=== PATIENT | female | born 1965 | race Caucasian/White ===

== ENCOUNTER → 2016-11-03 | Outpatient (CLI) | payer BC ==
[2016-11-03 13:53] LABS: Basophils % (A) 0 %; CH 30.9; CHCM 32.1; Eosinophils # (A) 0.1 k/uL (0-0.7); Eosinophils % (A) 1 %; HCT 42.5 % (34.0-46.0); HDW 2.31; HGB 13.5 gm/dL (11.4-16.0); Luc % (Auto) 2; Lymphocytes % (A) 30 %; MCH 30.6 pg (25.0-35.0); MCHC 31.7 g/dL (31.0-37.0); MCV 96.7 fL (80.0-100.0); Mean Platelet Volume 7.3; Monocytes # (A) 0.4 k/uL (0-1.0); Monocytes % (A) 4 %; Neutrophils # (A) 6.4 k/uL (1.3-7.7); Neutrophils % (A) 63 %; RDW 13.3 % (11.5-15.5); WBC 10.2 k/uL (3.8-10.6); WBC (Perox) 10.16
[2016-11-03 14:02] LABS: ALT 30 U/L (9-52); AST 28 U/L (14-36); Alkaline Phosphatase 129 U/L (38-126); Anion Gap 13 mmol/L; Blood Urea Nitrogen 20 mg/dL (7-17); Calcium 9.4 mg/dL (8.4-10.2); Carbon Dioxide 25 mmol/L (22-30); Chloride 103 mmol/L (98-107); Glucose 109 mg/dL (74-99); Non-African American GFR(MDRD) >60 (>60 ml/min/1.73 sqM); Sodium 141 mmol/L (137-145); Total Bilirubin 0.6 mg/dL (0.2-1.3); Total Protein 7.5 g/dL (6.3-8.2)
[2016-11-03 14:04] LABS: Potassium 4.2 mmol/L (3.5-5.1); Rheumatoid Factor, Qnt <9 IU/mL (<12)
[2016-11-03 15:03] LABS: Erythrocyte Sedimentation Rate 20 mm/hr (0-20)
== END ==
LOC: LABWHC1 13:01
PROVIDERS: ATTEND Psychiatry & Neurology Neurology
DX: Z51.81 Encounter for therapeutic drug level monitoring (principal); Z79.899 Other long term (current) drug therapy
CPT/HCPCS: 36415; 80053; 85025; 85652; 86038; 86431

== ENCOUNTER → 2017-04-28 | Outpatient (CLI) | payer BC ==
--- NOTE | 2017-04-28 09:00 | CT ---
EXAMINATION TYPE: CT chest wo/w con DATE OF EXAM: 04/28/2017 COMPARISON: 04/16/2012 HISTORY: Pulmonary fibrosis, cough, SOB CT DLP: 341.9 mGycm Automated exposure control for dose reduction was used. CONTRAST: CT scan of the chest is performed without and with IV Contrast, patient injected with 100 mL of Omnip aque 300. FINDINGS: LUNGS: Subsegmental changes are seen involving the lungs. There are multiple punctate 1 to 2 mm pulmo nary nodules noted bilaterally. Subsegmental areas of consolidation are suggestive of scar or atelect asis. Interlobular septal thickening noted compatible with mild chronic interstitial lung disease. No consolidative pneumonia, pleural effusion or pneumothorax. Pleural-based calcifications also noted. MEDIASTINUM: There are no greater than 1 cm hilar or mediastinal lymph nodes. No pericardial effusi on is seen. OTHER: Nonobstructing left renal calculi noted. Surgical clips in the epigastric region. Mediport ca theter noted. 1.1 cm splenic artery aneurysm incidentally noted. Hiatal hernia. IMPRESSION: 1. Interlobular septal thickening predominantly involving the lung bases compatible with interstitial lung disease stable from the appearance of the previous CT the abdomen dated 02/19/2014 2. There are multiple tiny less than 3 mm pulmonary nodules which are too small to characterize. Some of which may been present on the previous exam of 2011. Recommend follow-up exam in 6 months to conf irm stability. 3. Pleural-based calcification correlate for asbestosis related disease.
== END ==
LOC: RADCTMAIN 08:20
PROVIDERS: ATTEND Internal Medicine Geriatric Medicine
DX: J84.9 Interstitial pulmonary disease, unspecified (principal); R91.8 Other nonspecific abnormal finding of lung field; J98.4 Other disorders of lung
CPT/HCPCS: 71270; Q9967

== ENCOUNTER 2017-12-01 10:37 | Day surgery (SDC) | payer BC ==
[2017-11-30 13:44] VITALS: BMI 22.1
[~2017-12-01 10:37] MED LIST: ALBUTEROL NEB (CONC) 2.5 MG/0.5 ML INHALATION ONE; ATROPINE SULFATE 0.4 MG/ML 1 ML VIAL IM ONE; LACTATED RINGERS 1,000 ML IV ONE; LACTATED RINGERS 1,000 ML IV SCH; LIDOCAINE 2% (PF) 20 MG/ML 2 ML AMP INHALATION ONE
[2017-12-01 11:30] VITALS: TEMP 98.2
[2017-12-01] MEDS ORDERED: LIDOCAINE 1% 20 ML VIAL (10MG/ML) FOR IV START INTRADERMA ONE (11:30)
[2017-12-01] MEDS ORDERED: MIDAZOLAM 2 MG/2 ML VIAL ONE (12:08)
[2017-12-01] MEDS ORDERED: PROPOFOL 10 MG/ML 20 ML VIAL IV ONE (12:08)
[2017-12-01] MEDS ORDERED: LIDOCAINE 1% INJ 10MG/ML (20 ML MDV) ONE (12:08)
[2017-12-01] MEDS ORDERED: LIDOCAINE 2% INJ 20 MG/ML INTRATRACH ONE (12:23)
[2017-12-01 12:47] VITALS: RESP 18
[2017-12-01 13:02] VITALS: BP 122/65; PULSE 93
--- NOTE | 2017-12-01 13:49 | PCN ---
PROCEDURE NOTE PROCEDURE: Bronchoscopy airway examination, therapeutic lavage, BAL. PREOPERATIVE DIAGNOSIS: Retained secretions. POSTOPERATIVE DIAGNOSIS: Retained secretions. RESEARCH HYDRAULIC ENGINEER provided general anesthesia and unconscious sedation. The patient's procedure was done in room #2. There was informed consent and universal timeout. After the patient was adequately sedated and being fully monitored, the bronchoscope was inserted through the left nostril. It passed through the left nasopharynx into the oropharynx. The hypopharynx was identified. There were thick secretions noted in the hypopharynx. The hypopharyngeal structures otherwise appeared normal including anterior commissure, true cords, false cords, arytenoids, piriform sinuses, right and left vallecula and epiglottis. After topicalization, bronchoscope was placed through the glottic opening into the trachea. Trachea appeared normal. Trachea daljit was sharp. There were thick secretions noted throughout the trachea. The right and left mainstem were topicalized. The right upper lobe and its 3 segments, the right middle lobe in its 2 segments, the right lower lobe and its 5 segments, left upper lobe proper and its 2 segments, the lingula and its 2 segments and the left lower lobe and its 4 segments all have similar findings of diffuse bronchitis. The mucosa was erythematous and hyperemic. It bled easily. There is vascular engorgement. There is no dominant mass or tumor. There were thick yellow secretions noted throughout. The patient tolerated the procedure well. The BAL was done. The secretions were suctioned with saline. There was some minimal bleeding from the nose. That stopped on its own. There was no immediate complication. The patient will be recovered. The fluid will be sent to the laboratory for analysis. MMODL / IJN: [id number] /
[2017-12-01 15:14] LABS: Appearance,BF Cloudy; Color,BF Red; Nucleated Cells, Body Fluid 6000 /uL
[2017-12-01 15:15] LABS: RBC, Body Fluid 23500 /uL
[2017-12-01 15:17] LABS: Mononuclear WBC,Body Fluid 6 %; Polynuclear WBC,Body Fluid 94 %; Total Cells Counted,Body Fluid 100
== END 2017-12-01 13:27 | disposition home or self-care (01) ==
LOC: ORWHC2ENDO 10:37
PROVIDERS: ATTEND Internal Medicine Critical Care Medicine
DX: J98.8 Other specified respiratory disorders (principal); J40 Bronchitis, not specified as acute or chronic; J47.9 Bronchiectasis, uncomplicated; J98.09 Other diseases of bronchus, not elsewhere classified; J84.10 Pulmonary fibrosis, unspecified; G47.00 Insomnia, unspecified; E03.9 Hypothyroidism, unspecified; K21.9 Gastro-esophageal reflux disease without esophagitis; E78.5 Hyperlipidemia, unspecified; M79.7 Fibromyalgia; F39 Unspecified mood [affective] disorder; Z86.711 Personal history of pulmonary embolism; Z87.442 Personal history of urinary calculi; Z88.1 Allergy status to other antibiotic agents; Z88.8 Allergy status to other drugs, medicaments and biological substances; Z79.890 Hormone replacement therapy; Z79.1 Long term (current) use of non-steroidal anti-inflammatories (NSAID); Z79.51 Long term (current) use of inhaled steroids; Z79.899 Other long term (current) drug therapy; Z79.2 Long term (current) use of antibiotics; Z79.01 Long term (current) use of anticoagulants
CPT/HCPCS: 94640; 87798 ×3; 87496; 87498; 87529; 88108; 88305; 89050; 87252; 87502; 87634; 87070; 87205; 87116; 87102; 87206; 31624; J2001 ×3; J2250; J0461; J2704

== ENCOUNTER → 2018-03-01 | Outpatient (CLI) | payer BC ==
--- NOTE | 2018-03-07 10:13 | MM ---
Reason for exam: screening (asymptomatic). Last mammogram was performed 1 year and 7 months ago. History: Patient is postmenopausal. Taking estrogen for 5 years. Physical Findings: A clinical breast exam by your physician is recommended on an annual basis and results should be correlated with mammographic findings. MG 3D Screening Mammo W/Cad Bilateral CC and MLO view(s) were taken. Prior study comparison: August 04, 2016, bilateral MG screening mammo w CAD. May 15, 2015, bilateral MG screening mammo w CAD. The breast tissue is heterogeneously dense. This may lower the sensitivity of mammography. Finding: There is a high spiculated architectural distortion located 1 cm from the nipple in the subareolar position of the left breast. New finding since August 04, 2016 and May 15, 2015. ASSESSMENT: Incomplete: need additional imaging evaluation, BI-RAD 0 RECOMMENDATION: Special view mammogram of the left breast. If lesion persists on supplemental views, image directed ultrasound is recommended. [facility] will attempt to contact patient to return for supplemental views and ultrasound if indicated.
== END | disposition home or self-care (01) ==
LOC: RADMAMWWP 16:58
PROVIDERS: ATTEND Obstetrics & Gynecology
DX: Z12.31 Encounter for screening mammogram for malignant neoplasm of breast (principal)
CPT/HCPCS: 77063; 77067

== ENCOUNTER → 2018-03-21 | Outpatient (CLI) | payer BC ==
--- NOTE | 2018-03-22 09:22 | MM ---
Reason for exam: additional evaluation requested from abnormal screening. Last mammogram was performed 1 month ago. History: Patient is postmenopausal. Taking estrogen for 5 years. Physical Findings: Nurse did not find any significant physical abnormalities on exam. MG 3D Work Up W/Cad LT Spot compression CC and LM view(s) were taken of the left breast. Prior study comparison: March 01, 2018, bilateral MG 3d screening mammo w/cad. August 04, 2016, bilateral MG screening mammo w CAD. The breast tissue is heterogeneously dense. This may lower the sensitivity of mammography. No distinct lesion persists on additional views. These results were verbally communicated with the patient and result sheet given to the patient on 03/21/18. ASSESSMENT: Negative, BI-RAD 1 RECOMMENDATION: Return to routine screening mammogram schedule for both breasts.
== END | disposition home or self-care (01) ==
LOC: RADMAMWWP 08:47
PROVIDERS: ATTEND Obstetrics & Gynecology
DX: R92.8 Other abnormal and inconclusive findings on diagnostic imaging of breast (principal)
CPT/HCPCS: 77061; 77065

== ENCOUNTER 2018-03-30 09:54 | Inpatient (IN) | payer BC ==
[2018-03-30] MEDS ORDERED: HYDROcodone/APAP 5-325MG 1 EACH TAB PO PRN (12:42)
--- NOTE | 2018-03-30 12:42 | P.HPIM ---
History of Present Illness H&P Date: 03/30/18 Chief Complaint: COPD exacerbation This is a 52-year-old female one of Dr. Guadalupe with a previous medical history significant for 3 few bronchial malacia, pulmonary fibrosis, interstitial lung disease, severe COPD with asthma, hyperlipidemia, GERD, osteopenia, patient also had recurrent pneumonia in the past with bronchiectasis as well she was seen in the office of Dr. Mckay is today with significant shortness of breath her oxygen saturation were dropping to 82%, so she was sent directly to the hospital for direct admission and to go for bronchoscopy tomorrow morning with Dr. Hughes S patient does appear to have a significant respiratory distress with significant rhonchi an audible expiratory wheezes, she will be started on IV antibiotic as well as IV Solu-Medrol and she would be scheduled for bronchoscopy and BAL tomorrow morning. Review of Systems Constitutional: Reports fatigue, Reports weakness Ears: deny: decreased hearing Ears, nose, mouth and throat: Denies dysphagia, Denies neck lump, Denies sore throat, Denies vertigo Cardiovascular: Reports decreased exercise tolerance, Reports dyspnea on exertion, Reports shortness of breath, Denies chest pain, Denies rapid heart beat, Denies syncope Respiratory: Reports congestion, Reports cough, Reports cough with sputum, Reports home oxygen, Reports wheezing, Denies sleep apnea, Denies snoring Gastrointestinal: Denies BRBPR, Denies heartburn, Denies melena, Denies nausea, Denies vomiting Genitourinary: Denies dysuria Musculoskeletal: Denies myalgias Musculoskeletal: absent: ankle pain, ankle stiffness, ankle swelling, elbow pain , elbow stiffness, elbow swelling, foot pain, foot stiffness, foot swelling, hand pain, hand stiffness, hand swelling, hip pain, hip stiffness, hip swelling , knee pain, knee stiffness, knee swelling, shoulder pain, shoulder stiffness, shoulder swelling, wrist pain, wrist stiffness, wrist swelling Integumentary: Denies pruritus, Denies rash Neurological: Denies numbness, Denies weakness Psychiatric: Denies anxiety, Denies depression Endocrine: Denies fatigue, Denies weight change Past Medical History Past Medical History: Asthma, COPD, Fibromyalgia, GERD/Reflux, Hyperlipidemia, Mitral Valve Prolapse (MVP), Osteoarthritis (OA), Pneumonia, Pulmonary Embolus ( PE), Respiratory Disorder, Thyroid Disorder Additional Past Medical History / Comment(s): Interstitial lung disease, tracheobronchomalacia, pulmonary fibrosis, bronchiectasis, severe COPD, mitral valve prolapse, muscle pain/arthritis bilateral hips and neck, nephrolithiasis with surgery, insomnia, hypothyroid, sinus allergies. History of Any Multi-Drug Resistant Organisms: MRSA Date of last positivie culture/infection: 05/31/17 MDRO Source:: bronch washing Past Surgical History: Appendectomy, Heart Catheterization, Orthopedic Surgery Additional Past Surgical History / Comment(s): Bronchoscopies/BALs, R lung bx, R chest port, 1993 cardiac cath-normal, R knee arthroscopy, kidney stone removal , D&C. Past Anesthesia/Blood Transfusion Reactions: No Reported Reaction, Motion Sickness Additional Past Anesthesia/Blood Transfusion Reaction / Comment(s): Pt has received blood in past without reaction. Smoking Status: Never smoker - Past Family History Father Family Medical History: CVA/TIA Additional Family Medical History / Comment(s): Father 09/2017 from a massive CVA. He was 85-year-old. Mother Family Medical History: AFIB (mother is alive she is 84-year-old history of hypertension and A. fib.) Additional Family Medical History / Comment(s): Mother has a pacemaker. Brother(s) Family Medical History: No Reported History (patient has one brother who is overweight and cardio megaly.) Sister(s) Family Medical History: Neurologic Disorder (patient has 2 sisters one of them with MS.) Daughter(s) Family Medical History: No Reported History (patient has 2 daughters no major medical problems.) Medications and Allergies Home Medications Medication Instructions Recorded Confirmed Type Atorvastatin [Lipitor] 10 mg PO DAILY 04/16/14 03/30/18 History Cyclobenzaprine [Flexeril] 10 mg PO HS 04/16/14 03/30/18 History DULoxetine HCL [Duloxetine HCl] 60 mg PO DAILY 04/16/14 03/30/18 History Denosumab [Prolia] 60 mg SQ Q180D 04/16/14 03/30/18 History Estrogen,Con/M-Progest Acet 1 cap PO DAILY 04/16/14 03/30/18 History [Prempro 0.45-1.5 mg Tablet] Gabapentin 600 mg PO HS 04/16/14 03/30/18 History Levothyroxine Sodium [Synthroid] 50 mcg PO DAILY 04/16/14 03/30/18 History Meloxicam 7.5 mg PO BID 04/16/14 03/30/18 History Montelukast [Singulair] 10 mg PO DAILY 04/16/14 03/30/18 History Fluticasone/Vilanterol [Breo 1 puff INHALATION RT-DAILY 03/08/17 03/30/18 History Ellipta 200-25 Mcg INH] Warfarin Sodium 1.25 mg PO HS 05/31/17 03/30/18 History Gabapentin [Neurontin] 300 mg PO QAM 06/08/17 03/30/18 History RABEprazole SODIUM [Aciphex] 20 mg PO HS 11/30/17 03/30/18 History Zolpidem [Ambien] 5 mg PO HS PRN 11/30/17 03/30/18 History Diazepam [Valium] 5 mg PO HS 03/30/18 03/30/18 History HYDROcodone/APAP 5-325MG [[place] 1 tab PO DAILY PRN 03/30/18 03/30/18 History 5-325] Allergies Allergy/AdvReac Type Severity Reaction Status Date / Time erythromycin base Allergy Intermediate Rash/Hives Verified 03/30/18 11:36 metoclopramide HCl Allergy MUSCLE Verified 03/30/18 11:36 [From Reglan] SPASMS prochlorperazine edisylate Allergy MUSCLE Verified 03/30/18 11:36 [From Compazine] SPASMS prochlorperazine maleate Allergy MUSCLE Verified 03/30/18 11:36 [From Compazine] SPASMS Physical Exam Vitals: Vital Signs Temp Pulse Resp BP Pulse Ox 03/30/18 10:15 98.8 F 92 18 125/82 93 L Intake and Output 03/29/18 03/30/18 03/30/18 22:59 06:59 14:59 Other: Weight 56.245 kg - Constitutional General appearance: mild distress, thin - EENT Eyes: anicteric sclerae, EOMI, PERRLA, no ptosis, no scleral icterus, normal appearance ENT: hearing grossly normal, NA/AT, normal oropharynx, no thrush Ears: bilateral: normal - Neck Neck: no lymphadenopathy, normal ROM, no rigidity, no stridor, no thyromegaly Carotids: bilateral: upstroke normal Thyroid: bilateral: normal size - Respiratory Respiratory: bilateral: rales, rhonchi, wheezing, prolonged expiration, negative : diminished, dullness - Cardiovascular Rhythm: regular Heart sounds: normal: S1, S2 Abnormal Heart Sounds: systolic murmur, click - Gastrointestinal General gastrointestinal: normal bowel sounds, soft, no splenomegaly, no tenderness, no umbilical hernia, no ventral hernia - Integumentary Integumentary: normal, normal turgor - Neurologic Neurologic: CNII-XII intact - Musculoskeletal Musculoskeletal: strength equal bilaterally - Psychiatric Psychiatric: A&O x's 3, appropriate affect, intact judgment & insight Thrombosis Risk Factor Assmnt - DVT/VTE Prophylaxis DVT/VTE Prophylaxis: Pharmacologic Prophylaxis ordered, Mechanical Prophylaxis ordered - Choose All That Apply Any of the Below Risk Factors Present?: Yes Each Factor Represents 1 point: Abnormal pulmonary function (COPD), Age 41-60 years, Serious lung disease incl. pneumonia (< 1month) Other Risk Factors: Yes Each Risk Factor Represents 3 Points: History of DVT/PE Other congenital or acquired thrombophilia - If yes, enter type in comment: No Thrombosis Risk Factor Assessment Total Risk Factor Score: 6 Thrombosis Risk Factor Assessment Level: High Risk Assessment and Plan Assessment: Assessment and plan: 1. Acute respiratory failure secondary to trach tube bronchomalacia with Mari lung disease and pulmonary fibrosis and possible recurrent bronchitis. Patient would be started on IV antibiotic since the patient had a prior history of pseudomonas as well as MRSA she will be started on vancomycin as well as the less indicated otherwise bipolar medicine, we will start the patient centimeters 60 mg IV push every 6 hours, nebulized treatment around-the- clock, continue with oxygen support 24 hours, bronchoscopy to be scheduled per pulmonary medicine. 2. History of pulmonary embolism. We'll check the patient's INR hold Coumadin if she is scheduled for bronchoscopy tomorrow morning. 3. Hyperlipidemia. Continue patient on Lipitor 10 mg orally once every day. 4. Osteopenia. Patient is currently on probably a twice a year. Along with calcium and vitamin D. 5. Hypothyroidism. Continue patient on Synthroid 50 g orally once every day. 6. Mitral valve prolapse with regurgitation. Stable at this point. 7. Osteoarthritis. Currently on meloxicam. 8. Fibromyalgia. Continue patient on gabapentin 600 mg bedtime along with Flexeril 10 mg orally once a bedtime use [place] as needed for pain control. 9. GERD. Continue AcipHex 20 mg orally once every day. 10. DVT prophylaxis. Coumadin and check PT and INR, she may need to go on Lovenox based on her INR. 11. GI prophylaxis. Continue PPI. 12. Admit to inpatient. Estimate length of stay 2 midnights. 13. Full code.
--- NOTE | 2018-03-30 13:21 | P.CNPUL ---
History of Present Illness Consult date: 03/30/18 Reason for consult: dyspnea History of present illness: This is a 52-year-old female patient, a lifetime nonsmoker with known history of tracheobronchomalacia in addition to recurrent pneumonias and respiratory tract infections who was seen today in the office because of increased cough chest tightness wheezing shortness of breath mucous plugging. She had a temperature with a fever of 100.5 and her pulse ox was around 86%. The patient was using her nebulizer medication quite extensively without much help. For that reason she was noted to hospital to be started on IV antibiotics. She is not having any chest pain. No pleurisy. No hemoptysis. Blood work in the chest x-ray has not been done yet. I reviewed her records from the office. I also reviewed the bronchoscopies that the patient has had and previous cultures of indicated growth with MRSA and Haemophilus influenza. I do not see any growth with pseudomonas. The patient had a CAT scan of the chest on 2017 that showed some interstitial changes probably postinflammatory related to recurrent infections. No evidence of any pulmonary fibrosis. No evidence of any significant bronchiectasis. She is not known to have any form of immunosuppression. No history of connective tissue disease. Lifetime nonsmoker. No history of childhood asthma. Review of Systems Constitutional: Reports fatigue, Reports weakness Ears: deny: decreased hearing Ears, nose, mouth and throat: Denies dysphagia, Denies neck lump, Denies sore throat, Denies vertigo Cardiovascular: Reports decreased exercise tolerance, Reports dyspnea on exertion, Reports shortness of breath, Denies chest pain, Denies rapid heart beat, Denies syncope Respiratory: Reports congestion, Reports cough, Reports cough with sputum, Reports home oxygen, Reports wheezing, Denies sleep apnea, Denies snoring Gastrointestinal: Denies BRBPR, Denies heartburn, Denies melena, Denies nausea, Denies vomiting Genitourinary: Denies dysuria Musculoskeletal: Denies myalgias Musculoskeletal: absent: ankle pain, ankle stiffness, ankle swelling, elbow pain , elbow stiffness, elbow swelling, foot pain, foot stiffness, foot swelling, hand pain, hand stiffness, hand swelling, hip pain, hip stiffness, hip swelling , knee pain, knee stiffness, knee swelling, shoulder pain, shoulder stiffness, shoulder swelling, wrist pain, wrist stiffness, wrist swelling Integumentary: Denies pruritus, Denies rash Neurological: Denies numbness, Denies weakness Psychiatric: Denies anxiety, Denies depression Endocrine: Denies fatigue, Denies weight change Past Medical History Past Medical History: Asthma, COPD, Fibromyalgia, GERD/Reflux, Hyperlipidemia, Mitral Valve Prolapse (MVP), Osteoarthritis (OA), Pneumonia, Pulmonary Embolus ( PE), Respiratory Disorder, Thyroid Disorder Additional Past Medical History / Comment(s): tracheobronchomalacia, chronic interstitial changes and no evidence of any significant pulmonary fibrosis based on previous CAT scan of the chest, mitral valve prolapse, muscle pain/ arthritis bilateral hips and neck, nephrolithiasis with surgery, insomnia, hypothyroid, sinus allergies. History of Any Multi-Drug Resistant Organisms: MRSA Date of last positivie culture/infection: 05/31/17 MDRO Source:: bronch washing Past Surgical History: Appendectomy, Heart Catheterization, Orthopedic Surgery Additional Past Surgical History / Comment(s): Bronchoscopies/BALs, R lung bx, R chest port, 1993 cardiac cath-normal, R knee arthroscopy, kidney stone removal , D&C. Past Anesthesia/Blood Transfusion Reactions: No Reported Reaction, Motion Sickness Additional Past Anesthesia/Blood Transfusion Reaction / Comment(s): Pt has received blood in past without reaction. Smoking Status: Never smoker - Past Family History Father Family Medical History: CVA/TIA Additional Family Medical History / Comment(s): Father 09/2017 from a massive CVA. He was 85-year-old. Brother(s) Family Medical History: No Reported History (patient has one brother who is overweight and cardio megaly.) Sister(s) Family Medical History: Neurologic Disorder (patient has 2 sisters one of them with MS.) Daughter(s) Family Medical History: No Reported History (patient has 2 daughters no major medical problems.) Mother Family Medical History: AFIB (mother is alive she is 84-year-old history of hypertension and A. fib.) Additional Family Medical History / Comment(s): Mother has a pacemaker. Medications and Allergies Home Medications Medication Instructions Recorded Confirmed Type Atorvastatin [Lipitor] 10 mg PO DAILY 04/16/14 03/30/18 History Cyclobenzaprine [Flexeril] 10 mg PO HS 04/16/14 03/30/18 History DULoxetine HCL [Duloxetine HCl] 60 mg PO DAILY 04/16/14 03/30/18 History Denosumab [Prolia] 60 mg SQ Q180D 04/16/14 03/30/18 History Estrogen,Con/M-Progest Acet 1 cap PO DAILY 04/16/14 03/30/18 History [Prempro 0.45-1.5 mg Tablet] Gabapentin 600 mg PO HS 04/16/14 03/30/18 History Levothyroxine Sodium [Synthroid] 50 mcg PO DAILY 04/16/14 03/30/18 History Meloxicam 7.5 mg PO BID 04/16/14 03/30/18 History Montelukast [Singulair] 10 mg PO DAILY 04/16/14 03/30/18 History Fluticasone/Vilanterol [Breo 1 puff INHALATION RT-DAILY 03/08/17 03/30/18 History Ellipta 200-25 Mcg INH] Warfarin Sodium 1.25 mg PO HS 05/31/17 03/30/18 History Gabapentin [Neurontin] 300 mg PO QAM 06/08/17 03/30/18 History RABEprazole SODIUM [Aciphex] 20 mg PO HS 11/30/17 03/30/18 History Zolpidem [Ambien] 5 mg PO HS PRN 11/30/17 03/30/18 History Diazepam [Valium] 5 mg PO HS 03/30/18 03/30/18 History HYDROcodone/APAP 5-325MG [[place] 1 tab PO DAILY PRN 03/30/18 03/30/18 History 5-325] Allergies Allergy/AdvReac Type Severity Reaction Status Date / Time erythromycin base Allergy Intermediate Rash/Hives Verified 03/30/18 11:36 metoclopramide HCl Allergy MUSCLE Verified 03/30/18 11:36 [From Reglan] SPASMS prochlorperazine edisylate Allergy MUSCLE Verified 03/30/18 11:36 [From Compazine] SPASMS prochlorperazine maleate Allergy MUSCLE Verified 03/30/18 11:36 [From Compazine] SPASMS Physical Exam Vitals: Vital Signs Temp Pulse Resp BP Pulse Ox 03/30/18 10:15 98.8 F 92 18 125/82 93 L Intake and Output 03/29/18 03/30/18 03/30/18 22:59 06:59 14:59 Other: Weight 56.245 kg - Constitutional General appearance: mild distress, thin - EENT Eyes: anicteric sclerae, EOMI, PERRLA, no ptosis, no scleral icterus, normal appearance ENT: hearing grossly normal, NA/AT, normal oropharynx, no thrush Ears: bilateral: normal - Neck Neck: no lymphadenopathy, normal ROM, no rigidity, no stridor, no thyromegaly Carotids: bilateral: upstroke normal Thyroid: bilateral: normal size - Respiratory Respiratory: bilateral: rales, rhonchi, wheezing, prolonged expiration, negative : diminished, dullness - Cardiovascular Rhythm: regular Heart sounds: normal: S1, S2 Abnormal Heart Sounds: systolic murmur, click - Gastrointestinal General gastrointestinal: normal bowel sounds, soft, no splenomegaly, no tenderness, no umbilical hernia, no ventral hernia - Integumentary Integumentary: normal, normal turgor - Neurologic Neurologic: CNII-XII intact - Musculoskeletal Musculoskeletal: strength equal bilaterally - Psychiatric Psychiatric: A&O x's 3, appropriate affect, intact judgment & insight Assessment and Plan Plan: Assessment 1 severe tracheal bronchomalacia 2 recurrent pneumonias with infections consistent with Haemophilus influenza and MRSA. Last bronchoscopy was done in November 2017 and the patient had Haemophilus influenza and her last MRSA infection was back in May 2017 3 acute shortness of breath probably related to an acute tracheal bronchitis/ pneumonia on top of severe tracheal bronchomalacia 4 chronic interstitial changes in lung bases probably due to previous recurrent pneumonias. No evidence of any chronic ILD 5 acute hypoxic respiratory failure 6 hypothyroidism 7 acid reflux 8 previous history of a palmar embolism and the patient is on long-term and to coagulation with warfarin. PT/INR still pending for now. Plan Check serum immunoglobulin levels to rule out acquired hypogammaglobulinemia. Previous connective tissue disease markers have been negative. Proceed with bronchoscopy in a.m. for therapeutic airway suctioning, pulmonary toileting and the same time collect appropriate samples for further antibiotic treatment. Put the patient on DuoNeb neb estimate [id number]. IV Solu Medrol. Empiric antibiotic coverage with IV Zosyn. Check PT/INR. Keep nothing by mouth after midnight for bronchoscopy. All of the patient medications will be resumed. Obtain a baseline chest x-ray. We'll continue to follow.
[2018-03-30 13:41] VITALS: BMI 21.9
--- NOTE | 2018-03-30 13:54 | XR ---
EXAMINATION TYPE: XR chest 2V DATE OF EXAM: 03/30/2018 COMPARISON: 06/01/2012 HISTORY: Shortness of breath TECHNIQUE: Frontal and lateral views of the chest are obtained. FINDINGS: Scattered senescent parenchymal changes noted. Hyperinflation compatible with COPD. Right middle lobe infiltrate noted. Correlate for underlying pneumonia or chronic pneumonia. Follow-u p until resolution advised. Consider CT if resolution is not seen. Heart size is stable. Mediastinal structures are stable and grossly unremarkable. No evidence for hilar prominence. Degenerative changes dorsal spine. MediPort catheter is in place. IMPRESSION: 1. Right middle lobe infiltrate noted. Correlate for underlying pneumonia or chronic pneumonia. Follo w-up until resolution advised.
[2018-03-30 14:07] LABS: INR 2.3 (<1.2); Prothrombin Time 20.5 sec (9.0-12.0)
[2018-03-30 14:09] LABS: Basophils % (A) 0 %; Eosinophils # (A) 0.2 k/uL (0-0.7); Eosinophils % (A) 1 %; HGB 12.9 gm/dL (11.4-16.0); Hypochromasia Slight; Lymphocytes # (A) 2.2 k/uL (1.0-4.8); Lymphocytes % (A) 16 %; MCH 29.4 pg (25.0-35.0); MCHC 31.5 g/dL (31.0-37.0); MCV 93.2 fL (80.0-100.0); Monocytes # (A) 0.7 k/uL (0-1.0); Monocytes % (A) 6 %; Neutrophils % (A) 76 %; Platelet Count 305 k/uL (150-450); RDW 14.9 % (11.5-15.5); WBC 13.2 k/uL (3.8-10.6)
[2018-03-30 14:25] LABS: ALT 33 U/L (9-52); AST 26 U/L (14-36); Alkaline Phosphatase 149 U/L (38-126); Anion Gap 10 mmol/L; Blood Urea Nitrogen 17 mg/dL (7-17); Calcium 9.2 mg/dL (8.4-10.2); Carbon Dioxide 20 mmol/L (22-30); Chloride 108 mmol/L (98-107); Glucose 126 mg/dL (74-99); Potassium 4.2 mmol/L (3.5-5.1); Sodium 138 mmol/L (137-145); Total Bilirubin 0.9 mg/dL (0.2-1.3); Total Protein 7.2 g/dL (6.3-8.2)
[2018-03-30] MEDS: methylPREDNISolone SOD SUCCI 125 MG/2 ML VIAL IV SCH ×2 (14:47→17:41)
[2018-03-30] MEDS: PIPERACILLIN-TAZOBACTAM 3.375 GM in DEXTROSE/WATER 1 50ML.BAG IVPB SCH (14:47)
[2018-03-30] MEDS: IPRATROPIUM-ALBUTEROL 3 ML NEB INHALATION SCH ×2 (15:29→19:40)
[2018-03-30] MEDS: FORMOTEROL FUMARATE 20 MCG/2 ML NEBU INHALATION SCH (19:40)
[2018-03-30] MEDS: DIAZEPAM 5 MG TAB PO SCH (20:48)
[2018-03-30] MEDS: GABAPENTIN 300 MG CAP PO SCH (20:48)
[2018-03-30] MEDS: MELOXICAM 7.5 MG TAB PO SCH (20:48)
[2018-03-30] MEDS: CYCLOBENZAPRINE 10 MG TAB PO SCH (20:48)
[2018-03-30] MEDS: PANTOPRAZOLE 40 MG TABLET PO SCH (20:49)
[2018-03-31] MEDS: ZOLPIDEM 10 MG TAB PO PRN ×2 (00:11→21:56)
[2018-03-31] MEDS: methylPREDNISolone SOD SUCCI 125 MG/2 ML VIAL IV SCH ×5 (00:12→23:45)
[2018-03-31] MEDS: PIPERACILLIN-TAZOBACTAM 3.375 GM in DEXTROSE/WATER 1 50ML.BAG IVPB SCH ×3 (00:21→15:44)
[2018-03-31] MEDS: GABAPENTIN 300 MG CAP PO SCH ×2 (07:24→21:42)
[2018-03-31] MEDS: MELOXICAM 7.5 MG TAB PO SCH ×2 (07:25→21:43)
[2018-03-31] MEDS: DULoxetine HCL 60 MG CAPSULE.DR PO SCH (07:25)
[2018-03-31] MEDS: LEVOTHYROXINE 50 MCG TAB PO SCH (07:29)
[2018-03-31] MEDS: MONTELUKAST 10 MG TAB PO SCH (07:30)
[2018-03-31] MEDS: ATORVASTATIN 10 MG TAB PO SCH (07:30)
[2018-03-31 07:31] LABS: HCT 37.6 % (34.0-46.0); Hypochromasia Slight; MCHC 31.9 g/dL (31.0-37.0); MCV 94.2 fL (80.0-100.0); Platelet Count 280 k/uL (150-450); RBC 3.99 m/uL (3.80-5.40); RDW 14.9 % (11.5-15.5); WBC 11.8 k/uL (3.8-10.6)
[2018-03-31 07:43] LABS: ALT 25 U/L (9-52); AST 21 U/L (14-36); Albumin 3.5 g/dL (3.5-5.0); Alkaline Phosphatase 123 U/L (38-126); Anion Gap 11 mmol/L; Blood Urea Nitrogen 16 mg/dL (7-17); Calcium 8.5 mg/dL (8.4-10.2); Carbon Dioxide 19 mmol/L (22-30); Chloride 110 mmol/L (98-107); Glucose 144 mg/dL (74-99); INR 2.3 (<1.2); Potassium 4.3 mmol/L (3.5-5.1); Prothrombin Time 20.6 sec (9.0-12.0); Sodium 140 mmol/L (137-145); Total Bilirubin 0.5 mg/dL (0.2-1.3); Total Protein 6.5 g/dL (6.3-8.2)
[2018-03-31] MEDS: IPRATROPIUM-ALBUTEROL 3 ML NEB INHALATION SCH ×4 (08:16→20:24)
[2018-03-31] MEDS: FORMOTEROL FUMARATE 20 MCG/2 ML NEBU INHALATION SCH ×2 (08:16→20:24)
[2018-03-31] MEDS ORDERED: LIDOCAINE 1% INJ 10MG/ML (20 ML MDV) ONE (12:33)
[2018-03-31] MEDS ORDERED: PROPOFOL 10 MG/ML 20 ML VIAL IV ONE (12:33)
[2018-03-31] MEDS ORDERED: MIDAZOLAM 2 MG/2 ML VIAL ONE (12:33)
[2018-03-31] MEDS ORDERED: IV FLUID CONTINUATION 200 ML IV ONE (12:33)
[2018-03-31] MEDS ORDERED: LIDOCAINE 2% INJ 20 MG/ML INTRATRACH ONE (12:42)
[2018-03-31] MEDS ORDERED: IV FLUID CONTINUATION 1,000 ML IV ONE (12:50)
[2018-03-31] MEDS ORDERED: VANCOMYCIN IV PER PHARMACY 1 EACH MISC MISCELLANE PRN (12:54)
--- NOTE | 2018-03-31 12:54 | P.PCN ---
Date of Procedure: 03/31/18 Preoperative Diagnosis: Bilateral pneumonia Postoperative Diagnosis: Bilateral pneumonia Procedure(s) Performed: Flexible bronchoscopy, bronchial secretions collected and therapeutic airway suctioning was done Anesthesia: MAC Surgeon: Dominga Hughes Estimated Blood Loss (ml): 0 Pathology: other Condition: stable Disposition: floor Indications for Procedure: Bilateral pneumonia Operative Findings: This is a procedure was done under conscious sedation. The patient presented yesterday with bilateral pneumonia and copious amount of rest or secretions or mucous plugging. She was unable to bring up and cough out or secretions. Based on that, we decided to proceed with the flexible bronchoscope today This procedure was done in the bronchoscopy suite. Anesthetics was given by [employer] and the patient was given a combination of Versed and propofol. After achieving adequate sedation, the bronchoscope was inserted through the right nostril was advanced into the upper airway. Examination of the posterior oropharynx, larynx, epiglottis, arytenoids, and the vocal cords was done and all of the upper airway structures were within normal limits. A total of 2 mL of 1% lidocaine was applied to the vocal cords and following that the bronchoscope was advanced into the upper trachea. Once the bronchoscope was advanced into the trachea, copious amount of purulent respiratory material was identified occupying the entire tracheobronchial tree and was mainly accumulating in the distal trachea and the bilateral mainstem bronchi. At this point, therapeutic airway suctioning was done. The secretions were irrigated with saline and/or suctioned out. Approximately 25-30 mL of purulent brownish material was aspirated from the lung. Therapeutic airway suctioning was done. Following that an airway inspection was done. The airways were visualized included the main trachea, bilateral mainstem bronchi, right upper lobe bronchus , bronchus intermedius, right middle lobe bronchus, right lower lobe bronchus, left upper lobe bronchus, left lower lobe bronchus along with various segments and subsegments. There was extensive mucosal inflammatory changes throughout the lower lobes bilaterally and also in the right middle lobe and the left upper lobe. The bronchial mucosa was very much inflamed, irritated and erythematous. Areas of superficial hemorrhage he was also seen from the extensive inflammation. After completing the therapeutic airway suctioning, the airways were cleared of any residual purulent material and the bronchoscope was removed and the patient was transferred to recovery in stable condition. The diagnosis remains bilateral pneumonia. Continue Zosyn. Add vancomycin. The patient will have a follow-up chest x-ray in the morning. The bronchial aspirates will be sent for microbial analysis.
--- NOTE | 2018-03-31 12:58 | P.PN ---
Subjective Progress Note Date: 03/31/18 This is a 52-year-old female patient, a lifetime nonsmoker with known history of tracheobronchomalacia in addition to recurrent pneumonias and respiratory tract infections who was seen today in the office because of increased cough chest tightness wheezing shortness of breath mucous plugging. She had a temperature with a fever of 100.5 and her pulse ox was around 86%. The patient was using her nebulizer medication quite extensively without much help. For that reason she was noted to hospital to be started on IV antibiotics. She is not having any chest pain. No pleurisy. No hemoptysis. Blood work in the chest x-ray has not been done yet. I reviewed her records from the office. I also reviewed the bronchoscopies that the patient has had and previous cultures of indicated growth with MRSA and Haemophilus influenza. I do not see any growth with pseudomonas. The patient had a CAT scan of the chest on 2017 that showed some interstitial changes probably postinflammatory related to recurrent infections. No evidence of any pulmonary fibrosis. No evidence of any significant bronchiectasis. She is not known to have any form of immunosuppression. No history of connective tissue disease. Lifetime nonsmoker. No history of childhood asthma. On 03/31/2018, the patient is still the same. Still symptomatic short of breath congested and quite uncomfortable. The patient was brought into the bronchoscopy suite and a bronchoscopy was done. The bronchial port was given separately. In summary, the patient was found to have copious amount of purulent respiratory secretions throughout the airways and therapeutic airway suctioning was done and more than 30 mL of purulent material was aspirated without any major difficulties. The bronchial mucosa was very much inflamed erythematous throughout mainly in the lower lobes and to some extent in the right middle lobe and the left upper lobe. The patient had a chest x-ray that showed right middle lobe/lower lobe pneumonia in addition to a left lower lobe infiltration. She is on Zosyn. She is on bronchodilators. She is on IV Solu- Medrol. Vancomycin will be added. The bronchial aspirates will be sent for cultures and analysis. Objective - Vital Signs Vital signs: Vital Signs Temp 98.0 F 03/31/18 05:00 Pulse 82 03/31/18 08:41 Resp 16 03/31/18 05:00 BP 108/63 03/31/18 05:00 Pulse Ox 91 L 03/31/18 05:00 Intake & Output 03/30/18 03/31/18 03/31/18 18:59 06:59 18:59 Intake Total 1120 250 Balance 1120 250 Weight 56.245 kg 56.245 kg Intake: IV 200 Intake, IV Titration 50 50 Amount Piperacillin-Tazobactam 3 50 50 .375 gm In Dextrose/Water 1 50ml.bag @ 12.5 mls/hr IVPB Q8HR [facility] Rx#: [id number] Oral 1070 0 Other: Voiding Method Toilet Toilet # Voids 1 1 2 - Exam - Constitutional General appearance: mild distress, thin - EENT Eyes: anicteric sclerae, EOMI, PERRLA, no ptosis, no scleral icterus, normal appearance ENT: hearing grossly normal, NA/AT, normal oropharynx, no thrush Ears: bilateral: normal - Neck Neck: no lymphadenopathy, normal ROM, no rigidity, no stridor, no thyromegaly Carotids: bilateral: upstroke normal Thyroid: bilateral: normal size - Respiratory Respiratory: bilateral: rales, rhonchi, wheezing, prolonged expiration, negative : diminished, dullness - Cardiovascular Rhythm: regular Heart sounds: normal: S1, S2 Abnormal Heart Sounds: systolic murmur, click - Gastrointestinal General gastrointestinal: normal bowel sounds, soft, no splenomegaly, no tenderness, no umbilical hernia, no ventral hernia - Integumentary Integumentary: normal, normal turgor - Neurologic Neurologic: CNII-XII intact - Musculoskeletal Musculoskeletal: strength equal bilaterally - Psychiatric Psychiatric: A&O x's 3, appropriate affect, intact judgment & insight - Labs CBC & Chem 7: 03/31/18 07:15 03/31/18 07:15 Labs: Abnormal Lab Results - Last 24 Hours (Table) 03/30/18 03/30/18 03/30/18 Range/Units 13:50 13:50 13:50 WBC 13.2 H (3.8-10.6) k/uL Neutrophils # 10.0 H (1.3-7.7) k/uL PT 20.5 H (9.0-12.0) sec INR 2.3 H (<1.2) Chloride 108 H (98-107) mmol/L Carbon Dioxide 20 L (22-30) mmol/L Glucose 126 H (74-99) mg/dL Alkaline Phosphatase 149 H (38-126) U/L 03/31/18 03/31/18 03/31/18 Range/Units 07:15 07:15 07:15 WBC 11.8 H (3.8-10.6) k/uL Neutrophils # (1.3-7.7) k/uL PT 20.6 H (9.0-12.0) sec INR 2.3 H (<1.2) Chloride 110 H (98-107) mmol/L Carbon Dioxide 19 L (22-30) mmol/L Glucose 144 H (74-99) mg/dL Alkaline Phosphatase (38-126) U/L Assessment and Plan Plan: Assessment 1 severe tracheal bronchomalacia, in addition to bilateral lower lobe pneumonia and right middle lobe pneumonia. Bronchoscopy was done and copious amount of purulent respiratory secretions were aspirated consistent with underlying diagnosis of pneumonia. Currently on Zosyn. Vancomycin will be added. 2 recurrent pneumonias with infections consistent with Haemophilus influenza and MRSA. Last bronchoscopy was done in November 2017 and the patient had Haemophilus influenza and her last MRSA infection was back in May 2017 3 acute shortness of breath probably related to an acute tracheal bronchitis/ pneumonia on top of severe tracheal bronchomalacia 4 chronic interstitial changes in lung bases probably due to previous recurrent pneumonias. No evidence of any chronic ILD 5 acute hypoxic respiratory failure 6 hypothyroidism 7 acid reflux 8 previous history of a palmar embolism and the patient is on long-term and to coagulation with warfarin. PT/INR still pending for now. Plan Bronchoscopy was completed. The patient had therapeutic airway suctioning. Purulent material was aspirated from the patient's lung. Cultures will be sent and the patient will be started on a combination of Zosyn and vancomycin. Continue DuoNeb neb treatments around the clock. Continue IV cerebral Medrol. Offer the patient a flutter valve. We'll continue to follow.
[2018-03-31] MEDS: VANCOMYCIN 1,000 MG in SODIUM CHLORIDE 0.9% 250 ML IVPB SCH ×2 (13:32→21:52)
--- NOTE | 2018-03-31 18:22 | P.PN ---
Subjective Progress Note Date: 03/31/18 Chief Complaint: COPD exacerbation This is a 52-year-old female one of Dr. Guadalupe with a previous medical history significant for 3 few bronchial malacia, pulmonary fibrosis, interstitial lung disease, severe COPD with asthma, hyperlipidemia, GERD, osteopenia, patient also had recurrent pneumonia in the past with bronchiectasis as well she was seen in the office of Dr. Mckay is today with significant shortness of breath her oxygen saturation were dropping to 82%, so she was sent directly to the hospital for direct admission and to go for bronchoscopy tomorrow morning with Dr. Hughes S patient does appear to have a significant respiratory distress with significant rhonchi an audible expiratory wheezes, she will be started on IV antibiotic as well as IV Solu-Medrol and she would be scheduled for bronchoscopy and BAL tomorrow morning. 8 25: Patient underwent bronchoscopy today by Dr. Hughes, copious amount of purulent material obtained, sent for cultures, patient noted to have improvement of shortness of breath no pleurisy this time, currently on steroids solid Medrol 60 mg every 6 hours, Objective - Vital Signs Vital signs: Vital Signs Temp 98.0 F 03/31/18 05:00 Pulse 89 03/31/18 13:00 Resp 18 03/31/18 13:00 BP 106/51 03/31/18 13:00 Pulse Ox 91 L 03/31/18 13:00 Intake & Output 03/30/18 03/31/18 03/31/18 18:59 06:59 18:59 Intake Total 1120 250 Balance 1120 250 Weight 56.245 kg 56.245 kg Intake: IV 200 Intake, IV Titration 50 50 Amount Piperacillin-Tazobactam 3 50 50 .375 gm In Dextrose/Water 1 50ml.bag @ 12.5 mls/hr IVPB Q8HR [facility] Rx#: [id number] Oral 1070 0 Other: Voiding Method Toilet Toilet # Voids 1 1 2 - Constitutional General appearance: Present: average body habitus, cooperative, no acute distress - EENT Eyes: Present: EOMI, PERRLA, normal appearance ENT: Present: NA/AT, normal oropharynx - Neck Neck: Present: normal ROM Carotids: bilateral: bruit absent Thyroid: bilateral: normal size - Respiratory Respiratory: bilateral: diminished, rhonchi, wheezing, negative: prolonged expiration, prolonged inspiration - Cardiovascular Rhythm: regular Heart sounds: normal: S1, S2 Abnormal Heart Sounds: Absent: systolic murmur, diastolic murmur, rub, S3 Gallop , S4 Gallop, click, other - Gastrointestinal General gastrointestinal: Present: soft - Integumentary Integumentary: Present: decreased turgor, normal - Musculoskeletal Musculoskeletal: Present: gait normal, strength equal bilaterally - Psychiatric Psychiatric: Present: A&O x's 3, appropriate affect, intact judgment & insight - Labs CBC & Chem 7: 03/31/18 07:15 03/31/18 07:15 Labs: Abnormal Lab Results - Last 24 Hours (Table) 03/30/18 03/30/18 03/30/18 Range/Units 13:50 13:50 13:50 WBC 13.2 H (3.8-10.6) k/uL Neutrophils # 10.0 H (1.3-7.7) k/uL PT 20.5 H (9.0-12.0) sec INR 2.3 H (<1.2) Chloride 108 H (98-107) mmol/L Carbon Dioxide 20 L (22-30) mmol/L Glucose 126 H (74-99) mg/dL Alkaline Phosphatase 149 H (38-126) U/L 03/31/18 03/31/18 03/31/18 Range/Units 07:15 07:15 07:15 WBC 11.8 H (3.8-10.6) k/uL Neutrophils # (1.3-7.7) k/uL PT 20.6 H (9.0-12.0) sec INR 2.3 H (<1.2) Chloride 110 H (98-107) mmol/L Carbon Dioxide 19 L (22-30) mmol/L Glucose 144 H (74-99) mg/dL Alkaline Phosphatase (38-126) U/L Laboratory Results WBC 11.8 k/uL (3.8-10.6) H 03/31/18 07:15 RBC 3.99 m/uL (3.80-5.40) 03/31/18 07:15 Hgb 12.0 gm/dL (11.4-16.0) 03/31/18 07:15 Hct 37.6 % (34.0-46.0) 03/31/18 07:15 MCV 94.2 fL (80.0-100.0) 03/31/18 07:15 MCH 30.0 pg (25.0-35.0) 03/31/18 07:15 MCHC 31.9 g/dL (31.0-37.0) 03/31/18 07:15 RDW 14.9 % (11.5-15.5) 03/31/18 07:15 Plt Count 280 k/uL (150-450) 03/31/18 07:15 Neutrophils % 76 % 03/30/18 13:50 Lymphocytes % 16 % 03/30/18 13:50 Monocytes % 6 % 03/30/18 13:50 Eosinophils % 1 % 03/30/18 13:50 Basophils % 0 % 03/30/18 13:50 Neutrophils # 10.0 k/uL (1.3-7.7) H 03/30/18 13:50 Lymphocytes # 2.2 k/uL (1.0-4.8) 03/30/18 13:50 Monocytes # 0.7 k/uL (0-1.0) 03/30/18 13:50 Eosinophils # 0.2 k/uL (0-0.7) 03/30/18 13:50 Basophils # 0.0 k/uL (0-0.2) 03/30/18 13:50 Hypochromasia Slight 03/31/18 07:15 PT 20.6 sec (9.0-12.0) H 03/31/18 07:15 INR 2.3 (<1.2) H 03/31/18 07:15 Sodium 140 mmol/L (137-145) 03/31/18 07:15 Potassium 4.3 mmol/L (3.5-5.1) 03/31/18 07:15 Chloride 110 mmol/L (98-107) H 03/31/18 07:15 Carbon Dioxide 19 mmol/L (22-30) L 03/31/18 07:15 Anion Gap 11 mmol/L 03/31/18 07:15 BUN 16 mg/dL (7-17) 03/31/18 07:15 Creatinine 0.57 mg/dL (0.52-1.04) 03/31/18 07:15 Est GFR (CKD-EPI)AfAm >90 (>60 ml/min/1.73 sqM) 03/31/18 07:15 Est GFR (CKD-EPI)NonAf >90 (>60 ml/min/1.73 sqM) 03/31/18 07:15 Glucose 144 mg/dL (74-99) H 03/31/18 07:15 Calcium 8.5 mg/dL (8.4-10.2) 03/31/18 07:15 Total Bilirubin 0.5 mg/dL (0.2-1.3) 03/31/18 07:15 AST 21 U/L (14-36) 03/31/18 07:15 ALT 25 U/L (9-52) 03/31/18 07:15 Alkaline Phosphatase 123 U/L (38-126) 03/31/18 07:15 Total Protein 6.5 g/dL (6.3-8.2) 03/31/18 07:15 Albumin 3.5 g/dL (3.5-5.0) 03/31/18 07:15 Assessment and Plan Plan: Assessment and plan: 1. Acute respiratory failure secondary to trach tube bronchomalacia with Mari lung disease and pulmonary fibrosis and possible recurrent bronchitis. Patient would be started on IV antibiotic since the patient had a prior history of pseudomonas as well as MRSA she will be started on vancomycin as well as the less indicated otherwise bipolar medicine, we will start the patient centimeters 60 mg IV push every 6 hours, nebulized treatment around-the- clock, continue with oxygen support 24 hours, bronchoscopy to be scheduled per pulmonary medicine. 2. History of pulmonary embolism. Long-term anticoagulation We'll check the patient's INR hold Coumadin if she is scheduled for bronchoscopy tomorrow morning. Did reassure him Coumadin today at home dose 3. Hyperlipidemia. Continue patient on Lipitor 10 mg orally once every day. 4. Osteopenia. Patient is currently on probably a twice a year. Along with calcium and vitamin D. 5. Hypothyroidism. Continue patient on Synthroid 50 g orally once every day. 6. Mitral valve prolapse with regurgitation. Stable at this point. 7. Osteoarthritis. Currently on meloxicam. 8. Fibromyalgia. Continue patient on gabapentin 600 mg bedtime along with Flexeril 10 mg orally once a bedtime use Freedom as needed for pain control. 9. GERD. Continue AcipHex 20 mg orally once every day. 10. DVT prophylaxis. Coumadin and check PT and INR, she may need to go on Lovenox based on her INR. 11. GI prophylaxis. Continue PPI. 12. Admit to inpatient. Estimate length of stay 2 midnights. 13. Vitamin D deficiency start on 2000 units of vitamin D3 daily 14. Leukocytosis most likely secondary to multifocal bilateral pneumonia 15. Respiratory acidosis, continue to monitor electrolytes,
[2018-03-31] MEDS: WARFARIN 2.5 MG TAB PO SCH (20:33)
[2018-03-31] MEDS: CYCLOBENZAPRINE 10 MG TAB PO SCH (21:42)
[2018-03-31] MEDS: PANTOPRAZOLE 40 MG TABLET PO SCH (21:43)
[2018-03-31] MEDS: DIAZEPAM 5 MG TAB PO SCH (21:50)
[2018-04-01] MEDS: PIPERACILLIN-TAZOBACTAM 3.375 GM in DEXTROSE/WATER 1 50ML.BAG IVPB SCH ×4 (00:11→23:49)
[2018-04-01] MEDS: methylPREDNISolone SOD SUCCI 125 MG/2 ML VIAL IV SCH ×4 (05:48→23:49)
[2018-04-01] MEDS: VANCOMYCIN 1,000 MG in SODIUM CHLORIDE 0.9% 250 ML IVPB SCH ×3 (05:48→21:32)
[2018-04-01] MEDS: IPRATROPIUM-ALBUTEROL 3 ML NEB INHALATION SCH ×4 (07:27→20:07)
[2018-04-01] MEDS: FORMOTEROL FUMARATE 20 MCG/2 ML NEBU INHALATION SCH ×2 (07:27→20:11)
[2018-04-01] MEDS: MELOXICAM 7.5 MG TAB PO SCH ×2 (07:29→20:47)
[2018-04-01] MEDS: DULoxetine HCL 60 MG CAPSULE.DR PO SCH (07:30)
[2018-04-01] MEDS: GABAPENTIN 300 MG CAP PO SCH ×2 (07:30→20:46)
[2018-04-01] MEDS: MONTELUKAST 10 MG TAB PO SCH (07:30)
[2018-04-01] MEDS: ATORVASTATIN 10 MG TAB PO SCH (07:31)
[2018-04-01] MEDS: LEVOTHYROXINE 50 MCG TAB PO SCH (07:31)
[2018-04-01 08:41] LABS: Basophils % (A) 0 %; Eosinophils % (A) 0 %; HCT 36.2 % (34.0-46.0); HGB 11.6 gm/dL (11.4-16.0); Hypochromasia Slight; Lymphocytes # (A) 1.3 k/uL (1.0-4.8); Lymphocytes % (A) 6 %; MCH 30.1 pg (25.0-35.0); MCHC 32.1 g/dL (31.0-37.0); MCV 93.7 fL (80.0-100.0); Mean Platelet Volume 7.3; Monocytes # (A) 0.5 k/uL (0-1.0); Monocytes % (A) 2 %; Neutrophils # (A) 19.9 k/uL (1.3-7.7); Neutrophils % (A) 92 %; Platelet Count 277 k/uL (150-450); RBC 3.86 m/uL (3.80-5.40); RDW 15.1 % (11.5-15.5); WBC 21.8 k/uL (3.8-10.6)
[2018-04-01 08:50] LABS: INR 2.9 (<1.2); Prothrombin Time 26.4 sec (9.0-12.0)
[2018-04-01 08:51] LABS: Anion Gap 9 mmol/L; Blood Urea Nitrogen 14 mg/dL (7-17); Calcium 8.2 mg/dL (8.4-10.2); Carbon Dioxide 20 mmol/L (22-30); Chloride 113 mmol/L (98-107); Glucose 132 mg/dL (74-99); Potassium 3.8 mmol/L (3.5-5.1); Sodium 142 mmol/L (137-145)
[2018-04-01] MEDS: CHOLECALCIFEROL 1,000 UNIT TAB PO SCH (11:58)
--- NOTE | 2018-04-01 12:00 | P.PN ---
Subjective Progress Note Date: 04/01/18 This is a 52-year-old female patient, a lifetime nonsmoker with known history of tracheobronchomalacia in addition to recurrent pneumonias and respiratory tract infections who was seen today in the office because of increased cough chest tightness wheezing shortness of breath mucous plugging. She had a temperature with a fever of 100.5 and her pulse ox was around 86%. The patient was using her nebulizer medication quite extensively without much help. For that reason she was noted to hospital to be started on IV antibiotics. She is not having any chest pain. No pleurisy. No hemoptysis. Blood work in the chest x-ray has not been done yet. I reviewed her records from the office. I also reviewed the bronchoscopies that the patient has had and previous cultures of indicated growth with MRSA and Haemophilus influenza. I do not see any growth with pseudomonas. The patient had a CAT scan of the chest on 2017 that showed some interstitial changes probably postinflammatory related to recurrent infections. No evidence of any pulmonary fibrosis. No evidence of any significant bronchiectasis. She is not known to have any form of immunosuppression. No history of connective tissue disease. Lifetime nonsmoker. No history of childhood asthma. On 03/31/2018, the patient is still the same. Still symptomatic short of breath congested and quite uncomfortable. The patient was brought into the bronchoscopy suite and a bronchoscopy was done. The bronchial port was given separately. In summary, the patient was found to have copious amount of purulent respiratory secretions throughout the airways and therapeutic airway suctioning was done and more than 30 mL of purulent material was aspirated without any major difficulties. The bronchial mucosa was very much inflamed erythematous throughout mainly in the lower lobes and to some extent in the right middle lobe and the left upper lobe. The patient had a chest x-ray that showed right middle lobe/lower lobe pneumonia in addition to a left lower lobe infiltration. She is on Zosyn. She is on bronchodilators. She is on IV Solu- Medrol. Vancomycin will be added. The bronchial aspirates will be sent for cultures and analysis. On 04/01/2018, the patient is feeling better. She is less congested. She is being she for bilateral pneumonia. Bronchoscopy was done and It was suctioning was done along with a BAL. Copious amount of purulent respiratory 16 were suctioned out the were still awaiting out for the final cultures. Meanwhile, the patient is on accommodation of Zosyn and vancomycin. The patient is on Solu -Medrol and bronchodilators. She is afebrile. She is less short of breath compared to yesterday. He is currently on 4 L of oxygen with a pulse ox of 95% . Hemodynamically stable. Appetite is poor. Objective - Vital Signs Vital signs: Vital Signs Temp 98.1 F 04/01/18 05:00 Pulse 82 04/01/18 07:50 Resp 16 04/01/18 05:00 BP 99/58 04/01/18 05:00 Pulse Ox 95 04/01/18 07:28 Intake & Output 03/31/18 04/01/18 04/01/18 18:59 06:59 18:59 Intake Total 250 1030 Balance 250 1030 Weight 56.245 kg Intake: IV 200 Intake, IV Titration 50 550 Amount Piperacillin-Tazobactam 3 50 50 .375 gm In Dextrose/Water 1 50ml.bag @ 12.5 mls/hr IVPB Q8HR [facility] Rx#: [id number] Vancomycin 1,000 mg In 500 Sodium Chloride 0.9% 250 ml @ 125 mls/hr IVPB Q8H [facility] Rx#:[id number] Oral 0 480 Other: Voiding Method Toilet Bedside Commode # Voids 2 1 - Exam - Constitutional General appearance: mild distress, thin - EENT Eyes: anicteric sclerae, EOMI, PERRLA, no ptosis, no scleral icterus, normal appearance ENT: hearing grossly normal, NA/AT, normal oropharynx, no thrush Ears: bilateral: normal - Neck Neck: no lymphadenopathy, normal ROM, no rigidity, no stridor, no thyromegaly Carotids: bilateral: upstroke normal Thyroid: bilateral: normal size - Respiratory Respiratory: bilateral: rales, rhonchi, wheezing, prolonged expiration, negative : diminished, dullness - Cardiovascular Rhythm: regular Heart sounds: normal: S1, S2 Abnormal Heart Sounds: systolic murmur, click - Gastrointestinal General gastrointestinal: normal bowel sounds, soft, no splenomegaly, no tenderness, no umbilical hernia, no ventral hernia - Integumentary Integumentary: normal, normal turgor - Neurologic Neurologic: CNII-XII intact - Musculoskeletal Musculoskeletal: strength equal bilaterally - Psychiatric Psychiatric: A&O x's 3, appropriate affect, intact judgment & insight - Labs CBC & Chem 7: 04/01/18 08:05 04/01/18 08:05 Labs: Abnormal Lab Results - Last 24 Hours (Table) 04/01/18 04/01/18 04/01/18 Range/Units 08:05 08:05 08:05 WBC 21.8 H (3.8-10.6) k/uL Neutrophils # 19.9 H (1.3-7.7) k/uL PT 26.4 H (9.0-12.0) sec INR 2.9 H (<1.2) Chloride 113 H (98-107) mmol/L Carbon Dioxide 20 L (22-30) mmol/L Glucose 132 H (74-99) mg/dL Calcium 8.2 L (8.4-10.2) mg/dL Microbiology - Last 24 Hours (Table) 03/31/18 12:45 Gram Stain - Preliminary Lung Aspirate - Left Bronchial Washings Culture - Preliminary 03/31/18 12:45 Fungal Culture - Preliminary Lung Aspirate - Left 03/31/18 12:45 Acid Fast Bacilli Culture - Preliminary Lung Aspirate - Left Assessment and Plan Plan: Assessment 1 severe tracheal bronchomalacia, in addition to bilateral lower lobe pneumonia and right middle lobe pneumonia. Bronchoscopy was done and copious amount of purulent respiratory secretions were aspirated consistent with underlying diagnosis of pneumonia. Currently on Zosyn and vancomycin. We are awaiting the results of the BAL. Suspect a bacterial infection probably staphylococcal. 2 recurrent pneumonias with infections consistent with Haemophilus influenza and MRSA. Last bronchoscopy was done in November 2017 and the patient had Haemophilus influenza and her last MRSA infection was back in May 2017 3 acute shortness of breath probably related to an acute tracheal bronchitis/ pneumonia on top of severe tracheal bronchomalacia 4 chronic interstitial changes in lung bases probably due to previous recurrent pneumonias. No evidence of any chronic ILD 5 acute hypoxic respiratory failure 6 hypothyroidism 7 acid reflux 8 previous history of a pulmonary embolism and the patient is on long-term and to coagulation with warfarin. PT/INR is therapeutic Plan Continue same treatment. A flutter valve was given. Awaiting serum immunoglobulin levels. We'll continue monitoring her progress.
--- NOTE | 2018-04-01 15:20 | P.PN ---
Subjective Progress Note Date: 04/01/18 Chief Complaint: COPD exacerbation This is a 52-year-old female one of Dr. Guadalupe with a previous medical history significant for 3 few bronchial malacia, pulmonary fibrosis, interstitial lung disease, severe COPD with asthma, hyperlipidemia, GERD, osteopenia, patient also had recurrent pneumonia in the past with bronchiectasis as well she was seen in the office of Dr. Mckay is today with significant shortness of breath her oxygen saturation were dropping to 82%, so she was sent directly to the hospital for direct admission and to go for bronchoscopy tomorrow morning with Dr. Hughes S patient does appear to have a significant respiratory distress with significant rhonchi an audible expiratory wheezes, she will be started on IV antibiotic as well as IV Solu-Medrol and she would be scheduled for bronchoscopy and BAL tomorrow morning. 03 31: Patient underwent bronchoscopy today by Dr. Hughes, copious amount of purulent material obtained, sent for cultures, patient noted to have improvement of shortness of breath no pleurisy this time, currently on steroids solid Medrol 60 mg every 6 hours, 04/01: Patient has some desaturations last night, O2 increased at 4 L, she denies any chest pain, patient notes improvement of breathing, no fever no chills, bronchial washing cultures are currently pending, IV steroids and still maintain as well as nebulized treatments, no diarrhea no hemoptysis today Objective - Vital Signs Vital signs: Vital Signs Temp 98.1 F 04/01/18 05:00 Pulse 82 04/01/18 07:50 Resp 16 04/01/18 05:00 BP 99/58 04/01/18 05:00 Pulse Ox 95 04/01/18 07:28 Intake & Output 03/31/18 04/01/18 04/01/18 18:59 06:59 18:59 Intake Total 250 1030 Balance 250 1030 Weight 56.245 kg Intake: IV 200 Intake, IV Titration 50 550 Amount Piperacillin-Tazobactam 3 50 50 .375 gm In Dextrose/Water 1 50ml.bag @ 12.5 mls/hr IVPB Q8HR [facility] Rx#: [id number] Vancomycin 1,000 mg In 500 Sodium Chloride 0.9% 250 ml @ 125 mls/hr IVPB Q8H [facility] Rx#:[id number] Oral 0 480 Other: Voiding Method Toilet Bedside Commode # Voids 2 1 - Constitutional General appearance: Present: cooperative, no acute distress - EENT Eyes: Present: anicteric sclerae, EOMI, dentition normal ENT: Present: hearing grossly normal, NA/AT, normal oropharynx - Neck Neck: Present: normal ROM - Respiratory Respiratory: bilateral: rhonchi, negative: CTA, dullness, wheezing, prolonged expiration, prolonged inspiration - Cardiovascular Rhythm: regular Heart sounds: normal: S1, S2 Abnormal Heart Sounds: Absent: systolic murmur, diastolic murmur, rub, S3 Gallop , S4 Gallop, click, other - Gastrointestinal General gastrointestinal: Present: normal bowel sounds, soft - Integumentary Integumentary: Present: normal, normal turgor - Neurologic Neurologic: Present: CNII-XII intact - Musculoskeletal Musculoskeletal: Present: gait normal - Psychiatric Psychiatric: Present: A&O x's 3, intact judgment & insight - Labs CBC & Chem 7: 04/01/18 08:05 04/01/18 08:05 Labs: Abnormal Lab Results - Last 24 Hours (Table) 04/01/18 04/01/18 04/01/18 Range/Units 08:05 08:05 08:05 WBC 21.8 H (3.8-10.6) k/uL Neutrophils # 19.9 H (1.3-7.7) k/uL PT 26.4 H (9.0-12.0) sec INR 2.9 H (<1.2) Chloride 113 H (98-107) mmol/L Carbon Dioxide 20 L (22-30) mmol/L Glucose 132 H (74-99) mg/dL Calcium 8.2 L (8.4-10.2) mg/dL Microbiology - Last 24 Hours (Table) 03/31/18 12:45 Gram Stain - Preliminary Lung Aspirate - Left Bronchial Washings Culture - Preliminary 03/31/18 12:45 Fungal Culture - Preliminary Lung Aspirate - Left 03/31/18 12:45 Acid Fast Bacilli Culture - Preliminary Lung Aspirate - Left Assessment and Plan Plan: Assessment and plan: 1. Acute respiratory failure secondary to trachebronchomalacia and pulmonary fibrosis and possible recurrent bronchitis. Patient would be started on IV antibiotic Zosyn and vancomycin since the patient had a prior history of pseudomonas as well as MRSA on vancomycin we will start the patient Solu- Medrol 60 mg IV push every 6 hours, nebulized treatment [id number], continue with oxygen support 24 hours, bronchoscopy performed 03/31/2018, 2. History of pulmonary embolism. Long-term anticoagulation We'll check the patient's INR hold Coumadin if she is scheduled for bronchoscopy tomorrow morning. Did reassure him Coumadin today at home dose 3. Hyperlipidemia. Continue patient on Lipitor 10 mg orally once every day. 4. Osteopenia. Patient is currently on probably a twice a year. Along with calcium and vitamin D. 5. Hypothyroidism. Continue patient on Synthroid 50 g orally once every day. 6. Mitral valve prolapse with regurgitation. Stable at this point. 7. Osteoarthritis. Currently on meloxicam. 8. Fibromyalgia. Continue patient on gabapentin 600 mg bedtime along with Flexeril 10 mg orally once a bedtime use [place] as needed for pain control. 9. GERD. Continue AcipHex 20 mg orally once every day. 10. DVT prophylaxis. Coumadin and check PT and INR, she may need to go on Lovenox based on her INR. 11. GI prophylaxis. Continue PPI. 12. Admit to inpatient. Estimate length of stay 2 midnights. 13. Vitamin D deficiency start on 2000 units of vitamin D3 daily 14. Leukocytosis most likely secondary to multifocal bilateral pneumonia 15. Respiratory acidosis, continue to monitor electrolytes, 16. Acute hypoxemic respiratory failure secondary to #1 and O2 supplementation 17. Leukocytosis, possibly related to multifocal pneumonia against steroid response continue IV antibiotics monitor leukocytosis
[2018-04-01] MEDS: WARFARIN 2.5 MG TAB PO SCH (18:00)
[2018-04-01] MEDS: DIAZEPAM 5 MG TAB PO SCH (20:46)
[2018-04-01] MEDS: CYCLOBENZAPRINE 10 MG TAB PO SCH (20:46)
[2018-04-01] MEDS: PANTOPRAZOLE 40 MG TABLET PO SCH (20:47)
[2018-04-01] MEDS ORDERED: VANCOMYCIN TROUGH DUE 1 EACH MISC MISCELLANE ONE (21:00)
[2018-04-01] MEDS: ZOLPIDEM 10 MG TAB PO PRN (23:52)
[2018-04-02] MEDS: VANCOMYCIN 1,000 MG in SODIUM CHLORIDE 0.9% 250 ML IVPB SCH ×3 (05:46→21:16)
[2018-04-02] MEDS: methylPREDNISolone SOD SUCCI 125 MG/2 ML VIAL IV SCH ×4 (05:47→23:44)
[2018-04-02] MEDS: IPRATROPIUM-ALBUTEROL 3 ML NEB INHALATION SCH ×4 (06:50→19:21)
[2018-04-02] MEDS: FORMOTEROL FUMARATE 20 MCG/2 ML NEBU INHALATION SCH ×2 (06:50→19:21)
[2018-04-02 07:35] LABS: Basophils % (A) 0 %; Eosinophils % (A) 0 %; HCT 37.2 % (34.0-46.0); HGB 11.3 gm/dL (11.4-16.0); Hypochromasia Slight; Lymphocytes # (A) 1.3 k/uL (1.0-4.8); Lymphocytes % (A) 7 %; MCH 28.8 pg (25.0-35.0); MCHC 30.5 g/dL (31.0-37.0); MCV 94.2 fL (80.0-100.0); Mean Platelet Volume 7.1; Monocytes # (A) 0.5 k/uL (0-1.0); Monocytes % (A) 2 %; Neutrophils % (A) 90 %; Platelet Count 260 k/uL (150-450); RBC 3.94 m/uL (3.80-5.40); RDW 15.2 % (11.5-15.5); WBC 19.9 k/uL (3.8-10.6)
[2018-04-02 07:43] LABS: INR 4.3 (<1.2); Prothrombin Time 38.5 sec (9.0-12.0)
[2018-04-02] MEDS: PIPERACILLIN-TAZOBACTAM 3.375 GM in DEXTROSE/WATER 1 50ML.BAG IVPB SCH ×3 (08:16→23:44)
[2018-04-02] MEDS: MELOXICAM 7.5 MG TAB PO SCH ×2 (08:16→21:11)
[2018-04-02] MEDS: GABAPENTIN 300 MG CAP PO SCH ×2 (08:16→21:11)
[2018-04-02] MEDS: DULoxetine HCL 60 MG CAPSULE.DR PO SCH (08:17)
[2018-04-02] MEDS: ATORVASTATIN 10 MG TAB PO SCH (08:17)
[2018-04-02] MEDS: LEVOTHYROXINE 50 MCG TAB PO SCH (08:17)
[2018-04-02] MEDS: MONTELUKAST 10 MG TAB PO SCH (08:17)
--- NOTE | 2018-04-02 11:29 | P.PN ---
Subjective Progress Note Date: 04/02/18 This is a 52-year-old female one of Dr. Guadalupe with a previous medical history significant for 3 few bronchial malacia, pulmonary fibrosis, interstitial lung disease, severe COPD with asthma, hyperlipidemia, GERD, osteopenia, patient also had recurrent pneumonia in the past with bronchiectasis as well she was seen in the office of Dr. Mckay is today with significant shortness of breath her oxygen saturation were dropping to 82%, so she was sent directly to the hospital for direct admission and to go for bronchoscopy tomorrow morning with Dr. Hughes S patient does appear to have a significant respiratory distress with significant rhonchi an audible expiratory wheezes, she will be started on IV antibiotic as well as IV Solu-Medrol and she would be scheduled for bronchoscopy and BAL tomorrow morning. 8 25: Patient underwent bronchoscopy today by Dr. Hughes, copious amount of purulent material obtained, sent for cultures, patient noted to have improvement of shortness of breath no pleurisy this time, currently on steroids solid Medrol 60 mg every 6 hours, 04/01: Patient has some desaturations last night, O2 increased at 4 L, she denies any chest pain, patient notes improvement of breathing, no fever no chills, bronchial washing cultures are currently pending, IV steroids and still maintain as well as nebulized treatments, no diarrhea no hemoptysis today 04/02: INR today is 4.3 and Coumadin will be placed on hold. Pulse ox 94% on 4 L. White count is down to 19.9 she has been afebrile. She is continuing on vancomycin, Zosyn and fluconazole has been started today for thrush. Objective - Vital Signs Vital signs: Vital Signs Temp 98.3 F 04/02/18 06:10 Pulse 105 H 04/02/18 11:16 Resp 16 04/02/18 08:00 BP 120/72 04/02/18 06:10 Pulse Ox 94 L 04/02/18 06:50 Intake & Output 04/01/18 04/02/18 04/02/18 18:59 06:59 18:59 Intake Total 1230 1795 Balance 1230 1795 Weight 56.245 kg 56.245 kg Intake: Intake, IV Titration 750 725 Amount IV Fluid Continuation 1, 450 425 000 ml @ 0 mls/hr IV .[facility]K [facility] Rx#:[id number] Piperacillin-Tazobactam 3 50 50 .375 gm In Dextrose/Water 1 50ml.bag @ 12.5 mls/hr IVPB Q8HR [facility] Rx#: [id number] Vancomycin 1,000 mg In 250 250 Sodium Chloride 0.9% 250 ml @ 125 mls/hr IVPB Q8H [facility] Rx#:[id number] Oral 480 1070 Other: Voiding Method Bedside Commode Bedside Commode Bedside Commode # Voids 3 1 - Exam General appearance: Present: cooperative, no acute distress - EENT Eyes: Present: anicteric sclerae, EOMI, dentition normal ENT: Present: hearing grossly normal, NA/AT, normal oropharynx - Neck Neck: Present: normal ROM - Respiratory Respiratory: bilateral: rhonchi, negative: CTA, dullness, wheezing, prolonged expiration, prolonged inspiration - Cardiovascular Rhythm: regular Heart sounds: normal: S1, S2 Abnormal Heart Sounds: Absent: systolic murmur, diastolic murmur, rub, S3 Gallop , S4 Gallop, click, other - Gastrointestinal General gastrointestinal: Present: normal bowel sounds, soft - Integumentary Integumentary: Present: normal, normal turgor - Neurologic Neurologic: Present: CNII-XII intact - Musculoskeletal Musculoskeletal: Present: gait normal - Psychiatric Psychiatric: Present: A&O x's 3, intact judgment & insight - Labs CBC & Chem 7: 04/02/18 07:12 04/01/18 08:05 Labs: Abnormal Lab Results - Last 24 Hours (Table) 04/02/18 04/02/18 Range/Units 07:12 07:12 WBC 19.9 H (3.8-10.6) k/uL Hgb 11.3 L (11.4-16.0) gm/dL MCHC 30.5 L (31.0-37.0) g/dL Neutrophils # 18.0 H (1.3-7.7) k/uL PT 38.5 H (9.0-12.0) sec INR 4.3 H (<1.2) Microbiology - Last 24 Hours (Table) 03/31/18 12:45 Acid Fast Bacilli Smear - Final Lung Aspirate - Left Acid Fast Bacilli Culture - Preliminary 03/31/18 12:45 Gram Stain - Preliminary Lung Aspirate - Left Bronchial Washings Culture - Preliminary Assessment and Plan Plan: 1. Acute hypoxic respiratory failure secondary to trachebronchomalacia and pulmonary fibrosis, bilateral lower lobe pneumonia and right middle lobe pneumonia, probable gram-negative pneumonia. Continue Zosyn and vancomycin, Solu-Medrol 60 mg IV push every 6 hours, nebulized treatment [id number], continue with oxygen support 24 hours, bronchoscopy performed 03/31/2018, pathology and cultures in progress. 2. History of pulmonary embolism. Long-term anticoagulation. Hold Coumadin. 3. Hyperlipidemia. Continue Lipitor 10 mg orally once every day. 4. Osteopenia. Patient is currently on probably a twice a year. Along with calcium and vitamin D. 5. Hypothyroidism. Continue patient on Synthroid 50 g orally once every day. 6. Mitral valve prolapse with regurgitation. Stable at this point. 7. Osteoarthritis. Currently on meloxicam. 8. Fibromyalgia. Continue patient on gabapentin 600 mg bedtime along with Flexeril 10 mg orally once a bedtime use [place] as needed for pain control. 9. GERD. Continue AcipHex 20 mg orally once every day. 10. DVT prophylaxis. Coumadin and check PT and INR, she may need to go on Lovenox based on her INR. 11. GI prophylaxis. Continue PPI. 12. Admit to inpatient. Estimate length of stay 2 midnights. 13. Vitamin D deficiency start on 2000 units of vitamin D3 daily 14. Leukocytosis most likely secondary to multifocal bilateral pneumonia 15. Respiratory acidosis, continue to monitor electrolytes, 16. Chronic hypoxic respiratory failure on home O2 at 2-3 L nasal cannula 17. Leukocytosis, possibly related to multifocal pneumonia against steroid response continue IV antibiotics monitor leukocytosis 18. Coagulopathy secondary to Coumadin use with antibiotics. Coumadin placed on hold. 19. Oral thrush. Diflucan started. Discharge plan: Return home Impression and plan of care have been directed as dictated by the signing physician. Robyn Dorantes nurse practitioner acting as scribe for signing physician.
[2018-04-02 11:46] LABS: Immunoglobulin M 61.1 mg/dL (40.0-280.0)
[2018-04-02 12:05] LABS: Immunoglobulin E 7.81 IU/mL (0.00-114.00)
[2018-04-02] MEDS: CHOLECALCIFEROL 1,000 UNIT TAB PO SCH (12:43)
[2018-04-02] MEDS: FLUCONAZOLE IN NACL,ISO-OSM 200 MG in SALINE 1 100ML.BAG IV SCH (14:09)
--- NOTE | 2018-04-02 14:44 | P.PN ---
Subjective Progress Note Date: 04/02/18 Principal diagnosis: This is a 52-year-old female patient, a lifetime nonsmoker with known history of tracheobronchomalacia in addition to recurrent pneumonias and respiratory tract infections who was seen today in the office because of increased cough chest tightness wheezing shortness of breath mucous plugging. She had a temperature with a fever of 100.5 and her pulse ox was around 86%. The patient was using her nebulizer medication quite extensively without much help. For that reason she was noted to hospital to be started on IV antibiotics. She is not having any chest pain. No pleurisy. No hemoptysis. Blood work in the chest x-ray has not been done yet. I reviewed her records from the office. I also reviewed the bronchoscopies that the patient has had and previous cultures of indicated growth with MRSA and Haemophilus influenza. I do not see any growth with pseudomonas. The patient had a CAT scan of the chest on 2017 that showed some interstitial changes probably postinflammatory related to recurrent infections. No evidence of any pulmonary fibrosis. No evidence of any significant bronchiectasis. She is not known to have any form of immunosuppression. No history of connective tissue disease. Lifetime nonsmoker. No history of childhood asthma. On 03/31/2018, the patient is still the same. Still symptomatic short of breath congested and quite uncomfortable. The patient was brought into the bronchoscopy suite and a bronchoscopy was done. The bronchial port was given separately. In summary, the patient was found to have copious amount of purulent respiratory secretions throughout the airways and therapeutic airway suctioning was done and more than 30 mL of purulent material was aspirated without any major difficulties. The bronchial mucosa was very much inflamed erythematous throughout mainly in the lower lobes and to some extent in the right middle lobe and the left upper lobe. The patient had a chest x-ray that showed right middle lobe/lower lobe pneumonia in addition to a left lower lobe infiltration. She is on Zosyn. She is on bronchodilators. She is on IV Solu- Medrol. Vancomycin will be added. The bronchial aspirates will be sent for cultures and analysis. On 04/01/2018, the patient is feeling better. She is less congested. She is being she for bilateral pneumonia. Bronchoscopy was done and It was suctioning was done along with a BAL. Copious amount of purulent respiratory 16 were suctioned out the were still awaiting out for the final cultures. Meanwhile, the patient is on accommodation of Zosyn and vancomycin. The patient is on Solu -Medrol and bronchodilators. She is afebrile. She is less short of breath compared to yesterday. He is currently on 4 L of oxygen with a pulse ox of 95% . Hemodynamically stable. Appetite is poor. The patient is seen again today 04/02/2018 in follow-up on the regular medical floor. She is currently sitting up in bed. She is awake and alert in no acute distress. She continues to improve daily. She is maintaining good O2 saturations in the 90s on 4 L/m per nasal cannula. She's been afebrile. Hemodynamically stable. Bronchial wash cultures are still pending. White count 19.9. Hemoglobin 11.3. INR 4.3. She remains on vancomycin, Zosyn, fluconazole Objective - Vital Signs Vital signs: Vital Signs Temp 98.3 F 04/02/18 06:10 Pulse 92 04/02/18 11:25 Resp 16 04/02/18 08:00 BP 120/72 04/02/18 06:10 Pulse Ox 94 L 04/02/18 06:50 Intake & Output 04/01/18 04/02/18 04/02/18 18:59 06:59 18:59 Intake Total 1230 1795 Balance 1230 1795 Weight 56.245 kg 56.245 kg Intake: Intake, IV Titration 750 725 Amount IV Fluid Continuation 1, 450 425 000 ml @ 0 mls/hr IV .STK [facility] Rx#:[id number] Piperacillin-Tazobactam 3 50 50 .375 gm In Dextrose/Water 1 50ml.bag @ 12.5 mls/hr IVPB Q8HR [facility] Rx#: [id number] Vancomycin 1,000 mg In 250 250 Sodium Chloride 0.9% 250 ml @ 125 mls/hr IVPB Q8H [facility] Rx#:[id number] Oral 480 1070 Other: Voiding Method Bedside Commode Bedside Commode Bedside Commode # Voids 3 1 - Exam GENERAL EXAM: Alert, active, comfortable in no apparent distress. HEAD: Normocephalic. EYES: Normal reaction of pupils, equal size. NOSE: Clear with pink turbinates. THROAT: No erythema or exudates. NECK: No masses, no JVD. CHEST: No chest wall deformity. LUNGS: Equal air entry with few scattered rhonchi bilaterally. CVS: S1 and S2 normal with no audible murmur, regular rhythm. ABDOMEN: No hepatosplenomegaly, normal bowel sounds, no guarding or rigidity. SPINE: No scoliosis or deformity SKIN: No rashes CENTRAL NERVOUS SYSTEM: No focal deficits, tone is normal in all 4 extremities. EXTREMITIES: There is no peripheral edema. No clubbing, no cyanosis. Peripheral pulses are intact. - Labs CBC & Chem 7: 04/02/18 07:12 04/01/18 08:05 Labs: Abnormal Lab Results - Last 24 Hours (Table) 04/02/18 04/02/18 Range/Units 07:12 07:12 WBC 19.9 H (3.8-10.6) k/uL Hgb 11.3 L (11.4-16.0) gm/dL MCHC 30.5 L (31.0-37.0) g/dL Neutrophils # 18.0 H (1.3-7.7) k/uL PT 38.5 H (9.0-12.0) sec INR 4.3 H (<1.2) Microbiology - Last 24 Hours (Table) 03/31/18 12:45 Gram Stain - Preliminary Lung Aspirate - Left Bronchial Washings Culture - Preliminary [place] albicans 03/31/18 12:45 Acid Fast Bacilli Smear - Final Lung Aspirate - Left Acid Fast Bacilli Culture - Preliminary Assessment and Plan Assessment: Assessment 1 severe tracheal bronchomalacia, in addition to bilateral lower lobe pneumonia and right middle lobe pneumonia. Bronchoscopy was done and copious amount of purulent respiratory secretions were aspirated consistent with underlying diagnosis of pneumonia. Currently on Zosyn and vancomycin. We are awaiting the results of the BAL. Suspect a bacterial infection probably staphylococcal. 2 recurrent pneumonias with infections consistent with Haemophilus influenza and MRSA. Last bronchoscopy was done in November 2017 and the patient had Haemophilus influenza and her last MRSA infection was back in May 2017 3 acute shortness of breath probably related to an acute tracheal bronchitis/ pneumonia on top of severe tracheal bronchomalacia 4 chronic interstitial changes in lung bases probably due to previous recurrent pneumonias. No evidence of any chronic ILD 5 acute hypoxic respiratory failure 6 hypothyroidism 7 acid reflux 8 previous history of a pulmonary embolism and the patient is on long-term and to coagulation with warfarin. PT/INR is therapeutic Plan The patient was seen and evaluated by Dr. Kaminski. She is improving daily. She remains on vancomycin and Zosyn. Bronchial wash findings are still pending. We will continue her current treatment plan. We'll increase her activity as tolerated. We'll continue to follow. I, the cosigning physician, performed a history & physical examination of the patient. Lungs sounds with few scattered rhonchi. Maintaining good O2 saturations in the 90s on 4 L/m per nasal cannula. I discussed the assessment and plan of care with my nurse practitioner, Vita Mercado. I attest to the above note as dictated by her.
[2018-04-02] MEDS: CYCLOBENZAPRINE 10 MG TAB PO SCH (21:11)
[2018-04-02] MEDS: DIAZEPAM 5 MG TAB PO SCH (21:11)
[2018-04-02] MEDS: PANTOPRAZOLE 40 MG TABLET PO SCH (21:11)
[2018-04-02] MEDS: ZOLPIDEM 10 MG TAB PO PRN (21:16)
[2018-04-03 04:59] LABS: Basophils % (A) 0 %; Eosinophils % (A) 0 %; HCT 34.8 % (34.0-46.0); HGB 11.1 gm/dL (11.4-16.0); Hypochromasia Slight; Lymphocytes # (A) 1.5 k/uL (1.0-4.8); Lymphocytes % (A) 9 %; MCH 29.8 pg (25.0-35.0); MCHC 31.8 g/dL (31.0-37.0); MCV 93.7 fL (80.0-100.0); Mean Platelet Volume 7.1; Monocytes # (A) 1.1 k/uL (0-1.0); Monocytes % (A) 6 %; Neutrophils # (A) 14.6 k/uL (1.3-7.7); Neutrophils % (A) 85 %; Platelet Count 234 k/uL (150-450); RBC 3.71 m/uL (3.80-5.40); RDW 15.2 % (11.5-15.5); WBC 17.3 k/uL (3.8-10.6)
[2018-04-03] MEDS ORDERED: VANCOMYCIN TROUGH DUE 1 EACH MISC MISCELLANE ONE (05:00)
[2018-04-03 05:12] LABS: Anion Gap 7 mmol/L; Blood Urea Nitrogen 9 mg/dL (7-17); Carbon Dioxide 23 mmol/L (22-30); Chloride 108 mmol/L (98-107); Glucose 120 mg/dL (74-99); Potassium 3.4 mmol/L (3.5-5.1); Sodium 138 mmol/L (137-145)
[2018-04-03 05:19] LABS: INR 4.8 (<1.2); Prothrombin Time 43.2 sec (9.0-12.0)
[2018-04-03] MEDS: VANCOMYCIN 1,000 MG in SODIUM CHLORIDE 0.9% 250 ML IVPB SCH ×3 (06:04→21:13)
[2018-04-03] MEDS: methylPREDNISolone SOD SUCCI 125 MG/2 ML VIAL IV SCH ×4 (06:04→23:52)
[2018-04-03] MEDS: FORMOTEROL FUMARATE 20 MCG/2 ML NEBU INHALATION SCH ×2 (08:13→20:37)
[2018-04-03] MEDS: IPRATROPIUM-ALBUTEROL 3 ML NEB INHALATION SCH ×4 (08:13→20:37)
[2018-04-03] MEDS: GABAPENTIN 300 MG CAP PO SCH ×2 (08:51→21:14)
[2018-04-03] MEDS: MONTELUKAST 10 MG TAB PO SCH (08:52)
[2018-04-03] MEDS: DULoxetine HCL 60 MG CAPSULE.DR PO SCH (08:52)
[2018-04-03] MEDS: MELOXICAM 7.5 MG TAB PO SCH ×2 (08:52→21:15)
[2018-04-03] MEDS: PIPERACILLIN-TAZOBACTAM 3.375 GM in DEXTROSE/WATER 1 50ML.BAG IVPB SCH ×3 (08:52→23:52)
[2018-04-03] MEDS: ATORVASTATIN 10 MG TAB PO SCH (08:52)
[2018-04-03] MEDS: LEVOTHYROXINE 50 MCG TAB PO SCH (08:52)
[2018-04-03] MEDS: FLUCONAZOLE IN NACL,ISO-OSM 200 MG in SALINE 1 100ML.BAG IV SCH (09:00)
[2018-04-03] MEDS: CHOLECALCIFEROL 1,000 UNIT TAB PO SCH (12:21)
--- NOTE | 2018-04-03 14:00 | P.PN ---
Subjective Progress Note Date: 04/03/18 Principal diagnosis: Gram-negative Pneumonia and severe tracheobronchomalacia. This is a 52-year-old female patient, a lifetime nonsmoker with known history of tracheobronchomalacia in addition to recurrent pneumonias and respiratory tract infections who was seen today in the office because of increased cough chest tightness wheezing shortness of breath mucous plugging. She had a temperature with a fever of 100.5 and her pulse ox was around 86%. The patient was using her nebulizer medication quite extensively without much help. For that reason she was noted to hospital to be started on IV antibiotics. She is not having any chest pain. No pleurisy. No hemoptysis. Blood work in the chest x-ray has not been done yet. I reviewed her records from the office. I also reviewed the bronchoscopies that the patient has had and previous cultures of indicated growth with MRSA and Haemophilus influenza. I do not see any growth with pseudomonas. The patient had a CAT scan of the chest on 2017 that showed some interstitial changes probably postinflammatory related to recurrent infections. No evidence of any pulmonary fibrosis. No evidence of any significant bronchiectasis. She is not known to have any form of immunosuppression. No history of connective tissue disease. Lifetime nonsmoker. No history of childhood asthma. On 03/31/2018, the patient is still the same. Still symptomatic short of breath congested and quite uncomfortable. The patient was brought into the bronchoscopy suite and a bronchoscopy was done. The bronchial port was given separately. In summary, the patient was found to have copious amount of purulent respiratory secretions throughout the airways and therapeutic airway suctioning was done and more than 30 mL of purulent material was aspirated without any major difficulties. The bronchial mucosa was very much inflamed erythematous throughout mainly in the lower lobes and to some extent in the right middle lobe and the left upper lobe. The patient had a chest x-ray that showed right middle lobe/lower lobe pneumonia in addition to a left lower lobe infiltration. She is on Zosyn. She is on bronchodilators. She is on IV Solu- Medrol. Vancomycin will be added. The bronchial aspirates will be sent for cultures and analysis. On 04/01/2018, the patient is feeling better. She is less congested. She is being she for bilateral pneumonia. Bronchoscopy was done and It was suctioning was done along with a BAL. Copious amount of purulent respiratory 16 were suctioned out the were still awaiting out for the final cultures. Meanwhile, the patient is on accommodation of Zosyn and vancomycin. The patient is on Solu -Medrol and bronchodilators. She is afebrile. She is less short of breath compared to yesterday. He is currently on 4 L of oxygen with a pulse ox of 95% . Hemodynamically stable. Appetite is poor. The patient is seen again today 04/02/2018 in follow-up on the regular medical floor. She is currently sitting up in bed. She is awake and alert in no acute distress. She continues to improve daily. She is maintaining good O2 saturations in the 90s on 4 L/m per nasal cannula. She's been afebrile. Hemodynamically stable. Bronchial wash cultures are still pending. White count 19.9. Hemoglobin 11.3. INR 4.3. She remains on vancomycin, Zosyn, fluconazole Reevaluated again on 04/03/2018, patient is feeling better, but she continues to have some cough. Easier to clear her secretions, felt better since her last bronchoscopy. Cultures from the bronchoscopy remained nondiagnostic, patient remains on Zosyn and vancomycin empirically since she had previous cultures positive for Haemophilus influenza and for MRSA. WBC count seems to be better today down to 17,000. No documented fever or chills. Objective - Vital Signs Vital signs: Vital Signs Temp 98.5 F 04/03/18 08:11 Pulse 96 04/03/18 13:45 Resp 14 04/03/18 08:11 BP 108/63 04/03/18 08:11 Pulse Ox 93 L 04/03/18 08:11 Intake & Output 04/02/18 04/03/18 04/03/18 18:59 06:59 18:59 Intake Total 2330 Balance 2330 Weight 56.245 kg Intake: Intake, IV Titration 550 Amount Piperacillin-Tazobactam 3 50 .375 gm In Dextrose/Water 1 50ml.bag @ 12.5 mls/hr IVPB Q8HR [facility] Rx#: [id number] Vancomycin 1,000 mg In 500 Sodium Chloride 0.9% 250 ml @ 125 mls/hr IVPB Q8H HE[facility] Rx#:[id number] Oral 1780 Other: Voiding Method Bedside Commode Toilet # Voids 2 1 - Exam GENERAL EXAM: Alert, active, comfortable in no apparent distress. HEAD: Normocephalic. EYES: Normal reaction of pupils, equal size. NOSE: Clear with pink turbinates. THROAT: No erythema or exudates. NECK: No masses, no JVD. CHEST: No chest wall deformity. LUNGS: Equal air entry with few scattered rhonchi bilaterally. CVS: S1 and S2 normal with no audible murmur, regular rhythm. ABDOMEN: No hepatosplenomegaly, normal bowel sounds, no guarding or rigidity. SPINE: No scoliosis or deformity SKIN: No rashes CENTRAL NERVOUS SYSTEM: No focal deficits, tone is normal in all 4 extremities. EXTREMITIES: There is no peripheral edema. No clubbing, no cyanosis. Peripheral pulses are intact. - Labs CBC & Chem 7: 04/03/18 04:40 04/03/18 04:40 Labs: Abnormal Lab Results - Last 24 Hours (Table) 04/03/18 04/03/18 04/03/18 Range/Units 04:40 04:40 04:40 WBC 17.3 H (3.8-10.6) k/uL RBC 3.71 L (3.80-5.40) m/uL Hgb 11.1 L (11.4-16.0) gm/dL Neutrophils # 14.6 H (1.3-7.7) k/uL Monocytes # 1.1 H (0-1.0) k/uL PT 43.2 H (9.0-12.0) sec INR 4.8 H (<1.2) Potassium 3.4 L (3.5-5.1) mmol/L Chloride 108 H (98-107) mmol/L Glucose 120 H (74-99) mg/dL Calcium 8.0 L (8.4-10.2) mg/dL Microbiology - Last 24 Hours (Table) 03/31/18 12:45 Gram Stain - Preliminary Lung Aspirate - Left Bronchial Washings Culture - Preliminary Kerry albicans Assessment and Plan Assessment: 1 severe tracheal bronchomalacia, in addition to bilateral lower lobe pneumonia and right middle lobe pneumonia. Possibly gram-negative in nature. Bronchoscopy was done and copious amount of purulent respiratory secretions were aspirated consistent with underlying diagnosis of pneumonia. Currently on Zosyn and vancomycin. We are awaiting the results of the BAL. 2 recurrent pneumonias with infections consistent with Haemophilus influenza and MRSA. Last bronchoscopy was done in November 2017 and the patient had Haemophilus influenza and her last MRSA infection was back in May 2017 3 acute shortness of breath probably related to an acute tracheal bronchitis/ pneumonia on top of severe tracheal bronchomalacia 4 chronic interstitial changes in lung bases probably due to previous recurrent pneumonias. No evidence of any chronic ILD 5 acute hypoxic respiratory failure 6 hypothyroidism 7 acid reflux 8 previous history of a pulmonary embolism and the patient is on long-term and to coagulation with warfarin. PT/INR is therapeutic Recommendation: Continue present treatment plan including bronchodilators, antibiotics, steroids, consider discharge planning in the next 24-48 hours. Await for final report on the bronchoscopy cultures. Time with Patient: Less than 30
[2018-04-03] MEDS ORDERED: POTASSIUM CHLORIDE ER 20 MEQ TAB.ER PO STA (14:51)
--- NOTE | 2018-04-03 14:52 | P.PN ---
Subjective Progress Note Date: 04/03/18 This is a 52-year-old female one of Dr. Guadalupe with a previous medical history significant for 3 few bronchial malacia, pulmonary fibrosis, interstitial lung disease, severe COPD with asthma, hyperlipidemia, GERD, osteopenia, patient also had recurrent pneumonia in the past with bronchiectasis as well she was seen in the office of Dr. Mckay is today with significant shortness of breath her oxygen saturation were dropping to 82%, so she was sent directly to the hospital for direct admission and to go for bronchoscopy tomorrow morning with Dr. Hughes S patient does appear to have a significant respiratory distress with significant rhonchi an audible expiratory wheezes, she will be started on IV antibiotic as well as IV Solu-Medrol and she would be scheduled for bronchoscopy and BAL tomorrow morning. 03 31: Patient underwent bronchoscopy today by Dr. Hughes, copious amount of purulent material obtained, sent for cultures, patient noted to have improvement of shortness of breath no pleurisy this time, currently on steroids solid Medrol 60 mg every 6 hours, 04/01: Patient has some desaturations last night, O2 increased at 4 L, she denies any chest pain, patient notes improvement of breathing, no fever no chills, bronchial washing cultures are currently pending, IV steroids and still maintain as well as nebulized treatments, no diarrhea no hemoptysis today 04/02: INR today is 4.3 and Coumadin will be placed on hold. Pulse ox 94% on 4 L. White count is down to 19.9 she has been afebrile. She is continuing on vancomycin, Zosyn and fluconazole has been started today for thrush. 04/03: Patient has increased dyspnea with ambulation and taking a shower. She continues to have a cough with sputum production. White count is down to 17.3, potassium will be replaced at 3.4. INR is 4.8 and she remains off Coumadin. Immunology studies were within normal limits. Viral testing was negative. No change in Solu-Medrol at 60 mg every 6 hours. Patient is continued on IV fluconazole, Zosyn and vancomycin. Objective - Vital Signs Vital signs: Vital Signs Temp 98.5 F 04/03/18 08:11 Pulse 92 04/03/18 08:30 Resp 14 04/03/18 08:11 BP 108/63 04/03/18 08:11 Pulse Ox 93 L 04/03/18 08:11 Intake & Output 04/02/18 04/03/18 04/03/18 18:59 06:59 18:59 Intake Total 2330 Balance 2330 Weight 56.245 kg Intake: Intake, IV Titration 550 Amount Piperacillin-Tazobactam 3 50 .375 gm In Dextrose/Water 1 50ml.bag @ 12.5 mls/hr IVPB Q8HR [facility] Rx#: [id number] Vancomycin 1,000 mg In 500 Sodium Chloride 0.9% 250 ml @ 125 mls/hr IVPB Q8H [facility] Rx#:[id number] Oral 1780 Other: Voiding Method Bedside Commode Toilet # Voids 2 1 - Exam General appearance: Present: cooperative, no acute distress - EENT Eyes: Present: anicteric sclerae, EOMI, dentition normal ENT: Present: hearing grossly normal, NA/AT, normal oropharynx - Neck Neck: Present: normal ROM - Respiratory Respiratory: bilateral: rhonchi, negative: CTA, dullness, wheezing, prolonged expiration, prolonged inspiration - Cardiovascular Rhythm: regular Heart sounds: normal: S1, S2 Abnormal Heart Sounds: Absent: systolic murmur, diastolic murmur, rub, S3 Gallop , S4 Gallop, click, other - Gastrointestinal General gastrointestinal: Present: normal bowel sounds, soft - Integumentary Integumentary: Present: normal, normal turgor - Neurologic Neurologic: Present: CNII-XII intact - Musculoskeletal Musculoskeletal: Present: gait normal - Psychiatric Psychiatric: Present: A&O x's 3, intact judgment & insight - Labs CBC & Chem 7: 04/03/18 04:40 04/03/18 04:40 Labs: Abnormal Lab Results - Last 24 Hours (Table) 04/03/18 04/03/18 04/03/18 Range/Units 04:40 04:40 04:40 WBC 17.3 H (3.8-10.6) k/uL RBC 3.71 L (3.80-5.40) m/uL Hgb 11.1 L (11.4-16.0) gm/dL Neutrophils # 14.6 H (1.3-7.7) k/uL Monocytes # 1.1 H (0-1.0) k/uL PT 43.2 H (9.0-12.0) sec INR 4.8 H (<1.2) Potassium 3.4 L (3.5-5.1) mmol/L Chloride 108 H (98-107) mmol/L Glucose 120 H (74-99) mg/dL Calcium 8.0 L (8.4-10.2) mg/dL Microbiology - Last 24 Hours (Table) 03/31/18 12:45 Gram Stain - Preliminary Lung Aspirate - Left Bronchial Washings Culture - Preliminary Kerry albicans Assessment and Plan Plan: 1. Acute hypoxic respiratory failure secondary to trachebronchomalacia and pulmonary fibrosis, bilateral lower lobe pneumonia and right middle lobe pneumonia, probable gram-negative pneumonia. Continue Zosyn and vancomycin, Solu-Medrol 60 mg IV push every 6 hours, nebulized treatment [id number], continue with oxygen support 24 hours, bronchoscopy performed 03/31/2018, pathology and cultures in progress. 2. History of pulmonary embolism. Long-term anticoagulation. Hold Coumadin. 3. Hyperlipidemia. Continue Lipitor 10 mg orally once every day. 4. Osteopenia. Patient is currently on probably a twice a year. Along with calcium and vitamin D. 5. Hypothyroidism. Continue patient on Synthroid 50 g orally once every day. 6. Mitral valve prolapse with regurgitation. Stable at this point. 7. Osteoarthritis. Currently on meloxicam. 8. Fibromyalgia. Continue patient on gabapentin 600 mg bedtime along with Flexeril 10 mg orally once a bedtime use [place] as needed for pain control. 9. GERD. Continue AcipHex 20 mg orally once every day. 10. DVT prophylaxis. Coumadin and check PT and INR, she may need to go on Lovenox based on her INR. 11. GI prophylaxis. Continue PPI. 12. Admit to inpatient. Estimate length of stay 2 midnights. 13. Vitamin D deficiency start on 2000 units of vitamin D3 daily 14. Leukocytosis most likely secondary to multifocal bilateral pneumonia 15. Respiratory acidosis, continue to monitor electrolytes, 16. Chronic hypoxic respiratory failure on home O2 at 2-3 L nasal cannula 17. Leukocytosis, possibly related to multifocal pneumonia against steroid response continue IV antibiotics monitor leukocytosis 18. Coagulopathy secondary to Coumadin use with antibiotics. Coumadin placed on hold. 19. Oral thrush. Diflucan started. Discharge plan: Return home Impression and plan of care have been directed as dictated by the signing physician. Robyn Dorantes nurse practitioner acting as scribe for signing physician.
[2018-04-03] MEDS: ZOLPIDEM 10 MG TAB PO PRN (21:14)
[2018-04-03] MEDS: DIAZEPAM 5 MG TAB PO SCH (21:14)
[2018-04-03] MEDS: PANTOPRAZOLE 40 MG TABLET PO SCH (21:15)
[2018-04-03] MEDS: CYCLOBENZAPRINE 10 MG TAB PO SCH (21:15)
[2018-04-03 22:06] VITALS: RESP 16
[2018-04-04] MEDS: methylPREDNISolone SOD SUCCI 125 MG/2 ML VIAL IV SCH ×2 (05:39→11:42)
[2018-04-04] MEDS: VANCOMYCIN 1,000 MG in SODIUM CHLORIDE 0.9% 250 ML IVPB SCH (05:39)
[2018-04-04 05:51] VITALS: BP 136/74; TEMP 98.2
[2018-04-04] MEDS: PIPERACILLIN-TAZOBACTAM 3.375 GM in DEXTROSE/WATER 1 50ML.BAG IVPB SCH (07:24)
[2018-04-04] MEDS: MELOXICAM 7.5 MG TAB PO SCH (07:25)
[2018-04-04] MEDS: ATORVASTATIN 10 MG TAB PO SCH (07:25)
[2018-04-04] MEDS: DULoxetine HCL 60 MG CAPSULE.DR PO SCH (07:25)
[2018-04-04] MEDS: MONTELUKAST 10 MG TAB PO SCH (07:25)
[2018-04-04] MEDS: LEVOTHYROXINE 50 MCG TAB PO SCH (07:27)
[2018-04-04] MEDS: GABAPENTIN 300 MG CAP PO SCH (07:27)
[2018-04-04] MEDS: IPRATROPIUM-ALBUTEROL 3 ML NEB INHALATION SCH ×2 (07:37→11:45)
[2018-04-04] MEDS: FORMOTEROL FUMARATE 20 MCG/2 ML NEBU INHALATION SCH (07:37)
[2018-04-04 08:12] LABS: INR 3.2 (<1.2)
[2018-04-04] MEDS: FLUCONAZOLE IN NACL,ISO-OSM 200 MG in SALINE 1 100ML.BAG IV SCH (09:01)
--- NOTE | 2018-04-04 10:27 | XR ---
EXAMINATION TYPE: XR chest 1V portable DATE OF EXAM: 04/04/2018 COMPARISON: 03/30/2018 INDICATION: Pneumonia, COPD, cough TECHNIQUE: Single frontal view of the chest is obtained. FINDINGS: The heart size is normal. The pulmonary vasculature is normal. Right middle lobe infiltrate is present. This is improving. Left basilar infiltrate has improved. Port is present on the right. IMPRESSION: 1. Improving right middle lobe infiltrate. 2. Improving left basilar infiltrate
[2018-04-04] MEDS: CHOLECALCIFEROL 1,000 UNIT TAB PO SCH (11:41)
--- NOTE | 2018-04-04 11:43 | P.PN ---
Subjective Progress Note Date: 04/04/18 Principal diagnosis: Acute community-acquired pneumonia, tracheal bronchomalacia This is a 52-year-old female patient, a lifetime nonsmoker with known history of tracheobronchomalacia in addition to recurrent pneumonias and respiratory tract infections who was seen today in the office because of increased cough chest tightness wheezing shortness of breath mucous plugging. She had a temperature with a fever of 100.5 and her pulse ox was around 86%. The patient was using her nebulizer medication quite extensively without much help. For that reason she was noted to hospital to be started on IV antibiotics. She is not having any chest pain. No pleurisy. No hemoptysis. Blood work in the chest x-ray has not been done yet. I reviewed her records from the office. I also reviewed the bronchoscopies that the patient has had and previous cultures of indicated growth with MRSA and Haemophilus influenza. I do not see any growth with pseudomonas. The patient had a CAT scan of the chest on 2017 that showed some interstitial changes probably postinflammatory related to recurrent infections. No evidence of any pulmonary fibrosis. No evidence of any significant bronchiectasis. She is not known to have any form of immunosuppression. No history of connective tissue disease. Lifetime nonsmoker. No history of childhood asthma. On 03/31/2018, the patient is still the same. Still symptomatic short of breath congested and quite uncomfortable. The patient was brought into the bronchoscopy suite and a bronchoscopy was done. The bronchial port was given separately. In summary, the patient was found to have copious amount of purulent respiratory secretions throughout the airways and therapeutic airway suctioning was done and more than 30 mL of purulent material was aspirated without any major difficulties. The bronchial mucosa was very much inflamed erythematous throughout mainly in the lower lobes and to some extent in the right middle lobe and the left upper lobe. The patient had a chest x-ray that showed right middle lobe/lower lobe pneumonia in addition to a left lower lobe infiltration. She is on Zosyn. She is on bronchodilators. She is on IV Solu- Medrol. Vancomycin will be added. The bronchial aspirates will be sent for cultures and analysis. On 04/01/2018, the patient is feeling better. She is less congested. She is being she for bilateral pneumonia. Bronchoscopy was done and It was suctioning was done along with a BAL. Copious amount of purulent respiratory 16 were suctioned out the were still awaiting out for the final cultures. Meanwhile, the patient is on accommodation of Zosyn and vancomycin. The patient is on Solu -Medrol and bronchodilators. She is afebrile. She is less short of breath compared to yesterday. He is currently on 4 L of oxygen with a pulse ox of 95% . Hemodynamically stable. Appetite is poor. The patient is seen again today 04/02/2018 in follow-up on the regular medical floor. She is currently sitting up in bed. She is awake and alert in no acute distress. She continues to improve daily. She is maintaining good O2 saturations in the 90s on 4 L/m per nasal cannula. She's been afebrile. Hemodynamically stable. Bronchial wash cultures are still pending. White count 19.9. Hemoglobin 11.3. INR 4.3. She remains on vancomycin, Zosyn, fluconazole area Reevaluated again on 04/03/2018, patient is feeling better, but she continues to have some cough. Easier to clear her secretions, felt better since her last bronchoscopy. Cultures from the bronchoscopy remained nondiagnostic, patient remains on Zosyn and vancomycin empirically since she had previous cultures positive for Haemophilus influenza and for MRSA. WBC count seems to be better today down to 17,000. No documented fever or chills. The patient is seen again today 04/04/2018 in follow-up on the regular medical floor. She is awake and alert in no acute distress. She is nearly back to her baseline as far as her breathing is concerned. Today's chest x-ray reveals improvement in both the right middle lobe infiltrate and left basilar infiltrate. Bronchial wash findings reveal rare Kerry and rare Haemophilus influenza. She is maintaining good O2 saturations in the upper 90s on room air. She's been afebrile. Hemodynamically stable. INR to 3.2. She is continued on vancomycin and Zosyn. Objective - Vital Signs Vital signs: Vital Signs Temp 98.2 F 04/04/18 05:15 Pulse 79 04/04/18 07:55 Resp 16 04/04/18 07:16 BP 136/74 04/04/18 05:15 Pulse Ox 97 04/04/18 05:15 Intake & Output 04/03/18 04/04/1818 18:59 06:59 18:59 Intake Total 400 1070 Balance 400 1070 Weight 56.245 kg Intake: Intake, IV Titration 400 Amount Fluconazole in NaCl,Iso- 100 Osm 200 mg In Saline 1 100ml.bag @ 100 mls/hr IV DAILY [facility] Rx#:[id number] Piperacillin-Tazobactam 3 50 .375 gm In Dextrose/Water 1 50ml.bag @ 12.5 mls/hr IVPB Q8HR [facility] Rx#: [id number] Vancomycin 1,000 mg In 250 Sodium Chloride 0.9% 250 ml @ 125 mls/hr IVPB Q8H [facility] Rx#:[id number] Oral 1070 Other: Voiding Method Toilet Toilet # Voids 3 6 6 - Exam GENERAL EXAM: Alert, active, comfortable in no apparent distress. HEAD: Normocephalic. EYES: Normal reaction of pupils, equal size. NOSE: Clear with pink turbinates. THROAT: No erythema or exudates. NECK: No masses, no JVD. CHEST: No chest wall deformity. LUNGS: Equal air entry with few scattered rhonchi bilaterally. CVS: S1 and S2 normal with no audible murmur, regular rhythm. ABDOMEN: No hepatosplenomegaly, normal bowel sounds, no guarding or rigidity. SPINE: No scoliosis or deformity SKIN: No rashes CENTRAL NERVOUS SYSTEM: No focal deficits, tone is normal in all 4 extremities. EXTREMITIES: There is no peripheral edema. No clubbing, no cyanosis. Peripheral pulses are intact. - Labs CBC & Chem 7: 04/03/18 04:40 04/03/18 04:40 Labs: Abnormal Lab Results - Last 24 Hours (Table) 04/04/18 Range/Units 07:35 PT 29.0 H (9.0-12.0) sec INR 3.2 H (<1.2) Microbiology - Last 24 Hours (Table) 03/31/18 12:45 Gram Stain - Final Lung Aspirate - Left Bronchial Washings Culture - Final Kerry albicans Haemophilus influenzae Assessment and Plan Assessment: Assessment 1 severe tracheal bronchomalacia, in addition to bilateral lower lobe pneumonia and right middle lobe pneumonia. Bronchoscopy was done and copious amount of purulent respiratory secretions were aspirated consistent with underlying diagnosis of pneumonia. Currently on Zosyn and vancomycin. We are awaiting the results of the BAL. Suspect a bacterial infection probably staphylococcal. 2 recurrent pneumonias with infections consistent with Haemophilus influenza and MRSA. Last bronchoscopy was done in November 2017 and the patient had Haemophilus influenza and her last MRSA infection was back in May 2017 3 acute shortness of breath probably related to an acute tracheal bronchitis/ pneumonia on top of severe tracheal bronchomalacia 4 chronic interstitial changes in lung bases probably due to previous recurrent pneumonias. No evidence of any chronic ILD 5 acute hypoxic respiratory failure 6 hypothyroidism 7 acid reflux 8 previous history of a pulmonary embolism and the patient is on long-term and to coagulation with warfarin. PT/INR is therapeutic Plan The patient was seen and evaluated by Dr. Kaminski. She is improved both clinically and radiographically. Bronchial wash findings reveal rare Haemophilus influenza rare Kerry. She could be discharged home. She states the best antibiotic for her in the outpatient setting orally is doxycycline. She will follow up with Dr. Hughes in our office in 1 week. We can repeat the chest x-ray then. She is encouraged to call sooner with any recurrence of symptoms or other questions or concerns. I, the cosigning physician, performed a history & physical examination of the patient. Lungs sounds with few scattered rhonchi. Maintaining good O2 saturations in the 90s on room air. I discussed the assessment and plan of care with my nurse practitioner, Vita Mercado. I attest to the above note as dictated by her.
[2018-04-04 12:00] VITALS: PULSE 76
--- NOTE | 2018-04-04 13:25 | P.DS ---
Providers Date of admission: 03/30/18 10:13 Expected date of discharge: 04/04/18 Attending physician: Bry Guadalupe Primary care physician: [facility] Course: This is a 52-year-old female one of Dr. Guadalupe with a previous medical history significant for 3 few bronchial malacia, pulmonary fibrosis, interstitial lung disease, severe COPD with asthma, hyperlipidemia, GERD, osteopenia, patient also had recurrent pneumonia in the past with bronchiectasis as well she was seen in the office of Dr. Mckay is today with significant shortness of breath her oxygen saturation were dropping to 82%, so she was sent directly to the hospital for direct admission and to go for bronchoscopy tomorrow morning with Dr. Hughes S patient does appear to have a significant respiratory distress with significant rhonchi an audible expiratory wheezes, she will be started on IV antibiotic as well as IV Solu-Medrol and she would be scheduled for bronchoscopy and BAL tomorrow morning. 03 31: Patient underwent bronchoscopy today by Dr. Hughes, copious amount of purulent material obtained, sent for cultures, patient noted to have improvement of shortness of breath no pleurisy this time, currently on steroids solid Medrol 60 mg every 6 hours, 04/01: Patient has some desaturations last night, O2 increased at 4 L, she denies any chest pain, patient notes improvement of breathing, no fever no chills, bronchial washing cultures are currently pending, IV steroids and still maintain as well as nebulized treatments, no diarrhea no hemoptysis today 04/02: INR today is 4.3 and Coumadin will be placed on hold. Pulse ox 94% on 4 L. White count is down to 19.9 she has been afebrile. She is continuing on vancomycin, Zosyn and fluconazole has been started today for thrush. 04/03: Patient has increased dyspnea with ambulation and taking a shower. She continues to have a cough with sputum production. White count is down to 17.3, potassium will be replaced at 3.4. INR is 4.8 and she remains off Coumadin. Immunology studies were within normal limits. Viral testing was negative. No change in Solu-Medrol at 60 mg every 6 hours. Patient is continued on IV fluconazole, Zosyn and vancomycin. 04/04: INR today at 3.2. Coumadin will be held 1 more day. She remains on Solu- Medrol 60 mg IV every 6 hours. Patient remains afebrile. Bronchial washings are felt Kerry albicans and Haemophilus influenza. Consult with Dr. Mayfield added. Patient's breathing is stable. She does have some chest pain related to coughing. Repeat chest x-ray shows right middle lobe infiltrate, improving left basilar infiltrate. Pulmonary medicine has cleared the patient for discharge home with doxycycline. We will assess patient in follow-up with Dr. Mayfield as an outpatient. Patient will be discharged home today in stable condition. Discharge diagnoses: 1. Acute hypoxic respiratory failure secondary to trachebronchomalacia and pulmonary fibrosis, bilateral lower lobe pneumonia and right middle lobe pneumonia, probable Haemophilus influenza pneumonia. 2. History of pulmonary embolism. 3. Hyperlipidemia. 4. Osteopenia. 5. Hypothyroidism. 6. Mitral valve prolapse with regurgitation. Stable at this point. 7. Osteoarthritis and generalized. 8. Fibromyalgia. 9. GERD. 10. Vitamin D deficiency 14. Leukocytosis most likely secondary to multifocal bilateral pneumonia 15. Respiratory acidosis 16. Chronic hypoxic respiratory failure on home O2 at 2-3 L nasal cannula 17. Coagulopathy secondary to Coumadin use with antibiotics. 19. Oral thrush. Discharge plan: Return home Impression and plan of care have been directed as dictated by the signing physician. Robyn Dorantes nurse practitioner acting as scribe for signing physician. Patient Condition at Discharge: Good Plan - Discharge Summary Discharge Rx Participant: No New Discharge Prescriptions: New Cholecalciferol [Vitamin D3] 2,000 unit PO DAILY@1200 tab Doxycycline Hyclate 100 mg PO BID #14 tab Fluconazole [Diflucan] 200 mg PO DAILY #26 tab Ipratropium-Albuterol Nebulize [Duoneb 0.5 mg-3 mg/3 ml Soln] 3 ml INHALATION RT-QID #120 ampul.neb predniSONE 0 mg PO DIRECTED #42 tab Continue Cyclobenzaprine [Flexeril] 10 mg PO HS Atorvastatin [Lipitor] 10 mg PO DAILY Meloxicam 7.5 mg PO BID Montelukast [Singulair] 10 mg PO DAILY Levothyroxine Sodium [Synthroid] 50 mcg PO DAILY DULoxetine HCL [Duloxetine HCl] 60 mg PO DAILY Estrogen,Con/M-Progest Acet [Prempro 0.45-1.5 mg Tablet] 1 cap PO DAILY Gabapentin 600 mg PO HS Denosumab [Prolia] 60 mg SQ Q180D Fluticasone/Vilanterol [Breo Ellipta 200-25 Mcg INH] 1 puff INHALATION RT- DAILY Warfarin Sodium 1.25 mg PO HS Gabapentin [Neurontin] 300 mg PO QAM Zolpidem [Ambien] 5 mg PO HS PRN PRN Reason: Insomnia RABEprazole SODIUM [Aciphex] 20 mg PO HS HYDROcodone/APAP 5-325MG [[place] 5-325] 1 tab PO DAILY PRN PRN Reason: Pain Diazepam [Valium] 5 mg PO HS Discharge Medication List Atorvastatin [Lipitor] 10 mg PO DAILY 04/16/14 [History] Cyclobenzaprine [Flexeril] 10 mg PO HS 04/16/14 [History] DULoxetine HCL [Duloxetine HCl] 60 mg PO DAILY 04/16/14 [History] Denosumab [Prolia] 60 mg SQ Q180D 04/16/14 [History] Estrogen,Con/M-Progest Acet [Prempro 0.45-1.5 mg Tablet] 1 cap PO DAILY [History] Gabapentin 600 mg PO HS 04/16/14 [History] Levothyroxine Sodium [Synthroid] 50 mcg PO DAILY 04/16/14 [History] Meloxicam 7.5 mg PO BID 04/16/14 [History] Montelukast [Singulair] 10 mg PO DAILY 04/16/14 [History] Fluticasone/Vilanterol [Breo Ellipta 200-25 Mcg INH] 1 puff INHALATION RT-DAILY 03/08/17 [History] Warfarin Sodium 1.25 mg PO HS 05/31/17 [History] Gabapentin [Neurontin] 300 mg PO QAM 06/08/17 [History] RABEprazole SODIUM [Aciphex] 20 mg PO HS 11/30/17 [History] Zolpidem [Ambien] 5 mg PO HS PRN 11/30/17 [History] Diazepam [Valium] 5 mg PO HS 03/30/18 [History] HYDROcodone/APAP 5-325MG [[place] 5-325] 1 tab PO DAILY PRN 03/30/18 [History] Cholecalciferol [Vitamin D3] 2,000 unit PO DAILY@1200 tab 04/04/18 [Rx] Doxycycline Hyclate 100 mg PO BID #14 tab 04/04/18 [Rx] Fluconazole [Diflucan] 200 mg PO DAILY #26 tab 04/04/18 [Rx] Ipratropium-Albuterol Nebulize [Duoneb 0.5 mg-3 mg/3 ml Soln] 3 ml INHALATION RT -QID #120 ampul.neb 04/04/18 [Rx] predniSONE 0 mg PO DIRECTED #42 tab 04/04/18 [Rx] Follow up Appointment(s)/Referral(s): Bry Mayfield MD [STAFF PHYSICIAN] - 1 Week Bry Guadalupe MD [Primary Care Provider] - 1 Week Earnest Mckay DO [Doctor of Osteopathic Medicine] - 1 Week Ambulatory/Diagnostic Orders: Prothrombin Time INR [LAB.AMB] Location: None Selected Activity/Diet/Wound Care/Special Instructions: Resume Coumadin tomorrow Discharge Disposition: HOME SELF-CARE
[2018-04-05] MEDS ORDERED: FLUCONAZOLE 100 MG TAB PO SCH (09:00)
== END 2018-04-04 14:45 | disposition home or self-care (01) | DRG 193 ==
LOC: 5MS5E 10:13
PROVIDERS: ADMIT Internal Medicine Geriatric Medicine; ATTEND Internal Medicine Geriatric Medicine
PROC: 0B938ZZ Drainage of Right Main Bronchus, Via Natural or Artificial Opening Endoscopic (ICD-10-PCS; 2018-03-31)
PROC: 0B978ZZ Drainage of Left Main Bronchus, Via Natural or Artificial Opening Endoscopic (ICD-10-PCS; 2018-03-31)
PROC: 0B968ZZ Drainage of Right Lower Lobe Bronchus, Via Natural or Artificial Opening Endoscopic (ICD-10-PCS; 2018-03-31)
PROC: 0B9B8ZZ Drainage of Left Lower Lobe Bronchus, Via Natural or Artificial Opening Endoscopic (ICD-10-PCS; principal; 2018-03-31 12:00)
DX: J14 Pneumonia due to Hemophilus influenzae (principal); J96.21 Acute and chronic respiratory failure with hypoxia; B37.0 Candidal stomatitis; E87.2 Acidosis; J44.0 Chronic obstructive pulmonary disease with (acute) lower respiratory infection; J44.1 Chronic obstructive pulmonary disease with (acute) exacerbation; J84.9 Interstitial pulmonary disease, unspecified; E03.9 Hypothyroidism, unspecified; E55.9 Vitamin D deficiency, unspecified; M16.0 Bilateral primary osteoarthritis of hip; M47.9 Spondylosis, unspecified; E78.5 Hyperlipidemia, unspecified; I34.1 Nonrheumatic mitral (valve) prolapse; J84.10 Pulmonary fibrosis, unspecified; K21.9 Gastro-esophageal reflux disease without esophagitis; M79.7 Fibromyalgia; M85.80 Other specified disorders of bone density and structure, unspecified site; R79.1 Abnormal coagulation profile; T17.990A Other foreign object in respiratory tract, part unspecified in causing asphyxiation, initial encounter; G47.00 Insomnia, unspecified; J98.09 Other diseases of bronchus, not elsewhere classified; Z87.01 Personal history of pneumonia (recurrent); Z86.711 Personal history of pulmonary embolism; Z87.442 Personal history of urinary calculi; Z86.14 Personal history of Methicillin resistant Staphylococcus aureus infection; Z99.81 Dependence on supplemental oxygen; Z79.01 Long term (current) use of anticoagulants; Z79.899 Other long term (current) drug therapy; Z90.49 Acquired absence of other specified parts of digestive tract; Z79.890 Hormone replacement therapy; Z88.1 Allergy status to other antibiotic agents; Z88.8 Allergy status to other drugs, medicaments and biological substances; Z82.3 Family history of stroke; Z82.49 Family history of ischemic heart disease and other diseases of the circulatory system
CPT/HCPCS: 31624; 71045; 71046; 80048; 80053; 80202; 82784; 82785; 85025; 85027; 85610; 87070; 87102; 87116; 87205; 87206; 87252; 87496; 87498; 87502; 87529; 87634; 87798; 94640; 94667; 94760

== ENCOUNTER 2018-09-03 10:50 | Day surgery (SDC) | payer BC ==
[2018-08-30 10:47] VITALS: BMI 21.6
[~2018-09-03 10:50] MED LIST changes: -ATROPINE SULFATE 0.4 MG/ML 1 ML VIAL IM ONE; -LACTATED RINGERS 1,000 ML IV ONE; +LIDOCAINE 1% 20 ML VIAL (10MG/ML) FOR IV START INTRADERMA PRN; +LIDOCAINE 2% (PF) 20 MG/ML 10 ML AMP INHALATION ONE; -LIDOCAINE 2% (PF) 20 MG/ML 2 ML AMP INHALATION ONE; +LIDOCAINE VISCOUS 2% 15 ML CUP MUCOUS MEM ONE; +MIDAZOLAM 2 MG/2 ML VIAL IV PRN; +SODIUM CHLORIDE 0.9% 1,000 ML IV SCH
[2018-09-03 11:21] VITALS: TEMP 98.5
[2018-09-03] MEDS ORDERED: KETAMINE 10 MG/ML 20 ML VIAL ONE (12:02)
[2018-09-03] MEDS ORDERED: LIDOCAINE 1% INJ 10MG/ML (20 ML MDV) ONE (12:02)
[2018-09-03] MEDS ORDERED: PROPOFOL 10 MG/ML 20 ML VIAL IV ONE (12:02)
[2018-09-03] MEDS ORDERED: MIDAZOLAM 2 MG/2 ML VIAL ONE (12:02)
[2018-09-03] MEDS ORDERED: GLYCOPYRROLATE 0.2 MG/ML 2 ML VIAL ONE (12:02)
[2018-09-03] MEDS ORDERED: LIDOCAINE 2% INJ 20 MG/ML INTRATRACH ONE (12:14)
--- NOTE | 2018-09-03 12:26 | P.PCN ---
Date of Procedure: 09/03/18 Preoperative Diagnosis: Acute exacerbation of bronchiectasis Postoperative Diagnosis: Acute exacerbation of bronchiectasis Procedure(s) Performed: Flexible bronchoscopy and bronchioloalveolar lavage Anesthesia: MAC Surgeon: Dominga Hughes Estimated Blood Loss (ml): 0 Pathology: none sent Condition: stable Disposition: same day Indications for Procedure: Shortness of breath or inability to produce sputum, along with symptoms of congested cough and wheezing. Operative Findings: 52-year-old female patient with known history of bronchiectasis and bronchomalacia, coming in for a bronchoscopy for therapeutic airway suctioning as the patient was having symptoms of acute exacerbation of her chronic bronchiectasis. She has had previous infections with MRSA, Haemophilus influenza and Pseudomonas. This procedure was done under conscious sedation with anesthetic agents being administered by anesthesia the bedside. After achieving adequate sedation, the flexible bronchoscope was inserted through the left nostril was advanced upper airway. Examination of the posterior oropharynx larynx a noticeable cords was done and all of this upper airway structures were within normal limits. A total of 2 mL of 1% lidocaine was applied to the vocal cords and following that the bronchoscope was advanced into the upper trachea and examination of the tracheal bronchial tree was done. There was copious amount of looseness for secretions scattered throughout the airways in the mid and lower trachea in addition to secretions in the various segments of the lower lobes bilaterally. Contrary to my expectation, the secretions fitter and turner to be very liquidy and loose and nonpurulent. Therapeutic airway suctioning was done. The underlying bronchial mucosa was somewhat inflamed and erythematous. The visualized airways into the trachea back and mainstem bronchi, right upper lobe and minimal right lower lobe and left upper and left lower lobe lungs there is segments and subsegments. All of these instructions were within normal limits. At that point, the bronchoscope was wedged in the right middle lobe and the bronchioloalveolar lavage was done but total of 40 cc of fluid was infused around 20 to suction back. Therapeutic airway suctioning was done. No on the bronchial tumors lesions or abnormalities noted. Bronchoscope was removed and the procedure was terminated and the patient was transferred recovery in stable condition. The samples will be sent for microbial analysis and the patient will contact me back in the office in a week or so to discuss the results.
[2018-09-03 12:36] VITALS: RESP 18
[2018-09-03 13:04] VITALS: BP 114/70; PULSE 98
[2018-09-03 16:27] LABS: Appearance,BF Blood Tinged; Color,BF Red; Nucleated Cells, Body Fluid 8250 /uL; RBC, Body Fluid 2550 /uL
[2018-09-03 16:39] LABS: Mononuclear WBC,Body Fluid 88 %; Polynuclear WBC,Body Fluid 12 %; Total Cells Counted,Body Fluid 100
== END 2018-09-03 13:26 | disposition home or self-care (01) ==
LOC: ORWHC2ENDO 10:50
PROVIDERS: ATTEND Internal Medicine Critical Care Medicine
DX: J47.9 Bronchiectasis, uncomplicated (principal); Q32.2 Congenital bronchomalacia; J84.10 Pulmonary fibrosis, unspecified; E03.9 Hypothyroidism, unspecified; G47.00 Insomnia, unspecified; K22.70 Barrett's esophagus without dysplasia; K21.9 Gastro-esophageal reflux disease without esophagitis; E78.2 Mixed hyperlipidemia; I34.1 Nonrheumatic mitral (valve) prolapse; Z86.14 Personal history of Methicillin resistant Staphylococcus aureus infection; Z86.711 Personal history of pulmonary embolism; Z99.81 Dependence on supplemental oxygen; Z79.01 Long term (current) use of anticoagulants; Z79.899 Other long term (current) drug therapy; Z79.890 Hormone replacement therapy; Z88.1 Allergy status to other antibiotic agents; Z88.8 Allergy status to other drugs, medicaments and biological substances
CPT/HCPCS: 94640; 89050; 87252; 87070; 87205; 87075; 87116; 87102; 87206; 31624; J2001 ×3; J2250; J2704; 87496; 87498; 87502; 87529; 87634; 87798; 88108; 88305; 88312

== ENCOUNTER 2018-10-01 08:15 | Inpatient (IN) | payer BC ==
[2018-10-01] MEDS ORDERED: IPRATROPIUM-ALBUTEROL 3 ML NEB INHALATION STA (08:41)
[2018-10-01] MEDS ORDERED: methylPREDNISolone SOD SUCCI 125 MG/2 ML VIAL IV STA (08:41)
--- NOTE | 2018-10-01 08:48 | ED ---
General Adult HPI - General Chief complaint: Shortness of Breath Stated complaint: Trouble breath Time Seen by Provider: 10/01/18 08:29 Source: patient, RN notes reviewed Mode of arrival: wheelchair Limitations: no limitations - History of Present Illness Initial comments: Patient is a pleasant 52-year-old female presenting to the emergency Department with complaints of difficulty in breathing. Symptoms been present for a couple of weeks. Patient does have complaints of chest congestion however is unable to cough it up. Patient did have bronchoscopy done x-ray 4 weeks ago and was treated with Cipro without improvement. Patient does see Dr. Hughes or her chronic bronchiectasis. Patient states she may been having some low-grade fevers at home. No leg pain or leg swelling. - Related Data Home Medications Medication Instructions Recorded Confirmed Atorvastatin [Lipitor] 10 mg PO HS 04/16/14 10/01/18 Cyclobenzaprine [Flexeril] 10 mg PO HS 04/16/14 10/01/18 DULoxetine HCL [Duloxetine HCl] 60 mg PO DAILY 04/16/14 10/01/18 Denosumab [Prolia] 60 mg SQ Q180D 04/16/14 10/01/18 Estrogen,Con/M-Progest Acet 1 cap PO Q48H 04/16/14 10/01/18 [Prempro 0.45-1.5 mg Tablet] Gabapentin 600 mg PO HS 04/16/14 10/01/18 Levothyroxine Sodium [Synthroid] 50 mcg PO DAILY 04/16/14 10/01/18 Meloxicam 7.5 mg PO BID 04/16/14 10/01/18 Montelukast [Singulair] 10 mg PO DAILY 04/16/14 10/01/18 Fluticasone/Vilanterol [Breo 1 puff INHALATION RT-DAILY 03/08/17 10/01/18 Ellipta 200-25 Mcg INH] Warfarin Sodium 2.5 mg PO HS 05/31/17 10/01/18 Gabapentin [Neurontin] 300 mg PO QAM 06/08/17 10/01/18 RABEprazole SODIUM [Aciphex] 20 mg PO HS 11/30/17 10/01/18 Zolpidem [Ambien] 5 mg PO HS 11/30/17 10/01/18 Diazepam [Valium] 5 mg PO HS 03/30/18 10/01/18 HYDROcodone/APAP 5-325MG [[place] 1 tab PO DAILY PRN 03/30/18 10/01/18 5-325] Fluconazole [Diflucan] 200 mg PO DAILY PRN 08/30/18 10/01/18 L.acidoph,Paracasei, B.lactis 1 cap PO DAILY 10/01/18 10/01/18 [Probiotic] Tobramycin Inh 300mg/5ml 300 mg INHALATION RT-Q12H 10/01/18 10/01/18 predniSONE See Taper PO DAILY 10/01/18 10/01/18 Previous Rx's Medication Instructions Recorded Ipratropium-Albuterol Nebulize 3 ml INHALATION RT-QID #120 04/04/18 [Duoneb 0.5 mg-3 mg/3 ml Soln] ampul.neb Allergies Allergy/AdvReac Type Severity Reaction Status Date / Time erythromycin base Allergy Intermediate Rash/Hives Verified 10/01/18 09:10 metoclopramide HCl Allergy MUSCLE Verified 10/01/18 09:10 [From Reglan] SPASMS prochlorperazine edisylate Allergy MUSCLE Verified 10/01/18 09:10 [From Compazine] SPASMS prochlorperazine maleate Allergy MUSCLE Verified 10/01/18 09:10 [From Compazine] SPASMS Review of Systems ROS Statement: Those systems with pertinent positive or pertinent negative responses have been documented in the HPI. ROS Other: All systems not noted in ROS Statement are negative. Constitutional: Reports: as per HPI Eyes: Denies: eye pain ENT: Denies: ear pain Respiratory: Reports: as per HPI, dyspnea Cardiovascular: Denies: chest pain Endocrine: Reports: fatigue Gastrointestinal: Denies: abdominal pain Genitourinary: Denies: dysuria Skin: Denies: rash Neurological: Denies: headache Past Medical History Past Medical History: Asthma, COPD, Fibromyalgia, GERD/Reflux, Hyperlipidemia, Mitral Valve Prolapse (MVP), Osteoarthritis (OA), Pneumonia, Pulmonary Embolus ( PE), Respiratory Disorder, Thyroid Disorder Additional Past Medical History / Comment(s): tracheobronchomalacia, chronic interstitial changes and no evidence of any significant pulmonary fibrosis based on previous CAT scan of the chest, mitral valve prolapse, muscle pain/ arthritis bilateral hips and neck, nephrolithiasis with surgery,O2- USES 4.5 LITERS AT NIGHT ,2.5 LITERS PRN History of Any Multi-Drug Resistant Organisms: MRSA Date of last positivie culture/infection: 03/07/18 MDRO Source:: LUNG Past Surgical History: Appendectomy, Heart Catheterization, Orthopedic Surgery Additional Past Surgical History / Comment(s): Bronchoscopies/BALs, R lung bx, R chest port, 1993 cardiac cath-normal, R knee arthroscopy, kidney stone removal , D&C. Past Anesthesia/Blood Transfusion Reactions: No Reported Reaction Additional Past Anesthesia/Blood Transfusion Reaction / Comment(s): Pt has received blood in past without reaction. Past Psychological History: Panic Disorder Smoking Status: Never smoker Past Alcohol Use History: None Reported Past Drug Use History: None Reported - Past Family History Father Family Medical History: CVA/TIA Additional Family Medical History / Comment(s): Father 09/2017 from a massive CVA. He was 85-year-old. Brother(s) Family Medical History: No Reported History Sister(s) Family Medical History: Neurologic Disorder Daughter(s) Family Medical History: No Reported History Mother Family Medical History: AFIB Additional Family Medical History / Comment(s): Mother has a pacemaker. General Exam Limitations: no limitations General appearance: alert Head exam: Present: atraumatic Eye exam: Present: normal appearance, PERRL ENT exam: Present: normal oropharynx Neck exam: Present: normal inspection Respiratory exam: Present: respiratory distress (Mild), wheezes, rhonchi Cardiovascular Exam: Present: tachycardia GI/Abdominal exam: Present: soft. Absent: tenderness Extremities exam: Present: normal inspection. Absent: pedal edema, calf tenderness Neurological exam: Present: alert Psychiatric exam: Present: normal affect, normal mood Skin exam: Present: normal color Course Vital Signs 10/01/18 10/01/18 10/01/18 08:18 08:56 09:00 Temperature 98.0 F Pulse Rate 115 H 120 H Respiratory 24 22 20 Rate Blood Pressure 134/88 123/57 O2 Sat by Pulse 92 L 94 L Oximetry 10/01/18 10/01/18 10/01/18 09:11 09:18 10:23 Temperature Pulse Rate 117 H 114 H 109 H Respiratory 20 Rate Blood Pressure 125/79 O2 Sat by Pulse 93 L Oximetry - Reevaluation(s) Reevaluation #1: 10/01/18 10:32 Patient reevaluated and slightly improved. Case discussed with practitioner ce covering with Dr. Hughes, who will consult. EKG Findings - EKG Comments: EKG Findings:: Sinus tachycardia 116. MN 100. QRS 68. QT 286. QTc 397. Normal axis. No QRS. No acute ST change. Right atrial enlargement. Medical Decision Making - Medical Decision Making Case was also discussed with Dr. Guadalupe, who will admit his patient. - Lab Data Result diagrams: 10/01/18 08:48 10/01/18 08:48 Lab Results 10/01/18 10/01/18 10/01/18 Range/Units 08:48 08:48 08:48 WBC 23.8 H (3.8-10.6) k/uL RBC 4.54 (3.80-5.40) m/uL Hgb 13.9 (11.4-16.0) gm/dL Hct 42.0 (34.0-46.0) % MCV 92.4 (80.0-100.0) fL MCH 30.6 (25.0-35.0) pg MCHC 33.1 (31.0-37.0) g/dL RDW 14.7 (11.5-15.5) % Plt Count 274 (150-450) k/uL Neutrophils % 73 % Lymphocytes % 18 % Monocytes % 7 % Eosinophils % 0 % Basophils % 1 % Neutrophils # 17.4 H (1.3-7.7) k/uL Lymphocytes # 4.3 (1.0-4.8) k/uL Monocytes # 1.6 H (0-1.0) k/uL Eosinophils # 0.1 (0-0.7) k/uL Basophils # 0.2 (0-0.2) k/uL PT (9.0-12.0) sec INR (<1.2) APTT (22.0-30.0) sec Sodium 140 (137-145) mmol/L Potassium 4.4 (3.5-5.1) mmol/L Chloride 107 (98-107) mmol/L Carbon Dioxide 23 (22-30) mmol/L Anion Gap 10 mmol/L BUN 26 H (7-17) mg/dL Creatinine 0.71 (0.52-1.04) mg/dL Est GFR (CKD-EPI)AfAm >90 (>60 ml/min/1.73 sqM) Est GFR (CKD-EPI)NonAf >90 (>60 ml/min/1.73 sqM) Glucose 131 H (74-99) mg/dL Plasma Lactic Acid Saran (0.7-2.0) mmol/L Calcium 9.5 (8.4-10.2) mg/dL Magnesium 2.1 (1.6-2.3) mg/dL Total Bilirubin 0.5 (0.2-1.3) mg/dL AST 26 (14-36) U/L ALT 27 (9-52) U/L Alkaline Phosphatase 109 (38-126) U/L Creatine Kinase 34 (30-135) U/L CK-MB (CK-2) 0.3 (0.0-2.4) ng/mL Troponin I <0.012 (0.000-0.034) ng/mL Total Protein 6.8 (6.3-8.2) g/dL Albumin 3.9 (3.5-5.0) g/dL Influenza Type A RNA (Not Detectd) Influenza Type B (PCR) (Not Detectd) 10/01/18 10/01/18 10/01/18 Range/Units 08:48 08:48 08:48 WBC (3.8-10.6) k/uL RBC (3.80-5.40) m/uL Hgb (11.4-16.0) gm/dL Hct (34.0-46.0) % MCV (80.0-100.0) fL MCH (25.0-35.0) pg MCHC (31.0-37.0) g/dL RDW (11.5-15.5) % Plt Count (150-450) k/uL Neutrophils % % Lymphocytes % % Monocytes % % Eosinophils % % Basophils % % Neutrophils # (1.3-7.7) k/uL Lymphocytes # (1.0-4.8) k/uL Monocytes # (0-1.0) k/uL Eosinophils # (0-0.7) k/uL Basophils # (0-0.2) k/uL PT 82.3 H (9.0-12.0) sec INR 8.4 H* (<1.2) APTT 46.9 H (22.0-30.0) sec Sodium (137-145) mmol/L Potassium (3.5-5.1) mmol/L Chloride (98-107) mmol/L Carbon Dioxide (22-30) mmol/L Anion Gap mmol/L BUN (7-17) mg/dL Creatinine (0.52-1.04) mg/dL Est GFR (CKD-EPI)AfAm (>60 ml/min/1.73 sqM) Est GFR (CKD-EPI)NonAf (>60 ml/min/1.73 sqM) Glucose (74-99) mg/dL Plasma Lactic Acid Saran 2.2 H* (0.7-2.0) mmol/L Calcium (8.4-10.2) mg/dL Magnesium (1.6-2.3) mg/dL Total Bilirubin (0.2-1.3) mg/dL AST (14-36) U/L ALT (9-52) U/L Alkaline Phosphatase (38-126) U/L Creatine Kinase (30-135) U/L CK-MB (CK-2) (0.0-2.4) ng/mL Troponin I (0.000-0.034) ng/mL Total Protein (6.3-8.2) g/dL Albumin (3.5-5.0) g/dL Influenza Type A RNA Not Detected (Not Detectd) Influenza Type B (PCR) Not Detected (Not Detectd) - Radiology Data Radiology results: image reviewed (Chest x-ray shows no acute process) Disposition Clinical Impression: Bronchiectasis, Dyspnea Disposition: ADMITTED IP TO THIS HOSP Is patient prescribed a controlled substance at d/c from ED?: No Referrals: Dominga Hughes MD [STAFF PHYSICIAN] - 1-2 days Decision Time: 10:45
[2018-10-01 09:11] LABS: Basophils # (A) 0.2 k/uL (0-0.2); Basophils % (A) 1 %; Eosinophils # (A) 0.1 k/uL (0-0.7); Eosinophils % (A) 0 %; HGB 13.9 gm/dL (11.4-16.0); Lymphocytes # (A) 4.3 k/uL (1.0-4.8); Lymphocytes % (A) 18 %; MCH 30.6 pg (25.0-35.0); MCHC 33.1 g/dL (31.0-37.0); MCV 92.4 fL (80.0-100.0); Mean Platelet Volume 7.2; Monocytes # (A) 1.6 k/uL (0-1.0); Monocytes % (A) 7 %; Neutrophils # (A) 17.4 k/uL (1.3-7.7); Neutrophils % (A) 73 %; Platelet Count 274 k/uL (150-450); RBC 4.54 m/uL (3.80-5.40); RDW 14.7 % (11.5-15.5); WBC 23.8 k/uL (3.8-10.6)
--- NOTE | 2018-10-01 09:25 | XR ---
EXAMINATION TYPE: XR chest 2V DATE OF EXAM: 10/01/2018 COMPARISON: Chest x-ray April 04, 2018 HISTORY: Difficulty in breathing. TECHNIQUE: Frontal and lateral views of the chest are obtained. FINDINGS: There is stable right internal jugular Mediport catheter. There is chronic parenchymal house ge without suspicious focal air space opacity, pleural effusion, or pneumothorax seen. The cardiac s ilhouette size is within normal limits. Surgical clips gastroesophageal region are redemonstrated. T he osseous structures are intact. IMPRESSION: Chronic parenchymal change without acute pulmonary process.
[2018-10-01 09:30] LABS: Partial Thromboplastin Time 46.9 sec (22.0-30.0)
[2018-10-01 09:35] LABS: ALT 27 U/L (9-52); AST 26 U/L (14-36); Albumin 3.9 g/dL (3.5-5.0); Alkaline Phosphatase 109 U/L (38-126); Anion Gap 10 mmol/L; Blood Urea Nitrogen 26 mg/dL (7-17); Calcium 9.5 mg/dL (8.4-10.2); Carbon Dioxide 23 mmol/L (22-30); Chloride 107 mmol/L (98-107); Creatine Kinase 34 U/L (30-135); Glucose 131 mg/dL (74-99); Magnesium 2.1 mg/dL (1.6-2.3); Potassium 4.4 mmol/L (3.5-5.1); Prothrombin Time 82.3 sec (9.0-12.0); Sodium 140 mmol/L (137-145); Total Bilirubin 0.5 mg/dL (0.2-1.3); Total Protein 6.8 g/dL (6.3-8.2)
[2018-10-01 09:46] LABS: Creatine Kinase MB 0.3 ng/mL (0.0-2.4); Troponin I <0.012 ng/mL (0.000-0.034)
[2018-10-01 09:59] LABS: INR 8.4 (<1.2)
[2018-10-01] MEDS ORDERED: IPRATROPIUM-ALBUTEROL 3 ML NEB INHALATION PRN (10:50)
[2018-10-01] MEDS ORDERED: PIPERACILLIN-TAZOBACTAM 3.375 GM in SODIUM CHLORIDE 0.9% 100 ML IVPB STA (10:51)
[2018-10-01] MEDS ORDERED: SODIUM CHLORIDE 0.9% 1,000 ML IV STA (11:16)
[2018-10-01] MEDS: SODIUM CHLORIDE 0.9% 1,000 ML IV SCH ×2 (11:29→21:11)
[2018-10-01] MEDS ORDERED: HYDROcodone/APAP 5-325MG 1 EACH TAB PO PRN (13:10)
--- NOTE | 2018-10-01 13:10 | P.HPIM ---
History of Present Illness H&P Date: 10/01/18 Chief Complaint: Acute respiratory failure, COPD exacerbation, Pseudomonas pneumonitis and c 52-year-old female one of my office patient of known for long time with history of chronic asthma/COPD with history of advanced pulmonary fibrosis who had seen Dr. Oscar diaz in and Dr. Alvarez on regular basis for recurrent shortness of breath bronchitis and Pseudomonas pneumonitis with multiple bronchoscopy and treatment for Pseudomonas. Patient also was seen in [facility] for possible lung transplant in the past. She is known to have history of recurrent pulmonary embolism has been on anticoagulation for long time has been on warfarin with INR has been therapeutic for many years. Patient had bronchoscopy with Dr. Hughes over 2 weeks ago was diagnosed with Pseudomonas as well started on Cipro and felt slightly bit better initially but become much worse and lasts 5 days started having low-grade temperature initially and her fever become much higher having more tachypnea hypoxia tachycardia and more symptomatic patient despite having to go on 5 L of O2 continue to be hypoxic today ended up coming to the emergency department at [facility] where was seen and evaluated chest x-ray failed to show any sign of consolidation specially with her scar tissue. Patient clinically had pneumonia in the right side with severe leukocytosis and elevated lactic acid and coagulopathy patient will be hospitalized with switch her oral Cipro to Zosyn will consult pulmonary and infectious disease continue to treat patient aggressively. Patient also might require bronchoscopy because of the severity of the congestion and hypoxia. Review of Systems CONSTITUTIONAL: Well-developed mild respiratory distress.. EYES: No icterus sclerae, no conjunctivitis. EARS, NOSE, MOUTH, THROAT, and FACE: No sore throat, lymphadenopathy, carotid bruits or deformity. RESPIRATORY: Positive shortness of breath cough wheezes with pulmonary fibrosis. CARDIOVASCULAR: No CP, Palpitation, PND, Orthopnea, or angina. GASTROINTESTINAL: No Abd pain, Nausea or vomiting, no Diarrhea or constipation, No GI Bleed, no distention or masses. GENITOURINARY: Negative for Hematuria or UTI, no kidney stones. INTEGUMENT/BREAST: Negative for any muscular injury with mild osteoarthritis.. HEMATOLOGIC/LYMPHATIC: Negative for bleed or purpura. MUSCULOSKELTAL: Negative for Myalgia or arthralgia. NEURLOGICAL: No LOC, Sz or syncope, blurred vision dizziness or abnormality.. BEHAVIORAL/PSYCH: Negative. ENDOCRINE: Negative. Past Medical History Past Medical History: Asthma, COPD, Fibromyalgia, GERD/Reflux, Hyperlipidemia, Mitral Valve Prolapse (MVP), Osteoarthritis (OA), Pneumonia, Pulmonary Embolus ( PE), Respiratory Disorder, Thyroid Disorder Additional Past Medical History / Comment(s): tracheobronchomalacia, chronic interstitial changes and no evidence of any significant pulmonary fibrosis based on previous CAT scan of the chest, mitral valve prolapse, muscle pain/ arthritis bilateral hips and neck, nephrolithiasis with surgery,O2- USES 4.5 LITERS AT NIGHT ,2.5 LITERS PRN History of Any Multi-Drug Resistant Organisms: MRSA Date of last positivie culture/infection: 03/07/18 MDRO Source:: LUNG Past Surgical History: Appendectomy, Heart Catheterization, Orthopedic Surgery Additional Past Surgical History / Comment(s): Bronchoscopies/BALs, R lung bx, R chest port, 1993 cardiac cath-normal, R knee arthroscopy, kidney stone removal , D&C. Past Anesthesia/Blood Transfusion Reactions: No Reported Reaction Additional Past Anesthesia/Blood Transfusion Reaction / Comment(s): Pt has received blood in past without reaction. Past Psychological History: Panic Disorder Smoking Status: Never smoker Past Alcohol Use History: None Reported Past Drug Use History: None Reported - Past Family History Father Family Medical History: CVA/TIA Additional Family Medical History / Comment(s): Father 09/2017 from a massive CVA. He was 85-year-old. Brother(s) Family Medical History: No Reported History Sister(s) Family Medical History: Neurologic Disorder Daughter(s) Family Medical History: No Reported History Mother Family Medical History: AFIB Additional Family Medical History / Comment(s): Mother has a pacemaker. Medications and Allergies Home Medications Medication Instructions Recorded Confirmed Type Atorvastatin [Lipitor] 10 mg PO HS 04/16/14 10/01/18 History Cyclobenzaprine [Flexeril] 10 mg PO HS 04/16/14 10/01/18 History DULoxetine HCL [Duloxetine HCl] 60 mg PO DAILY 04/16/14 10/01/18 History Denosumab [Prolia] 60 mg SQ Q180D 04/16/14 10/01/18 History Estrogen,Con/M-Progest Acet 1 cap PO Q48H 04/16/14 10/01/18 History [Prempro 0.45-1.5 mg Tablet] Gabapentin 600 mg PO HS 04/16/14 10/01/18 History Levothyroxine Sodium [Synthroid] 50 mcg PO DAILY 04/16/14 10/01/18 History Meloxicam 7.5 mg PO BID 04/16/14 10/01/18 History Montelukast [Singulair] 10 mg PO DAILY 04/16/14 10/01/18 History Fluticasone/Vilanterol [Breo 1 puff INHALATION RT-DAILY 03/08/17 10/01/18 History Ellipta 200-25 Mcg INH] Warfarin Sodium 2.5 mg PO HS 05/31/17 10/01/18 History Gabapentin [Neurontin] 300 mg PO QAM 06/08/17 10/01/18 History RABEprazole SODIUM [Aciphex] 20 mg PO HS 11/30/17 10/01/18 History Zolpidem [Ambien] 5 mg PO HS 11/30/17 10/01/18 History Diazepam [Valium] 5 mg PO HS 03/30/18 10/01/18 History HYDROcodone/APAP 5-325MG [[place] 1 tab PO DAILY PRN 03/30/18 10/01/18 History 5-325] Ipratropium-Albuterol Nebulize 3 ml INHALATION RT-QID #120 04/04/18 10/01/18 Rx [Duoneb 0.5 mg-3 mg/3 ml Soln] ampul.neb Fluconazole [Diflucan] 200 mg PO DAILY PRN 08/30/18 10/01/18 History L.acidoph,Paracasei, B.lactis 1 cap PO DAILY 10/01/18 10/01/18 History [Probiotic] Tobramycin Inh 300mg/5ml 300 mg INHALATION RT-Q12H 10/01/18 10/01/18 History predniSONE See Taper PO DAILY 10/01/18 10/01/18 History Allergies Allergy/AdvReac Type Severity Reaction Status Date / Time erythromycin base Allergy Intermediate Rash/Hives Verified 10/01/18 09:10 metoclopramide HCl Allergy MUSCLE Verified 10/01/18 09:10 [From Reglan] SPASMS prochlorperazine edisylate Allergy MUSCLE Verified 10/01/18 09:10 [From Compazine] SPASMS prochlorperazine maleate Allergy MUSCLE Verified 10/01/18 09:10 [From Compazine] SPASMS Physical Exam Vitals: Vital Signs Temp Pulse Resp BP Pulse Ox 10/01/18 11:31 106 H 18 116/88 93 L 10/01/18 10:23 109 H 20 125/79 93 L 10/01/18 09:18 114 H 10/01/18 09:11 117 H 10/01/18 09:00 120 H 20 123/57 94 L 10/01/18 08:56 22 10/01/18 08:18 98.0 F 115 H 24 134/88 92 L Intake and Output 09/30/18 10/01/18 10/01/18 22:59 06:59 14:59 Other: Weight 54.431 kg General Appearance: Alert, cooperative, no distress, appears stated age. Neck HEENT: Supple, no lymphadenopathy, no thyroid enlargement, no carotid bruits. Lungs: Decreased breath sound bilaterally worsening in the right than the left side with positive rhonchi and fine crackles in the right side. Chest Wall: Chest wall normal expansion with deep inspiration no tenderness and no deformity was found on exam, no costochondral pain or discomfort. Heart: Regular rate and rhythm, S1, S2 normal, no murmur, rub or gallop. Back: Symmetric, no curvature, ROM normal, no CVA tenderness. Abdomen: Soft, non-tender, bowel sounds active all four quadrants, no masses, no organomegaly. Extremities: Extremities normal, atraumatic, no cyanosis or edema. Pulses: 2+ and symmetric. Skin: Skin color, texture, tugor normal, no rashes or lesions. Neurologic: Alert oriented x3 cranial nerves II through XII intact, no motor deficit, no abnormal balance or gait. Results CBC & Chem 7: 10/01/18 08:48 10/01/18 08:48 Labs: Abnormal Lab Results - Last 24 Hours (Table) 10/01/18 10/01/18 10/01/18 Range/Units 08:48 08:48 08:48 WBC 23.8 H (3.8-10.6) k/uL Neutrophils # 17.4 H (1.3-7.7) k/uL Monocytes # 1.6 H (0-1.0) k/uL PT 82.3 H (9.0-12.0) sec INR 8.4 H* (<1.2) APTT 46.9 H (22.0-30.0) sec BUN 26 H (7-17) mg/dL Glucose 131 H (74-99) mg/dL Plasma Lactic Acid Saran (0.7-2.0) mmol/L 10/01/18 Range/Units 08:48 WBC (3.8-10.6) k/uL Neutrophils # (1.3-7.7) k/uL Monocytes # (0-1.0) k/uL PT (9.0-12.0) sec INR (<1.2) APTT (22.0-30.0) sec BUN (7-17) mg/dL Glucose (74-99) mg/dL Plasma Lactic Acid Saran 2.2 H* (0.7-2.0) mmol/L Thrombosis Risk Factor Assmnt - DVT/VTE Prophylaxis DVT/VTE Prophylaxis: Mechanical Prophylaxis ordered Assessment and Plan Plan: 1 acute respiratory failure: Combination of COPD, Pseudomonas pneumonitis and more sputum plug with her current symptoms especially the pulmonary fibrosis, continue O2 continue steroid and aggressive antibiotic, consult pulmonary. 2 COPD excessive patient: With her current symptoms patient will be started on Solu-Medrol along with Pulmicort and DuoNeb. 3 Pseudomonas pneumonitis with infiltrate in the right side patient will be started on Zosyn stop Cipro for now and consult pulmonary and infectious disease. Culture will be done pending results for now. 4 coagulopathy: Patient has been on warfarin with INR is over therapeutic at 8.4 Will hold warfarin for now continue medical management no need for vitamin K if patient is not bleeding at this point. 5 history of pulmonary embolism: Patient is on anticoagulation. 6 pulmonary fibrosis: Patient seen pulmonary. 7 hyperlipidemia: Continue atorvastatin 10 mg daily. 8 osteoporosis: Patient is on probably a injection every 6 months. 9 chronic neuropathy: Continue gabapentin. 10 hypothyroidism: Continue patient on Synthroid 50 g daily. 11 severe GERD/GI prophylaxis: Patient has been on AcipHex will replace it with aunt omeprazole. 12 DVT prophylaxis: Remain on anticoagulation. It status: Full code. Admit patient to inpatient status for more than 2 nights.
[2018-10-01] MEDS ORDERED: PANTOPRAZOLE 40 MG/10 ML VIAL IVP SCH (13:15)
[2018-10-01] MEDS: methylPREDNISolone SOD SUCCI 125 MG/2 ML VIAL IV SCH ×2 (13:19→18:00)
[2018-10-01] MEDS: IPRATROPIUM-ALBUTEROL 3 ML NEB INHALATION SCH ×3 (13:19→19:07)
--- NOTE | 2018-10-01 14:43 | P.CONS ---
History of Present Illness - Reason for Consult Consult date: 10/01/18 Bronchiectasis - History of Present Illness This is a 52-year-old female one of Dr. Guadalupe with a previous medical history significant for bronchial malacia, pulmonary fibrosis, interstitial lung disease, pulmonary embolism on chronic Coumadin, hyperlipidemia, GERD, osteopenia. Patient was recently brought in on September 03 under the care of Dr. Hughes underwent a bronchoscopy and BAL. Culture positive for Pseudomonas and patient has been treated with Cipro. Pathology report revealed acute inflammatory cells, mucus and foaming debris. Stain negative for pneumocystic carinii organisms. Patient also gives history of being on tobramycin nebulizer treatments. She states she is having increasing shortness of breath that progressively worsened and her oxygen saturations have been dropping. She has been using more oxygen up to 4 L at home. She states she can 't even it herself dressed in the morning. She also complains of low-grade fever. She came into [facility] emergency center for evaluation. Chest x-ray shows chronic prevention will change without acute pulmonary process. White count was 23.8, INR 8.4 patient is on chronic Coumadin therapy for PE. Creatinine 0.71. Initial lactic acid 2.2 and repeat 2.9. Influenza testing was negative. Troponin negative. Patient was started on IV Solu-Medrol, Pulmicort and DuoNeb treatments, Zosyn and admitted to [facility] floor and consult with Dr. Hughes included. Review of Systems All systems: negative Constitutional: Reports fatigue, Reports lethargy, Reports poor appetite, Reports weakness, Denies chills, Denies fever Eyes: denies blurred vision, denies pain Ears, nose, mouth and throat: Denies dysphagia, Denies epistaxis, Denies headache, Denies nasal congestion, Denies nasal discharge, Denies sore throat, Denies vertigo Cardiovascular: Reports decreased exercise tolerance, Reports dyspnea on exertion, Denies chest pain, Denies edema, Denies leg edema, Denies orthopnea, Denies shortness of breath, Denies syncope Respiratory: Reports cough, Reports dyspnea, Reports home oxygen, Reports respiratory infections, Reports wheezing, Denies cough with sputum, Denies excessive sputum, Denies hemoptysis Gastrointestinal: Denies abdominal pain, Denies diarrhea, Denies melena, Denies nausea, Denies vomiting Genitourinary: Denies dysuria, Denies hematuria, Denies urgency, Denies urinary frequency Musculoskeletal: Denies frequent falls, Denies muscle weakness, Denies myalgias Integumentary: Denies pruritus, Denies rash, Denies wounds Neurological: Denies aphasia, Denies change in mentation, Denies confusion, Denies gait dysfunction, Denies headaches, Denies numbness, Denies seizures, Denies weakness Psychiatric: Denies anxiety, Denies depression Endocrine: Denies fatigue, Denies weight change Past Medical History Past Medical History: Asthma, COPD, Fibromyalgia, GERD/Reflux, Hyperlipidemia, Mitral Valve Prolapse (MVP), Osteoarthritis (OA), Pneumonia, Pulmonary Embolus ( PE), Respiratory Disorder, Thyroid Disorder Additional Past Medical History / Comment(s): tracheobronchomalacia, chronic interstitial changes and no evidence of any significant pulmonary fibrosis based on previous CAT scan of the chest, mitral valve prolapse, muscle pain/ arthritis bilateral hips and neck, nephrolithiasis with surgery,O2- USES 4.5 LITERS AT NIGHT ,2.5 LITERS PRN History of Any Multi-Drug Resistant Organisms: MRSA Year Discovered:: 03/07/18 MDRO Source:: LUNG Past Surgical History: Appendectomy, Heart Catheterization, Orthopedic Surgery Additional Past Surgical History / Comment(s): Bronchoscopies/BALs, R lung bx, R chest port, 1994 cardiac cath-normal, R knee arthroscopy, kidney stone removal , D&C. Past Anesthesia/Blood Transfusion Reactions: No Reported Reaction Additional Past Anesthesia/Blood Transfusion Reaction / Comm: Pt has received blood in past without reaction. Past Psychological History: Panic Disorder Smoking Status: Never smoker Past Alcohol Use History: None Reported Additional Past Alcohol Use History / Comment(s): Patient has been a lifelong nonsmoker, no illicit drug use, no alcohol use. She currently works at [employer] office. Past Drug Use History: None Reported - Past Family History Father Family Medical History: CVA/TIA Additional Family Medical History / Comment(s): Father 09/2017 from a massive CVA. He was 85-year-old. Brother(s) Family Medical History: No Reported History Sister(s) Family Medical History: Neurologic Disorder Daughter(s) Family Medical History: No Reported History Mother Family Medical History: AFIB Additional Family Medical History / Comment(s): Mother has a pacemaker. Medications and Allergies Home Medications Medication Instructions Recorded Confirmed Type Atorvastatin [Lipitor] 10 mg PO HS 04/16/14 10/01/18 History Cyclobenzaprine [Flexeril] 10 mg PO HS 04/16/14 10/01/18 History DULoxetine HCL [Duloxetine HCl] 60 mg PO DAILY 04/16/14 10/01/18 History Denosumab [Prolia] 60 mg SQ Q180D 04/16/14 10/01/18 History Estrogen,Con/M-Progest Acet 1 cap PO Q48H 04/16/14 10/01/18 History [Prempro 0.45-1.5 mg Tablet] Gabapentin 600 mg PO HS 04/16/14 10/01/18 History Levothyroxine Sodium [Synthroid] 50 mcg PO DAILY 04/16/14 10/01/18 History Meloxicam 7.5 mg PO BID 04/16/14 10/01/18 History Montelukast [Singulair] 10 mg PO DAILY 04/16/14 10/01/18 History Fluticasone/Vilanterol [Breo 1 puff INHALATION RT-DAILY 03/08/17 10/01/18 History Ellipta 200-25 Mcg INH] Warfarin Sodium 2.5 mg PO HS 05/31/17 10/01/18 History Gabapentin [Neurontin] 300 mg PO QAM 06/08/17 10/01/18 History RABEprazole SODIUM [Aciphex] 20 mg PO HS 11/30/17 10/01/18 History Zolpidem [Ambien] 5 mg PO HS 11/30/17 10/01/18 History Diazepam [Valium] 5 mg PO HS 03/30/18 10/01/18 History HYDROcodone/APAP 5-325MG [[place] 1 tab PO DAILY PRN 03/30/18 10/01/18 History 5-325] Ipratropium-Albuterol Nebulize 3 ml INHALATION RT-QID #120 04/04/18 10/01/18 Rx [Duoneb 0.5 mg-3 mg/3 ml Soln] ampul.neb Fluconazole [Diflucan] 200 mg PO DAILY PRN 08/30/18 10/01/18 History L.acidoph,Paracasei, B.lactis 1 cap PO DAILY 10/01/18 10/01/18 History [Probiotic] Tobramycin Inh 300mg/5ml 300 mg INHALATION RT-Q12H 10/01/18 10/01/18 History predniSONE See Taper PO DAILY 10/01/18 10/01/18 History Allergies Allergy/AdvReac Type Severity Reaction Status Date / Time erythromycin base Allergy Intermediate Rash/Hives Verified 10/01/18 09:10 metoclopramide HCl Allergy MUSCLE Verified 10/01/18 09:10 [From Reglan] SPASMS prochlorperazine edisylate Allergy MUSCLE Verified 10/01/18 09:10 [From Compazine] SPASMS prochlorperazine maleate Allergy MUSCLE Verified 10/01/18 09:10 [From Compazine] SPASMS Physical Exam Vitals: Vital Signs Temp Pulse Pulse Resp BP BP Pulse Ox 10/01/18 14:18 99.2 F 95 107/67 92 L 10/01/18 13:22 108 H 10/01/18 11:31 106 H 18 116/88 93 L 10/01/18 10:23 109 H 20 125/79 93 L 10/01/18 09:18 114 H 10/01/18 09:11 117 H 10/01/18 09:00 120 H 20 123/57 94 L 10/01/18 08:56 22 10/01/18 08:18 98.0 F 115 H 24 134/88 92 L Intake and Output 09/30/18 10/01/18 10/01/18 22:59 06:59 14:59 Other: Weight 54.431 kg Gen: This is a thin 52-year-old female. She is resting on the ER stretcher and appears to be dyspneic at rest. Unable to speak in full sentences. HEENT: Head is atraumatic, normocephalic. Pupils equal, round. Sclerae is anicteric. NECK: Supple. No JVD. No lymphadenopathy. No thyromegaly. LUNGS: Bilateral rales, wheezing rhonchi, prolonged expiration. Mild intercostal retractions and accessory muscle usage. HEART: Regular rate and rhythm. Systolic murmur. ABDOMEN: Soft. Bowel sounds are present. No masses. No tenderness. EXTREMITIES: No pedal edema. No calf tenderness. Clubbing noted. NEUROLOGICAL: Patient is awake, alert and oriented x3. Cranial nerves 2 through 12 are grossly intact. Results Results: Laboratory Results WBC 23.8 k/uL (3.8-10.6) H 10/01/18 08:48 RBC 4.54 m/uL (3.80-5.40) 10/01/18 08:48 Hgb 13.9 gm/dL (11.4-16.0) 10/01/18 08:48 Hct 42.0 % (34.0-46.0) 10/01/18 08:48 MCV 92.4 fL (80.0-100.0) 10/01/18 08:48 MCH 30.6 pg (25.0-35.0) 10/01/18 08:48 MCHC 33.1 g/dL (31.0-37.0) 10/01/18 08:48 RDW 14.7 % (11.5-15.5) 10/01/18 08:48 Plt Count 274 k/uL (150-450) 10/01/18 08:48 Neutrophils % 73 % 10/01/18 08:48 Lymphocytes % 18 % 10/01/18 08:48 Monocytes % 7 % 10/01/18 08:48 Eosinophils % 0 % 10/01/18 08:48 Basophils % 1 % 10/01/18 08:48 Neutrophils # 17.4 k/uL (1.3-7.7) H 10/01/18 08:48 Lymphocytes # 4.3 k/uL (1.0-4.8) 10/01/18 08:48 Monocytes # 1.6 k/uL (0-1.0) H 10/01/18 08:48 Eosinophils # 0.1 k/uL (0-0.7) 10/01/18 08:48 Basophils # 0.2 k/uL (0-0.2) 10/01/18 08:48 PT 82.3 sec (9.0-12.0) H 10/01/18 08:48 INR 8.4 (<1.2) H* 10/01/18 08:48 APTT 46.9 sec (22.0-30.0) H 10/01/18 08:48 Sodium 140 mmol/L (137-145) 10/01/18 08:48 Potassium 4.4 mmol/L (3.5-5.1) 10/01/18 08:48 Chloride 107 mmol/L (98-107) 10/01/18 08:48 Carbon Dioxide 23 mmol/L (22-30) 10/01/18 08:48 Anion Gap 10 mmol/L 10/01/18 08:48 BUN 26 mg/dL (7-17) H 10/01/18 08:48 Creatinine 0.71 mg/dL (0.52-1.04) 10/01/18 08:48 Est GFR (CKD-EPI)AfAm >90 (>60 ml/min/1.73 sqM) 10/01/18 08:48 Est GFR (CKD-EPI)NonAf >90 (>60 ml/min/1.73 sqM) 10/01/18 08:48 Glucose 131 mg/dL (74-99) H 10/01/18 08:48 Lactic Ac Sepsis Rflx Y 10/01/18 09:49 Plasma Lactic Acid Saran 2.2 mmol/L (0.7-2.0) H* 10/01/18 08:48 Calcium 9.5 mg/dL (8.4-10.2) 10/01/18 08:48 Magnesium 2.1 mg/dL (1.6-2.3) 10/01/18 08:48 Total Bilirubin 0.5 mg/dL (0.2-1.3) 10/01/18 08:48 AST 26 U/L (14-36) 10/01/18 08:48 ALT 27 U/L (9-52) 10/01/18 08:48 Alkaline Phosphatase 109 U/L (38-126) 10/01/18 08:48 Creatine Kinase 34 U/L (30-135) 10/01/18 08:48 CK-MB (CK-2) 0.3 ng/mL (0.0-2.4) 10/01/18 08:48 Troponin I <0.012 ng/mL (0.000-0.034) 10/01/18 08:48 Total Protein 6.8 g/dL (6.3-8.2) 10/01/18 08:48 Albumin 3.9 g/dL (3.5-5.0) 10/01/18 08:48 Influenza Type A RNA Not Detected (Not Detectd) 10/01/18 08:48 Influenza Type B (PCR) Not Detected (Not Detectd) 10/01/18 08:48 CBC & Chem 7: 10/02/18 09:17 10/02/18 09:17 Labs: Abnormal Lab Results - Last 24 Hours (Table) 10/01/18 10/01/18 10/01/18 Range/Units 08:48 08:48 08:48 WBC 23.8 H (3.8-10.6) k/uL Neutrophils # 17.4 H (1.3-7.7) k/uL Monocytes # 1.6 H (0-1.0) k/uL PT 82.3 H (9.0-12.0) sec INR 8.4 H* (<1.2) APTT 46.9 H (22.0-30.0) sec BUN 26 H (7-17) mg/dL Glucose 131 H (74-99) mg/dL Plasma Lactic Acid Saran (0.7-2.0) mmol/L 10/01/18 Range/Units 08:48 WBC (3.8-10.6) k/uL Neutrophils # (1.3-7.7) k/uL Monocytes # (0-1.0) k/uL PT (9.0-12.0) sec INR (<1.2) APTT (22.0-30.0) sec BUN (7-17) mg/dL Glucose (74-99) mg/dL Plasma Lactic Acid Saran 2.2 H* (0.7-2.0) mmol/L Assessment and Plan Plan: This is a 52-year-old female with significant history of bronchial malacia, pulmonary fibrosis, interstitial lung disease presents with acute on chronic hypoxic respiratory failure requiring increased oxygen needs. Patient has recently been treated for Pseudomonas pneumonia found on bronchoscopy and treated with Cipro. Antibiotics changed to Fortaz. Patient is also on Diflucan and Solu-Medrol. Continue supportive care. Further recommendations as patient progresses. The above dictated assessment and findings were discussed with Dr. Mayfield. The impression and plan of care have been directed as dictated. Robyn Dorantes nurse practitioner acting as scribe for Dr. Mayfield..
[2018-10-01] MEDS ORDERED: IPRATROPIUM-ALBUTEROL 3 ML NEB INHALATION SCH (16:00)
[2018-10-01 16:50] LABS: Glucose,Whole Blood 146 mg/dL (75-99)
--- NOTE | 2018-10-01 17:19 | P.CNPUL ---
History of Present Illness Consult date: 10/01/18 Reason for consult: dyspnea History of present illness: Is a 52-year-old. Patient was presenting to the [facility] department because of worsening shortness of breath, generalized weakness, cough, chest congestion, excessive mucus production, and she feels that she is drowning in her own secretions. The patient is known to me. The patient has history of bronchiectasis that has been managed through our office initially through Dr. Mckay and at a later stage I was also involved in her care. Chest exit was done on admission showed chronic parenchymal changes without any acute cardiopulmonary process. The cardiac silhouette was within normal limits. Hanna elevated white cell count of 23.8. The patient's INR was at 8.4 and supratherapeutic. Lactic acid level was at 2.9. Rest of the electrolytes and renal function was within normal limits. Her was a screen is negative at this point in time. She was started on broad-spectrum antibiotics. She was placed on IV cefepime. She was also placed on IV Solu Medrol. Pulmonary consultation was requested This woman is a a lifetime nonsmoker with a very interesting presentation of recurrent bronchitis/pneumonias, it tracheobronchomalacia as visualized on previous endoscopies, and limited bronchiectasis as confirmed by a recent CAT scan of the chest that was done at [facility]. The patient was under the care of Dr. Mckay for many years. She was infected with various microorganisms including MRSA and Haemophilus. More recently her pathology is also included stenotrophomonas. The patient was seen at [facility]. She was given zithromax as an antibiotic prophylaxis. The patient is currently doing Breo 1 relation day along with DuoNeb nebulized treatments as needed and she has a vest at home. Her serum immunoglobulin levels have been within normal limits. Hematologic profile is also within normal limits. 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 The patient's serum immunoglobulin levels have been within normal, previous bronchoscopies yielded MRSA, Haemophilus influenza, and Pseudomonas him a in the last infection with Pseudomonas was back in April 2018. The scope did not have any infection with atypical mycobacterium. The patient had a negative JOSS. The patient had a negative rheumatoid factor. Her serum IgE level is low. She has history of chronic reflux and possible silent aspiration for many years for which she has undergone fundoplication. At this possible that this was the culprit for his bronchiectasis. No history of cystic fibrosis. No history of immotile cilia syndrome. Her last CAT scan of the chest was done at [facility] and showed extensive bronchiectasis cylindrical. Repeat bronchoscopy was done in 2019 and showed pseudomonas aeruginosa that was sensitive to quinolones. Based on that, I give the patient a course of ciprofloxacin for a total of 3 weeks. She came to see her back in our office in mid September. She was still bronchospastic and wheezy. Her chest was still aching all the time. She was not getting any improvement. She was using Brio one inhalation a day and albuterol about treatments 4 times a day. Her FEV1 was down to 26% of predicted and this in agreement with her symptomatic worsening. Review of Systems Constitutional Constitutional: no excess weight gain, no excess weight loss, no loss of appetite, no fever, no fatigue, diminished activity, fatigue Eyes Eyes: no eye pain, no blurry vision, no eye redness, no eye itchiness, no eye swelling, no eye discharge ENMT ENMT: no ear pain, no ear discharge, no hearing loss, no sinus pressure, no swelling, no congestion, no sore throat, no hoarseness, no mouth lesions, no nasal discharge Cardiovascular Cardiovascular: no chest pain, no rapid heart rate, no cyanosis, no pallor Respiratory Respiratory: There is increased wheezing, chest tightness, pain with respiration, managed breathing sounds, cough, mucoid sputum Gastrointestinal GI: no difficulty swallowing, no abdominal pain, no nausea, no vomiting, no diarrhea, no constipation, no blood in stools Genitourinary General: no blood in urine, no pain during urination, no increased frequency of urination, no voiding urgency Musculoskeletal Musculoskeletal: no soft tissue swelling, no joint swelling, no limited motion, no myalgia Skin Skin: no pain, no itchiness, no skin redness, no rash, no hives, no skin lesions , no swelling, no bruising Neurological symptoms Neuro: no numbness, no weakness, no tingling, no burning, no shooting pain, no headache, no diziness, no loss of consciousness Endocrine Endocrine: no increased thirst, no temperature intolerance Psychiatric Psych: no depression, no sleep disturbances, feeling safe in relationship, no alcohol abuse Hematologic/Lymphatic Hematologic/Lymphatic no swollen glands Allergic/Immunologic Allergy/Immunologic: no sinus pressure, no itching Past Medical History Past Medical History: Asthma, Fibromyalgia, GERD/Reflux, Hyperlipidemia, Mitral Valve Prolapse (MVP), Osteoarthritis (OA), Pneumonia, Pulmonary Embolus (PE), Respiratory Disorder, Thyroid Disorder Additional Past Medical History / Comment(s): tracheobronchomalacia, bronchiectasis, recurrent pulmonary infections including pseudomonal infection, as his reflux, hypothyroidism, mitral valve prolapse, muscle pain/arthritis bilateral hips and neck, nephrolithiasis, chronic hypoxic respiratory failure , history of pulmonary embolism, hypothyroidism History of Any Multi-Drug Resistant Organisms: MRSA Date of last positivie culture/infection: 03/07/18 MDRO Source:: LUNG Past Surgical History: Appendectomy, Heart Catheterization, Orthopedic Surgery Additional Past Surgical History / Comment(s): Bronchoscopies/BALs, R lung bx, R chest port, 1993 cardiac cath-normal, R knee arthroscopy, kidney stone removal , D&C. Past Anesthesia/Blood Transfusion Reactions: No Reported Reaction Additional Past Anesthesia/Blood Transfusion Reaction / Comment(s): Pt has received blood in past without reaction. Past Psychological History: Panic Disorder Smoking Status: Never smoker Past Alcohol Use History: None Reported Additional Past Alcohol Use History / Comment(s): Patient has been a lifelong nonsmoker, no illicit drug use, no alcohol use. She currently works at [employer] office. Past Drug Use History: None Reported - Past Family History Father Family Medical History: CVA/TIA Additional Family Medical History / Comment(s): Father 09/2017 from a massive CVA. He was 85-year-old. Brother(s) Family Medical History: No Reported History Sister(s) Family Medical History: Neurologic Disorder Daughter(s) Family Medical History: No Reported History Mother Family Medical History: AFIB Additional Family Medical History / Comment(s): Mother has a pacemaker. Medications and Allergies Home Medications Medication Instructions Recorded Confirmed Type Atorvastatin [Lipitor] 10 mg PO HS 04/16/14 10/01/18 History Cyclobenzaprine [Flexeril] 10 mg PO HS 04/16/14 10/01/18 History DULoxetine HCL [Duloxetine HCl] 60 mg PO DAILY 04/16/14 10/01/18 History Denosumab [Prolia] 60 mg SQ Q180D 04/16/14 10/01/18 History Estrogen,Con/M-Progest Acet 1 cap PO Q48H 04/16/14 10/01/18 History [Prempro 0.45-1.5 mg Tablet] Gabapentin 600 mg PO HS 04/16/14 10/01/18 History Levothyroxine Sodium [Synthroid] 50 mcg PO DAILY 04/16/14 10/01/18 History Meloxicam 7.5 mg PO BID 04/16/14 10/01/18 History Montelukast [Singulair] 10 mg PO DAILY 04/16/14 10/01/18 History Fluticasone/Vilanterol [Breo 1 puff INHALATION RT-DAILY 03/08/17 10/01/18 History Ellipta 200-25 Mcg INH] Warfarin Sodium 2.5 mg PO HS 05/31/17 10/01/18 History Gabapentin [Neurontin] 300 mg PO QAM 06/08/17 10/01/18 History RABEprazole SODIUM [Aciphex] 20 mg PO HS 11/30/17 10/01/18 History Zolpidem [Ambien] 5 mg PO HS 11/30/17 10/01/18 History Diazepam [Valium] 5 mg PO HS 03/30/18 10/01/18 History HYDROcodone/APAP 5-325MG [Croswell 1 tab PO DAILY PRN 03/30/18 10/01/18 History 5-325] Ipratropium-Albuterol Nebulize 3 ml INHALATION RT-QID #120 04/04/18 10/01/18 Rx [Duoneb 0.5 mg-3 mg/3 ml Soln] ampul.neb Fluconazole [Diflucan] 200 mg PO DAILY PRN 08/30/18 10/01/18 History L.acidoph,Paracasei, B.lactis 1 cap PO DAILY 10/01/18 10/01/18 History [Probiotic] Tobramycin Inh 300mg/5ml 300 mg INHALATION RT-Q12H 10/01/18 10/01/18 History predniSONE See Taper PO DAILY 10/01/18 10/01/18 History Allergies Allergy/AdvReac Type Severity Reaction Status Date / Time erythromycin base Allergy Intermediate Rash/Hives Verified 10/01/18 09:10 metoclopramide HCl Allergy MUSCLE Verified 10/01/18 09:10 [From Reglan] SPASMS prochlorperazine edisylate Allergy MUSCLE Verified 10/01/18 09:10 [From Compazine] SPASMS prochlorperazine maleate Allergy MUSCLE Verified 10/01/18 09:10 [From Compazine] SPASMS Physical Exam Vitals: Vital Signs Temp Pulse Pulse Resp BP BP Pulse Ox 10/01/18 15:35 103 H 18 10/01/18 15:23 104 H 16 96 10/01/18 14:18 99.2 F 95 107/67 92 L 10/01/18 13:22 108 H 10/01/18 11:31 106 H 18 116/88 93 L 10/01/18 10:23 109 H 20 125/79 93 L 10/01/18 09:18 114 H 10/01/18 09:11 117 H 10/01/18 09:00 120 H 20 123/57 94 L 10/01/18 08:56 22 10/01/18 08:18 98.0 F 115 H 24 134/88 92 L Intake and Output 10/01/18 10/01/18 10/01/18 06:59 14:59 22:59 Intake Total 250 Balance 250 Intake: Intake, IV Titration 250 Amount Sodium Chloride 0.9% 1, 250 000 ml @ 125 mls/hr IV . Q8H STA Rx#:[id number] Other: Weight 54.431 kg Constitutional General Appearance: Not well nourished or developed, appears stated age Level of Distress: chronically ill [facility] Nasal Mucosa: normal, no discharge, pink and moist Septum: not markedly deformed Turbinates: normal turbinate Lips, Teeth, and Gums: normal lips, normal dentition, normal gums Oral Mucosa: no ulcer, no mass, no pallor, moist, no cyanosis, no inflammation, no swelling, no rash, no leukoplakia Tongue: no erythema, no lesions, no enlargement, no swelling, no deviation Posterior pharynx: no enlargement, no erythema, no exudate, no white patches, no ulcers, no mass Neck Neck: supple, trachea midline, no masses, Full ROM Thyroid: no enlargement, non-tender, no nodules Jugular Veins: normal jugular venous pressure Lungs Respiratory effort: dyspneic Inspection: normal chest wall expansion, normal curve, no deformity, no tenderness, no swelling Auscultation: Increased wheezing /rhonchi,bilaterally,midlung [place]ak Cardiovascular Precordial Exam: non displaced focal PMI, no heaves, no precordial thrills Heart Rate And Rhythm: normal heart rate and rhythm Heart Sounds: normal s1, no physiologically split S2, no pericardial friction rub, no gallop, no click Systolic Murmur: no systolic murmurs Observation/Palpation of peripheral vascular system: no cyanosis, no edema, normal dorsalis pedis, normal posterior tibialis Abdomen Inspection and Palpation: soft, non-distended, no tenderness, no masses Liver: non-tender, no hepatomegaly Spleen: non-tender, no splenomegaly Bowel Sounds: normal, no abdominal bruits Lymphatic: no cervical LAD, no supraclavicular LAD Musculoskeletal: Motor Strength and Tone: normal motor strength, normal bulk, normal tone Gait and Station: normal gait Joints, Bones, and Muscles: normal movement of all extremities, no bony abnormalities, no contractures, no malalignment, no tenderness Extremities Inspection/Palpation of digits and nails: no clubbing, no cyanosis, no petechiae , no infection, no nodular lesions, no ischemia, no edema Skin Inspection and palpation: no rash, no lesions, no jaundice, normal turgor Neurologic Mental Status/Orientation: oriented to person, oriented to place, oriented to problem/situation, oriented to time Mood/Affect: normal mood, normal affect Results - Laboratory Findings CBC and BMP: 10/01/18 08:48 10/01/18 08:48 PT/INR, D-dimer PT 82.3 sec (9.0-12.0) H 10/01/18 08:48 INR 8.4 (<1.2) H* 10/01/18 08:48 Abnormal lab findings: Abnormal Labs 10/01/18 10/01/18 10/01/18 08:48 08:48 08:48 WBC 23.8 H Neutrophils # 17.4 H Monocytes # 1.6 H PT 82.3 H INR 8.4 H* APTT 46.9 H BUN 26 H Glucose 131 H POC Glucose (mg/dL) Plasma Lactic Acid Saran 10/01/18 10/01/18 10/01/18 08:48 13:15 16:39 WBC Neutrophils # Monocytes # PT INR APTT BUN Glucose POC Glucose (mg/dL) 146 H Plasma Lactic Acid Saran 2.2 H* 2.9 H* - Diagnostic Findings Chest x-ray: image reviewed Assessment and Plan Plan: Assessment 1 acute exacerbation of chronic bronchiectasis. The patient is quite short of breath. The patient has had multiple exacerbations the past.. Exacerbations of been related to pseudomonas aeruginosa although other microorganisms are also affected the patient. The exact cause for underlying bronchiectasis is not known. The workup is negative thus far. During her last evaluation, the patient was started on inhaled HOLLY. The patient was found to have an FEV1 which was down to 26% of predicted. She is coming in for worsening shortness of breath which is quite bronchospastic and wheezy and she has extensive amount of rest or secretions and mucous plugging. 2 previous bacterial infection with Pseudomonas 3 tracheobronchomalacia as evident on previous bronchoscopies 4 previous history of pulmonary embolism and the patient's PT/INR supratherapeutic 5 hypothyroidism 6 chronic insomnia 7 acid reflux - 8 leukocytosis 9 malnourishment with a current BMI 21.9 10 chronic hypoxic history failure secondary to above PLAN Patient unfortunately is having recurrent exacerbation with progressive loss in lung function. Very much likely that her pseudomonas is a current and the possibility of superinfection were no other microorganisms cannot be completely ruled out. The patient will need another bronchoscopy for therapeutic it was suctioning and removal of mucous plugs. We'll continue the compression on bronchodilators and systemic steroids. Continued IV Fortaz for now. When asked the patient to get her vest therapy from home and this should be continued here in the hospital. Keep her nothing by mouth after midnight and the patient will undergo bronchoscopy tomorrow for therapeutic it was suctioning and removal of mucous plugs. Long-term prognosis poor. May need to be considered for lung transplantation especially with her ongoing problems and progressive worsening of lung capacity.
[2018-10-01] MEDS: FLUCONAZOLE 100 MG TAB PO SCH (18:01)
[2018-10-01] MEDS: M PROGEST ACET PO SCH (18:42)
[2018-10-01] MEDS: ESTROGEN CON PO SCH (18:42)
[2018-10-01 19:31] LABS: Glucose,Whole Blood 149 mg/dL (75-99)
[2018-10-01] MEDS ORDERED: PIPERACILLIN-TAZOBACTAM 3.375 GM in SODIUM CHLORIDE 0.9% 100 ML IVPB SCH (20:00)
[2018-10-01] MEDS: CYCLOBENZAPRINE 10 MG TAB PO SCH (21:08)
[2018-10-01] MEDS: ZOLPIDEM 5 MG TAB PO SCH (21:08)
[2018-10-01] MEDS: ATORVASTATIN 10 MG TAB PO SCH (21:08)
[2018-10-01] MEDS: GABAPENTIN 300 MG CAP PO SCH (21:09)
[2018-10-01] MEDS: DIAZEPAM 5 MG TAB PO SCH (21:10)
[2018-10-01] MEDS: PANTOPRAZOLE 40 MG TABLET PO SCH (21:10)
--- NOTE | 2018-10-01 21:24 | P.CON ---
Consult Note - . Consult date: 10/01/18 Assessment/Plan:: This is a 52-year-old female one of Dr. Guadalupe with a previous medical history significant for bronchial malacia, pulmonary fibrosis, interstitial lung disease, pulmonary embolism on chronic Coumadin, hyperlipidemia, GERD, osteopenia. Patient was recently brought in on September 03 under the care of Dr. Hughes underwent a bronchoscopy and BAL. Culture positive for Pseudomonas and patient has been treated with Cipro. Pathology report revealed acute inflammatory cells, mucus and foaming debris. Stain negative for pneumocystic carinii organisms. Patient also gives history of being on tobramycin nebulizer treatments. She states she is having increasing shortness of breath that progressively worsened and her oxygen saturations have been dropping. She has been using more oxygen up to 4 L at home. She states she can 't even it herself dressed in the morning. She also complains of low-grade fever. She came into [facility] emergency center for evaluation. Chest x-ray shows chronic prevention will change without acute pulmonary process. White count was 23.8, INR 8.4 patient is on chronic Coumadin therapy for PE. Creatinine 0.71. Initial lactic acid 2.2 and repeat 2.9. Influenza testing was negative. Troponin negative. Patient was started on IV Solu-Medrol, Pulmicort and DuoNeb treatments, Zosyn [facility] and consult with Dr. Hughes included. Please to the consult note is dictated by nurse practitioner Mrs. Robyn Dorantes. This pleasant 52-year-old woman has a known history of bronchomalacia with pulmonary fibrosis and interstitial lung disease. Relates over the past several weeks has been having increasing decline of her status. A month ago bronchoscopy was performed with copious secretions and evidence of pseudomonas aeruginosa. Treated with a course of ciprofloxacin but is now having worsening of her status and constantly has been admitted again. Receiving respiratory treatments, steroids and plans for repeat bronchoscopy. She relates that while she was at [facility] recently Stenotrophomonas maltophilia was isolated. Given the patient's failure ciprofloxacin prior colonization alter antimicrobial therapy to cefotaxime for now until we have further data. Bronchoscopy will help further direct if alternative treatments including more active again Stenotrophomonas maltophilia and MRSA are required. Continuing with supportive care utilize her percussion vest. We'll follow with post- bronchoscopy cultures and potentially arrange for outpatient intravenous antibiotic therapy. I agree with evaluation, assessment and plan is to see by nurse practitioner Mrs. Robyn Dorantes.
[2018-10-02] MEDS: methylPREDNISolone SOD SUCCI 125 MG/2 ML VIAL IV SCH ×5 (00:18→23:44)
[2018-10-02] MEDS: LEVOTHYROXINE 50 MCG TAB PO SCH (01:08)
[2018-10-02 07:17] LABS: Glucose,Whole Blood 122 mg/dL (75-99)
[2018-10-02] MEDS: SYMBICORT 160-4.5 MCG INHALER INHALATION SCH ×2 (07:26→19:52)
[2018-10-02] MEDS: IPRATROPIUM-ALBUTEROL 3 ML NEB INHALATION SCH ×4 (07:26→19:52)
[2018-10-02] MEDS: SODIUM CHLORIDE 0.9% 1,000 ML IV SCH (08:15)
[2018-10-02 09:37] LABS: Basophils % (A) 0 %; Eosinophils # (A) 0.1 k/uL (0-0.7); Eosinophils % (A) 0 %; HCT 39.1 % (34.0-46.0); HGB 12.3 gm/dL (11.4-16.0); Lymphocytes # (A) 1.5 k/uL (1.0-4.8); Lymphocytes % (A) 6 %; MCH 29.5 pg (25.0-35.0); MCHC 31.5 g/dL (31.0-37.0); MCV 93.7 fL (80.0-100.0); Mean Platelet Volume 6.8; Monocytes # (A) 0.5 k/uL (0-1.0); Monocytes % (A) 2 %; Neutrophils # (A) 24.1 k/uL (1.3-7.7); Neutrophils % (A) 92 %; Platelet Count 249 k/uL (150-450); RBC 4.17 m/uL (3.80-5.40); RDW 14.7 % (11.5-15.5); WBC 26.2 k/uL (3.8-10.6)
[2018-10-02 10:01] LABS: Anion Gap 6 mmol/L; Blood Urea Nitrogen 24 mg/dL (7-17); Calcium 8.1 mg/dL (8.4-10.2); Carbon Dioxide 23 mmol/L (22-30); Chloride 111 mmol/L (98-107); Glucose 121 mg/dL (74-99); Potassium 4.1 mmol/L (3.5-5.1); Sodium 140 mmol/L (137-145)
[2018-10-02] MEDS ORDERED: PHYTONADIONE ORAL 5 MG/5 ML ORAL.SYRG PO STA (10:19)
[2018-10-02 10:22] LABS: Prothrombin Time 75.8 sec (9.0-12.0)
[2018-10-02 10:25] LABS: INR 7.8 (<1.2)
[2018-10-02] MEDS: LACTOBACILLUS ACIDOPH & BULGAR 1 EACH PACKET PO SCH (11:18)
[2018-10-02] MEDS: DULoxetine HCL 60 MG CAPSULE.DR PO SCH (11:19)
[2018-10-02] MEDS: FLUCONAZOLE 100 MG TAB PO SCH (11:19)
[2018-10-02] MEDS: GABAPENTIN 300 MG CAP PO SCH ×2 (11:19→20:59)
[2018-10-02] MEDS: MONTELUKAST 10 MG TAB PO SCH (11:19)
--- NOTE | 2018-10-02 11:30 | P.PN ---
Subjective Progress Note Date: 10/02/18 Principal diagnosis: Acute exacerbation of chronic bronchiectasis, previous bacterial infection with Pseudomonas Is a 52-year-old. Patient was presenting to the [facility] department because of worsening shortness of breath, generalized weakness, cough, chest congestion, excessive mucus production, and she feels that she is drowning in her own secretions. The patient is known to me. The patient has history of bronchiectasis that has been managed through our office initially through Dr. Mckay and at a later stage I was also involved in her care. Chest exit was done on admission showed chronic parenchymal changes without any acute cardiopulmonary process. The cardiac silhouette was within normal limits. Hanna elevated white cell count of 23.8. The patient's INR was at 8.4 and supratherapeutic. Lactic acid level was at 2.9. Rest of the electrolytes and renal function was within normal limits. Her was a screen is negative at this point in time. She was started on broad-spectrum antibiotics. She was placed on IV cefepime. She was also placed on IV Solu Medrol. Pulmonary consultation was requested This woman is a a lifetime nonsmoker with a very interesting presentation of recurrent bronchitis/pneumonias, it tracheobronchomalacia as visualized on previous endoscopies, and limited bronchiectasis as confirmed by a recent CAT scan of the chest that was done at [facility]. The patient was under the care of Dr. Mckay for many years. She was infected with various microorganisms including MRSA and Haemophilus. More recently her pathology is also included stenotrophomonas. The patient was seen at [facility]. She was given zithromax as an antibiotic prophylaxis. The patient is currently doing Breo 1 relation day along with DuoNeb nebulized treatments as needed and she has a vest at home. Her serum immunoglobulin levels have been within normal limits. Hematologic profile is also within normal limits. 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 The patient's serum immunoglobulin levels have been within normal, previous bronchoscopies yielded MRSA, Haemophilus influenza, and Pseudomonas him a in the last infection with Pseudomonas was back in April 2018. The scope did not have any infection with atypical mycobacterium. The patient had a negative JOSS. The patient had a negative rheumatoid factor. Her serum IgE level is low. She has history of chronic reflux and possible silent aspiration for many years for which she has undergone fundoplication. At this possible that this was the culprit for his bronchiectasis. No history of cystic fibrosis. No history of immotile cilia syndrome. Her last CAT scan of the chest was done at [facility] and showed extensive bronchiectasis cylindrical. Repeat bronchoscopy was done in 2019 and showed pseudomonas aeruginosa that was sensitive to quinolones. Based on that, I give the patient a course of ciprofloxacin for a total of 3 weeks. She came to see her back in our office in mid September. She was still bronchospastic and wheezy. Her chest was still aching all the time. She was not getting any improvement. She was using Brio one inhalation a day and albuterol about treatments 4 times a day. Her FEV1 was down to 26% of predicted and this in agreement with her symptomatic worsening. On 10/02/2018 patient seen in follow-up on medical surgical floor. Resting in bed, still quite bronchospastic and congested, not able to bring up much sputum. Yesterday patient's INR was 8.4, and today's INR is 7.8, patient's bronchoscopy had to be canceled, we'll see the patient, the patient a dose of vitamin K, and rescheduled for tomorrow if the INR is within acceptable range. Today's cell count was 26.2, no fever, no chills, patient remains on 2 L per nasal cannula, vital signs are stable, no been able to produce a sputum for culture, blood culture showed no growth, ID service has been consulted, and a reticulocyte coverage is in the form of Fortaz, and Zosyn has been discontinued. Objective - Vital Signs Vital signs: Vital Signs Temp 99.0 F 10/02/18 07:59 Pulse 100 10/02/18 11:09 Resp 18 10/02/18 07:59 BP 128/69 10/02/18 07:59 Pulse Ox 92 L 10/02/18 00:08 Intake & Output 10/01/18 10/02/18 10/02/18 18:59 06:59 18:59 Intake Total 250 300 Balance 250 300 Weight 54.431 kg Intake: Intake, IV Titration 250 300 Amount Sodium Chloride 0.9% 1, 200 000 ml @ 100 mls/hr IV . Q10H HEATHER Rx#:[id number] Sodium Chloride 0.9% 1, 250 000 ml @ 125 mls/hr IV . Q8H STA Rx#:[id number] cefTAZidime 2 gm In 100 Sodium Chloride 0.9% 100 ml @ 100 mls/hr IVPB Q8HR HEATHER Rx#:[id number] Other: # Voids 2 - Exam GENERAL EXAM: Alert, pleasant, 52-year-old white female comfortable in no apparent distress. HEAD: Normocephalic/atraumatic. EYES: Normal reaction of pupils, equal size. Conjunctiva pink, sclera white. NOSE: Clear with pink turbinates. THROAT: No erythema or exudates. NECK: No masses, no JVD, no thyroid enlargement, no adenopathy. CHEST: No chest wall deformity. Symmetrical expansion. LUNGS: Equal air entry with diffuse wheezes, and rhonchi CVS: Regular rate and rhythm, normal S1 and S2, no gallops, no murmurs, no rubs ABDOMEN: Soft, nontender. No hepatosplenomegaly, normal bowel sounds, no guarding or rigidity. EXTREMITIES: No clubbing, no edema, no cyanosis, 2+ pulses and upper and lower extremities. MUSCULOSKELETAL: Muscle strength and tone normal. SPINE: No scoliosis or deformity SKIN: No rashes CENTRAL NERVOUS SYSTEM: Alert and oriented -3. No focal deficits, tone is normal in all 4 extremities. PSYCHIATRIC: Alert and oriented -3. Appropriate affect. Intact judgment and insight. - Labs CBC & Chem 7: 10/02/18 09:17 10/02/18 09:17 Labs: Abnormal Lab Results - Last 24 Hours (Table) 10/01/18 10/01/18 10/01/18 Range/Units 13:15 16:39 19:20 WBC (3.8-10.6) k/uL Neutrophils # (1.3-7.7) k/uL PT (9.0-12.0) sec INR (<1.2) Chloride (98-107) mmol/L BUN (7-17) mg/dL Glucose (74-99) mg/dL POC Glucose (mg/dL) 146 H 149 H (75-99) mg/dL Plasma Lactic Acid Saran 2.9 H* (0.7-2.0) mmol/L Calcium (8.4-10.2) mg/dL 10/02/18 10/02/18 10/02/18 Range/Units 07:05 09:17 09:17 WBC 26.2 H (3.8-10.6) k/uL Neutrophils # 24.1 H (1.3-7.7) k/uL PT 75.8 H (9.0-12.0) sec INR 7.8 H* (<1.2) Chloride (98-107) mmol/L BUN (7-17) mg/dL Glucose (74-99) mg/dL POC Glucose (mg/dL) 122 H (75-99) mg/dL Plasma Lactic Acid Saran (0.7-2.0) mmol/L Calcium (8.4-10.2) mg/dL 10/02/18 Range/Units 09:17 WBC (3.8-10.6) k/uL Neutrophils # (1.3-7.7) k/uL PT (9.0-12.0) sec INR (<1.2) Chloride 111 H (98-107) mmol/L BUN 24 H (7-17) mg/dL Glucose 121 H (74-99) mg/dL POC Glucose (mg/dL) (75-99) mg/dL Plasma Lactic Acid Saran (0.7-2.0) mmol/L Calcium 8.1 L (8.4-10.2) mg/dL Microbiology - Last 24 Hours (Table) 10/01/18 08:48 Blood Culture - Preliminary Blood No Growth after 24 hours Assessment and Plan Plan: Assessment: 1 acute exacerbation of chronic bronchiectasis. The patient is quite short of breath. The patient has had multiple exacerbations the past.. Exacerbations of been related to pseudomonas aeruginosa although other microorganisms are also affected the patient. The exact cause for underlying bronchiectasis is not known. The workup is negative thus far. During her last evaluation, the patient was started on inhaled HOLLY. The patient was found to have an FEV1 which was down to 26% of predicted. She is coming in for worsening shortness of breath which is quite bronchospastic and wheezy and she has extensive amount of rest or secretions and mucous plugging. 2 previous bacterial infection with Pseudomonas 3 tracheobronchomalacia as evident on previous bronchoscopies 4 previous history of pulmonary embolism and the patient's PT/INR supratherapeutic at 8.4, down to 7.8 today. 5 hypothyroidism 6 chronic insomnia 7 acid reflux - 8 leukocytosis 9 malnourishment with a current BMI 21.9 10 chronic hypoxic history failure secondary to above Plan: Continue with current antibiotic coverage, ID service is on the case, and managing the antibiotics, bronchoscopy has been canceled for today in view of elevated INR, patient will be given a dose of vitamin 10 mg. We'll feed the patient, we'll reschedule the patient for tomorrow. Continue with current medical treatment, IV steroids, nebulized bronchodilators. I performed a history & physical examination of the patient and discussed their management with my nurse practitioner, Bianka Saucedo. I reviewed the nurse practitioner's note and agree with the documented findings and plan of care. Lung sounds are positive for diffuse wheezes throughout the lung nowak. The findings and the impression was discussed with the patient. I attest to the documentation by the nurse practitioner. Time with Patient: Less than 30
[2018-10-02 13:00] VITALS: BMI 21.9
--- NOTE | 2018-10-02 16:36 | P.PN ---
Subjective Progress Note Date: 10/02/18 52-year-old female one of my office patient of known for long time with history of chronic asthma/COPD with history of advanced pulmonary fibrosis who had seen Dr. Oscar diaz in and Dr. Alvarez on regular basis for recurrent shortness of breath bronchitis and Pseudomonas pneumonitis with multiple bronchoscopy and treatment for Pseudomonas. Patient also was seen in [facility] for possible lung transplant in the past. She is known to have history of recurrent pulmonary embolism has been on anticoagulation for long time has been on warfarin with INR has been therapeutic for many years. Patient had bronchoscopy with Dr. Hughes over 2 weeks ago was diagnosed with Pseudomonas as well started on Cipro and felt slightly bit better initially but become much worse and lasts 5 days started having low-grade temperature initially and her fever become much higher having more tachypnea hypoxia tachycardia and more symptomatic patient despite having to go on 5 L of O2 continue to be hypoxic today ended up coming to the emergency department at [facility] where was seen and evaluated chest x-ray failed to show any sign of consolidation specially with her scar tissue. Patient clinically had pneumonia in the right side with severe leukocytosis and elevated lactic acid and coagulopathy patient will be hospitalized with switch her oral Cipro to Zosyn will consult pulmonary and infectious disease continue to treat patient aggressively. Patient also might require bronchoscopy because of the severity of the congestion and hypoxia. 10/02: Bronchoscopy was canceled today due to INR 7.8. Patient did receive oral vitamin K 1. She states she is feeling a little bit better from yesterday most likely because of the steroids. She is on Solu-Medrol 60 mg every 6 hours. Patient has been seen by Dr. Mayfield and antibiotics changed to Fortaz. She has been afebrile, heart rate running in the 90s, blood pressure 129/69, pulse ox 92% on 3 L. Review of Systems CONSTITUTIONAL: Well-developed mild respiratory distress. Denies fever denies chills. EYES: No icterus sclerae, no conjunctivitis. EARS, NOSE, MOUTH, THROAT, and FACE: No sore throat, lymphadenopathy, carotid bruits or deformity. RESPIRATORY: Positive shortness of breath cough wheezes with pulmonary fibrosis. CARDIOVASCULAR: No CP, Palpitation, PND, Orthopnea, or angina. GASTROINTESTINAL: No Abd pain, Nausea or vomiting, no Diarrhea or constipation, No GI Bleed, no distention or masses. GENITOURINARY: Negative for Hematuria or UTI, no kidney stones. INTEGUMENT/BREAST: Negative for any muscular injury with mild osteoarthritis. HEMATOLOGIC/LYMPHATIC: Negative for bleed or purpura. MUSCULOSKELTAL: Negative for Myalgia or arthralgia. NEURLOGICAL: No LOC, Sz or syncope, blurred vision dizziness or abnormality. BEHAVIORAL/PSYCH: Negative. ENDOCRINE: Negative. Objective - Vital Signs Vital signs: Vital Signs Temp 99.0 F 10/02/18 07:59 Pulse 100 10/02/18 11:09 Resp 18 10/02/18 07:59 BP 128/69 10/02/18 07:59 Pulse Ox 92 L 10/02/18 00:08 Intake & Output 10/01/18 10/02/18 10/02/18 18:59 06:59 18:59 Intake Total 250 300 Balance 250 300 Weight 54.431 kg 54.431 kg Intake: Intake, IV Titration 250 300 Amount Sodium Chloride 0.9% 1, 200 000 ml @ 100 mls/hr IV . Q10H HEATHER Rx#:[id number] Sodium Chloride 0.9% 1, 250 000 ml @ 125 mls/hr IV . Q8H STA Rx#:[id number] cefTAZidime 2 gm In 100 Sodium Chloride 0.9% 100 ml @ 100 mls/hr IVPB Q8HR HEATHER Rx#:[id number] Other: # Voids 2 - Exam General Appearance: Alert, cooperative, no distress, appears stated age. Dyspneic with talking. Neck HEENT: Supple, no lymphadenopathy, no thyroid enlargement, no carotid bruits. Lungs: Decreased breath sound bilaterally worsening in the right than the left side with positive rhonchi and fine crackles in the right side. Chest Wall: Chest wall normal expansion with deep inspiration no tenderness and no deformity was found on exam, no costochondral pain or discomfort. Heart: Regular rate and rhythm, S1, S2 normal, no murmur, rub or gallop. Back: Symmetric, no curvature, ROM normal, no CVA tenderness. Abdomen: Soft, non-tender, bowel sounds active all four quadrants, no masses, no organomegaly. Extremities: Extremities normal, atraumatic, no cyanosis or edema. Pulses: 2+ and symmetric. Skin: Skin color, texture, tugor normal, no rashes or lesions. Neurologic: Alert oriented x3 cranial nerves II through XII intact, no motor deficit, no abnormal balance or gait. - Labs CBC & Chem 7: 10/02/18 09:17 10/02/18 09:17 Labs: Abnormal Lab Results - Last 24 Hours (Table) 10/01/18 10/01/18 10/01/18 Range/Units 13:15 16:39 19:20 WBC (3.8-10.6) k/uL Neutrophils # (1.3-7.7) k/uL PT (9.0-12.0) sec INR (<1.2) Chloride (98-107) mmol/L BUN (7-17) mg/dL Glucose (74-99) mg/dL POC Glucose (mg/dL) 146 H 149 H (75-99) mg/dL Plasma Lactic Acid Saran 2.9 H* (0.7-2.0) mmol/L Calcium (8.4-10.2) mg/dL 10/02/18 10/02/18 10/02/18 Range/Units 07:05 09:17 09:17 WBC 26.2 H (3.8-10.6) k/uL Neutrophils # 24.1 H (1.3-7.7) k/uL PT 75.8 H (9.0-12.0) sec INR 7.8 H* (<1.2) Chloride (98-107) mmol/L BUN (7-17) mg/dL Glucose (74-99) mg/dL POC Glucose (mg/dL) 122 H (75-99) mg/dL Plasma Lactic Acid Saran (0.7-2.0) mmol/L Calcium (8.4-10.2) mg/dL 10/02/18 Range/Units 09:17 WBC (3.8-10.6) k/uL Neutrophils # (1.3-7.7) k/uL PT (9.0-12.0) sec INR (<1.2) Chloride 111 H (98-107) mmol/L BUN 24 H (7-17) mg/dL Glucose 121 H (74-99) mg/dL POC Glucose (mg/dL) (75-99) mg/dL Plasma Lactic Acid Saran (0.7-2.0) mmol/L Calcium 8.1 L (8.4-10.2) mg/dL Microbiology - Last 24 Hours (Table) 10/01/18 08:48 Blood Culture - Preliminary Blood No Growth after 24 hours Assessment and Plan Plan: 1 acute hypoxic respiratory failure secondary to acute exacerbation of chronic bronchiectasis, bronchial malacia, Pseudomonas pneumonitis. Patient has been seen by Dr. Mayfield with recommendations for Fortaz which is been started. Dr. Hughes is following and plan is for bronchoscopy possibly by tomorrow if INR is improved. 2 COPD exacerbation: With her current symptoms patient will be started on Solu- Medrol along with Pulmicort and DuoNeb. 3 Pseudomonas pneumonitis with infiltrate in the right side. Continue Fortaz. consult pulmonary and infectious disease. Culture will be done pending results for now. 4 coagulopathy secondary to Coumadin use and ciprofloxacin. Patient is status post 1 dose of vitamin K. 5 history of pulmonary embolism: Patient is on anticoagulation. 6 pulmonary fibrosis: Patient seen pulmonary. 7 hyperlipidemia: Continue atorvastatin 10 mg daily. 8 osteoporosis: Patient is on probably a injection every 6 months. 9 chronic neuropathy: Continue gabapentin. 10 hypothyroidism: Continue patient on Synthroid 50 g daily. 11 severe GERD/GI prophylaxis: Patient has been on AcipHex will replace it with aunt omeprazole. 12 DVT prophylaxis: Remain on anticoagulation. Code status: Full code. Discharge plan: Home most likely Impression and plan of care have been directed as dictated by the signing physician. Robyn Dorantes nurse practitioner acting as scribe for signing physician.
[2018-10-02 20:22] LABS: Glucose,Whole Blood 164 mg/dL (75-99)
--- NOTE | 2018-10-02 20:29 | P.PN ---
Subjective Progress Note Date: 10/02/18 This is a 52-year-old female one of Dr. Guadalupe with a previous medical history significant for bronchial malacia, pulmonary fibrosis, interstitial lung disease, pulmonary embolism on chronic Coumadin, hyperlipidemia, GERD, osteopenia. Patient was recently brought in on September 03 under the care of Dr. Hughes underwent a bronchoscopy and BAL. Culture positive for Pseudomonas and patient has been treated with Cipro. Pathology report revealed acute inflammatory cells, mucus and foaming debris. Stain negative for pneumocystic carinii organisms. Patient also gives history of being on tobramycin nebulizer treatments. She states she is having increasing shortness of breath that progressively worsened and her oxygen saturations have been dropping. She has been using more oxygen up to 4 L at home. She states she can 't even it herself dressed in the morning. She also complains of low-grade fever. She came into [facility] emergency center for evaluation. Chest x-ray shows chronic prevention will change without acute pulmonary process. White count was 23.8, INR 8.4 patient is on chronic Coumadin therapy for PE. Creatinine 0.71. Initial lactic acid 2.2 and repeat 2.9. Influenza testing was negative. Troponin negative. Patient was started on IV Solu-Medrol, Pulmicort and DuoNeb treatments, Zosyn and [facility] and consult with Dr. Hughes included. 10/02/2018 patient was to have bronchoscopy today. However her INR remains to elevated for the procedure today. Received more vitamin K and hopefully ready for the procedure tomorrow. Fortunately with the current high dose of Solu- Medrol she is feeling somewhat better. Is also receiving antibiotic therapy. Screening from [facility] did reveal evidence of the Stenotrophomonas maltophilia and staph aureus, did not specify MRSA. Objective - Vital Signs Vital signs: Vital Signs Temp 99.1 F 10/02/18 15:00 Pulse 96 10/02/18 20:10 Resp 16 10/02/18 15:00 BP 114/76 10/02/18 15:00 Pulse Ox 98 10/02/18 15:00 Intake & Output 10/02/18 10/02/18 10/03/18 06:59 18:59 06:59 Intake Total 300 Balance 300 Weight 54.431 kg Intake: Intake, IV Titration 300 Amount Sodium Chloride 0.9% 1, 200 000 ml @ 100 mls/hr IV . Q10H HEATHER Rx#:[id number] cefTAZidime 2 gm In 100 Sodium Chloride 0.9% 100 ml @ 100 mls/hr IVPB Q8HR HEATHER Rx#:[id number] Other: # Voids 2 2 - Exam Gen: This is a thin 52-year-old female. She is resting on the ER stretcher and appears to be dyspneic at rest. Unable to speak in full sentences. HEENT: Head is atraumatic, normocephalic. Pupils equal, round. Sclerae is anicteric. NECK: Supple. No JVD. No lymphadenopathy. No thyromegaly. LUNGS: Bilateral rales, wheezing rhonchi, prolonged expiration. Mild intercostal retractions and accessory muscle usage. Evidence of air trapping continues HEART: Regular rate and rhythm. Systolic murmur. ABDOMEN: Soft. Bowel sounds are present. No masses. No tenderness. EXTREMITIES: No pedal edema. No calf tenderness. Clubbing noted. NEUROLOGICAL: Patient is awake, alert and oriented x3 - Labs CBC & Chem 7: 10/02/18 09:17 10/02/18 09:17 Labs: Abnormal Lab Results - Last 24 Hours (Table) 10/02/18 10/02/18 10/02/18 Range/Units 07:05 09:17 09:17 WBC 26.2 H (3.8-10.6) k/uL Neutrophils # 24.1 H (1.3-7.7) k/uL PT 75.8 H (9.0-12.0) sec INR 7.8 H* (<1.2) Chloride (98-107) mmol/L BUN (7-17) mg/dL Glucose (74-99) mg/dL POC Glucose (mg/dL) 122 H (75-99) mg/dL Calcium (8.4-10.2) mg/dL 10/02/18 10/02/18 Range/Units 09:17 20:20 WBC (3.8-10.6) k/uL Neutrophils # (1.3-7.7) k/uL PT (9.0-12.0) sec INR (<1.2) Chloride 111 H (98-107) mmol/L BUN 24 H (7-17) mg/dL Glucose 121 H (74-99) mg/dL POC Glucose (mg/dL) 164 H (75-99) mg/dL Calcium 8.1 L (8.4-10.2) mg/dL Microbiology - Last 24 Hours (Table) 10/01/18 08:48 Blood Culture - Preliminary Blood No Growth after 24 hours Laboratory Results WBC 26.2 k/uL (3.8-10.6) H 10/02/18 09:17 RBC 4.17 m/uL (3.80-5.40) 10/02/18 09:17 Hgb 12.3 gm/dL (11.4-16.0) 10/02/18 09:17 Hct 39.1 % (34.0-46.0) 10/02/18 09:17 MCV 93.7 fL (80.0-100.0) 10/02/18 09:17 MCH 29.5 pg (25.0-35.0) 10/02/18 09:17 MCHC 31.5 g/dL (31.0-37.0) 10/02/18 09:17 RDW 14.7 % (11.5-15.5) 10/02/18 09:17 Plt Count 249 k/uL (150-450) 10/02/18 09:17 Neutrophils % 92 % 10/02/18 09:17 Lymphocytes % 6 % 10/02/18 09:17 Monocytes % 2 % 10/02/18 09:17 Eosinophils % 0 % 10/02/18 09:17 Basophils % 0 % 10/02/18 09:17 Neutrophils # 24.1 k/uL (1.3-7.7) H 10/02/18 09:17 Lymphocytes # 1.5 k/uL (1.0-4.8) 10/02/18 09:17 Monocytes # 0.5 k/uL (0-1.0) 10/02/18 09:17 Eosinophils # 0.1 k/uL (0-0.7) 10/02/18 09:17 Basophils # 0.0 k/uL (0-0.2) 10/02/18 09:17 PT 75.8 sec (9.0-12.0) H 10/02/18 09:17 INR 7.8 (<1.2) H* 10/02/18 09:17 APTT 46.9 sec (22.0-30.0) H 10/01/18 08:48 Sodium 140 mmol/L (137-145) 10/02/18 09:17 Potassium 4.1 mmol/L (3.5-5.1) 10/02/18 09:17 Chloride 111 mmol/L (98-107) H 10/02/18 09:17 Carbon Dioxide 23 mmol/L (22-30) 10/02/18 09:17 Anion Gap 6 mmol/L 10/02/18 09:17 BUN 24 mg/dL (7-17) H 10/02/18 09:17 Creatinine 0.57 mg/dL (0.52-1.04) 10/02/18 09:17 Est GFR (CKD-EPI)AfAm >90 (>60 ml/min/1.73 sqM) 10/02/18 09:17 Est GFR (CKD-EPI)NonAf >90 (>60 ml/min/1.73 sqM) 10/02/18 09:17 Glucose 121 mg/dL (74-99) H 10/02/18 09:17 POC Glucose (mg/dL) 164 mg/dL (75-99) H 10/02/18 20:20 POC Glu Picture Enlarger ID Loyda Fofana 10/02/18 20:20 Lactic Ac Sepsis Rflx Y 10/01/18 09:49 Plasma Lactic Acid Saran 2.9 mmol/L (0.7-2.0) H* 10/01/18 13:15 Calcium 8.1 mg/dL (8.4-10.2) L 10/02/18 09:17 Magnesium 2.1 mg/dL (1.6-2.3) 10/01/18 08:48 Total Bilirubin 0.5 mg/dL (0.2-1.3) 10/01/18 08:48 AST 26 U/L (14-36) 10/01/18 08:48 ALT 27 U/L (9-52) 10/01/18 08:48 Alkaline Phosphatase 109 U/L (38-126) 10/01/18 08:48 Creatine Kinase 34 U/L (30-135) 10/01/18 08:48 CK-MB (CK-2) 0.3 ng/mL (0.0-2.4) 10/01/18 08:48 Troponin I <0.012 ng/mL (0.000-0.034) 10/01/18 08:48 Total Protein 6.8 g/dL (6.3-8.2) 10/01/18 08:48 Albumin 3.9 g/dL (3.5-5.0) 10/01/18 08:48 Influenza Type A RNA Not Detected (Not Detectd) 10/01/18 08:48 Influenza Type B (PCR) Not Detected (Not Detectd) 10/01/18 08:48 Microbiology 10/01/18 08:48 Blood Blood Culture - Preliminary No Growth after 24 hours Assessment and Plan (1) Pneumonia Narrative/Plan: This pleasant 52-year-old woman has a known history of bronchomalacia with pulmonary fibrosis and interstitial lung disease. Relates over the past several weeks has been having increasing decline of her status. A month ago bronchoscopy was performed with copious secretions and evidence of pseudomonas aeruginosa. Treated with a course of ciprofloxacin but is now having worsening of her status and constantly has been admitted again. Receiving respiratory treatments, steroids and plans for repeat bronchoscopy. She relates that while she was at [facility] recently Stenotrophomonas maltophilia was isolated. Given the patient's failure ciprofloxacin prior colonization alter antimicrobial therapy to cefotaxime for now until we have further data. Bronchoscopy will help further direct if alternative treatments including more active again Stenotrophomonas maltophilia and MRSA are required. Continuing with supportive care utilize her percussion vest. We'll follow with post- bronchoscopy cultures and potentially arrange for outpatient intravenous antibiotic therapy. 10/02/2018 the patient could not have bronchoscopy today due to the elevated INR. Received more vitamin K hopefully procedure can proceed tomorrow. Continue current antibiotic therapy. Bronchoscopy will help determine her course of antibiotic therapy at discharge. Shortly feels slightly better today. Current Visit: No Status: Acute Code(s): J18.9 - PNEUMONIA, UNSPECIFIED ORGANISM SNOMED Code(s): 454201097 (2) Tracheomalacia Current Visit: Yes Status: Acute Code(s): J39.8 - OTHER SPECIFIED DISEASES OF UPPER RESPIRATORY TRACT SNOMED Code(s): 79626606
[2018-10-02] MEDS: PANTOPRAZOLE 40 MG TABLET PO SCH (20:58)
[2018-10-02] MEDS: DIAZEPAM 5 MG TAB PO SCH (20:59)
[2018-10-02] MEDS: ATORVASTATIN 10 MG TAB PO SCH (20:59)
[2018-10-02] MEDS: ZOLPIDEM 5 MG TAB PO SCH (20:59)
[2018-10-02] MEDS: CYCLOBENZAPRINE 10 MG TAB PO SCH (20:59)
[2018-10-03] MEDS: LEVOTHYROXINE 50 MCG TAB PO SCH (04:28)
[2018-10-03] MEDS: methylPREDNISolone SOD SUCCI 125 MG/2 ML VIAL IV SCH ×4 (05:53→23:53)
[2018-10-03 07:25] LABS: Glucose,Whole Blood 114 mg/dL (75-99)
[2018-10-03] MEDS: SYMBICORT 160-4.5 MCG INHALER INHALATION SCH ×2 (08:56→20:23)
[2018-10-03] MEDS: IPRATROPIUM-ALBUTEROL 3 ML NEB INHALATION SCH ×4 (08:56→20:23)
[2018-10-03 09:11] LABS: Basophils % (A) 0 %; Eosinophils # (A) 0.1 k/uL (0-0.7); Eosinophils % (A) 0 %; HCT 34.9 % (34.0-46.0); HGB 11.1 gm/dL (11.4-16.0); Lymphocytes # (A) 0.9 k/uL (1.0-4.8); Lymphocytes % (A) 3 %; MCH 29.7 pg (25.0-35.0); MCHC 31.7 g/dL (31.0-37.0); MCV 93.8 fL (80.0-100.0); Mean Platelet Volume 6.6; Monocytes # (A) 0.8 k/uL (0-1.0); Monocytes % (A) 3 %; Neutrophils # (A) 26.2 k/uL (1.3-7.7); Neutrophils % (A) 93 %; Platelet Count 226 k/uL (150-450); RBC 3.72 m/uL (3.80-5.40); RDW 14.9 % (11.5-15.5); WBC 28.2 k/uL (3.8-10.6)
[2018-10-03 09:32] LABS: Anion Gap 7 mmol/L; Blood Urea Nitrogen 22 mg/dL (7-17); Calcium 8.2 mg/dL (8.4-10.2); Carbon Dioxide 24 mmol/L (22-30); Chloride 110 mmol/L (98-107); Glucose 102 mg/dL (74-99); Potassium 3.9 mmol/L (3.5-5.1); Sodium 141 mmol/L (137-145)
[2018-10-03 09:38] LABS: INR 1.3 (<1.2); Prothrombin Time 13.1 sec (9.0-12.0)
[2018-10-03 12:00] LABS: Glucose,Whole Blood 135 mg/dL (75-99)
[2018-10-03] MEDS: DULoxetine HCL 60 MG CAPSULE.DR PO SCH (12:18)
[2018-10-03] MEDS: MONTELUKAST 10 MG TAB PO SCH (12:19)
[2018-10-03] MEDS: LACTOBACILLUS ACIDOPH & BULGAR 1 EACH PACKET PO SCH (12:19)
[2018-10-03] MEDS: FLUCONAZOLE 100 MG TAB PO SCH (12:19)
[2018-10-03] MEDS: GABAPENTIN 300 MG CAP PO SCH ×2 (12:19→22:17)
[2018-10-03] MEDS ORDERED: IV FLUID CONTINUATION 1,000 ML IV ONE (13:21)
[2018-10-03] MEDS ORDERED: LIDOCAINE 1% INJ 10MG/ML (20 ML MDV) ONE (13:27)
[2018-10-03] MEDS ORDERED: MIDAZOLAM 2 MG/2 ML VIAL ONE (13:27)
[2018-10-03] MEDS ORDERED: PROPOFOL 10 MG/ML 20 ML VIAL IV ONE (13:27)
[2018-10-03] MEDS ORDERED: LACTATED RINGERS 1,000 ML IV ONE (13:30)
[2018-10-03] MEDS ORDERED: LIDOCAINE 2% INJ 20 MG/ML INTRATRACH ONE (13:38)
--- NOTE | 2018-10-03 15:02 | P.PN ---
Subjective Progress Note Date: 10/03/18 52-year-old female one of my office patient of known for long time with history of chronic asthma/COPD with history of advanced pulmonary fibrosis who had seen Dr. Oscra diaz in and Dr. Alvarez on regular basis for recurrent shortness of breath bronchitis and Pseudomonas pneumonitis with multiple bronchoscopy and treatment for Pseudomonas. Patient also was seen in [facility] for possible lung transplant in the past. She is known to have history of recurrent pulmonary embolism has been on anticoagulation for long time has been on warfarin with INR has been therapeutic for many years. Patient had bronchoscopy with Dr. Hughes over 2 weeks ago was diagnosed with Pseudomonas as well started on Cipro and felt slightly bit better initially but become much worse and lasts 5 days started having low-grade temperature initially and her fever become much higher having more tachypnea hypoxia tachycardia and more symptomatic patient despite having to go on 5 L of O2 continue to be hypoxic today ended up coming to the emergency department at [facility] where was seen and evaluated chest x-ray failed to show any sign of consolidation specially with her scar tissue. Patient clinically had pneumonia in the right side with severe leukocytosis and elevated lactic acid and coagulopathy patient will be hospitalized with switch her oral Cipro to Zosyn will consult pulmonary and infectious disease continue to treat patient aggressively. Patient also might require bronchoscopy because of the severity of the congestion and hypoxia. 10/02: Bronchoscopy was canceled today due to INR 7.8. Patient did receive oral vitamin K 1. She states she is feeling a little bit better from yesterday most likely because of the steroids. She is on Solu-Medrol 60 mg every 6 hours. Patient has been seen by Dr. Mayfield and antibiotics changed to Fortaz. She has been afebrile, heart rate running in the 90s, blood pressure 129/69, pulse ox 92% on 3 L. 10/03: INR is down to 1.3 and patient is scheduled for bronchoscopy this afternoon with Dr. Hughes. She continues to feel a little bit better each day and breathing status is stable. She has been afebrile, pulse ox is 96% on 3 L, heart rate running in the 90s and low 100 100s. Blood pressure 124/72. White count is 28.2, hemoglobin 11.1, platelet count 226. CO2 24, creatinine 0.53. Blood sugars running between 102 and 135. Review of Systems CONSTITUTIONAL: Well-developed mild respiratory distress. Denies fever denies chills. EYES: No icterus sclerae, no conjunctivitis. EARS, NOSE, MOUTH, THROAT, and FACE: No sore throat, lymphadenopathy, carotid bruits or deformity. RESPIRATORY: Positive shortness of breath positive cough wheezes with pulmonary fibrosis. CARDIOVASCULAR: No CP, Palpitation, PND, Orthopnea, or angina. GASTROINTESTINAL: No Abd pain, Nausea or vomiting, no Diarrhea or constipation, No GI Bleed, no distention or masses. GENITOURINARY: Negative for Hematuria or UTI, no kidney stones. INTEGUMENT/BREAST: Negative for any muscular injury with mild osteoarthritis. HEMATOLOGIC/LYMPHATIC: Negative for bleed or purpura. MUSCULOSKELTAL: Negative for Myalgia or arthralgia. NEURLOGICAL: No LOC, Sz or syncope, blurred vision dizziness or abnormality. BEHAVIORAL/PSYCH: Negative. ENDOCRINE: Negative. Objective - Vital Signs Vital signs: Vital Signs Temp 99.3 F 10/03/18 08:44 Pulse 96 10/03/18 12:43 Resp 16 10/03/18 08:44 BP 124/72 10/03/18 08:44 Pulse Ox 96 10/03/18 08:44 Intake & Output 10/02/18 10/03/18 10/03/18 18:59 06:59 18:59 Intake Total 1400 Balance 1400 Weight 54.431 kg Intake: Intake, IV Titration 1100 Amount Sodium Chloride 0.9% 1, 1000 000 ml @ 100 mls/hr IV . Q10H HEATHER Rx#:[id number] cefTAZidime 2 gm In 100 Sodium Chloride 0.9% 100 ml @ 100 mls/hr IVPB Q8HR HEATHER Rx#:[id number] Oral 300 Other: # Voids 2 1 - Exam General Appearance: Alert, cooperative, no distress, appears stated age. No distress at rest. Neck HEENT: Supple, no lymphadenopathy, no thyroid enlargement, no carotid bruits. Lungs: Decreased breath sound bilaterally worsening in the right than the left side with positive rhonchi and fine crackles in the right side. Chest Wall: Chest wall normal expansion with deep inspiration no tenderness and no deformity was found on exam, no costochondral pain or discomfort. Heart: Regular rate and rhythm, S1, S2 normal, no murmur, rub or gallop. Back: Symmetric, no curvature, ROM normal, no CVA tenderness. Abdomen: Soft, non-tender, bowel sounds active all four quadrants, no masses, no organomegaly. Extremities: Extremities normal, atraumatic, no cyanosis or edema. Pulses: 2+ and symmetric. Skin: Skin color, texture, tugor normal, no rashes or lesions. Neurologic: Alert oriented x3 cranial nerves II through XII intact, no motor deficit, no abnormal balance or gait. - Labs CBC & Chem 7: 10/03/18 08:20 10/03/18 08:20 Labs: Abnormal Lab Results - Last 24 Hours (Table) 10/02/18 10/03/18 10/03/18 Range/Units 20:20 07:11 08:20 WBC 28.2 H (3.8-10.6) k/uL RBC 3.72 L (3.80-5.40) m/uL Hgb 11.1 L (11.4-16.0) gm/dL Neutrophils # 26.2 H (1.3-7.7) k/uL Lymphocytes # 0.9 L (1.0-4.8) k/uL PT (9.0-12.0) sec INR (<1.2) Chloride (98-107) mmol/L BUN (7-17) mg/dL Glucose (74-99) mg/dL POC Glucose (mg/dL) 164 H 114 H (75-99) mg/dL Calcium (8.4-10.2) mg/dL 10/03/18 10/03/18 10/03/18 Range/Units 08:20 08:20 11:46 WBC (3.8-10.6) k/uL RBC (3.80-5.40) m/uL Hgb (11.4-16.0) gm/dL Neutrophils # (1.3-7.7) k/uL Lymphocytes # (1.0-4.8) k/uL PT 13.1 H (9.0-12.0) sec INR 1.3 H (<1.2) Chloride 110 H (98-107) mmol/L BUN 22 H (7-17) mg/dL Glucose 102 H (74-99) mg/dL POC Glucose (mg/dL) 135 H (75-99) mg/dL Calcium 8.2 L (8.4-10.2) mg/dL Microbiology - Last 24 Hours (Table) 10/01/18 08:48 Blood Culture - Preliminary Blood No Growth after 48 hours Assessment and Plan Plan: 1 acute hypoxic respiratory failure secondary to acute exacerbation of chronic bronchiectasis, bronchial malacia, Pseudomonas pneumonitis. Patient has been seen by Dr. Mayfield with recommendations for Fortaz which is been started. Dr. Hughes is following. Bronchoscopy is scheduled for today. 2 COPD exacerbation: With her current symptoms patient will be started on Solu- Medrol along with Pulmicort and DuoNeb. 3 Pseudomonas pneumonitis with infiltrate in the right side. Continue Fortaz. consult pulmonary and infectious disease. Culture will be done pending results for now. 4 coagulopathy secondary to Coumadin use and ciprofloxacin. Patient is status post 1 dose of vitamin K. 5 history of pulmonary embolism: Patient is on anticoagulation. 6 pulmonary fibrosis: Patient seen pulmonary. 7 hyperlipidemia: Continue atorvastatin 10 mg daily. 8 osteoporosis: Patient is on probably a injection every 6 months. 9 chronic neuropathy: Continue gabapentin. 10 hypothyroidism: Continue patient on Synthroid 50 g daily. 11 severe GERD/GI prophylaxis: Patient has been on AcipHex will replace it with aunt omeprazole. 12 DVT prophylaxis: Remain on anticoagulation. Code status: Full code. Discharge plan: Home most likely Impression and plan of care have been directed as dictated by the signing physician. Robyn Dorantes nurse practitioner acting as scribe for signing physician.
--- NOTE | 2018-10-03 15:46 | P.PN ---
Subjective Progress Note Date: 10/03/18 Principal diagnosis: Acute exacerbation of chronic bronchiectasis, previous bacterial infection with Pseudomonas Is a 52-year-old. Patient was presenting to the [facility] department because of worsening shortness of breath, generalized weakness, cough, chest congestion, excessive mucus production, and she feels that she is drowning in her own secretions. The patient is known to me. The patient has history of bronchiectasis that has been managed through our office initially through Dr. Mckay and at a later stage I was also involved in her care. Chest exit was done on admission showed chronic parenchymal changes without any acute cardiopulmonary process. The cardiac silhouette was within normal limits. Hanna elevated white cell count of 23.8. The patient's INR was at 8.4 and supratherapeutic. Lactic acid level was at 2.9. Rest of the electrolytes and renal function was within normal limits. Her was a screen is negative at this point in time. She was started on broad-spectrum antibiotics. She was placed on IV cefepime. She was also placed on IV Solu Medrol. Pulmonary consultation was requested This woman is a a lifetime nonsmoker with a very interesting presentation of recurrent bronchitis/pneumonias, it tracheobronchomalacia as visualized on previous endoscopies, and limited bronchiectasis as confirmed by a recent CAT scan of the chest that was done at [facility]. The patient was under the care of Dr. Mckay for many years. She was infected with various microorganisms including MRSA and Haemophilus. More recently her pathology is also included stenotrophomonas. The patient was seen at [facility]. She was given zithromax as an antibiotic prophylaxis. The patient is currently doing Breo 1 relation day along with DuoNeb nebulized treatments as needed and she has a vest at home. Her serum immunoglobulin levels have been within normal limits. Hematologic profile is also within normal limits. 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 The patient's serum immunoglobulin levels have been within normal, previous bronchoscopies yielded MRSA, Haemophilus influenza, and Pseudomonas him a in the last infection with Pseudomonas was back in April 2018. The scope did not have any infection with atypical mycobacterium. The patient had a negative JOSS. The patient had a negative rheumatoid factor. Her serum IgE level is low. She has history of chronic reflux and possible silent aspiration for many years for which she has undergone fundoplication. At this possible that this was the culprit for his bronchiectasis. No history of cystic fibrosis. No history of immotile cilia syndrome. Her last CAT scan of the chest was done at [facility] and showed extensive bronchiectasis cylindrical. Repeat bronchoscopy was done in 2019 and showed pseudomonas aeruginosa that was sensitive to quinolones. Based on that, I give the patient a course of ciprofloxacin for a total of 3 weeks. She came to see her back in our office in mid September. She was still bronchospastic and wheezy. Her chest was still aching all the time. She was not getting any improvement. She was using Brio one inhalation a day and albuterol about treatments 4 times a day. Her FEV1 was down to 26% of predicted and this in agreement with her symptomatic worsening. On 10/02/2018 patient seen in follow-up on medical surgical floor. Resting in bed, still quite bronchospastic and congested, not able to bring up much sputum. Yesterday patient's INR was 8.4, and today's INR is 7.8, patient's bronchoscopy had to be canceled, we'll see the patient, the patient a dose of vitamin K, and rescheduled for tomorrow if the INR is within acceptable range. Today's cell count was 26.2, no fever, no chills, patient remains on 2 L per nasal cannula, vital signs are stable, no been able to produce a sputum for culture, blood culture showed no growth, ID service has been consulted, and a reticulocyte coverage is in the form of Fortaz, and Zosyn has been discontinued. On 10/03/2018 patient seen in follow-up on medical surgical floor. On today's exam patient is less wheezy and congested, although still sounds very wheezy, but overall improved. INR is down to 1.3, still not able to bring up any sputum , antibiotic coverage in the form of Fortaz. White blood cell count remains elevated at 28.2. Culture showed no growth, she is afebrile, received bronchoscopy with BAL today at 1:[address] Hughes. Objective - Vital Signs Vital signs: Vital Signs Temp 99.3 F 10/03/18 08:44 Pulse 96 10/03/18 12:43 Resp 16 10/03/18 08:44 BP 124/72 10/03/18 08:44 Pulse Ox 96 10/03/18 08:44 Intake & Output 10/02/18 10/03/18 10/03/18 18:59 06:59 18:59 Intake Total 1400 300 Balance 1400 300 Weight 54.431 kg Intake: IV 300 Intake, IV Titration 1100 Amount Sodium Chloride 0.9% 1, 1000 000 ml @ 100 mls/hr IV . Q10H HEATHER Rx#:[id number] cefTAZidime 2 gm In 100 Sodium Chloride 0.9% 100 ml @ 100 mls/hr IVPB Q8HR HEATHER Rx#:[id number] Oral 300 Other: # Voids 2 1 - Exam GENERAL EXAM: Alert, pleasant, 52-year-old white female comfortable in no apparent distress. HEAD: Normocephalic/atraumatic. EYES: Normal reaction of pupils, equal size. Conjunctiva pink, sclera white. NOSE: Clear with pink turbinates. THROAT: No erythema or exudates. NECK: No masses, no JVD, no thyroid enlargement, no adenopathy. CHEST: No chest wall deformity. Symmetrical expansion. LUNGS: Equal air entry with diffuse wheezes, and rhonchi CVS: Regular rate and rhythm, normal S1 and S2, no gallops, no murmurs, no rubs ABDOMEN: Soft, nontender. No hepatosplenomegaly, normal bowel sounds, no guarding or rigidity. EXTREMITIES: No clubbing, no edema, no cyanosis, 2+ pulses and upper and lower extremities. MUSCULOSKELETAL: Muscle strength and tone normal. SPINE: No scoliosis or deformity SKIN: No rashes CENTRAL NERVOUS SYSTEM: Alert and oriented -3. No focal deficits, tone is normal in all 4 extremities. PSYCHIATRIC: Alert and oriented -3. Appropriate affect. Intact judgment and insight. - Labs CBC & Chem 7: 10/03/18 08:20 10/03/18 08:20 Labs: Abnormal Lab Results - Last 24 Hours (Table) 10/02/18 10/03/18 10/03/18 Range/Units 20:20 07:11 08:20 WBC 28.2 H (3.8-10.6) k/uL RBC 3.72 L (3.80-5.40) m/uL Hgb 11.1 L (11.4-16.0) gm/dL Neutrophils # 26.2 H (1.3-7.7) k/uL Lymphocytes # 0.9 L (1.0-4.8) k/uL PT (9.0-12.0) sec INR (<1.2) Chloride (98-107) mmol/L BUN (7-17) mg/dL Glucose (74-99) mg/dL POC Glucose (mg/dL) 164 H 114 H (75-99) mg/dL Calcium (8.4-10.2) mg/dL 10/03/18 10/03/18 10/03/18 Range/Units 08:20 08:20 11:46 WBC (3.8-10.6) k/uL RBC (3.80-5.40) m/uL Hgb (11.4-16.0) gm/dL Neutrophils # (1.3-7.7) k/uL Lymphocytes # (1.0-4.8) k/uL PT 13.1 H (9.0-12.0) sec INR 1.3 H (<1.2) Chloride 110 H (98-107) mmol/L BUN 22 H (7-17) mg/dL Glucose 102 H (74-99) mg/dL POC Glucose (mg/dL) 135 H (75-99) mg/dL Calcium 8.2 L (8.4-10.2) mg/dL Microbiology - Last 24 Hours (Table) 10/01/18 08:48 Blood Culture - Preliminary Blood No Growth after 48 hours Assessment and Plan Plan: Assessment: 1 acute exacerbation of chronic bronchiectasis. The patient is quite short of breath. The patient has had multiple exacerbations the past.. Exacerbations of been related to pseudomonas aeruginosa although other microorganisms are also affected the patient. The exact cause for underlying bronchiectasis is not known. The workup is negative thus far. During her last evaluation, the patient was started on inhaled HOLLY. The patient was found to have an FEV1 which was down to 26% of predicted. She is coming in for worsening shortness of breath which is quite bronchospastic and wheezy and she has extensive amount of rest or secretions and mucous plugging. 2 previous bacterial infection with Pseudomonas 3 tracheobronchomalacia as evident on previous bronchoscopies 4 previous history of pulmonary embolism and the patient's PT/INR supratherapeutic at 8.4, down to 7.8 today. 5 hypothyroidism 6 chronic insomnia 7 acid reflux - 8 leukocytosis 9 malnourishment with a current BMI 21.9 10 chronic hypoxic history failure secondary to above Plan: Continue current antibiotic coverage, patient scheduled for a bronchoscopy with BAL today with Dr. Hughes. Still not able to clear any sputum, overall she sounds better on today's exam, although remains bronchus spastic and congested. Continue nebulized bronchodilators and Solu-Medrol. We'll continue to follow. I performed a history & physical examination of the patient and discussed their management with my nurse practitioner, Bianka Saucedo. I reviewed the nurse practitioner's note and agree with the documented findings and plan of care. Lung sounds are positive for diffuse wheezes throughout the lung nowak. The findings and the impression was discussed with the patient. I attest to the documentation by the nurse practitioner. Time with Patient: Less than 30
[2018-10-03] MEDS ORDERED: FLUCONAZOLE 100 MG TAB PO ONE (16:22)
[2018-10-03] MEDS ORDERED: DULoxetine HCL 60 MG CAPSULE.DR PO ONE (16:22)
[2018-10-03] MEDS ORDERED: GABAPENTIN 300 MG CAP PO STA (16:23)
[2018-10-03] MEDS ORDERED: MONTELUKAST 10 MG TAB PO STA (16:23)
[2018-10-03] MEDS: ESTROGEN CON PO SCH (17:26)
[2018-10-03] MEDS: M PROGEST ACET PO SCH (17:26)
[2018-10-03 19:47] LABS: Glucose,Whole Blood 179 mg/dL (75-99)
--- NOTE | 2018-10-03 20:00 | PCN ---
PROCEDURE NOTE PROCEDURE: Bronchoscopy. PREOPERATIVE DIAGNOSIS: Acute exacerbation of bronchiectasis. POSTOPERATIVE DIAGNOSIS: Acute exacerbation of bronchiectasis. This procedure was done in the bronchoscopy suite. Anesthetic was administered by MASTER CRAFTSMAN at bedside. After achieving adequate sedation, a flexible bronchoscope was inserted through the right nostril and was advanced into the upper airway. Examination of the posterior pharynx, larynx, epiglottis and vocal cords was done. All of these upper airway structures were within normal limits. Vocal cords were symmetrically in the midline. A total of 2 mL of 1% lidocaine was applied to the vocal cords. Following that, the patient was intubated using the flexible bronchoscope. Airway inspection was completed. There was a copious amount of loose respiratory secretions identified throughout the airway, especially in the distal trachea and bilateral mainstem bronchi and various segments of the lower lobes bilaterally. Therapeutic airway suctioning was done and the secretions were taken out without any major difficulties. Airway inspection was completed. The visualized airways included trachea, bilateral mainstem bronchi, right upper, right middle and right lower lobe, left upper and left lower lobe bronchi, lungs various segments and subsegments. All of these airways were patent and within normal limits. The bronchoscope was wedged in the right middle lobe and a bronchioalveolar lavage was done. A total of 60 mL of fluid was infused and 25 mL was suctioned back without any major difficulties. Following that, the rest of the respiratory secretions were suctioned out and the patient was transferred to Recovery in stable condition. No bedside complications or bleeding. The fluid will be sent for microbial analysis. Will follow. MMODL / IJN: [id number] /
--- NOTE | 2018-10-03 20:23 | P.PN ---
Subjective Progress Note Date: 10/03/18 This is a 52-year-old female one of Dr. Guadalupe with a previous medical history significant for bronchial malacia, pulmonary fibrosis, interstitial lung disease, pulmonary embolism on chronic Coumadin, hyperlipidemia, GERD, osteopenia. Patient was recently brought in on September 03 under the care of Dr. Hughes underwent a bronchoscopy and BAL. Culture positive for Pseudomonas and patient has been treated with Cipro. Pathology report revealed acute inflammatory cells, mucus and foaming debris. Stain negative for pneumocystic carinii organisms. Patient also gives history of being on tobramycin nebulizer treatments. She states she is having increasing shortness of breath that progressively worsened and her oxygen saturations have been dropping. She has been using more oxygen up to 4 L at home. She states she can 't even it herself dressed in the morning. She also complains of low-grade fever. She came into [facility] emergency center for evaluation. Chest x-ray shows chronic prevention will change without acute pulmonary process. White count was 23.8, INR 8.4 patient is on chronic Coumadin therapy for PE. Creatinine 0.71. Initial lactic acid 2.2 and repeat 2.9. Influenza testing was negative. Troponin negative. Patient was started on IV Solu-Medrol, Pulmicort and DuoNeb treatments, Zosyn [facility] and consult with Dr. Hughes included. 10/02/2018 patient was to have bronchoscopy today. However her INR remains to elevated for the procedure today. Received more vitamin K and hopefully ready for the procedure tomorrow. Fortunately with the current high dose of Solu- Medrol she is feeling somewhat better. Is also receiving antibiotic therapy. Screening from [facility] did reveal evidence of the Stenotrophomonas maltophilia and staph aureus, did not specify MRSA. October 03 2018 patient has had the bronchoscopy today, given the INR normalized. She is feeling a bit groggy after the procedure but continues to feel better since admission initiation of antibiotic therapy as well as steroid therapy. Objective - Vital Signs Vital signs: Vital Signs Temp 98.6 F 10/03/18 15:00 Pulse 92 10/03/18 16:36 Resp 16 10/03/18 17:34 BP 124/77 10/03/18 15:00 Pulse Ox 93 L 10/03/18 15:00 Intake & Output 10/03/18 10/03/18 10/04/18 06:59 18:59 06:59 Intake Total 1400 300 Balance 1400 300 Intake: IV 300 Intake, IV Titration 1100 Amount Sodium Chloride 0.9% 1, 1000 000 ml @ 100 mls/hr IV . Q10H [facility] Rx#:[id number] cefTAZidime 2 gm In 100 Sodium Chloride 0.9% 100 ml @ 100 mls/hr IVPB Q8HR [facility] Rx#:[id number] Oral 300 Other: # Voids 1 2 - Exam Gen: This is a thin 52-year-old female. She is resting on the ER stretcher and appears to be dyspneic at rest. Unable to speak in full sentences. HEENT: Head is atraumatic, normocephalic. Pupils equal, round. Sclerae is anicteric. NECK: Supple. No JVD. No lymphadenopathy. No thyromegaly. LUNGS: Bilateral rales, wheezing rhonchi, prolonged expiration. Mild intercostal retractions and accessory muscle usage. Evidence of air trapping continues HEART: Regular rate and rhythm. Systolic murmur. ABDOMEN: Soft. Bowel sounds are present. No masses. No tenderness. EXTREMITIES: No pedal edema. No calf tenderness. Clubbing noted. NEUROLOGICAL: Patient is awake, alert and oriented x3 - Labs CBC & Chem 7: 10/03/18 08:20 10/03/18 08:20 Labs: Abnormal Lab Results - Last 24 Hours (Table) 10/02/18 10/03/18 10/03/18 Range/Units 20:20 07:11 08:20 WBC 28.2 H (3.8-10.6) k/uL RBC 3.72 L (3.80-5.40) m/uL Hgb 11.1 L (11.4-16.0) gm/dL Neutrophils # 26.2 H (1.3-7.7) k/uL Lymphocytes # 0.9 L (1.0-4.8) k/uL PT (9.0-12.0) sec INR (<1.2) Chloride (98-107) mmol/L BUN (7-17) mg/dL Glucose (74-99) mg/dL POC Glucose (mg/dL) 164 H 114 H (75-99) mg/dL Calcium (8.4-10.2) mg/dL 10/03/18 10/03/18 10/03/18 Range/Units 08:20 08:20 11:46 WBC (3.8-10.6) k/uL RBC (3.80-5.40) m/uL Hgb (11.4-16.0) gm/dL Neutrophils # (1.3-7.7) k/uL Lymphocytes # (1.0-4.8) k/uL PT 13.1 H (9.0-12.0) sec INR 1.3 H (<1.2) Chloride 110 H (98-107) mmol/L BUN 22 H (7-17) mg/dL Glucose 102 H (74-99) mg/dL POC Glucose (mg/dL) 135 H (75-99) mg/dL Calcium 8.2 L (8.4-10.2) mg/dL 10/03/18 Range/Units 19:33 WBC (3.8-10.6) k/uL RBC (3.80-5.40) m/uL Hgb (11.4-16.0) gm/dL Neutrophils # (1.3-7.7) k/uL Lymphocytes # (1.0-4.8) k/uL PT (9.0-12.0) sec INR (<1.2) Chloride (98-107) mmol/L BUN (7-17) mg/dL Glucose (74-99) mg/dL POC Glucose (mg/dL) 179 H (75-99) mg/dL Calcium (8.4-10.2) mg/dL Microbiology - Last 24 Hours (Table) 10/01/18 08:48 Blood Culture - Preliminary Blood No Growth after 48 hours Laboratory Results WBC 28.2 k/uL (3.8-10.6) H 10/03/18 08:20 RBC 3.72 m/uL (3.80-5.40) L 10/03/18 08:20 Hgb 11.1 gm/dL (11.4-16.0) L 10/03/18 08:20 Hct 34.9 % (34.0-46.0) 10/03/18 08:20 MCV 93.8 fL (80.0-100.0) 10/03/18 08:20 MCH 29.7 pg (25.0-35.0) 10/03/18 08:20 MCHC 31.7 g/dL (31.0-37.0) 10/03/18 08:20 RDW 14.9 % (11.5-15.5) 10/03/18 08:20 Plt Count 226 k/uL (150-450) 10/03/18 08:20 Neutrophils % 93 % 10/03/18 08:20 Lymphocytes % 3 % 10/03/18 08:20 Monocytes % 3 % 10/03/18 08:20 Eosinophils % 0 % 10/03/18 08:20 Basophils % 0 % 10/03/18 08:20 Neutrophils # 26.2 k/uL (1.3-7.7) H 10/03/18 08:20 Lymphocytes # 0.9 k/uL (1.0-4.8) L 10/03/18 08:20 Monocytes # 0.8 k/uL (0-1.0) 10/03/18 08:20 Eosinophils # 0.1 k/uL (0-0.7) 10/03/18 08:20 Basophils # 0.0 k/uL (0-0.2) 10/03/18 08:20 PT 13.1 sec (9.0-12.0) H 10/03/18 08:20 INR 1.3 (<1.2) H 10/03/18 08:20 APTT 46.9 sec (22.0-30.0) H 10/01/18 08:48 Sodium 141 mmol/L (137-145) 10/03/18 08:20 Potassium 3.9 mmol/L (3.5-5.1) 10/03/18 08:20 Chloride 110 mmol/L (98-107) H 10/03/18 08:20 Carbon Dioxide 24 mmol/L (22-30) 10/03/18 08:20 Anion Gap 7 mmol/L 10/03/18 08:20 BUN 22 mg/dL (7-17) H 10/03/18 08:20 Creatinine 0.53 mg/dL (0.52-1.04) 10/03/18 08:20 Est GFR (CKD-EPI)AfAm >90 (>60 ml/min/1.73 sqM) 10/03/18 08:20 Est GFR (CKD-EPI)NonAf >90 (>60 ml/min/1.73 sqM) 10/03/18 08:20 Glucose 102 mg/dL (74-99) H 10/03/18 08:20 POC Glucose (mg/dL) 179 mg/dL (75-99) H 10/03/18 19:33 POC Glu [employer] Manager Corinne Lal 10/03/18 19:33 Lactic Ac Sepsis Rflx Y 10/01/18 09:49 Plasma Lactic Acid Saran 2.9 mmol/L (0.7-2.0) H* 10/01/18 13:15 Calcium 8.2 mg/dL (8.4-10.2) L 10/03/18 08:20 Magnesium 2.1 mg/dL (1.6-2.3) 10/01/18 08:48 Total Bilirubin 0.5 mg/dL (0.2-1.3) 10/01/18 08:48 AST 26 U/L (14-36) 10/01/18 08:48 ALT 27 U/L (9-52) 10/01/18 08:48 Alkaline Phosphatase 109 U/L (38-126) 10/01/18 08:48 Creatine Kinase 34 U/L (30-135) 10/01/18 08:48 CK-MB (CK-2) 0.3 ng/mL (0.0-2.4) 10/01/18 08:48 Troponin I <0.012 ng/mL (0.000-0.034) 10/01/18 08:48 Total Protein 6.8 g/dL (6.3-8.2) 10/01/18 08:48 Albumin 3.9 g/dL (3.5-5.0) 10/01/18 08:48 Influenza Type A RNA Not Detected (Not Detectd) 10/01/18 08:48 Influenza Type B (PCR) Not Detected (Not Detectd) 10/01/18 08:48 Microbiology 10/01/18 08:48 Blood Blood Culture - Preliminary No Growth after 48 hours Assessment and Plan (1) Pneumonia Narrative/Plan: This pleasant 52-year-old woman has a known history of bronchomalacia with pulmonary fibrosis and interstitial lung disease. Relates over the past several weeks has been having increasing decline of her status. A month ago bronchoscopy was performed with copious secretions and evidence of pseudomonas aeruginosa. Treated with a course of ciprofloxacin but is now having worsening of her status and constantly has been admitted again. Receiving respiratory treatments, steroids and plans for repeat bronchoscopy. She relates that while she was at [facility] recently Stenotrophomonas maltophilia was isolated. Given the patient's failure ciprofloxacin prior colonization alter antimicrobial therapy to cefotaxime for now until we have further data. Bronchoscopy will help further direct if alternative treatments including more active again Stenotrophomonas maltophilia and MRSA are required. Continuing with supportive care utilize her percussion vest. We'll follow with post- bronchoscopy cultures and potentially arrange for outpatient intravenous antibiotic therapy. 10/02/2018 the patient could not have bronchoscopy today due to the elevated INR. Received more vitamin K hopefully procedure can proceed tomorrow. Continue current antibiotic therapy. Bronchoscopy will help determine her course of antibiotic therapy at discharge. Shortly feels slightly better today. 10/03/2018 patient is status post bronchoscopy is feeling relatively well. The therapeutic nature of the bronchoscopy removing secretions is been helpful. The microbiological assessment remain in processes at this time. We'll continue antibiotic therapy. Likely will be discharged home on intravenous antibiotic therapy with cefepime which should be twice a day and more amenable to her if she will continue to be working in the next several weeks. Continue respiratory treatments. Steroid taper per pulmonary. Leukocytosis likely related to underlying pneumonia and the steroid therapy. Current Visit: No Status: Acute Code(s): J18.9 - PNEUMONIA, UNSPECIFIED ORGANISM SNOMED Code(s): 005811391 (2) Tracheomalacia Current Visit: Yes Status: Acute Code(s): J39.8 - OTHER SPECIFIED DISEASES OF UPPER RESPIRATORY TRACT SNOMED Code(s): 60335669
[2018-10-03] MEDS: DIAZEPAM 5 MG TAB PO SCH (22:17)
[2018-10-03] MEDS: PANTOPRAZOLE 40 MG TABLET PO SCH (22:17)
[2018-10-03] MEDS: ZOLPIDEM 5 MG TAB PO SCH (22:17)
[2018-10-03] MEDS: CYCLOBENZAPRINE 10 MG TAB PO SCH (22:17)
[2018-10-03] MEDS: ATORVASTATIN 10 MG TAB PO SCH (22:17)
[2018-10-04 07:28] LABS: Glucose,Whole Blood 116 mg/dL (75-99)
[2018-10-04] MEDS: methylPREDNISolone SOD SUCCI 125 MG/2 ML VIAL IV SCH ×2 (07:40→13:10)
[2018-10-04] MEDS: LEVOTHYROXINE 50 MCG TAB PO SCH (07:40)
[2018-10-04] MEDS: GABAPENTIN 300 MG CAP PO SCH ×2 (08:32→21:45)
[2018-10-04] MEDS: FLUCONAZOLE 100 MG TAB PO SCH (08:32)
[2018-10-04] MEDS: DULoxetine HCL 60 MG CAPSULE.DR PO SCH (08:32)
[2018-10-04] MEDS: MONTELUKAST 10 MG TAB PO SCH (08:32)
[2018-10-04] MEDS: IPRATROPIUM-ALBUTEROL 3 ML NEB INHALATION SCH ×4 (08:51→20:02)
[2018-10-04] MEDS: SYMBICORT 160-4.5 MCG INHALER INHALATION SCH ×2 (08:51→20:03)
[2018-10-04 10:09] LABS: INR 1.2 (<1.2); Prothrombin Time 12.3 sec (9.0-12.0)
[2018-10-04 11:47] LABS: Glucose,Whole Blood 144 mg/dL (75-99)
--- NOTE | 2018-10-04 14:01 | P.PN ---
Subjective Progress Note Date: 10/04/18 52-year-old female one of my office patient of known for long time with history of chronic asthma/COPD with history of advanced pulmonary fibrosis who had seen Dr. Oscar diaz in and Dr. Alvarez on regular basis for recurrent shortness of breath bronchitis and Pseudomonas pneumonitis with multiple bronchoscopy and treatment for Pseudomonas. Patient also was seen in [facility] for possible lung transplant in the past. She is known to have history of recurrent pulmonary embolism has been on anticoagulation for long time has been on warfarin with INR has been therapeutic for many years. Patient had bronchoscopy with Dr. Hughes over 2 weeks ago was diagnosed with Pseudomonas as well started on Cipro and felt slightly bit better initially but become much worse and lasts 5 days started having low-grade temperature initially and her fever become much higher having more tachypnea hypoxia tachycardia and more symptomatic patient despite having to go on 5 L of O2 continue to be hypoxic today ended up coming to the emergency department at [facility] where was seen and evaluated chest x-ray failed to show any sign of consolidation specially with her scar tissue. Patient clinically had pneumonia in the right side with severe leukocytosis and elevated lactic acid and coagulopathy patient will be hospitalized with switch her oral Cipro to Zosyn will consult pulmonary and infectious disease continue to treat patient aggressively. Patient also might require bronchoscopy because of the severity of the congestion and hypoxia. 10/02: Bronchoscopy was canceled today due to INR 7.8. Patient did receive oral vitamin K 1. She states she is feeling a little bit better from yesterday most likely because of the steroids. She is on Solu-Medrol 60 mg every 6 hours. Patient has been seen by Dr. Mayfield and antibiotics changed to Fortaz. She has been afebrile, heart rate running in the 90s, blood pressure 129/69, pulse ox 92% on 3 L. 10/03: INR is down to 1.3 and patient is scheduled for bronchoscopy this afternoon with Dr. Hughes. She continues to feel a little bit better each day and breathing status is stable. She has been afebrile, pulse ox is 96% on 3 L, heart rate running in the 90s and low 100 100s. Blood pressure 124/72. White count is 28.2, hemoglobin 11.1, platelet count 226. CO2 24, creatinine 0.53. Blood sugars running between 102 and 135. 2/28: Patient underwent bronchoscopy yesterday with Dr. Hughes and cytology and cultures were obtained. Patient has has had no postprocedure complications. She states she is breathing a little bit easier today. We'll plan to resume her back on Coumadin and start Lovenox for bridging. Solu- Medrol will be decreased to 40 mg every 8 hours. Anticipate possible discharge by tomorrow Review of Systems CONSTITUTIONAL: Well-developed. Denies fever denies chills. EYES: No icterus sclerae, no conjunctivitis. EARS, NOSE, MOUTH, THROAT, and FACE: No sore throat, lymphadenopathy, carotid bruits or deformity. RESPIRATORY: Positive shortness of breath positive cough wheezes with pulmonary fibrosis. CARDIOVASCULAR: No CP, Palpitation, PND, Orthopnea, or angina. GASTROINTESTINAL: No Abd pain, Nausea or vomiting, no Diarrhea or constipation, No GI Bleed, no distention or masses. GENITOURINARY: Negative for Hematuria or UTI, no kidney stones. INTEGUMENT/BREAST: Negative for any muscular injury with mild osteoarthritis. HEMATOLOGIC/LYMPHATIC: Negative for bleed or purpura. MUSCULOSKELTAL: Negative for Myalgia or arthralgia. NEURLOGICAL: No LOC, Sz or syncope, blurred vision dizziness or abnormality. BEHAVIORAL/PSYCH: Negative. ENDOCRINE: Negative. Objective - Vital Signs Vital signs: Vital Signs Temp 99.4 F 10/04/18 07:00 Pulse 88 10/04/18 12:27 Resp 16 10/04/18 07:00 BP 134/74 10/04/18 07:00 Pulse Ox 95 10/04/18 07:00 Intake & Output 10/03/18 10/04/18 10/04/18 18:59 06:59 18:59 Intake Total 300 1400 720 Balance 300 1400 720 Weight 54.431 kg Intake: IV 300 Intake, IV Titration 100 Amount cefTAZidime 2 gm In 100 Sodium Chloride 0.9% 100 ml @ 100 mls/hr IVPB Q8HR [facility] Rx#:[id number] Oral 1300 720 Other: # Voids 2 2 - Exam General Appearance: Alert, cooperative, no distress, appears stated age. No no respiratory distress. Neck HEENT: Supple, no lymphadenopathy, no thyroid enlargement, no carotid bruits. Lungs: Decreased breath sound bilaterally worsening in the right than the left side with positive rhonchi and fine crackles in the right side. Chest Wall: Chest wall normal expansion with deep inspiration no tenderness and no deformity was found on exam, no costochondral pain or discomfort. Heart: Regular rate and rhythm, S1, S2 normal, no murmur, rub or gallop. Back: Symmetric, no curvature, ROM normal, no CVA tenderness. Abdomen: Soft, non-tender, bowel sounds active all four quadrants, no masses, no organomegaly. Extremities: Extremities normal, atraumatic, no cyanosis or edema. Pulses: 2+ and symmetric. Skin: Skin color, texture, tugor normal, no rashes or lesions. Neurologic: Alert oriented x3 cranial nerves II through XII intact, no motor deficit, no abnormal balance or gait. - Labs CBC & Chem 7: 10/03/18 08:20 10/03/18 08:20 Labs: Abnormal Lab Results - Last 24 Hours (Table) 10/03/18 10/03/18 10/04/18 Range/Units 13:30 19:33 07:26 PT (9.0-12.0) sec INR (<1.2) POC Glucose (mg/dL) 179 H 116 H (75-99) mg/dL Viral Test See Below H 10/04/18 10/04/18 Range/Units 09:22 11:46 PT 12.3 H (9.0-12.0) sec INR 1.2 H (<1.2) POC Glucose (mg/dL) 144 H (75-99) mg/dL Viral Test Microbiology - Last 24 Hours (Table) 10/01/18 08:48 Blood Culture - Preliminary Blood No Growth after 72 hours 10/03/18 13:30 Gram Stain - Preliminary Bronchial Washings - Random Bronchial Washings Culture - Preliminary Assessment and Plan Plan: 1 acute hypoxic respiratory failure secondary to acute exacerbation of chronic bronchiectasis, bronchial malacia, Pseudomonas pneumonitis. Patient has been seen by Dr. Mayfield with recommendations for Fortaz which is been started. Dr. Hughes is following. Bronchoscopy completed. Cytology and cultures pending. 2 COPD exacerbation: Solu-Medrol decreased, continue with Pulmicort and DuoNeb. 3 Pseudomonas pneumonitis with infiltrate in the right side. Continue Fortaz. consult pulmonary and infectious disease. Culture will be done pending results for now. 4 coagulopathy secondary to Coumadin use and ciprofloxacin. Patient is status post 1 dose of vitamin K. 5 history of pulmonary embolism: Patient is on anticoagulation. 6 pulmonary fibrosis: Patient seen pulmonary. 7 hyperlipidemia: Continue atorvastatin 10 mg daily. 8 osteoporosis: Patient is on probably a injection every 6 months. 9 chronic neuropathy: Continue gabapentin. 10 hypothyroidism: Continue patient on Synthroid 50 g daily. 11 severe GERD/GI prophylaxis: Patient has been on AcipHex will replace it with aunt omeprazole. 12 DVT prophylaxis: Remain on anticoagulation. Code status: Full code. Discharge plan: Home Monday Impression and plan of care have been directed as dictated by the signing physician. Robyn Dorantes nurse practitioner acting as scribe for signing physician.
--- NOTE | 2018-10-04 15:42 | P.PN ---
Subjective Progress Note Date: 10/04/18 Principal diagnosis: Acute exacerbation of chronic bronchiectasis, previous bacterial infection with Pseudomonas Is a 52-year-old. Patient was presenting to the [facility] department because of worsening shortness of breath, generalized weakness, cough, chest congestion, excessive mucus production, and she feels that she is drowning in her own secretions. The patient is known to me. The patient has history of bronchiectasis that has been managed through our office initially through Dr. Mckay and at a later stage I was also involved in her care. Chest exit was done on admission showed chronic parenchymal changes without any acute cardiopulmonary process. The cardiac silhouette was within normal limits. Hanna elevated white cell count of 23.8. The patient's INR was at 8.4 and supratherapeutic. Lactic acid level was at 2.9. Rest of the electrolytes and renal function was within normal limits. Her was a screen is negative at this point in time. She was started on broad-spectrum antibiotics. She was placed on IV cefepime. She was also placed on IV Solu Medrol. Pulmonary consultation was requested This woman is a a lifetime nonsmoker with a very interesting presentation of recurrent bronchitis/pneumonias, it tracheobronchomalacia as visualized on previous endoscopies, and limited bronchiectasis as confirmed by a recent CAT scan of the chest that was done at [facility]. The patient was under the care of Dr. Mckay for many years. She was infected with various microorganisms including MRSA and Haemophilus. More recently her pathology is also included stenotrophomonas. The patient was seen at [facility]. She was given zithromax as an antibiotic prophylaxis. The patient is currently doing Breo 1 relation day along with DuoNeb nebulized treatments as needed and she has a vest at home. Her serum immunoglobulin levels have been within normal limits. Hematologic profile is also within normal limits. 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 The patient's serum immunoglobulin levels have been within normal, previous bronchoscopies yielded MRSA, Haemophilus influenza, and Pseudomonas him a in the last infection with Pseudomonas was back in April 2018. The scope did not have any infection with atypical mycobacterium. The patient had a negative JOSS. The patient had a negative rheumatoid factor. Her serum IgE level is low. She has history of chronic reflux and possible silent aspiration for many years for which she has undergone fundoplication. At this possible that this was the culprit for his bronchiectasis. No history of cystic fibrosis. No history of immotile cilia syndrome. Her last CAT scan of the chest was done at [facility] and showed extensive bronchiectasis cylindrical. Repeat bronchoscopy was done in 2019 and showed pseudomonas aeruginosa that was sensitive to quinolones. Based on that, I give the patient a course of ciprofloxacin for a total of 3 weeks. She came to see her back in our office in mid September. She was still bronchospastic and wheezy. Her chest was still aching all the time. She was not getting any improvement. She was using Brio one inhalation a day and albuterol about treatments 4 times a day. Her FEV1 was down to 26% of predicted and this in agreement with her symptomatic worsening. On 10/02/2018 patient seen in follow-up on medical surgical floor. Resting in bed, still quite bronchospastic and congested, not able to bring up much sputum. Yesterday patient's INR was 8.4, and today's INR is 7.8, patient's bronchoscopy had to be canceled, we'll see the patient, the patient a dose of vitamin K, and rescheduled for tomorrow if the INR is within acceptable range. Today's cell count was 26.2, no fever, no chills, patient remains on 2 L per nasal cannula, vital signs are stable, no been able to produce a sputum for culture, blood culture showed no growth, ID service has been consulted, and a reticulocyte coverage is in the form of Fortaz, and Zosyn has been discontinued. On 10/03/2018 patient seen in follow-up on medical surgical floor. On today's exam patient is less wheezy and congested, although still sounds very wheezy, but overall improved. INR is down to 1.3, still not able to bring up any sputum , antibiotic coverage in the form of Fortaz. White blood cell count remains elevated at 28.2. Culture showed no growth, she is afebrile, received bronchoscopy with BAL today at 1:[address] Hughes. On 09/26/2018 patient seen in follow-up on medical surgical floor. Resting comfortably in bed, distress, status post bronchoscopy with bronchoalveolar lavage, on today's exam patient is breathing easier, she is currently on 2 L per nasal cannula and her pulse was 93%, reveals scattered wheezes, but overall patient is improving. Blood and bronchial wash cultures are negative thus far, abstain showed budding yeast, and rare epithelial cells. Final culture is in progress. No new labs today, INR today is 1.2. Coumadin has been resumed, antibiotic coverage in the form of cefepime, IV Solu-Medrol and breathing treatments. Objective - Vital Signs Vital signs: Vital Signs Temp 98.5 F 10/04/18 14:29 Pulse 93 10/04/18 14:29 Resp 17 10/04/18 14:29 BP 124/69 10/04/18 14:29 Pulse Ox 93 L 10/04/18 14:29 Intake & Output 10/03/18 10/04/18 10/04/18 18:59 06:59 18:59 Intake Total 300 1400 1338 Balance 300 1400 1338 Weight 54.431 kg Intake: IV 300 Intake, IV Titration 100 500 Amount cefTAZidime 2 gm In 100 500 Sodium Chloride 0.9% 100 ml @ 100 mls/hr IVPB Q8HR [facility] Rx#:[id number] Oral 1300 838 Other: # Voids 2 2 2 - Exam GENERAL EXAM: Alert, pleasant, 52-year-old white female comfortable in no apparent distress. HEAD: Normocephalic/atraumatic. EYES: Normal reaction of pupils, equal size. Conjunctiva pink, sclera white. NOSE: Clear with pink turbinates. THROAT: No erythema or exudates. NECK: No masses, no JVD, no thyroid enlargement, no adenopathy. CHEST: No chest wall deformity. Symmetrical expansion. LUNGS: Equal air entry with scattered wheezes, and rhonchi CVS: Regular rate and rhythm, normal S1 and S2, no gallops, no murmurs, no rubs ABDOMEN: Soft, nontender. No hepatosplenomegaly, normal bowel sounds, no guarding or rigidity. EXTREMITIES: No clubbing, no edema, no cyanosis, 2+ pulses and upper and lower extremities. MUSCULOSKELETAL: Muscle strength and tone normal. SPINE: No scoliosis or deformity SKIN: No rashes CENTRAL NERVOUS SYSTEM: Alert and oriented -3. No focal deficits, tone is normal in all 4 extremities. PSYCHIATRIC: Alert and oriented -3. Appropriate affect. Intact judgment and insight. - Labs CBC & Chem 7: 10/03/18 08:20 10/03/18 08:20 Labs: Abnormal Lab Results - Last 24 Hours (Table) 10/03/18 10/03/18 10/04/18 Range/Units 13:30 19:33 07:26 PT (9.0-12.0) sec INR (<1.2) POC Glucose (mg/dL) 179 H 116 H (75-99) mg/dL Viral Test See Below H 10/04/18 10/04/18 Range/Units 09:22 11:46 PT 12.3 H (9.0-12.0) sec INR 1.2 H (<1.2) POC Glucose (mg/dL) 144 H (75-99) mg/dL Viral Test Microbiology - Last 24 Hours (Table) 10/01/18 08:48 Blood Culture - Preliminary Blood No Growth after 72 hours 10/03/18 13:30 Gram Stain - Preliminary Bronchial Washings - Random Bronchial Washings Culture - Preliminary Assessment and Plan Plan: Assessment: 1 acute exacerbation of chronic bronchiectasis. The patient is quite short of breath. The patient has had multiple exacerbations the past.. Exacerbations of been related to pseudomonas aeruginosa although other microorganisms are also affected the patient. The exact cause for underlying bronchiectasis is not known. The workup is negative thus far. During her last evaluation, the patient was started on inhaled HOLLY. The patient was found to have an FEV1 which was down to 26% of predicted. She is coming in for worsening shortness of breath which is quite bronchospastic and wheezy and she has extensive amount of rest or secretions and mucous plugging. 2 previous bacterial infection with Pseudomonas 3 tracheobronchomalacia as evident on previous bronchoscopies 4 previous history of pulmonary embolism and the patient's PT/INR supratherapeutic at 8.4, down to 7.8 today. 5 hypothyroidism 6 chronic insomnia 7 acid reflux - 8 leukocytosis 9 malnourishment with a current BMI 21.9 10 chronic hypoxic history failure secondary to above Plan: Continue current medical treatment, await final results of the bronchial washing cultures, continue with Diflucan, and cefepime. Clinically patient is improving, breathing easier, less congested and wheezy. I performed a history & physical examination of the patient and discussed their management with my nurse practitioner, Bianka Saucedo. I reviewed the nurse practitioner's note and agree with the documented findings and plan of care. Lung sounds are positive for diffuse wheezes throughout the lung nowak. The findings and the impression was discussed with the patient. I attest to the documentation by the nurse practitioner. Time with Patient: Less than 30
[2018-10-04] MEDS: ENOXAPARIN 60 MG/0.6 ML SYRINGE SQ SCH (17:59)
[2018-10-04] MEDS ORDERED: WARFARIN 2.5 MG TAB PO ONE (18:00)
[2018-10-04] MEDS: LACTOBACILLUS ACIDOPH & BULGAR 1 EACH PACKET PO SCH (18:29)
[2018-10-04 20:17] LABS: Glucose,Whole Blood 144 mg/dL (75-99)
[2018-10-04] MEDS: DIAZEPAM 5 MG TAB PO SCH (21:45)
[2018-10-04] MEDS: ATORVASTATIN 10 MG TAB PO SCH (21:45)
[2018-10-04] MEDS: CYCLOBENZAPRINE 10 MG TAB PO SCH (21:45)
[2018-10-04] MEDS: methylPREDNISolone SOD SUCCI 40 MG/ML 1 ML VIAL IV SCH (21:45)
[2018-10-04] MEDS: ZOLPIDEM 5 MG TAB PO SCH (21:46)
[2018-10-04] MEDS: PANTOPRAZOLE 40 MG TABLET PO SCH (21:46)
[2018-10-05] MEDS: methylPREDNISolone SOD SUCCI 40 MG/ML 1 ML VIAL IV SCH ×3 (05:40→20:47)
[2018-10-05] MEDS: LEVOTHYROXINE 50 MCG TAB PO SCH (05:40)
[2018-10-05 07:22] LABS: Glucose,Whole Blood 109 mg/dL (75-99)
[2018-10-05] MEDS: MONTELUKAST 10 MG TAB PO SCH (07:34)
[2018-10-05] MEDS: DULoxetine HCL 60 MG CAPSULE.DR PO SCH (07:34)
[2018-10-05] MEDS: GABAPENTIN 300 MG CAP PO SCH ×2 (07:35→20:47)
[2018-10-05] MEDS: FLUCONAZOLE 100 MG TAB PO SCH (07:35)
[2018-10-05] MEDS: ENOXAPARIN 60 MG/0.6 ML SYRINGE SQ SCH (08:01)
[2018-10-05] MEDS: IPRATROPIUM-ALBUTEROL 3 ML NEB INHALATION SCH ×4 (08:45→20:47)
[2018-10-05] MEDS: SYMBICORT 160-4.5 MCG INHALER INHALATION SCH ×2 (08:45→20:47)
[2018-10-05 09:14] LABS: INR 1.5 (<1.2)
[2018-10-05 11:10] LABS: Glucose,Whole Blood 121 mg/dL (75-99)
[2018-10-05] MEDS: LACTOBACILLUS ACIDOPH & BULGAR 1 EACH PACKET PO SCH (12:27)
[2018-10-05] MEDS: M PROGEST ACET PO SCH (13:07)
[2018-10-05] MEDS: ESTROGEN CON PO SCH (13:07)
--- NOTE | 2018-10-05 13:19 | P.PN ---
Subjective Progress Note Date: 10/05/18 Principal diagnosis: Acute exacerbation of chronic bronchiectasis, previous bacterial infection with Pseudomonas Is a 52-year-old. Patient was presenting to the [facility] department because of worsening shortness of breath, generalized weakness, cough, chest congestion, excessive mucus production, and she feels that she is drowning in her own secretions. The patient is known to me. The patient has history of bronchiectasis that has been managed through our office initially through Dr. Mckay and at a later stage I was also involved in her care. Chest exit was done on admission showed chronic parenchymal changes without any acute cardiopulmonary process. The cardiac silhouette was within normal limits. Hanna elevated white cell count of 23.8. The patient's INR was at 8.4 and supratherapeutic. Lactic acid level was at 2.9. Rest of the electrolytes and renal function was within normal limits. Her was a screen is negative at this point in time. She was started on broad-spectrum antibiotics. She was placed on IV cefepime. She was also placed on IV Solu Medrol. Pulmonary consultation was requested This woman is a a lifetime nonsmoker with a very interesting presentation of recurrent bronchitis/pneumonias, it tracheobronchomalacia as visualized on previous endoscopies, and limited bronchiectasis as confirmed by a recent CAT scan of the chest that was done at [facility]. The patient was under the care of Dr. Mckay for many years. She was infected with various microorganisms including MRSA and Haemophilus. More recently her pathology is also included stenotrophomonas. The patient was seen at [facility]. She was given zithromax as an antibiotic prophylaxis. The patient is currently doing Breo 1 relation day along with DuoNeb nebulized treatments as needed and she has a vest at home. Her serum immunoglobulin levels have been within normal limits. Hematologic profile is also within normal limits. 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 The patient's serum immunoglobulin levels have been within normal, previous bronchoscopies yielded MRSA, Haemophilus influenza, and Pseudomonas him a in the last infection with Pseudomonas was back in April 2018. The scope did not have any infection with atypical mycobacterium. The patient had a negative JOSS. The patient had a negative rheumatoid factor. Her serum IgE level is low. She has history of chronic reflux and possible silent aspiration for many years for which she has undergone fundoplication. At this possible that this was the culprit for his bronchiectasis. No history of cystic fibrosis. No history of immotile cilia syndrome. Her last CAT scan of the chest was done at [facility] and showed extensive bronchiectasis cylindrical. Repeat bronchoscopy was done in 2019 and showed pseudomonas aeruginosa that was sensitive to quinolones. Based on that, I give the patient a course of ciprofloxacin for a total of 3 weeks. She came to see her back in our office in mid September. She was still bronchospastic and wheezy. Her chest was still aching all the time. She was not getting any improvement. She was using Brio one inhalation a day and albuterol about treatments 4 times a day. Her FEV1 was down to 26% of predicted and this in agreement with her symptomatic worsening. On 10/02/2018 patient seen in follow-up on medical surgical floor. Resting in bed, still quite bronchospastic and congested, not able to bring up much sputum. Yesterday patient's INR was 8.4, and today's INR is 7.8, patient's bronchoscopy had to be canceled, we'll see the patient, the patient a dose of vitamin K, and rescheduled for tomorrow if the INR is within acceptable range. Today's cell count was 26.2, no fever, no chills, patient remains on 2 L per nasal cannula, vital signs are stable, no been able to produce a sputum for culture, blood culture showed no growth, ID service has been consulted, and a reticulocyte coverage is in the form of Fortaz, and Zosyn has been discontinued. On 10/03/2018 patient seen in follow-up on medical surgical floor. On today's exam patient is less wheezy and congested, although still sounds very wheezy, but overall improved. INR is down to 1.3, still not able to bring up any sputum , antibiotic coverage in the form of Fortaz. White blood cell count remains elevated at 28.2. Culture showed no growth, she is afebrile, received bronchoscopy with BAL today at 1:[address] Hughes. On 10/04/2018 patient seen in follow-up on medical surgical floor. Resting comfortably in bed, distress, status post bronchoscopy with bronchoalveolar lavage, on today's exam patient is breathing easier, she is currently on 2 L per nasal cannula and her pulse was 93%, reveals scattered wheezes, but overall patient is improving. Blood and bronchial wash cultures are negative thus far, abstain showed budding yeast, and rare epithelial cells. Final culture is in progress. No new labs today, INR today is 1.2. Coumadin has been resumed, antibiotic coverage in the form of cefepime, IV Solu-Medrol and breathing treatments. On 10/05/2018 patient seen in follow-up. Is awake and alert, in no acute distress, her breathing continues to improve, bronchial wash cultures are pending, since showed rare budding yeast, rare epithelial cells and many polymorphonuclear leukocytes. Culture is in progress, no fever or chills, vital signs are stable. Afebrile, pulse ox is 94% on 3-1/2 L of oxygen. INR today is 1.5, Coumadin has been resumed. Antiemetic coverage in the form of Fortaz. She has been up ambulating in the room, tolerating activity fairly well. Solu-Medrol and breathing treatments continued. Objective - Vital Signs Vital signs: Vital Signs Temp 98.1 F 10/05/18 07:00 Pulse 88 10/05/18 13:07 Resp 16 10/05/18 07:25 BP 125/71 10/05/18 07:00 Pulse Ox 94 L 10/05/18 07:00 Intake & Output 10/04/18 10/05/18 10/05/18 18:59 06:59 18:59 Intake Total 1574 400 600 Balance 1574 400 600 Weight 54.431 kg Intake: Intake, IV Titration 500 200 Amount cefTAZidime 2 gm In 500 200 Sodium Chloride 0.9% 100 ml @ 100 mls/hr IVPB Q8HR [facility] Rx#:[id number] Oral 1074 200 600 Other: Voiding Method Toilet Toilet # Voids 2 1 - Exam GENERAL EXAM: Alert, pleasant, 52-year-old white female comfortable in no apparent distress. HEAD: Normocephalic/atraumatic. EYES: Normal reaction of pupils, equal size. Conjunctiva pink, sclera white. NOSE: Clear with pink turbinates. THROAT: No erythema or exudates. NECK: No masses, no JVD, no thyroid enlargement, no adenopathy. CHEST: No chest wall deformity. Symmetrical expansion. LUNGS: Equal air entry with scattered wheezes, and rhonchi CVS: Regular rate and rhythm, normal S1 and S2, no gallops, no murmurs, no rubs ABDOMEN: Soft, nontender. No hepatosplenomegaly, normal bowel sounds, no guarding or rigidity. EXTREMITIES: No clubbing, no edema, no cyanosis, 2+ pulses and upper and lower extremities. MUSCULOSKELETAL: Muscle strength and tone normal. SPINE: No scoliosis or deformity SKIN: No rashes CENTRAL NERVOUS SYSTEM: Alert and oriented -3. No focal deficits, tone is normal in all 4 extremities. PSYCHIATRIC: Alert and oriented -3. Appropriate affect. Intact judgment and insight. - Labs CBC & Chem 7: 10/03/18 08:20 10/03/18 08:20 Labs: Abnormal Lab Results - Last 24 Hours (Table) 10/03/18 10/04/18 10/05/18 Range/Units 13:30 20:06 07:10 PT (9.0-12.0) sec INR (<1.2) POC Glucose (mg/dL) 144 H 109 H (75-99) mg/dL Viral Test See Below H 10/05/18 10/05/18 Range/Units 08:29 11:08 PT 15.0 H (9.0-12.0) sec INR 1.5 H (<1.2) POC Glucose (mg/dL) 121 H (75-99) mg/dL Viral Test Microbiology - Last 24 Hours (Table) 10/01/18 08:48 Blood Culture - Preliminary Blood No Growth after 96 hours 10/03/18 13:30 Gram Stain - Preliminary Bronchial Washings - Random Bronchial Washings Culture - Preliminary Assessment and Plan Plan: Assessment: 1 acute exacerbation of chronic bronchiectasis. The patient is quite short of breath. The patient has had multiple exacerbations the past.. Exacerbations of been related to pseudomonas aeruginosa although other microorganisms are also affected the patient. The exact cause for underlying bronchiectasis is not known. The workup is negative thus far. During her last evaluation, the patient was started on inhaled HOLLY. The patient was found to have an FEV1 which was down to 26% of predicted. She is coming in for worsening shortness of breath which is quite bronchospastic and wheezy and she has extensive amount of rest or secretions and mucous plugging. 2 previous bacterial infection with Pseudomonas 3 tracheobronchomalacia as evident on previous bronchoscopies 4 previous history of pulmonary embolism and the patient's PT/INR supratherapeutic at 8.4, down to 7.8 today. 5 hypothyroidism 6 chronic insomnia 7 acid reflux - 8 leukocytosis 9 malnourishment with a current BMI 21.9 10 chronic hypoxic history failure secondary to above Plan: Continue current antibiotic coverage," cultures are negative thus far, final cultures pending, clinically patient is improving, but not back to her baseline , still wheezy and short of breath, increase activity as tolerated, to current dose of IV Solu-Medrol and breathing treatments, patient will likely remain hospitalized through the weekend. I performed a history & physical examination of the patient and discussed their management with my nurse practitioner, Bianka Saucedo. I reviewed the nurse practitioner's note and agree with the documented findings and plan of care. Lung sounds are positive for diffuse wheezes throughout the lung nowak. The findings and the impression was discussed with the patient. I attest to the documentation by the nurse practitioner. Time with Patient: Less than 30
--- NOTE | 2018-10-05 14:39 | P.PN ---
Subjective Progress Note Date: 10/05/18 52-year-old female one of my office patient of known for long time with history of chronic asthma/COPD with history of advanced pulmonary fibrosis who had seen Dr. Oscar diaz in and Dr. Alvarez on regular basis for recurrent shortness of breath bronchitis and Pseudomonas pneumonitis with multiple bronchoscopy and treatment for Pseudomonas. Patient also was seen in [facility] for possible lung transplant in the past. She is known to have history of recurrent pulmonary embolism has been on anticoagulation for long time has been on warfarin with INR has been therapeutic for many years. Patient had bronchoscopy with Dr. Hughes over 2 weeks ago was diagnosed with Pseudomonas as well started on Cipro and felt slightly bit better initially but become much worse and lasts 5 days started having low-grade temperature initially and her fever become much higher having more tachypnea hypoxia tachycardia and more symptomatic patient despite having to go on 5 L of O2 continue to be hypoxic today ended up coming to the emergency department at [facility] where was seen and evaluated chest x-ray failed to show any sign of consolidation specially with her scar tissue. Patient clinically had pneumonia in the right side with severe leukocytosis and elevated lactic acid and coagulopathy patient will be hospitalized with switch her oral Cipro to Zosyn will consult pulmonary and infectious disease continue to treat patient aggressively. Patient also might require bronchoscopy because of the severity of the congestion and hypoxia. 10/02: Bronchoscopy was canceled today due to INR 7.8. Patient did receive oral vitamin K 1. She states she is feeling a little bit better from yesterday most likely because of the steroids. She is on Solu-Medrol 60 mg every 6 hours. Patient has been seen by Dr. Mayfield and antibiotics changed to Fortaz. She has been afebrile, heart rate running in the 90s, blood pressure 129/69, pulse ox 92% on 3 L. 10/03: INR is down to 1.3 and patient is scheduled for bronchoscopy this afternoon with Dr. Hughes. She continues to feel a little bit better each day and breathing status is stable. She has been afebrile, pulse ox is 96% on 3 L, heart rate running in the 90s and low 100 100s. Blood pressure 124/72. White count is 28.2, hemoglobin 11.1, platelet count 226. CO2 24, creatinine 0.53. Blood sugars running between 102 and 135. 2/28: Patient underwent bronchoscopy yesterday with Dr. Hughes and cytology and cultures were obtained. Patient has has had no postprocedure complications. She states she is breathing a little bit easier today. We'll plan to resume her back on Coumadin and start Lovenox for bridging. Solu- Medrol will be decreased to 40 mg every 8 hours. Anticipate possible discharge by tomorrow 10/05: Patient's respiratory status continues to improve slightly each day. She is continued on cefepime ordered by Dr. Mayfield with plan for outpatient IV antibiotics. Patient is on Lovenox bridging and INR today is at 1.5. She has been afebrile, pulse ox is 94% on 3 L nasal cannula, heart rate 80s, blood pressure 125/71. Dr. Hughes is planning for discharge on Monday. Plan to continue monitoring over the weekend. Review of Systems CONSTITUTIONAL: Well-developed. Denies fever denies chills. EYES: No icterus sclerae, no conjunctivitis. EARS, NOSE, MOUTH, THROAT, and FACE: No sore throat, lymphadenopathy, carotid bruits or deformity. RESPIRATORY: Positive shortness of breath positive cough wheezes with pulmonary fibrosis. Positive shortness of breath with activity. CARDIOVASCULAR: No CP, Palpitation, PND, Orthopnea, or angina. GASTROINTESTINAL: No Abd pain, Nausea or vomiting, no Diarrhea or constipation, No GI Bleed, no distention or masses. GENITOURINARY: Negative for Hematuria or UTI, no kidney stones. INTEGUMENT/BREAST: Negative for any muscular injury with mild osteoarthritis. HEMATOLOGIC/LYMPHATIC: Negative for bleed or purpura. MUSCULOSKELTAL: Negative for Myalgia or arthralgia. NEURLOGICAL: No LOC, Sz or syncope, blurred vision dizziness or abnormality. BEHAVIORAL/PSYCH: Negative. ENDOCRINE: Negative. Objective - Vital Signs Vital signs: Vital Signs Temp 98.1 F 10/05/18 07:00 Pulse 88 10/05/18 09:16 Resp 16 10/05/18 07:25 BP 125/71 10/05/18 07:00 Pulse Ox 94 L 10/05/18 07:00 Intake & Output 10/04/18 10/05/18 10/05/18 18:59 06:59 18:59 Intake Total 1574 400 600 Balance 1574 400 600 Weight 54.431 kg Intake: Intake, IV Titration 500 200 Amount cefTAZidime 2 gm In 500 200 Sodium Chloride 0.9% 100 ml @ 100 mls/hr IVPB Q8HR [facility] Rx#:[id number] Oral 1074 200 600 Other: Voiding Method Toilet Toilet # Voids 2 1 - Exam General Appearance: Alert, cooperative, no distress, appears stated age. No acute respiratory distress at rest. Neck HEENT: Supple, no lymphadenopathy, no thyroid enlargement, no carotid bruits. Lungs: Decreased breath sound bilaterally worsening in the right than the left side with positive rhonchi and fine crackles in the right side. Chest Wall: Chest wall normal expansion with deep inspiration no tenderness and no deformity was found on exam, no costochondral pain or discomfort. Heart: Regular rate and rhythm, S1, S2 normal, no murmur, rub or gallop. Back: Symmetric, no curvature, ROM normal, no CVA tenderness. Abdomen: Soft, non-tender, bowel sounds active all four quadrants, no masses, no organomegaly. Extremities: Extremities normal, atraumatic, no cyanosis or edema. Pulses: 2+ and symmetric. Skin: Skin color, texture, tugor normal, no rashes or lesions. Neurologic: Alert oriented x3 cranial nerves II through XII intact, no motor deficit, no abnormal balance or gait. - Labs CBC & Chem 7: 10/03/18 08:20 10/03/18 08:20 Labs: Abnormal Lab Results - Last 24 Hours (Table) 10/03/18 10/04/18 10/05/18 Range/Units 13:30 20:06 07:10 PT (9.0-12.0) sec INR (<1.2) POC Glucose (mg/dL) 144 H 109 H (75-99) mg/dL Viral Test See Below H 10/05/18 10/05/18 Range/Units 08:29 11:08 PT 15.0 H (9.0-12.0) sec INR 1.5 H (<1.2) POC Glucose (mg/dL) 121 H (75-99) mg/dL Viral Test Microbiology - Last 24 Hours (Table) 10/01/18 08:48 Blood Culture - Preliminary Blood No Growth after 96 hours 10/03/18 13:30 Gram Stain - Preliminary Bronchial Washings - Random Bronchial Washings Culture - Preliminary Assessment and Plan Plan: 1 acute hypoxic respiratory failure secondary to acute exacerbation of chronic bronchiectasis, bronchial malacia, Pseudomonas pneumonitis. Patient has been seen by Dr. Mayfield with recommendations for Fortaz which is been started. Dr. Hughes is following. Bronchoscopy completed. Cytology and cultures pending. 2 COPD exacerbation: Solu-Medrol decreased, continue with Pulmicort and DuoNeb. 3 Pseudomonas pneumonitis with infiltrate in the right side. Continue Fortaz. consult pulmonary and infectious disease. Culture will be done pending results for now. 4 coagulopathy secondary to Coumadin use and ciprofloxacin. Patient is status post 1 dose of vitamin K. 5 history of pulmonary embolism: Patient is on anticoagulation. Coumadin has been resumed at home dose and continue Lovenox for bridging. 6 pulmonary fibrosis: Patient seen pulmonary. 7 hyperlipidemia: Continue atorvastatin 10 mg daily. 8 osteoporosis: Patient is on probably a injection every 6 months. 9 chronic neuropathy: Continue gabapentin. 10 hypothyroidism: Continue patient on Synthroid 50 g daily. 11 severe GERD/GI prophylaxis: Patient has been on AcipHex will replace it with aunt omeprazole. 12 DVT prophylaxis: Remain on anticoagulation. Code status: Full code. Discharge plan: Home on Monday Impression and plan of care have been directed as dictated by the signing physician. Robyn Dorantes nurse practitioner acting as scribe for signing physician.
[2018-10-05 16:52] LABS: Glucose,Whole Blood 128 mg/dL (75-99)
[2018-10-05 20:34] LABS: Glucose,Whole Blood 135 mg/dL (75-99)
--- NOTE | 2018-10-05 20:40 | P.PN ---
Subjective Progress Note Date: 10/05/18 This is a 52-year-old female one of Dr. Guadalupe with a previous medical history significant for bronchial malacia, pulmonary fibrosis, interstitial lung disease, pulmonary embolism on chronic Coumadin, hyperlipidemia, GERD, osteopenia. Patient was recently brought in on September 03 under the care of Dr. Hughes underwent a bronchoscopy and BAL. Culture positive for Pseudomonas and patient has been treated with Cipro. Pathology report revealed acute inflammatory cells, mucus and foaming debris. Stain negative for pneumocystic carinii organisms. Patient also gives history of being on tobramycin nebulizer treatments. She states she is having increasing shortness of breath that progressively worsened and her oxygen saturations have been dropping. She has been using more oxygen up to 4 L at home. She states she can 't even it herself dressed in the morning. She also complains of low-grade fever. She came into [facility] emergency center for evaluation. Chest x-ray shows chronic prevention will change without acute pulmonary process. White count was 23.8, INR 8.4 patient is on chronic Coumadin therapy for PE. Creatinine 0.71. Initial lactic acid 2.2 and repeat 2.9. Influenza testing was negative. Troponin negative. Patient was started on IV Solu-Medrol, Pulmicort and DuoNeb treatments, Zosyn and [facility] and consult with Dr. Hughes included. 10/02/2018 patient was to have bronchoscopy today. However her INR remains to elevated for the procedure today. Received more vitamin K and hopefully ready for the procedure tomorrow. Fortunately with the current high dose of Solu- Medrol she is feeling somewhat better. Is also receiving antibiotic therapy. Screening from [facility] did reveal evidence of the Stenotrophomonas maltophilia and staph aureus, did not specify MRSA. October 03 2018 patient has had the bronchoscopy today, given the INR normalized. She is feeling a bit groggy after the procedure but continues to feel better since admission initiation of antibiotic therapy as well as steroid therapy. 10/05/2018 patient is definitely feeling better today. Still however has extensive wheezing and moist cough. She is not having significant fevers or chills. Requiring oxygen therapy, steroids, utilization of her vest and close follow-up with pulmonary critical care. Objective - Vital Signs Vital signs: Vital Signs Temp 98.5 F 10/05/18 20:00 Pulse 89 10/05/18 20:00 Resp 16 10/05/18 20:00 BP 137/74 10/05/18 20:00 Pulse Ox 97 10/05/18 20:00 Intake & Output 10/05/18 10/05/18 10/06/18 06:59 18:59 06:59 Intake Total 400 1240 Balance 400 1240 Intake: Intake, IV Titration 200 Amount cefTAZidime 2 gm In 200 Sodium Chloride 0.9% 100 ml @ 100 mls/hr IVPB Q8HR [facility] Rx#:[id number] Oral 200 1240 Other: Voiding Method Toilet Toilet # Voids 1 2 # Bowel Movements 0 - Exam Gen: This is a thin 52-year-old female. She is resting on the ER stretcher and appears to be dyspneic at rest. Unable to speak in full sentences. HEENT: Head is atraumatic, normocephalic. Pupils equal, round. Sclerae is anicteric. NECK: Supple. No JVD. No lymphadenopathy. No thyromegaly. LUNGS: Bilateral rales, wheezing rhonchi, prolonged expiration. Mild intercostal retractions and accessory muscle usage. Evidence of air trapping continues HEART: Regular rate and rhythm. Systolic murmur. ABDOMEN: Soft. Bowel sounds are present. No masses. No tenderness. EXTREMITIES: No pedal edema. No calf tenderness. Clubbing noted. NEUROLOGICAL: Patient is awake, alert and oriented x3 - Labs CBC & Chem 7: 10/03/18 08:20 10/03/18 08:20 Labs: Abnormal Lab Results - Last 24 Hours (Table) 10/05/18 10/05/18 10/05/18 Range/Units 07:10 08:29 11:08 PT 15.0 H (9.0-12.0) sec INR 1.5 H (<1.2) POC Glucose (mg/dL) 109 H 121 H (75-99) mg/dL 10/05/18 10/05/18 Range/Units 16:48 20:22 PT (9.0-12.0) sec INR (<1.2) POC Glucose (mg/dL) 128 H 135 H (75-99) mg/dL Microbiology - Last 24 Hours (Table) 10/03/18 13:30 Gram Stain - Preliminary Bronchial Washings - Random Bronchial Washings Culture - Preliminary Kerry albicans 10/01/18 08:48 Blood Culture - Preliminary Blood No Growth after 96 hours Laboratory Results WBC 28.2 k/uL (3.8-10.6) H 10/03/18 08:20 RBC 3.72 m/uL (3.80-5.40) L 10/03/18 08:20 Hgb 11.1 gm/dL (11.4-16.0) L 10/03/18 08:20 Hct 34.9 % (34.0-46.0) 10/03/18 08:20 MCV 93.8 fL (80.0-100.0) 10/03/18 08:20 MCH 29.7 pg (25.0-35.0) 10/03/18 08:20 MCHC 31.7 g/dL (31.0-37.0) 10/03/18 08:20 RDW 14.9 % (11.5-15.5) 10/03/18 08:20 Plt Count 226 k/uL (150-450) 10/03/18 08:20 Neutrophils % 93 % 10/03/18 08:20 Lymphocytes % 3 % 10/03/18 08:20 Monocytes % 3 % 10/03/18 08:20 Eosinophils % 0 % 10/03/18 08:20 Basophils % 0 % 10/03/18 08:20 Neutrophils # 26.2 k/uL (1.3-7.7) H 10/03/18 08:20 Lymphocytes # 0.9 k/uL (1.0-4.8) L 10/03/18 08:20 Monocytes # 0.8 k/uL (0-1.0) 10/03/18 08:20 Eosinophils # 0.1 k/uL (0-0.7) 10/03/18 08:20 Basophils # 0.0 k/uL (0-0.2) 10/03/18 08:20 PT 15.0 sec (9.0-12.0) H 10/05/18 08:29 INR 1.5 (<1.2) H 10/05/18 08:29 APTT 46.9 sec (22.0-30.0) H 10/01/18 08:48 Sodium 141 mmol/L (137-145) 10/03/18 08:20 Potassium 3.9 mmol/L (3.5-5.1) 10/03/18 08:20 Chloride 110 mmol/L (98-107) H 10/03/18 08:20 Carbon Dioxide 24 mmol/L (22-30) 10/03/18 08:20 Anion Gap 7 mmol/L 10/03/18 08:20 BUN 22 mg/dL (7-17) H 10/03/18 08:20 Creatinine 0.53 mg/dL (0.52-1.04) 10/03/18 08:20 Est GFR (CKD-EPI)AfAm >90 (>60 ml/min/1.73 sqM) 10/03/18 08:20 Est GFR (CKD-EPI)NonAf >90 (>60 ml/min/1.73 sqM) 10/03/18 08:20 Glucose 102 mg/dL (74-99) H 10/03/18 08:20 POC Glucose (mg/dL) 135 mg/dL (75-99) H 10/05/18 20:22 POC Glu Estimating Engineer ID Valeria Warner 10/05/18 20:22 Lactic Ac Sepsis Rflx Y 10/01/18 09:49 Plasma Lactic Acid Saran 2.9 mmol/L (0.7-2.0) H* 10/01/18 13:15 Calcium 8.2 mg/dL (8.4-10.2) L 10/03/18 08:20 Magnesium 2.1 mg/dL (1.6-2.3) 10/01/18 08:48 Total Bilirubin 0.5 mg/dL (0.2-1.3) 10/01/18 08:48 AST 26 U/L (14-36) 10/01/18 08:48 ALT 27 U/L (9-52) 10/01/18 08:48 Alkaline Phosphatase 109 U/L (38-126) 10/01/18 08:48 Creatine Kinase 34 U/L (30-135) 10/01/18 08:48 CK-MB (CK-2) 0.3 ng/mL (0.0-2.4) 10/01/18 08:48 Troponin I <0.012 ng/mL (0.000-0.034) 10/01/18 08:48 Total Protein 6.8 g/dL (6.3-8.2) 10/01/18 08:48 Albumin 3.9 g/dL (3.5-5.0) 10/01/18 08:48 Influenza Type A RNA Not Detected (Not Detectd) 10/01/18 08:48 Influenza Type B (PCR) Not Detected (Not Detectd) 10/01/18 08:48 Virus Source See Below 10/03/18 13:30 Viral Test See Below H 10/03/18 13:30 Virus Analysis Interp See Below 10/03/18 13:30 Microbiology 10/03/18 13:30 Bronchial Washings - Random Gram Stain - Preliminary 10/03/18 13:30 Bronchial Washings - Random Bronchial Washings Culture - Preliminary Kerry albicans 10/01/18 08:48 Blood Blood Culture - Preliminary No Growth after 96 hours Assessment and Plan (1) Pneumonia Narrative/Plan: This pleasant 52-year-old woman has a known history of bronchomalacia with pulmonary fibrosis and interstitial lung disease. Relates over the past several weeks has been having increasing decline of her status. A month ago bronchoscopy was performed with copious secretions and evidence of pseudomonas aeruginosa. Treated with a course of ciprofloxacin but is now having worsening of her status and constantly has been admitted again. Receiving respiratory treatments, steroids and plans for repeat bronchoscopy. She relates that while she was at [facility] recently Stenotrophomonas maltophilia was isolated. Given the patient's failure ciprofloxacin prior colonization alter antimicrobial therapy to cefotaxime for now until we have further data. Bronchoscopy will help further direct if alternative treatments including more active again Stenotrophomonas maltophilia and MRSA are required. Continuing with supportive care utilize her percussion vest. We'll follow with post- bronchoscopy cultures and potentially arrange for outpatient intravenous antibiotic therapy. 10/02/2018 the patient could not have bronchoscopy today due to the elevated INR. Received more vitamin K hopefully procedure can proceed tomorrow. Continue current antibiotic therapy. Bronchoscopy will help determine her course of antibiotic therapy at discharge. Shortly feels slightly better today. 10/03/2018 patient is status post bronchoscopy is feeling relatively well. The therapeutic nature of the bronchoscopy removing secretions is been helpful. The microbiological assessment remain in processes at this time. We'll continue antibiotic therapy. Likely will be discharged home on intravenous antibiotic therapy with cefepime which should be twice a day and more amenable to her if she will continue to be working in the next several weeks. Continue respiratory treatments. Steroid taper per pulmonary. Leukocytosis likely related to underlying pneumonia and the steroid therapy. 10/05/2018 patient has had some further improvement after her bronchoscopy. Cultures are in process, so far only HSV-1 is being isolated. Continue current antibiotic therapy does allow the marked improvement of her status. We'll add an oral Valtrex also given the relative immunocompromise and presence of the herpetic virus in the upper tract. Pulmonary critical care is following and are considering follow-up bronchoscopy for further pulmonary toileting. Outpatient intravenous antibiotic therapy arranged. Current Visit: No Status: Acute Code(s): J18.9 - PNEUMONIA, UNSPECIFIED ORGANISM SNOMED Code(s): 089342174 (2) Tracheomalacia Current Visit: Yes Status: Acute Code(s): J39.8 - OTHER SPECIFIED DISEASES OF UPPER RESPIRATORY TRACT SNOMED Code(s): 10300709
[2018-10-05] MEDS: PANTOPRAZOLE 40 MG TABLET PO SCH (20:47)
[2018-10-05] MEDS: CYCLOBENZAPRINE 10 MG TAB PO SCH (20:47)
[2018-10-05] MEDS: ZOLPIDEM 5 MG TAB PO SCH (20:47)
[2018-10-05] MEDS: ATORVASTATIN 10 MG TAB PO SCH (20:47)
[2018-10-05] MEDS: WARFARIN 2.5 MG TAB PO SCH (20:47)
[2018-10-05] MEDS: DIAZEPAM 5 MG TAB PO SCH (20:47)
[2018-10-06] MEDS: LEVOTHYROXINE 50 MCG TAB PO SCH (05:36)
[2018-10-06] MEDS: methylPREDNISolone SOD SUCCI 40 MG/ML 1 ML VIAL IV SCH ×3 (05:36→21:41)
[2018-10-06 07:13] LABS: INR 2.3 (<1.2); Prothrombin Time 22.1 sec (9.0-12.0)
[2018-10-06] MEDS: IPRATROPIUM-ALBUTEROL 3 ML NEB INHALATION SCH ×4 (07:57→20:19)
[2018-10-06] MEDS: SYMBICORT 160-4.5 MCG INHALER INHALATION SCH (07:57)
[2018-10-06] MEDS: DULoxetine HCL 60 MG CAPSULE.DR PO SCH (09:09)
[2018-10-06] MEDS: GABAPENTIN 300 MG CAP PO SCH ×2 (09:09→21:41)
[2018-10-06] MEDS: MONTELUKAST 10 MG TAB PO SCH (09:09)
[2018-10-06] MEDS: FLUCONAZOLE 100 MG TAB PO SCH (09:09)
--- NOTE | 2018-10-06 10:12 | P.PN ---
Subjective Progress Note Date: 10/06/18 52-year-old female one of my office patient of known for long time with history of chronic asthma/COPD with history of advanced pulmonary fibrosis who had seen Dr. Oscar diaz in and Dr. Alvarez on regular basis for recurrent shortness of breath bronchitis and Pseudomonas pneumonitis with multiple bronchoscopy and treatment for Pseudomonas. Patient also was seen in [facility] for possible lung transplant in the past. She is known to have history of recurrent pulmonary embolism has been on anticoagulation for long time has been on warfarin with INR has been therapeutic for many years. Patient had bronchoscopy with Dr. Hughes over 2 weeks ago was diagnosed with Pseudomonas as well started on Cipro and felt slightly bit better initially but become much worse and lasts 5 days started having low-grade temperature initially and her fever become much higher having more tachypnea hypoxia tachycardia and more symptomatic patient despite having to go on 5 L of O2 continue to be hypoxic today ended up coming to the emergency department at [facility] where was seen and evaluated chest x-ray failed to show any sign of consolidation specially with her scar tissue. Patient clinically had pneumonia in the right side with severe leukocytosis and elevated lactic acid and coagulopathy patient will be hospitalized with switch her oral Cipro to Zosyn will consult pulmonary and infectious disease continue to treat patient aggressively. Patient also might require bronchoscopy because of the severity of the congestion and hypoxia. 10/02: Bronchoscopy was canceled today due to INR 7.8. Patient did receive oral vitamin K 1. She states she is feeling a little bit better from yesterday most likely because of the steroids. She is on Solu-Medrol 60 mg every 6 hours. Patient has been seen by Dr. Mayfield and antibiotics changed to Fortaz. She has been afebrile, heart rate running in the 90s, blood pressure 129/69, pulse ox 92% on 3 L. 10/03: INR is down to 1.3 and patient is scheduled for bronchoscopy this afternoon with Dr. Hughes. She continues to feel a little bit better each day and breathing status is stable. She has been afebrile, pulse ox is 96% on 3 L, heart rate running in the 90s and low 100 100s. Blood pressure 124/72. White count is 28.2, hemoglobin 11.1, platelet count 226. CO2 24, creatinine 0.53. Blood sugars running between 102 and 135. 2/28: Patient underwent bronchoscopy yesterday with Dr. Hughes and cytology and cultures were obtained. Patient has has had no postprocedure complications. She states she is breathing a little bit easier today. We'll plan to resume her back on Coumadin and start Lovenox for bridging. Solu- Medrol will be decreased to 40 mg every 8 hours. Anticipate possible discharge by tomorrow 10/05: Patient's respiratory status continues to improve slightly each day. She is continued on cefepime ordered by Dr. Mayfield with plan for outpatient IV antibiotics. Patient is on Lovenox bridging and INR today is at 1.5. She has been afebrile, pulse ox is 94% on 3 L nasal cannula, heart rate 80s, blood pressure 125/71. Dr. Hughes is planning for discharge on Monday. Plan to continue monitoring over the weekend. 10/06:patient has been afebrile, blood pressure 128/66, pulse in the 70s to 90s, pulse ox is 93% on 3 L nasal cannula.INR today is 2.3. Lovenox will be discontinued.she is currently on Solu-Medrol 40 mg every 8 hours.bronchoscopy cytology showed acute inflammatory cells and reactive bronchial epithelial cells , macrophages, metaplastic squamous cells. Superficial squamous cells and back. Suggest oral contents are seen. No cytology claiming malignant cells identified. bronchoscopy washings are showing Kerry. 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 Mayfield.patient's breathing status continues to improve very slowly but she has continued wheezing and cough. She is using her vest from home. Her cough is minimal production. Patient states that Dr. Hughes is planning for possible bronchoscopy on Monday. Nurse to check with Dr. walsh and during rounds and if product is planned and Coumadin will need to be discontinued. Review of Systems CONSTITUTIONAL: Well-developed. Denies fever denies chills. EYES: No icterus sclerae, no conjunctivitis. EARS, NOSE, MOUTH, THROAT, and FACE: No sore throat, lymphadenopathy, carotid bruits or deformity. RESPIRATORY: Positive shortness of breath positive cough wheezes with pulmonary fibrosis. Positive shortness of breath with activity. CARDIOVASCULAR: No CP, Palpitation, PND, Orthopnea, or angina. GASTROINTESTINAL: No Abd pain, Nausea or vomiting, no Diarrhea or constipation, No GI Bleed, no distention or masses. GENITOURINARY: Negative for Hematuria or UTI, no kidney stones. INTEGUMENT/BREAST: Negative for any muscular injury with mild osteoarthritis. HEMATOLOGIC/LYMPHATIC: Negative for bleed or purpura. MUSCULOSKELTAL: Negative for Myalgia or arthralgia. NEURLOGICAL: No LOC, denies seizure or syncope, blurred vision dizziness or abnormality. BEHAVIORAL/PSYCH: Negative. ENDOCRINE: Negative. Objective - Vital Signs Vital signs: Vital Signs Temp 97.1 F L 10/06/18 03:01 Pulse 98 10/06/18 07:57 Resp 16 10/06/18 03:01 BP 128/66 10/06/18 03:01 Pulse Ox 93 L 10/06/18 03:01 Intake & Output 10/05/18 10/06/18 10/06/18 18:59 06:59 18:59 Intake Total 1240 600 Balance 1240 600 Intake: Intake, IV Titration 100 Amount cefTAZidime 2 gm In 100 Sodium Chloride 0.9% 100 ml @ 100 mls/hr IVPB Q8HR [facility] Rx#:[id number] Oral 1240 500 Other: Voiding Method Toilet # Voids 2 2 # Bowel Movements 0 - Exam General Appearance: Alert, cooperative, no distress, appears stated age. No acute respiratory distress at rest. Neck HEENT: Supple, no lymphadenopathy, no thyroid enlargement, no carotid bruits. Lungs: Bilateral rales, wheezing, rhonchi and prolonged expiration. Mild intercostal accessory muscle usage. Chest Wall: Chest wall normal expansion with deep inspiration no tenderness and no deformity was found on exam, no costochondral pain or discomfort. Heart: Regular rate and rhythm, S1, S2 normal, no murmur, rub or gallop. Back: Symmetric, no curvature, ROM normal, no CVA tenderness. Abdomen: Soft, non-tender, bowel sounds active all four quadrants, no masses, no organomegaly. Extremities: Extremities normal, atraumatic, no cyanosis or edema. Pulses: 2+ and symmetric. Skin: Skin color, texture, tugor normal, no rashes or lesions. Neurologic: Alert oriented x3 cranial nerves II through XII intact, no motor deficit, no abnormal balance or gait. - Labs CBC & Chem 7: 10/03/18 08:20 10/03/18 08:20 Labs: Abnormal Lab Results - Last 24 Hours (Table) 10/05/18 10/05/18 10/05/18 Range/Units 08:29 11:08 16:48 PT 15.0 H (9.0-12.0) sec INR 1.5 H (<1.2) POC Glucose (mg/dL) 121 H 128 H (75-99) mg/dL 10/05/18 10/06/18 Range/Units 20:22 06:35 PT 22.1 H (9.0-12.0) sec INR 2.3 H (<1.2) POC Glucose (mg/dL) 135 H (75-99) mg/dL Microbiology - Last 24 Hours (Table) 10/03/18 13:30 Gram Stain - Preliminary Bronchial Washings - Random Bronchial Washings Culture - Preliminary Kerry albicans 10/01/18 08:48 Blood Culture - Preliminary Blood No Growth after 96 hours Assessment and Plan Plan: 1 acute hypoxic respiratory failure secondary to acute exacerbation of chronic bronchiectasis, bronchial malacia, Pseudomonas pneumonitisand HSV-1isolated. Patient has been seen by Dr. Mayfield with recommendations for Fortaz which is been started. Dr. Hughes is following. Bronchoscopy completed. Valtrex started. Possible repeat Pramod on Monday. 2 COPD exacerbation: Solu-Medrol decreased, continue with Pulmicort and DuoNeb. 3 Pseudomonas pneumonitis with infiltrate in the right side. Continue Fortaz. consult pulmonary and infectious disease. Culture will be done pending results for now. 4 coagulopathy secondary to Coumadin use and ciprofloxacin. Patient is status post 1 dose of vitamin K. 5 history of pulmonary embolism: Patient is on anticoagulation. Coumadin may need to be held for repeat , Monday. 6 pulmonary fibrosis: Patient seen pulmonary. 7 hyperlipidemia: Continue atorvastatin 10 mg daily. 8 osteoporosis: Patient is on probably a injection every 6 months. 9 chronic neuropathy: Continue gabapentin. 10 hypothyroidism: Continue patient on Synthroid 50 g daily. 11 severe GERD/GI prophylaxis: Patient has been on AcipHex will replace it with aunt omeprazole. 12 DVT prophylaxis: Remain on anticoagulation. Code status: Full code. Discharge plan: Home on Mondaywith IV antibiotics with [facility] and the [facility] Impression and plan of care have been directed as dictated by the signing physician. Robyn Dorantes nurse practitioner acting as scribe for signing physician.
--- NOTE | 2018-10-06 13:01 | P.PN ---
Subjective Progress Note Date: 10/06/18 Principal diagnosis: Acute exacerbation of chronic bronchiectasis with previous pseudomonas infections. The patient is seen again today 10/06/2018 in follow-up on the regular medical floor. She is awake and alert in no acute distress. She states she is breathing easier today as compared to yesterday. Continues with a loose nonproductive cough. Maintaining O2 saturations in the upper 90s on 3 L/m per nasal cannula. She's been afebrile. Hemodynamically stable. Bronchial washings are revealing evidence of Kerry only thus far. She is on Diflucan. INR 2.3. She remains on DuoNeb inhalations, IV Solu-Medrol him a Symbicort, Singulair. Antibiotics in the form of ceftazidime. Objective - Vital Signs Vital signs: Vital Signs Temp 98.5 F 10/06/18 09:05 Pulse 106 H 10/06/18 12:17 Resp 16 10/06/18 03:01 BP 146/85 10/06/18 09:05 Pulse Ox 97 10/06/18 09:05 Intake & Output 10/05/18 10/06/18 10/06/18 18:59 06:59 18:59 Intake Total 1240 600 Balance 1240 600 Intake: Intake, IV Titration 100 Amount cefTAZidime 2 gm In 100 Sodium Chloride 0.9% 100 ml @ 100 mls/hr IVPB Q8HR [facility] Rx#:[id number] Oral 1240 500 Other: Voiding Method Toilet Toilet # Voids 2 2 # Bowel Movements 0 - Exam GENERAL EXAM: Alert, active, comfortable in no apparent distress. 3 L nasal cannula HEAD: Normocephalic. EYES: Normal reaction of pupils, equal size. NOSE: Clear with pink turbinates. THROAT: No erythema or exudates. NECK: No masses, no JVD. CHEST: No chest wall deformity. LUNGS: Equal air entry with scattered rhonchi, coarse crackles in the posterior bases. CVS: S1 and S2 normal with no audible murmur, regular rhythm. ABDOMEN: No hepatosplenomegaly, normal bowel sounds, no guarding or rigidity. SPINE: No scoliosis or deformity SKIN: No rashes CENTRAL NERVOUS SYSTEM: No focal deficits, tone is normal in all 4 extremities. EXTREMITIES: There is no peripheral edema. No clubbing, no cyanosis. Peripheral pulses are intact. - Labs CBC & Chem 7: 10/03/18 08:20 10/03/18 08:20 Labs: Abnormal Lab Results - Last 24 Hours (Table) 10/05/18 10/05/18 10/06/18 Range/Units 16:48 20:22 06:35 PT 22.1 H (9.0-12.0) sec INR 2.3 H (<1.2) POC Glucose (mg/dL) 128 H 135 H (75-99) mg/dL Microbiology - Last 24 Hours (Table) 10/01/18 08:48 Blood Culture - Preliminary Blood No Growth after 120 hours 10/03/18 13:30 Gram Stain - Final Bronchial Washings - Random Bronchial Washings Culture - Final Kerry albicans Assessment and Plan Assessment: Assessment: 1 acute exacerbation of chronic bronchiectasis. The patient is quite short of breath. The patient has had multiple exacerbations the past. Exacerbations of been related to pseudomonas aeruginosa although other microorganisms are also affected the patient. The exact cause for underlying bronchiectasis is not known. The workup is negative thus far. During her last evaluation, the patient was started on inhaled HOLLY. The patient was found to have an FEV1 which was down to 26% of predicted. She is coming in for worsening shortness of breath which is quite bronchospastic and wheezy and she has extensive amount of rest or secretions and mucous plugging. He did undergo bronchoscopy with BAL and 10/03/2018. Cultures are negative thus far. Kerry only. 2 previous bacterial infection with Pseudomonas 3 tracheobronchomalacia as evident on previous bronchoscopies 4 previous history of pulmonary embolism and the patient's PT/INR supratherapeutic at 8.4, improved current INR 2.3. 5 hypothyroidism 6 chronic insomnia 7 acid reflux - 8 leukocytosis 9 malnourishment with a current BMI 21.9 10 chronic hypoxic history failure secondary to above Plan: The patient was seen and evaluated by Dr. Hughes. She continues to improve daily. Cultures are revealing no growth thus far. She remains on ceftazidime. If she Continues to Progress Well Will Hold off on Any Repeat Bronchoscopy. We'll Continue with Her Current Medications. We Will Discontinue the Symbicort and Utilize Perforomist Only. She Is on Diflucan. We will continue to follow make further recommendations based on her clinical status. I, the cosigning physician, performed a history & physical examination of the patient. Lungs sounds with few scattered rhonchi. Maintaining good O2 saturations in the 90s on 3 L/m per nasal cannula. I discussed the assessment and plan of care with my nurse practitioner, Vita Mercado. I attest to the above note as dictated by her.
[2018-10-06] MEDS: LACTOBACILLUS ACIDOPH & BULGAR 1 EACH PACKET PO SCH (13:47)
[2018-10-06] MEDS: FORMOTEROL FUMARATE 20 MCG/2 ML NEBU INHALATION SCH (20:19)
[2018-10-06] MEDS: DIAZEPAM 5 MG TAB PO SCH (21:41)
[2018-10-06] MEDS: WARFARIN 2.5 MG TAB PO SCH (21:41)
[2018-10-06] MEDS: ATORVASTATIN 10 MG TAB PO SCH (21:42)
[2018-10-06] MEDS: CYCLOBENZAPRINE 10 MG TAB PO SCH (21:42)
[2018-10-06] MEDS: ZOLPIDEM 5 MG TAB PO SCH (21:42)
[2018-10-06] MEDS: PANTOPRAZOLE 40 MG TABLET PO SCH (21:42)
[2018-10-07] MEDS: methylPREDNISolone SOD SUCCI 40 MG/ML 1 ML VIAL IV SCH ×3 (06:05→21:21)
[2018-10-07] MEDS: LEVOTHYROXINE 50 MCG TAB PO SCH (06:05)
[2018-10-07 08:30] LABS: INR 3.4 (<1.2); Prothrombin Time 32.9 sec (9.0-12.0)
[2018-10-07] MEDS: FORMOTEROL FUMARATE 20 MCG/2 ML NEBU INHALATION SCH ×2 (08:44→20:45)
[2018-10-07] MEDS: IPRATROPIUM-ALBUTEROL 3 ML NEB INHALATION SCH ×4 (08:44→20:45)
[2018-10-07] MEDS: GABAPENTIN 300 MG CAP PO SCH ×2 (09:09→21:21)
[2018-10-07] MEDS: FLUCONAZOLE 100 MG TAB PO SCH (09:10)
[2018-10-07] MEDS: DULoxetine HCL 60 MG CAPSULE.DR PO SCH (09:10)
[2018-10-07] MEDS: MONTELUKAST 10 MG TAB PO SCH (09:10)
--- NOTE | 2018-10-07 11:36 | P.PN ---
Subjective Progress Note Date: 10/07/18 52-year-old female one of my office patient of known for long time with history of chronic asthma/COPD with history of advanced pulmonary fibrosis who had seen Dr. Oscar diaz in and Dr. Alvarez on regular basis for recurrent shortness of breath bronchitis and Pseudomonas pneumonitis with multiple bronchoscopy and treatment for Pseudomonas. Patient also was seen in [facility] for possible lung transplant in the past. She is known to have history of recurrent pulmonary embolism has been on anticoagulation for long time has been on warfarin with INR has been therapeutic for many years. Patient had bronchoscopy with Dr. Hughes over 2 weeks ago was diagnosed with Pseudomonas as well started on Cipro and felt slightly bit better initially but become much worse and lasts 5 days started having low-grade temperature initially and her fever become much higher having more tachypnea hypoxia tachycardia and more symptomatic patient despite having to go on 5 L of O2 continue to be hypoxic today ended up coming to the emergency department at [facility] where was seen and evaluated chest x-ray failed to show any sign of consolidation specially with her scar tissue. Patient clinically had pneumonia in the right side with severe leukocytosis and elevated lactic acid and coagulopathy patient will be hospitalized with switch her oral Cipro to Zosyn will consult pulmonary and infectious disease continue to treat patient aggressively. Patient also might require bronchoscopy because of the severity of the congestion and hypoxia. 10/02: Bronchoscopy was canceled today due to INR 7.8. Patient did receive oral vitamin K 1. She states she is feeling a little bit better from yesterday most likely because of the steroids. She is on Solu-Medrol 60 mg every 6 hours. Patient has been seen by Dr. Mayfield and antibiotics changed to Fortaz. She has been afebrile, heart rate running in the 90s, blood pressure 129/69, pulse ox 92% on 3 L. 10/03: INR is down to 1.3 and patient is scheduled for bronchoscopy this afternoon with Dr. Hughes. She continues to feel a little bit better each day and breathing status is stable. She has been afebrile, pulse ox is 96% on 3 L, heart rate running in the 90s and low 100 100s. Blood pressure 124/72. White count is 28.2, hemoglobin 11.1, platelet count 226. CO2 24, creatinine 0.53. Blood sugars running between 102 and 135. 2/28: Patient underwent bronchoscopy yesterday with Dr. Hughes and cytology and cultures were obtained. Patient has has had no postprocedure complications. She states she is breathing a little bit easier today. We'll plan to resume her back on Coumadin and start Lovenox for bridging. Solu- Medrol will be decreased to 40 mg every 8 hours. Anticipate possible discharge by tomorrow 10/05: Patient's respiratory status continues to improve slightly each day. She is continued on cefepime ordered by Dr. Mayfield with plan for outpatient IV antibiotics. Patient is on Lovenox bridging and INR today is at 1.5. She has been afebrile, pulse ox is 94% on 3 L nasal cannula, heart rate 80s, blood pressure 125/71. Dr. Hughes is planning for discharge on Monday. Plan to continue monitoring over the weekend. 10/06:patient has been afebrile, blood pressure 128/66, pulse in the 70s to 90s, pulse ox is 93% on 3 L nasal cannula.INR today is 2.3. Lovenox will be discontinued.she is currently on Solu-Medrol 40 mg every 8 hours.bronchoscopy cytology showed acute inflammatory cells and reactive bronchial epithelial cells , macrophages, metaplastic squamous cells. Superficial squamous cells and back. Suggest oral contents are seen. No cytology claiming malignant cells identified. bronchoscopy washings are showing Kerry. 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 Mayfield.patient's breathing status continues to improve very slowly but she has continued wheezing and cough. She is using her vest from home. Her cough is minimal production. Patient states that Dr. Hughes is planning for possible bronchoscopy on Monday. Nurse to check with Dr. walsh and during rounds and if product is planned and Coumadin will need to be discontinued. 10/07: Patient continues to have shortness of breath with cough and wheezing. She is having more fluid at this point in her lungs. She is using her flutter valve and the physiotherapy vest. Patient is to use her vest up to 4 times per day. She states she is using her flutter valve [address] Burden and is planning for possible bronchoscopy tomorrow. INR is 3.4 and Coumadin and placed on hold. She has been afebrile heart rate in the 80s, blood pressure 130/44 pulse ox 95% on 3 L. Review of Systems CONSTITUTIONAL: Well-developed. Denies fever denies chills. EYES: No icterus sclerae, no conjunctivitis. EARS, NOSE, MOUTH, THROAT, and FACE: No sore throat, lymphadenopathy, carotid bruits or deformity. RESPIRATORY: Positive shortness of breath positive cough positive wheezes with pulmonary fibrosis. Positive shortness of breath with activity. CARDIOVASCULAR: No CP, Palpitation, PND, Orthopnea, or angina. GASTROINTESTINAL: No Abd pain, Nausea or vomiting, no Diarrhea or constipation, No GI Bleed, no distention or masses. GENITOURINARY: Negative for Hematuria or UTI, no kidney stones. INTEGUMENT/BREAST: Negative for any muscular injury with mild osteoarthritis. HEMATOLOGIC/LYMPHATIC: Negative for bleed or purpura. MUSCULOSKELTAL: Negative for Myalgia or arthralgia. NEURLOGICAL: No LOC, denies seizure or syncope, blurred vision dizziness or abnormality. BEHAVIORAL/PSYCH: Negative. ENDOCRINE: Negative. Objective - Vital Signs Vital signs: Vital Signs Temp 98.3 F 10/07/18 07:00 Pulse 80 10/07/18 08:53 Resp 16 10/07/18 07:00 BP 138/74 10/07/18 07:00 Pulse Ox 95 10/07/18 07:00 Intake & Output 10/06/18 10/07/18 10/07/18 18:59 06:59 18:59 Intake Total 1720 Balance 1720 Intake: Intake, IV Titration 100 Amount cefTAZidime 2 gm In 100 Sodium Chloride 0.9% 100 ml @ 100 mls/hr IVPB Q8HR [facility] Rx#:[id number] Oral 1620 Other: Voiding Method Toilet Toilet # Voids 2 1 - Exam General Appearance: Alert, cooperative, no distress, appears stated age. Mild acute respiratory distress with minimum movement in bed Neck HEENT: Supple, no lymphadenopathy, no thyroid enlargement, no carotid bruits. Lungs: Bilateral rales, wheezing, rhonchi and prolonged expiration. Mild intercostal accessory muscle usage. Chest Wall: Chest wall normal expansion with deep inspiration no tenderness and no deformity was found on exam, no costochondral pain or discomfort. Heart: Regular rate and rhythm, S1, S2 normal, no murmur, rub or gallop. Back: Symmetric, no curvature, ROM normal, no CVA tenderness. Abdomen: Soft, non-tender, bowel sounds active all four quadrants, no masses, no organomegaly. Extremities: Extremities normal, atraumatic, no cyanosis or edema. Pulses: 2+ and symmetric. Skin: Skin color, texture, tugor normal, no rashes or lesions. Neurologic: Alert oriented x3 cranial nerves II through XII intact, no motor deficit, no abnormal balance or gait. - Labs CBC & Chem 7: 10/03/18 08:20 10/03/18 08:20 Labs: Abnormal Lab Results - Last 24 Hours (Table) 10/07/18 Range/Units 07:07 PT 32.9 H (9.0-12.0) sec INR 3.4 H (<1.2) Microbiology - Last 24 Hours (Table) 10/01/18 08:48 Blood Culture - Preliminary Blood No Growth after 120 hours 10/03/18 13:30 Gram Stain - Final Bronchial Washings - Random Bronchial Washings Culture - Final Kerry albicans Assessment and Plan Plan: 1 acute hypoxic respiratory failure secondary to acute exacerbation of chronic bronchiectasis, bronchial malacia, Pseudomonas pneumonitisand HSV-1isolated. Patient has been seen by Dr. Mayfield with recommendations for Fortaz which is been started. Dr. Hughes is following. Bronchoscopy completed. Valtrex started. Possible repeat bronchoscopy on Monday. Coumadin on hold 2 COPD exacerbation: Solu-Medrol decreased, continue with Pulmicort and DuoNeb. 3 Pseudomonas pneumonitis with infiltrate in the right side. Continue Fortaz. consult pulmonary and infectious disease. Culture will be done pending results for now. 4 coagulopathy secondary to Coumadin use and ciprofloxacin. Patient is status post 1 dose of vitamin K. 5 history of pulmonary embolism: Patient is on anticoagulation. Coumadin may need to be held for repeat bronchoscopy Monday. 6 pulmonary fibrosis: Patient seen pulmonary. 7 hyperlipidemia: Continue atorvastatin 10 mg daily. 8 osteoporosis: Patient is on probably a injection every 6 months. 9 chronic neuropathy: Continue gabapentin. 10 hypothyroidism: Continue patient on Synthroid 50 g daily. 11 severe GERD/GI prophylaxis: Patient has been on AcipHex will replace it with aunt omeprazole. 12 DVT prophylaxis: Remain on anticoagulation. Code status: Full code. Discharge plan: Home this week with IV antibiotics with [facility] and the [facility] Impression and plan of care have been directed as dictated by the signing physician. Robyn Dorantes nurse practitioner acting as scribe for signing physician.
[2018-10-07] MEDS: LACTOBACILLUS ACIDOPH & BULGAR 1 EACH PACKET PO SCH (12:47)
[2018-10-07] MEDS: ESTROGEN CON PO SCH (12:51)
[2018-10-07] MEDS: M PROGEST ACET PO SCH (12:51)
--- NOTE | 2018-10-07 15:15 | P.PN ---
Subjective Progress Note Date: 10/07/18 On today's evaluation of 10/07/2018 I'm seeing this patient for follow-up. Despite ongoing improvement, the patient continues to be bronchospastic and wheezy. Were doing aggressive pulmonary toileting. The patient is using vest therapy. She is using the flutter valve. She is using postural techniques to improve her respiratory secretions. No fever. No chills. No sweats. Her voice is still hoarse. The bronchioloalveolar lavage yielded no significant microbial growth and the patient had only yeast. She is on a combination of IV Fortaz and Diflucan. She remains on IV Solu-Medrol which is tapered down to 40 mg every 8 hours. She is on Singulair orally. Resume outpatient indication of been ordered resume. Objective - Vital Signs Vital signs: Vital Signs Temp 98.7 F 10/07/18 14:37 Pulse 99 10/07/18 14:37 Resp 20 10/07/18 14:37 BP 141/79 10/07/18 14:37 Pulse Ox 94 L 10/07/18 14:37 Intake & Output 10/06/18 10/07/18 10/07/18 18:59 06:59 18:59 Intake Total 1720 100 Balance 1720 100 Intake: Intake, IV Titration 100 100 Amount cefTAZidime 2 gm In 100 100 Sodium Chloride 0.9% 100 ml @ 100 mls/hr IVPB Q8HR [facility] Rx#:[id number] Oral 1620 Other: Voiding Method Toilet Toilet Toilet # Voids 2 1 2 - Exam GENERAL EXAM: Alert, active, comfortable in no apparent distress. 3 L nasal cannula HEAD: Normocephalic. EYES: Normal reaction of pupils, equal size. NOSE: Clear with pink turbinates. THROAT: No erythema or exudates. NECK: No masses, no JVD. CHEST: No chest wall deformity. LUNGS: Equal air entry with scattered rhonchi, coarse crackles in the posterior bases. CVS: S1 and S2 normal with no audible murmur, regular rhythm. ABDOMEN: No hepatosplenomegaly, normal bowel sounds, no guarding or rigidity. SPINE: No scoliosis or deformity SKIN: No rashes CENTRAL NERVOUS SYSTEM: No focal deficits, tone is normal in all 4 extremities. EXTREMITIES: There is no peripheral edema. No clubbing, no cyanosis. Peripheral pulses are intact. - Labs CBC & Chem 7: 10/03/18 08:20 10/03/18 08:20 Labs: Abnormal Lab Results - Last 24 Hours (Table) 10/07/18 Range/Units 07:07 PT 32.9 H (9.0-12.0) sec INR 3.4 H (<1.2) Microbiology - Last 24 Hours (Table) 10/01/18 08:48 Blood Culture - Final Blood No Growth after 144 hours 10/03/18 13:30 Gram Stain - Final Bronchial Washings - Random Bronchial Washings Culture - Final Kerry albicans Assessment and Plan Plan: Assessment 1 acute exacerbation of chronic bronchiectasis. The patient is quite short of breath. The patient has had multiple exacerbations the past.. Exacerbations of been related to pseudomonas aeruginosa although other microorganisms are also affected the patient. The exact cause for underlying bronchiectasis is not known. A repeat bronchoscopy was done during this current admission and the cultures had not yielded into positive growth. Nevertheless, the bronchoscopy was done after the patient was started on antibiotics and this could have affected the yield. 2 previous bacterial infection with Pseudomonas, 3 tracheobronchomalacia as evident on previous bronchoscopies 4 previous history of pulmonary embolism and the patient's PT/INR supratherapeutic 5 hypothyroidism 6 chronic insomnia 7 acid reflux - 8 leukocytosis 9 malnourishment with a current BMI 21.9 10 chronic hypoxic history failure secondary to above PLAN Continue same treatment. Still symptomatic from an acute exacerbation of bronchiectasis. Keep same antibiotic coverage. May consider another bronchoscopy by tomorrow if still having shortness of breath and started having significant chest congestion and mucus plugging. The patient meanwhile we'll continue with aggressive also treatment and flutter valve and Vest therapy. Hold Coumadin for now. Possible bronchoscopy in a.m.
[2018-10-07] MEDS ORDERED: WARFARIN 0.5 MG TAB PO ONE (18:00)
[2018-10-07] MEDS: PANTOPRAZOLE 40 MG TABLET PO SCH (21:21)
[2018-10-07] MEDS: ZOLPIDEM 5 MG TAB PO SCH (21:21)
[2018-10-07] MEDS: DIAZEPAM 5 MG TAB PO SCH (21:21)
[2018-10-07] MEDS: ATORVASTATIN 10 MG TAB PO SCH (21:21)
[2018-10-07] MEDS: CYCLOBENZAPRINE 10 MG TAB PO SCH (21:21)
[2018-10-08] MEDS: LEVOTHYROXINE 50 MCG TAB PO SCH ×2 (05:52→10:13)
[2018-10-08] MEDS: methylPREDNISolone SOD SUCCI 40 MG/ML 1 ML VIAL IV SCH ×2 (06:15→14:07)
[2018-10-08 07:36] VITALS: BP 141/78; RESP 17; TEMP 98.5
[2018-10-08] MEDS: IPRATROPIUM-ALBUTEROL 3 ML NEB INHALATION SCH ×2 (08:56→13:11)
[2018-10-08] MEDS: FORMOTEROL FUMARATE 20 MCG/2 ML NEBU INHALATION SCH (08:56)
[2018-10-08 09:26] LABS: INR 4.5 (<1.2); Prothrombin Time 43.5 sec (9.0-12.0)
[2018-10-08] MEDS: GABAPENTIN 300 MG CAP PO SCH (10:13)
[2018-10-08] MEDS: DULoxetine HCL 60 MG CAPSULE.DR PO SCH (10:13)
[2018-10-08] MEDS: MONTELUKAST 10 MG TAB PO SCH (10:13)
[2018-10-08] MEDS: FLUCONAZOLE 100 MG TAB PO SCH (10:13)
[2018-10-08] MEDS ORDERED: CEFEPIME 2 GM in SODIUM CHLORIDE 0.9% 100 ML IVPB SCH (11:00)
--- NOTE | 2018-10-08 11:01 | P.PN ---
Subjective Progress Note Date: 10/08/18 Principal diagnosis: Acute exacerbation of chronic bronchiectasis, previous bacterial infection with Pseudomonas Is a 52-year-old. Patient was presenting to the [facility] department because of worsening shortness of breath, generalized weakness, cough, chest congestion, excessive mucus production, and she feels that she is drowning in her own secretions. The patient is known to me. The patient has history of bronchiectasis that has been managed through our office initially through Dr. Mckay and at a later stage I was also involved in her care. Chest exit was done on admission showed chronic parenchymal changes without any acute cardiopulmonary process. The cardiac silhouette was within normal limits. Hanna elevated white cell count of 23.8. The patient's INR was at 8.4 and supratherapeutic. Lactic acid level was at 2.9. Rest of the electrolytes and renal function was within normal limits. Her was a screen is negative at this point in time. She was started on broad-spectrum antibiotics. She was placed on IV cefepime. She was also placed on IV Solu Medrol. Pulmonary consultation was requested This woman is a a lifetime nonsmoker with a very interesting presentation of recurrent bronchitis/pneumonias, it tracheobronchomalacia as visualized on previous endoscopies, and limited bronchiectasis as confirmed by a recent CAT scan of the chest that was done at [facility]. The patient was under the care of Dr. Mckay for many years. She was infected with various microorganisms including MRSA and Haemophilus. More recently her pathology is also included stenotrophomonas. The patient was seen at [facility]. She was given zithromax as an antibiotic prophylaxis. The patient is currently doing Breo 1 relation day along with DuoNeb nebulized treatments as needed and she has a vest at home. Her serum immunoglobulin levels have been within normal limits. Hematologic profile is also within normal limits. 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 The patient's serum immunoglobulin levels have been within normal, previous bronchoscopies yielded MRSA, Haemophilus influenza, and Pseudomonas him a in the last infection with Pseudomonas was back in April 2018. The scope did not have any infection with atypical mycobacterium. The patient had a negative JOSS. The patient had a negative rheumatoid factor. Her serum IgE level is low. She has history of chronic reflux and possible silent aspiration for many years for which she has undergone fundoplication. At this possible that this was the culprit for his bronchiectasis. No history of cystic fibrosis. No history of immotile cilia syndrome. Her last CAT scan of the chest was done at [facility] and showed extensive bronchiectasis cylindrical. Repeat bronchoscopy was done in 2019 and showed pseudomonas aeruginosa that was sensitive to quinolones. Based on that, I give the patient a course of ciprofloxacin for a total of 3 weeks. She came to see her back in our office in mid September. She was still bronchospastic and wheezy. Her chest was still aching all the time. She was not getting any improvement. She was using Brio one inhalation a day and albuterol about treatments 4 times a day. Her FEV1 was down to 26% of predicted and this in agreement with her symptomatic worsening. On 10/02/2018 patient seen in follow-up on medical surgical floor. Resting in bed, still quite bronchospastic and congested, not able to bring up much sputum. Yesterday patient's INR was 8.4, and today's INR is 7.8, patient's bronchoscopy had to be canceled, we'll see the patient, the patient a dose of vitamin K, and rescheduled for tomorrow if the INR is within acceptable range. Today's cell count was 26.2, no fever, no chills, patient remains on 2 L per nasal cannula, vital signs are stable, no been able to produce a sputum for culture, blood culture showed no growth, ID service has been consulted, and a reticulocyte coverage is in the form of Fortaz, and Zosyn has been discontinued. On 10/03/2018 patient seen in follow-up on medical surgical floor. On today's exam patient is less wheezy and congested, although still sounds very wheezy, but overall improved. INR is down to 1.3, still not able to bring up any sputum , antibiotic coverage in the form of Fortaz. White blood cell count remains elevated at 28.2. Culture showed no growth, she is afebrile, received bronchoscopy with BAL today at 1:[address] Hughes. On 10/04/2018 patient seen in follow-up on medical surgical floor. Resting comfortably in bed, distress, status post bronchoscopy with bronchoalveolar lavage, on today's exam patient is breathing easier, she is currently on 2 L per nasal cannula and her pulse was 93%, reveals scattered wheezes, but overall patient is improving. Blood and bronchial wash cultures are negative thus far, abstain showed budding yeast, and rare epithelial cells. Final culture is in progress. No new labs today, INR today is 1.2. Coumadin has been resumed, antibiotic coverage in the form of cefepime, IV Solu-Medrol and breathing treatments. On 10/05/2018 patient seen in follow-up. Is awake and alert, in no acute distress, her breathing continues to improve, bronchial wash cultures are pending, since showed rare budding yeast, rare epithelial cells and many polymorphonuclear leukocytes. Culture is in progress, no fever or chills, vital signs are stable. Afebrile, pulse ox is 94% on 3-1/2 L of oxygen. INR today is 1.5, Coumadin has been resumed. Antiemetic coverage in the form of Fortaz. She has been up ambulating in the room, tolerating activity fairly well. Solu-Medrol and breathing treatments continued. On 10/08/2018 patient seen in follow-up on medical surgical floor. She is resting comfortably in bed, in no acute distress, patient is status post bronchoscopy with bronchoalveolar lavage, bronchial wash cultures were positive only for Compa. Remaines on antibiotic coverage including cefepime, fluconazole, IV steroids, and nebulized bronchodilators. She is improving, feeling better, less bronchospastic, although there are still some scattered wheezes, but good air entry bilaterally. She remains on 3 L per nasal cannula a pulse ox of 93%, no fever or chills, today's INR is 4.5, and Coumadin is on hold. Objective - Vital Signs Vital signs: Vital Signs Temp 98.5 F 10/08/18 07:35 Pulse 84 10/08/18 09:22 Resp 17 10/08/18 07:35 BP 141/78 10/08/18 07:35 Pulse Ox 93 L 10/08/18 01:39 Intake & Output 10/07/18 10/08/18 10/08/18 18:59 06:59 18:59 Intake Total 100 1330 Balance 100 1330 Intake: Intake, IV Titration 100 Amount cefTAZidime 2 gm In 100 Sodium Chloride 0.9% 100 ml @ 100 mls/hr IVPB Q8HR [facility] Rx#:[id number] Oral 1330 Other: Voiding Method Toilet # Voids 2 2 - Exam GENERAL EXAM: Alert, pleasant, 52-year-old white female comfortable in no apparent distress. HEAD: Normocephalic/atraumatic. EYES: Normal reaction of pupils, equal size. Conjunctiva pink, sclera white. NOSE: Clear with pink turbinates. THROAT: No erythema or exudates. NECK: No masses, no JVD, no thyroid enlargement, no adenopathy. CHEST: No chest wall deformity. Symmetrical expansion. LUNGS: Equal air entry with scattered wheezes, and rhonchi CVS: Regular rate and rhythm, normal S1 and S2, no gallops, no murmurs, no rubs ABDOMEN: Soft, nontender. No hepatosplenomegaly, normal bowel sounds, no guarding or rigidity. EXTREMITIES: No clubbing, no edema, no cyanosis, 2+ pulses and upper and lower extremities. MUSCULOSKELETAL: Muscle strength and tone normal. SPINE: No scoliosis or deformity SKIN: No rashes CENTRAL NERVOUS SYSTEM: Alert and oriented -3. No focal deficits, tone is normal in all 4 extremities. PSYCHIATRIC: Alert and oriented -3. Appropriate affect. Intact judgment and insight. - Labs CBC & Chem 7: 10/03/18 08:20 10/03/18 08:20 Labs: Abnormal Lab Results - Last 24 Hours (Table) 10/08/18 Range/Units 08:42 PT 43.5 H (9.0-12.0) sec INR 4.5 H (<1.2) Microbiology - Last 24 Hours (Table) 10/01/18 08:48 Blood Culture - Final Blood No Growth after 144 hours Assessment and Plan Plan: Assessment: 1 acute exacerbation of chronic bronchiectasis. The patient is quite short of breath. The patient has had multiple exacerbations the past. Exacerbations of been related to pseudomonas aeruginosa although other microorganisms are also affected the patient. The exact cause for underlying bronchiectasis is not known. The workup is negative thus far. During her last evaluation, the patient was started on inhaled HOLLY. The patient was found to have an FEV1 which was down to 26% of predicted. She is coming in for worsening shortness of breath which is quite bronchospastic and wheezy and she has extensive amount of rest or secretions and mucous plugging. Patient underwent bronchoscopy with bronchoalveolar lavage on 10/03/2018, and bronchial wash cultures showed compa only, cytology showed acute inflammatory cells with reactive bronchial epithelial cells, but no cytologically malignant cells. 2 previous bacterial infection with Pseudomonas 3 tracheobronchomalacia as evident on previous bronchoscopies 4 previous history of pulmonary embolism and the patient's PT/INR supratherapeutic at 8.4, down to 7.8 today. 5 hypothyroidism 6 chronic insomnia 7 acid reflux - 8 leukocytosis 9 malnourishment with a current BMI 21.9 10 chronic hypoxic history failure secondary to above Plan: Continue current medical treatment, no plans is for repeat bronchoscopy at this time, patient is clinically improving, still has some scattered wheezes, but overall breathing easier, no significant chest congestion. Cultures remain negative thus far with the exception of Compa. Increase activity as tolerated , increase ambulation. May consider discharging patient home with outpatient follow-up with Dr. Hughes. I performed a history & physical examination of the patient and discussed their management with my nurse practitioner, Bianka Saucedo. I reviewed the nurse practitioner's note and agree with the documented findings and plan of care. Lung sounds are positive for diffuse wheezes throughout the lung nowak. The findings and the impression was discussed with the patient. I attest to the documentation by the nurse practitioner. Time with Patient: Less than 30
--- NOTE | 2018-10-08 11:23 | P.DS ---
Providers Date of admission: 10/03/18 07:37 Expected date of discharge: 10/08/18 Attending physician: Bry Guadalupe Consults: 10/01/18 10:50 Consult Physician Routine Consulting Provider: Dominga Hughes Consult Reason/Comments: dyspnea Do you want consulting provider notified?: Already Contacted Consult Physician Routine Consulting Provider: Bry Mayfield Consult Reason/Comments: Bronchiectasis Do you want consulting provider notified?: Yes Primary care physician: Bry Collins [facility] Course: 52-year-old female one of my office patient of known for long time with history of chronic asthma/COPD with history of advanced pulmonary fibrosis who had seen Dr. Oscar diaz in and Dr. Alvarez on regular basis for recurrent shortness of breath bronchitis and Pseudomonas pneumonitis with multiple bronchoscopy and treatment for Pseudomonas. Patient also was seen in [facility] for possible lung transplant in the past. She is known to have history of recurrent pulmonary embolism has been on anticoagulation for long time has been on warfarin with INR has been therapeutic for many years. Patient had bronchoscopy with Dr. Hughes over 2 weeks ago was diagnosed with Pseudomonas as well started on Cipro and felt slightly bit better initially but become much worse and lasts 5 days started having low-grade temperature initially and her fever become much higher having more tachypnea hypoxia tachycardia and more symptomatic patient despite having to go on 5 L of O2 continue to be hypoxic today ended up coming to the emergency department at [facility] where was seen and evaluated chest x-ray failed to show any sign of consolidation specially with her scar tissue. Patient clinically had pneumonia in the right side with severe leukocytosis and elevated lactic acid and coagulopathy patient will be hospitalized with switch her oral Cipro to Zosyn will consult pulmonary and infectious disease continue to treat patient aggressively. Patient also might require bronchoscopy because of the severity of the congestion and hypoxia. 10/02: Bronchoscopy was canceled today due to INR 7.8. Patient did receive oral vitamin K 1. She states she is feeling a little bit better from yesterday most likely because of the steroids. She is on Solu-Medrol 60 mg every 6 hours. Patient has been seen by Dr. Mayfield and antibiotics changed to Fortaz. She has been afebrile, heart rate running in the 90s, blood pressure 129/69, pulse ox 92% on 3 L. 10/03: INR is down to 1.3 and patient is scheduled for bronchoscopy this afternoon with Dr. Hughes. She continues to feel a little bit better each day and breathing status is stable. She has been afebrile, pulse ox is 96% on 3 L, heart rate running in the 90s and low 100 100s. Blood pressure 124/72. White count is 28.2, hemoglobin 11.1, platelet count 226. CO2 24, creatinine 0.53. Blood sugars running between 102 and 135. 10/04: Patient underwent bronchoscopy yesterday with Dr. Hughes and cytology and cultures were obtained. Patient has has had no postprocedure complications. She states she is breathing a little bit easier today. We'll plan to resume her back on Coumadin and start Lovenox for bridging. Solu- Medrol will be decreased to 40 mg every 8 hours. Anticipate possible discharge by tomorrow 10/05: Patient's respiratory status continues to improve slightly each day. She is continued on cefepime ordered by Dr. Mayfield with plan for outpatient IV antibiotics. Patient is on Lovenox bridging and INR today is at 1.5. She has been afebrile, pulse ox is 94% on 3 L nasal cannula, heart rate 80s, blood pressure 125/71. Dr. Hughes is planning for discharge on Monday. Plan to continue monitoring over the weekend. 10/06:patient has been afebrile, blood pressure 128/66, pulse in the 70s to 90s, pulse ox is 93% on 3 L nasal cannula.INR today is 2.3. Lovenox will be discontinued.she is currently on Solu-Medrol 40 mg every 8 hours.bronchoscopy cytology showed acute inflammatory cells and reactive bronchial epithelial cells , macrophages, metaplastic squamous cells. Superficial squamous cells and back. Suggest oral contents are seen. No cytology claiming malignant cells identified. bronchoscopy washings are showing Kerry. 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 Mayfield.patient's breathing status continues to improve very slowly but she has continued wheezing and cough. She is using her vest from home. Her cough is minimal production. Patient states that Dr. Hughes is planning for possible bronchoscopy on Monday. Nurse to check with Dr. walsh and during rounds and if product is planned and Coumadin will need to be discontinued. 10/07: Patient continues to have shortness of breath with cough and wheezing. She is having more fluid at this point in her lungs. She is using her flutter valve and the physiotherapy vest. Patient is to use her vest up to 4 times per day. She states she is using her flutter valve [address] Burden and is planning for possible bronchoscopy tomorrow. INR is 3.4 and Coumadin and placed on hold. She has been afebrile heart rate in the 80s, blood pressure 130/44 pulse ox 95% on 3 L. 3: Patient states that her breathing is a little bit better from yesterday. Dr. Hughes has cleared her for discharge today. No repeat bronchial be done. Solu-Medrol will be transitioned to oral prednisone and patient will go back on her home dose of Coumadin. Patient will be given a dose of cefepime prior to discharge. Patient will be discharged home today in stable condition. Discharge diagnoses: 1 acute hypoxic respiratory failure secondary to acute exacerbation of chronic bronchiectasis, bronchial malacia, Pseudomonas pneumonitis and HSV-1isolated. 2 COPD exacerbation 3 Pseudomonas pneumonitis with infiltrate in the right side. 4 coagulopathy secondary to Coumadin use and ciprofloxacin. 5 history of pulmonary embolism 6 pulmonary fibrosis 7 hyperlipidemia 8 osteoporosis 9 chronic neuropathy 10 hypothyroidism 11 severe GERD Discharge plan: Home this week with IV antibiotics with [facility] and the [facility] Impression and plan of care have been directed as dictated by the signing physician. Robyn Dorantes nurse practitioner acting as scribe for signing physician. Patient Condition at Discharge: Good Plan - Discharge Summary Discharge Rx Participant: No New Discharge Prescriptions: New Cefepime HCl [Maxipime] 2 gm IV Q12H #28 vial predniSONE 0 mg PO DIRECTED #40 tab Continue Cyclobenzaprine [Flexeril] 10 mg PO HS Atorvastatin [Lipitor] 10 mg PO HS Meloxicam 7.5 mg PO BID Montelukast [Singulair] 10 mg PO DAILY Levothyroxine Sodium [Synthroid] 50 mcg PO DAILY DULoxetine HCL [Duloxetine HCl] 60 mg PO DAILY Estrogen,Con/M-Progest Acet [Prempro 0.45-1.5 mg Tablet] 1 cap PO Q48H Gabapentin 600 mg PO HS Denosumab [Prolia] 60 mg SQ Q180D Fluticasone/Vilanterol [Breo Ellipta 200-25 Mcg INH] 1 puff INHALATION RT- DAILY Warfarin Sodium 2.5 mg PO HS Gabapentin [Neurontin] 300 mg PO QAM Zolpidem [Ambien] 5 mg PO HS RABEprazole SODIUM [Aciphex] 20 mg PO HS HYDROcodone/APAP 5-325MG [Parlin 5-325] 1 tab PO DAILY PRN PRN Reason: Pain Diazepam [Valium] 5 mg PO HS Ipratropium-Albuterol Nebulize [Duoneb 0.5 mg-3 mg/3 ml Soln] 3 ml INHALATION RT-QID #120 ampul.neb Fluconazole [Diflucan] 200 mg PO DAILY PRN PRN Reason: FOR LUNG INFECTIONS predniSONE See Taper PO DAILY L.acidoph,Paracasei, B.lactis [Probiotic] 1 cap PO DAILY Tobramycin Inh 300mg/5ml 300 mg INHALATION RT-Q12H Discharge Medication List Atorvastatin [Lipitor] 10 mg PO HS 04/16/14 [History] Cyclobenzaprine [Flexeril] 10 mg PO HS 04/16/14 [History] DULoxetine HCL [Duloxetine HCl] 60 mg PO DAILY 04/16/14 [History] Denosumab [Prolia] 60 mg SQ Q180D 04/16/14 [History] Estrogen,Con/M-Progest Acet [Prempro 0.45-1.5 mg Tablet] 1 cap PO Q48H 04/16/14 [History] Gabapentin 600 mg PO HS 04/16/14 [History] Levothyroxine Sodium [Synthroid] 50 mcg PO DAILY 04/16/14 [History] Meloxicam 7.5 mg PO BID 04/16/14 [History] Montelukast [Singulair] 10 mg PO DAILY 04/16/14 [History] Fluticasone/Vilanterol [Breo Ellipta 200-25 Mcg INH] 1 puff INHALATION RT-DAILY 03/08/17 [History] Warfarin Sodium 2.5 mg PO HS 05/31/17 [History] Gabapentin [Neurontin] 300 mg PO QAM 06/08/17 [History] RABEprazole SODIUM [Aciphex] 20 mg PO HS 11/30/17 [History] Zolpidem [Ambien] 5 mg PO HS 11/30/17 [History] Diazepam [Valium] 5 mg PO HS 03/30/18 [History] HYDROcodone/APAP 5-325MG [Parlin 5-325] 1 tab PO DAILY PRN 03/30/18 [History] Ipratropium-Albuterol Nebulize [Duoneb 0.5 mg-3 mg/3 ml Soln] 3 ml INHALATION RT -QID #120 ampul.neb 04/04/18 [Rx] Fluconazole [Diflucan] 200 mg PO DAILY PRN 08/30/18 [History] L.acidoph,Paracasei, B.lactis [Probiotic] 1 cap PO DAILY 10/01/18 [History] Tobramycin Inh 300mg/5ml 300 mg INHALATION RT-Q12H 10/01/18 [History] predniSONE See Taper PO DAILY 10/01/18 [History] Cefepime HCl [Maxipime] 2 gm IV Q12H #28 vial 10/04/18 [Rx] predniSONE 0 mg PO DIRECTED #40 tab 10/08/18 [Rx] Follow up Appointment(s)/Referral(s): Bry Guadalupe MD [Primary Care Provider] - 10/15/18 9:00 am [facility], [NON-STAFF] - As Needed [facility] [NON-STAFF] - As Needed Dominga Hughes MD [STAFF PHYSICIAN] - 10/24/18 2:45 pm (Appt with COMPANY SECRETARY)
[2018-10-08] MEDS: LACTOBACILLUS ACIDOPH & BULGAR 1 EACH PACKET PO SCH (11:52)
[2018-10-08 13:14] VITALS: PULSE 92
[2018-10-08] MEDS ORDERED: CEFEPIME 2 GM in SODIUM CHLORIDE 0.9% 100 ML IVPB ONE (15:00)
[2018-10-08] MEDS ORDERED: WARFARIN 0.5 MG TAB PO ONE (18:00)
--- NOTE | 2018-10-08 18:13 | P.PN ---
Subjective Progress Note Date: 10/08/18 This is a 52-year-old female one of Dr. Guadalupe with a previous medical history significant for bronchial malacia, pulmonary fibrosis, interstitial lung disease, pulmonary embolism on chronic Coumadin, hyperlipidemia, GERD, osteopenia. Patient was recently brought in on September 03 under the care of Dr. Hughes underwent a bronchoscopy and BAL. Culture positive for Pseudomonas and patient has been treated with Cipro. Pathology report revealed acute inflammatory cells, mucus and foaming debris. Stain negative for pneumocystic carinii organisms. Patient also gives history of being on tobramycin nebulizer treatments. She states she is having increasing shortness of breath that progressively worsened and her oxygen saturations have been dropping. She has been using more oxygen up to 4 L at home. She states she can 't even it herself dressed in the morning. She also complains of low-grade fever. She came into [facility] emergency center for evaluation. Chest x-ray shows chronic prevention will change without acute pulmonary process. White count was 23.8, INR 8.4 patient is on chronic Coumadin therapy for PE. Creatinine 0.71. Initial lactic acid 2.2 and repeat 2.9. Influenza testing was negative. Troponin negative. Patient was started on IV Solu-Medrol, Pulmicort and DuoNeb treatments, Zosyn and admitted to the [facility] floor and consult with Dr. Hughes included. 10/02/2018 patient was to have bronchoscopy today. However her INR remains to elevated for the procedure today. Received more vitamin K and hopefully ready for the procedure tomorrow. Fortunately with the current high dose of Solu- Medrol she is feeling somewhat better. Is also receiving antibiotic therapy. Screening from [facility] did reveal evidence of the Stenotrophomonas maltophilia and staph aureus, did not specify MRSA. October 03 2018 patient has had the bronchoscopy today, given the INR normalized. She is feeling a bit groggy after the procedure but continues to feel better since admission initiation of antibiotic therapy as well as steroid therapy. 10/05/2018 patient is definitely feeling better today. Still however has extensive wheezing and moist cough. She is not having significant fevers or chills. Requiring oxygen therapy, steroids, utilization of her vest and close follow-up with pulmonary critical care. 10/08/2018 patient feels better than admission, has been about by pulmonary critical care with no plans for further bronchoscopy. She is much less short of breath and has improved air exchange. She is hoping to get back to work soon. No fevers or chills and is tolerating the antibiotic therapy well. No difficulty with thrush or diarrhea. Objective - Vital Signs Vital signs: Vital Signs Temp 98.5 F 10/08/18 07:35 Pulse 92 10/08/18 13:20 Resp 17 10/08/18 07:35 BP 141/78 10/08/18 07:35 Pulse Ox 93 L 10/08/18 01:39 Intake & Output 10/07/18 10/08/18 10/08/18 18:59 06:59 18:59 Intake Total 100 1330 Balance 100 1330 Intake: Intake, IV Titration 100 Amount cefTAZidime 2 gm In 100 Sodium Chloride 0.9% 100 ml @ 100 mls/hr IVPB Q8HR [facility] Rx#:[id number] Oral 1330 Other: Voiding Method Toilet # Voids 2 2 2 - Exam Gen: This is a thin 52-year-old female. She is resting on the ER stretcher and appears to be dyspneic at rest. Unable to speak in full sentences. HEENT: Head is atraumatic, normocephalic. Pupils equal, round. Sclerae is anicteric. NECK: Supple. No JVD. No lymphadenopathy. No thyromegaly. LUNGS: Bilateral rales, wheezing rhonchi, improvement of the prolonged expiration. Mild use of accessory muscles. Evidence of air trapping continues HEART: Regular rate and rhythm. Systolic murmur. ABDOMEN: Soft. Bowel sounds are present. No masses. No tenderness. EXTREMITIES: No pedal edema. No calf tenderness. Clubbing noted. NEUROLOGICAL: Patient is awake, alert and oriented x3 - Labs CBC & Chem 7: 10/03/18 08:20 10/03/18 08:20 Labs: Abnormal Lab Results - Last 24 Hours (Table) 10/08/18 Range/Units 08:42 PT 43.5 H (9.0-12.0) sec INR 4.5 H (<1.2) Laboratory Results WBC 28.2 k/uL (3.8-10.6) H 10/03/18 08:20 RBC 3.72 m/uL (3.80-5.40) L 10/03/18 08:20 Hgb 11.1 gm/dL (11.4-16.0) L 10/03/18 08:20 Hct 34.9 % (34.0-46.0) 10/03/18 08:20 MCV 93.8 fL (80.0-100.0) 10/03/18 08:20 MCH 29.7 pg (25.0-35.0) 10/03/18 08:20 MCHC 31.7 g/dL (31.0-37.0) 10/03/18 08:20 RDW 14.9 % (11.5-15.5) 10/03/18 08:20 Plt Count 226 k/uL (150-450) 10/03/18 08:20 Neutrophils % 93 % 10/03/18 08:20 Lymphocytes % 3 % 10/03/18 08:20 Monocytes % 3 % 10/03/18 08:20 Eosinophils % 0 % 10/03/18 08:20 Basophils % 0 % 10/03/18 08:20 Neutrophils # 26.2 k/uL (1.3-7.7) H 10/03/18 08:20 Lymphocytes # 0.9 k/uL (1.0-4.8) L 10/03/18 08:20 Monocytes # 0.8 k/uL (0-1.0) 10/03/18 08:20 Eosinophils # 0.1 k/uL (0-0.7) 10/03/18 08:20 Basophils # 0.0 k/uL (0-0.2) 10/03/18 08:20 PT 43.5 sec (9.0-12.0) H 10/08/18 08:42 INR 4.5 (<1.2) H 10/08/18 08:42 APTT 46.9 sec (22.0-30.0) H 10/01/18 08:48 Sodium 141 mmol/L (137-145) 10/03/18 08:20 Potassium 3.9 mmol/L (3.5-5.1) 10/03/18 08:20 Chloride 110 mmol/L (98-107) H 10/03/18 08:20 Carbon Dioxide 24 mmol/L (22-30) 10/03/18 08:20 Anion Gap 7 mmol/L 10/03/18 08:20 BUN 22 mg/dL (7-17) H 10/03/18 08:20 Creatinine 0.53 mg/dL (0.52-1.04) 10/03/18 08:20 Est GFR (CKD-EPI)AfAm >90 (>60 ml/min/1.73 sqM) 10/03/18 08:20 Est GFR (CKD-EPI)NonAf >90 (>60 ml/min/1.73 sqM) 10/03/18 08:20 Glucose 102 mg/dL (74-99) H 10/03/18 08:20 POC Glucose (mg/dL) 135 mg/dL (75-99) H 10/05/18 20:22 POC Glu Wing Coverer Valeria Che 10/05/18 20:22 Lactic Ac Sepsis Rflx Y 10/01/18 09:49 Plasma Lactic Acid Saran 2.9 mmol/L (0.7-2.0) H* 10/01/18 13:15 Calcium 8.2 mg/dL (8.4-10.2) L 10/03/18 08:20 Magnesium 2.1 mg/dL (1.6-2.3) 10/01/18 08:48 Total Bilirubin 0.5 mg/dL (0.2-1.3) 10/01/18 08:48 AST 26 U/L (14-36) 10/01/18 08:48 ALT 27 U/L (9-52) 10/01/18 08:48 Alkaline Phosphatase 109 U/L (38-126) 10/01/18 08:48 Creatine Kinase 34 U/L (30-135) 10/01/18 08:48 CK-MB (CK-2) 0.3 ng/mL (0.0-2.4) 10/01/18 08:48 Troponin I <0.012 ng/mL (0.000-0.034) 10/01/18 08:48 Total Protein 6.8 g/dL (6.3-8.2) 10/01/18 08:48 Albumin 3.9 g/dL (3.5-5.0) 10/01/18 08:48 Influenza Type A RNA Not Detected (Not Detectd) 10/01/18 08:48 Influenza Type B (PCR) Not Detected (Not Detectd) 10/01/18 08:48 Virus Source See Below 10/03/18 13:30 Viral Test See Below H 10/03/18 13:30 Virus Analysis Interp See Below 10/03/18 13:30 Microbiology 10/01/18 08:48 Blood Blood Culture - Final No Growth after 144 hours 10/03/18 13:30 Bronchial Washings - Random Gram Stain - Final 10/03/18 13:30 Bronchial Washings - Random Bronchial Washings Culture - Final Kerry albicans Assessment and Plan (1) Pneumonia Narrative/Plan: This pleasant 52-year-old woman has a known history of bronchomalacia with pulmonary fibrosis and interstitial lung disease. Relates over the past several weeks has been having increasing decline of her status. A month ago bronchoscopy was performed with copious secretions and evidence of pseudomonas aeruginosa. Treated with a course of ciprofloxacin but is now having worsening of her status and constantly has been admitted again. Receiving respiratory treatments, steroids and plans for repeat bronchoscopy. She relates that while she was at [facility] recently Stenotrophomonas maltophilia was isolated. Given the patient's failure ciprofloxacin prior colonization alter antimicrobial therapy to cefotaxime for now until we have further data. Bronchoscopy will help further direct if alternative treatments including more active again Stenotrophomonas maltophilia and MRSA are required. Continuing with supportive care utilize her percussion vest. We'll follow with post- bronchoscopy cultures and potentially arrange for outpatient intravenous antibiotic therapy. 10/02/2018 the patient could not have bronchoscopy today due to the elevated INR. Received more vitamin K hopefully procedure can proceed tomorrow. Continue current antibiotic therapy. Bronchoscopy will help determine her course of antibiotic therapy at discharge. Shortly feels slightly better today. 10/03/2018 patient is status post bronchoscopy is feeling relatively well. The therapeutic nature of the bronchoscopy removing secretions is been helpful. The microbiological assessment remain in processes at this time. We'll continue antibiotic therapy. Likely will be discharged home on intravenous antibiotic therapy with cefepime which should be twice a day and more amenable to her if she will continue to be working in the next several weeks. Continue respiratory treatments. Steroid taper per pulmonary. Leukocytosis likely related to underlying pneumonia and the steroid therapy. 10/05/2018 patient has had some further improvement after her bronchoscopy. Cultures are in process, so far only HSV-1 is being isolated. Continue current antibiotic therapy does allow the marked improvement of her status. We'll add an oral Valtrex also given the relative immunocompromise and presence of the herpetic virus in the upper tract. Pulmonary critical care is following and are considering follow-up bronchoscopy for further pulmonary toileting. Outpatient intravenous antibiotic therapy arranged. 10/08/2018 patient is certainly feeling better. Overall she is less short of breath but was hopeful that she would be feeling considerably improved before discharge to home. Pulmonary critical care is evaluated in with her significant improvement since admission is not in need of another bronchoscopy. She will be placed on home intravenous antibiotic therapy. A complete a course of Valtrex for the viral reactivation. Is under she does feel better and hopefully her home setting she will continue to improve. Continue respiratory treatments and her percussion vest therapy. Status: Acute Code(s): J18.9 - PNEUMONIA, UNSPECIFIED ORGANISM SNOMED Code(s ): 913119607 (2) Tracheomalacia Status: Acute Code(s): J39.8 - OTHER SPECIFIED DISEASES OF UPPER RESPIRATORY TRACT SNOMED Code(s): 52313995
== END 2018-10-08 15:57 | disposition home health service (06) | DRG 177 ==
LOC: EC 08:15 → 4SSUR 10:51 → OBSVTOIN 10-03 07:37
PROVIDERS: ADMIT Internal Medicine Geriatric Medicine; ATTEND Internal Medicine Geriatric Medicine
PROC: 0B9D8ZX Drainage of Right Middle Lung Lobe, Via Natural or Artificial Opening Endoscopic, Diagnostic (ICD-10-PCS; principal; 2018-10-03 07:30)
DX: J15.1 Pneumonia due to Pseudomonas (principal); J96.21 Acute and chronic respiratory failure with hypoxia; D68.9 Coagulation defect, unspecified; E46 Unspecified protein-calorie malnutrition; J44.0 Chronic obstructive pulmonary disease with (acute) lower respiratory infection; J44.1 Chronic obstructive pulmonary disease with (acute) exacerbation; B00.9 Herpesviral infection, unspecified; E03.9 Hypothyroidism, unspecified; E78.5 Hyperlipidemia, unspecified; F41.0 Panic disorder [episodic paroxysmal anxiety]; F51.04 Psychophysiologic insomnia; G62.9 Polyneuropathy, unspecified; I34.1 Nonrheumatic mitral (valve) prolapse; J84.10 Pulmonary fibrosis, unspecified; K21.9 Gastro-esophageal reflux disease without esophagitis; K22.70 Barrett's esophagus without dysplasia; M79.7 Fibromyalgia; M81.0 Age-related osteoporosis without current pathological fracture; T17.990A Other foreign object in respiratory tract, part unspecified in causing asphyxiation, initial encounter; T45.515A Adverse effect of anticoagulants, initial encounter; Z79.01 Long term (current) use of anticoagulants; Z79.02 Long term (current) use of antithrombotics/antiplatelets; Z79.890 Hormone replacement therapy; Z79.899 Other long term (current) drug therapy; Z86.711 Personal history of pulmonary embolism; Z87.442 Personal history of urinary calculi; Z79.51 Long term (current) use of inhaled steroids; Z88.1 Allergy status to other antibiotic agents; Z88.8 Allergy status to other drugs, medicaments and biological substances; Z68.21 Body mass index [BMI] 21.0-21.9, adult
CPT/HCPCS: 31624; 31645; 36415; 71046; 80048; 80053; 82550; 82553; 83605; 83735; 84484; 85025; 85610; 85730; 87040; 87070; 87205; 87252; 87496; 87498; 87502; 87529; 87634; 87798; 88108; 88305; 93005; 94640; 94760; 96365; 96375; 99285

== ENCOUNTER 2018-10-22 16:19 | Inpatient (IN) | payer BC ==
[2018-10-22] MEDS ORDERED: SODIUM CHLORIDE 0.9% 1,000 ML IV STA ×3 (16:34→19:30)
[2018-10-22 16:44] LABS: Glucose,Whole Blood 144 mg/dL (75-99)
[2018-10-22 17:01] LABS: Albumin 3.3 g/dL (3.5-5.0); Calcium 8.4 mg/dL (8.4-10.2); Potassium 4.2 mmol/L (3.5-5.1); Total Bilirubin 0.8 mg/dL (0.2-1.3); Total Protein 5.6 g/dL (6.3-8.2)
[2018-10-22 17:22] LABS: Anisocytosis Slight; Basophils # (A) 0.1 k/uL (0-0.2); Basophils % (A) 0 %; Eosinophils # (A) 0.1 k/uL (0-0.7); Eosinophils % (A) 0 %; HCT 31.1 % (34.0-46.0); HGB 9.8 gm/dL (11.4-16.0); Lymphocytes # (A) 5.2 k/uL (1.0-4.8); Lymphocytes % (A) 25 %; MCH 29.1 pg (25.0-35.0); MCHC 31.3 g/dL (31.0-37.0); MCV 92.8 fL (80.0-100.0); Mean Platelet Volume 8.3; Monocytes # (A) 0.8 k/uL (0-1.0); Monocytes % (A) 4 %; Neutrophils # (A) 14.2 k/uL (1.3-7.7); Neutrophils % (A) 69 %; Platelet Count 242 k/uL (150-450); RBC 3.36 m/uL (3.80-5.40); RDW 16.3 % (11.5-15.5); WBC 20.6 k/uL (3.8-10.6)
--- NOTE | 2018-10-22 17:46 | XR ---
EXAMINATION TYPE: XR chest 1V portable DATE OF EXAM: 10/22/2018 COMPARISON: 10/12/2018 HISTORY: Syncope TECHNIQUE: Single frontal view of the chest is obtained. FINDINGS: Heart and mediastinum are normal. There is coarsening of the interstitial markings in the right lower lobe. There is probably some COPD. Heart size is normal. There is right central venous ca theter with tip in the superior vena cava. There is no pleural effusion. Bony thorax is intact but IMPRESSION: There is probably COPD. There is new subsegmental atelectasis in the right midlung compared to last e xam. No heart failure.
[2018-10-22 17:59] LABS: Prothrombin Time 77.3 sec (9.0-12.0)
[2018-10-22 18:01] LABS: INR 7.9 (<1.2); Partial Thromboplastin Time 85.9 sec (22.0-30.0)
--- NOTE | 2018-10-22 18:46 | ED ---
Syncope HPI - General Chief Complaint: Syncope Stated Complaint: pneumonia Time Seen by Provider: 10/22/18 16:24 Source: patient Mode of arrival: EMS Limitations: no limitations - History of Present Illness Initial Comments: This 52-year-old white female presents with a complaint of syncope. She states that she was at home when she started feeling very dizzy or lightheaded. She thought she was going to pass out so she lowered herself to the floor and then had a syncopal episode. The exact duration is unknown. She denies any chest pain or shortness of breath. She does relate that she was recently hospitalized for some pneumonia and she's been receiving cefepime at home intravenously as ordered by Dr. Mayfield from infectious disease. She denies any recent fever or chills. She denies any leg pain or swelling. She apparently is on Coumadin for a history of DVTs and pulmonary embolisms as well and her INR level was elevated recently and she has been holding her Coumadin for the last 4 days. She states that she definitely did not make any mistakes in her medications and has not taken the Coumadin for 4 days. She denies any blood in her stools or black tarry stools. She does complain of some pain into her right lower chest which she's had for the past several weeks and apparently is related to her pneumonia. She feels very weak and is unable to ambulate due to the weakness. - Related Data Home Medications Medication Instructions Recorded Confirmed Atorvastatin [Lipitor] 10 mg PO HS 04/16/14 10/22/18 Cyclobenzaprine [Flexeril] 10 mg PO HS 04/16/14 10/22/18 DULoxetine HCL [Duloxetine HCl] 60 mg PO DAILY 04/16/14 10/22/18 Denosumab [Prolia] 60 mg SQ Q180D 04/16/14 10/22/18 Estrogen,Con/M-Progest Acet 1 cap PO Q48H 04/16/14 10/22/18 [Prempro 0.45-1.5 mg Tablet] Gabapentin 600 mg PO HS 04/16/14 10/22/18 Levothyroxine Sodium [Synthroid] 50 mcg PO DAILY 04/16/14 10/22/18 Meloxicam 7.5 mg PO BID 04/16/14 10/22/18 Montelukast [Singulair] 10 mg PO DAILY 04/16/14 10/22/18 Fluticasone/Vilanterol [Breo 1 puff INHALATION RT-DAILY 03/08/17 10/22/18 Ellipta 200-25 Mcg INH] Gabapentin [Neurontin] 300 mg PO QAM 06/08/17 10/22/18 RABEprazole SODIUM [Aciphex] 20 mg PO HS 11/30/17 10/22/18 Zolpidem [Ambien] 5 mg PO HS 11/30/17 10/22/18 Diazepam [Valium] 5 mg PO HS 03/30/18 10/22/18 HYDROcodone/APAP 5-325MG [[place] 1 tab PO DAILY PRN 03/30/18 10/22/18 5-325] Fluconazole [Diflucan] 200 mg PO DAILY PRN 08/30/18 10/22/18 L.acidoph,Paracasei, B.lactis 1 cap PO DAILY 10/01/18 10/22/18 [Probiotic] Tobramycin Inh 300mg/5ml 300 mg INHALATION RT-Q12H 10/01/18 10/22/18 predniSONE See Taper PO DIRECTED 10/22/18 10/22/18 Previous Rx's Medication Instructions Recorded Ipratropium-Albuterol Nebulize 3 ml INHALATION RT-QID #120 04/04/18 [Duoneb 0.5 mg-3 mg/3 ml Soln] ampul.neb Cefepime HCl [Maxipime] 2 gm IV Q12H #28 vial 10/04/18 Allergies Allergy/AdvReac Type Severity Reaction Status Date / Time erythromycin base Allergy Intermediate Rash/Hives Verified 10/22/18 16:27 metoclopramide HCl Allergy MUSCLE Verified 10/22/18 16:27 [From Reglan] SPASMS Milk Containing Products Allergy Nausea & Verified 10/22/18 17:06 [Dairy] Vomiting prochlorperazine edisylate Allergy MUSCLE Verified 10/22/18 16:27 [From Compazine] SPASMS prochlorperazine maleate Allergy MUSCLE Verified 10/22/18 16:27 [From Compazine] SPASMS Review of Systems ROS Statement: Those systems with pertinent positive or pertinent negative responses have been documented in the HPI. ROS Other: All systems not noted in ROS Statement are negative. Past Medical History Past Medical History: Asthma, COPD, Fibromyalgia, GERD/Reflux, Hyperlipidemia, Mitral Valve Prolapse (MVP), Osteoarthritis (OA), Pneumonia, Pulmonary Embolus (PE), Respiratory Disorder, Thyroid Disorder Additional Past Medical History / Comment(s): tracheobronchomalacia, chronic interstitial changes and no evidence of any significant pulmonary fibrosis based on previous CAT scan of the chest, mitral valve prolapse, muscle pain/arthritis bilateral hips and neck, nephrolithiasis with surgery,O2- USES 4.5 LITERS AT NIGHT ,2.5 LITERS PRN History of Any Multi-Drug Resistant Organisms: MRSA Date of last positivie culture/infection: 03/07/18 MDRO Source:: LUNG Past Surgical History: Appendectomy, Heart Catheterization, Orthopedic Surgery Additional Past Surgical History / Comment(s): Bronchoscopies/BALs, R lung bx, R chest port, 1993 cardiac cath-normal, R knee arthroscopy, kidney stone removal, D&C. Past Anesthesia/Blood Transfusion Reactions: No Reported Reaction Additional Past Anesthesia/Blood Transfusion Reaction / Comment(s): Pt has received blood in past without reaction. Past Psychological History: Panic Disorder Smoking Status: Never smoker Past Alcohol Use History: None Reported Past Drug Use History: None Reported - Past Family History Father Family Medical History: CVA/TIA Additional Family Medical History / Comment(s): Father 09/2017 from a massive CVA. He was 85-year-old. Brother(s) Family Medical History: No Reported History Sister(s) Family Medical History: Neurologic Disorder Daughter(s) Family Medical History: No Reported History Mother Family Medical History: AFIB Additional Family Medical History / Comment(s): Mother has a pacemaker. General Exam - General Exam Comments Initial Comments: GENERAL: The patient is well nourished and well hydrated. VITAL SIGNS: Heart rate, blood pressure, respiratory rate reviewed as recorded in nurse's notes. EYES: Pupils are round and reactive. Extraocular movements are intact. No conjunctival / lid redness or swelling. ENT: No external evidence of injury, swelling, or ecchymosis. Airway is patent. Throat is clear. NECK: Nontender. No swelling or evidence of injury. No subcutaneous emphysema. Trachea is midline. No thyroid mass. HEART: Regular rate and rhythm. Good peripheral pulses. LUNGS/CHEST: Breath sounds clear and equal bilaterally. No rales, rhonchi, or wheezes. There is some mild tenderness noted to the right lower chest wall. ABDOMEN: Abdomen soft without tenderness. No palpable masses or organomegaly. No peritoneal signs. No abdominal wall swelling or ecchymosis. EXTREMITIES: No extremity tenderness. Normal muscle tone and function. No thoracolumbar tenderness. NEUROLOGIC: Sensation is grossly intact. Cranial nerve exam reveals face is symmetrical, tongue is midline, speech is clear. SKIN: No abrasions or ecchymosis is noted. No induration or masses noted. She appears quite pale. PSYCHIATRIC: Alert and oriented. Appropriate behavior and judgment. Rectal exam: There is no gross blood identified. Good rectal tone, Hemoccult is pending. Limitations: no limitations Course Vital Signs 10/22/18 10/22/18 10/22/18 16:23 17:00 17:45 Temperature 97.9 F Pulse Rate 106 H 96 Pulse Rate [ 112 H Sitting] Pulse Rate [ 109 H Supine] Respiratory 24 14 15 Rate Blood Pressure 113/99 99/70 Blood Pressure 80/50 [Sitting] Blood Pressure 87/53 [Supine] O2 Sat by Pulse 100 100 Oximetry 10/22/18 19:09 Temperature 97.8 F Pulse Rate 108 H Pulse Rate [ Sitting] Pulse Rate [ Supine] Respiratory 18 Rate Blood Pressure 96/70 Blood Pressure [Sitting] Blood Pressure [Supine] O2 Sat by Pulse 100 Oximetry Procedures - [place] Protocol (Time Out) Nurse: Cici Gibson Medical Decision Making - Medical Decision Making The patient was seen and examined. All diagnostics were reviewed. An IV is established and she is hydrated. She is placed on a repair supervisor no ectopy is identified. The EKG shows a sinus tachycardia at a rate of 111. There is no acute ST-T wave changes identified. The DE interval is 98, QRS duration is 62, and the QTC intervals 413. Her laboratory comes back showing that her white blood cell count increased from 16-20,000. The hemoglobin decreased from 11- 9.8. Hemoccult was taken and is pending but no gross blood is identified. Her INR is significantly elevated at 7. It is felt as though this is somewhat odd issues apparently been off her Coumadin for the last 4 days. She is given vitamin K 5 mg IV. The case is discussed with Dr. Torres and he would like the patient continued on the vancomycin and cefepime and for her to be admitted to the hospital for further treatment. Her blood pressure is running fairly low as well and she is given ample fluid hydration. They didn't attempt to complete orthostatics the patient cannot tolerate sitting or standing. It is overall felt that she is significantly ill and would require further admission and multi specialty consultation. - Lab Data Result diagrams: 10/22/18 16:39 10/22/18 16:39 Lab Results 10/22/18 10/22/18 10/22/18 Range/Units 16:33 16:39 16:39 WBC 20.6 H (3.8-10.6) k/uL RBC 3.36 L (3.80-5.40) m/uL Hgb 9.8 L D (11.4-16.0) gm/dL Hct 31.1 L (34.0-46.0) % MCV 92.8 (80.0-100.0) fL MCH 29.1 (25.0-35.0) pg MCHC 31.3 (31.0-37.0) g/dL RDW 16.3 H (11.5-15.5) % Plt Count 242 (150-450) k/uL Neutrophils % 69 % Lymphocytes % 25 % Monocytes % 4 % Eosinophils % 0 % Basophils % 0 % Neutrophils # 14.2 H (1.3-7.7) k/uL Lymphocytes # 5.2 H (1.0-4.8) k/uL Monocytes # 0.8 (0-1.0) k/uL Eosinophils # 0.1 (0-0.7) k/uL Basophils # 0.1 (0-0.2) k/uL Anisocytosis Slight PT (9.0-12.0) sec INR (<1.2) APTT (22.0-30.0) sec Sodium 138 (137-145) mmol/L Potassium 4.2 (3.5-5.1) mmol/L Chloride 106 (98-107) mmol/L Carbon Dioxide 25 (22-30) mmol/L Anion Gap 7 mmol/L BUN 25 H (7-17) mg/dL Creatinine 0.96 (0.52-1.04) mg/dL Est GFR (CKD-EPI)AfAm 78 (>60 ml/min/1.73 sqM) Est GFR (CKD-EPI)NonAf 67 (>60 ml/min/1.73 sqM) Glucose 156 H (74-99) mg/dL POC Glucose (mg/dL) 144 H (75-99) mg/dL POC Glu Door Opener ID Calcium 8.4 (8.4-10.2) mg/dL Magnesium 2.0 (1.6-2.3) mg/dL Total Bilirubin 0.8 (0.2-1.3) mg/dL AST 21 (14-36) U/L ALT 32 (9-52) U/L Alkaline Phosphatase 77 (38-126) U/L Creatine Kinase 22 L (30-135) U/L Troponin I (0.000-0.034) ng/mL Total Protein 5.6 L (6.3-8.2) g/dL Albumin 3.3 L (3.5-5.0) g/dL 10/22/18 10/22/18 Range/Units 16:39 16:39 WBC (3.8-10.6) k/uL RBC (3.80-5.40) m/uL Hgb (11.4-16.0) gm/dL Hct (34.0-46.0) % MCV (80.0-100.0) fL MCH (25.0-35.0) pg MCHC (31.0-37.0) g/dL RDW (11.5-15.5) % Plt Count (150-450) k/uL Neutrophils % % Lymphocytes % % Monocytes % % Eosinophils % % Basophils % % Neutrophils # (1.3-7.7) k/uL Lymphocytes # (1.0-4.8) k/uL Monocytes # (0-1.0) k/uL Eosinophils # (0-0.7) k/uL Basophils # (0-0.2) k/uL Anisocytosis PT 77.3 H (9.0-12.0) sec INR 7.9 H* (<1.2) APTT 85.9 H (22.0-30.0) sec Sodium (137-145) mmol/L Potassium (3.5-5.1) mmol/L Chloride (98-107) mmol/L Carbon Dioxide (22-30) mmol/L Anion Gap mmol/L BUN (7-17) mg/dL Creatinine (0.52-1.04) mg/dL Est GFR (CKD-EPI)AfAm (>60 ml/min/1.73 sqM) Est GFR (CKD-EPI)NonAf (>60 ml/min/1.73 sqM) Glucose (74-99) mg/dL POC Glucose (mg/dL) (75-99) mg/dL POC Glu Door Opener ID Calcium (8.4-10.2) mg/dL Magnesium (1.6-2.3) mg/dL Total Bilirubin (0.2-1.3) mg/dL AST (14-36) U/L ALT (9-52) U/L Alkaline Phosphatase (38-126) U/L Creatine Kinase (30-135) U/L Troponin I <0.012 (0.000-0.034) ng/mL Total Protein (6.3-8.2) g/dL Albumin (3.5-5.0) g/dL Disposition Clinical Impression: Syncope, Hypotension, Leukocytosis, Atelectasis, History of Pseudomonas pneumonia, Anemia, Coagulopathy, Weakness Disposition: ADMITTED IP TO THIS HOSP Condition: Fair Is patient prescribed a controlled substance at d/c from ED?: No Time of Disposition: 19:53 Decision Date: 10/22/18 Decision Time: 19:53
[2018-10-22] MEDS ORDERED: VANCOMYCIN 1,000 MG in SODIUM CHLORIDE 0.9% 250 ML IVPB STA (19:45)
[2018-10-22] MEDS ORDERED: PHYTONADIONE 5 MG in SODIUM CHLORIDE 0.9% 50 ML IVPB STA (19:45)
[2018-10-22] MEDS ORDERED: VANCOMYCIN IV PER PHARMACY 1 EACH MISC MISCELLANE PRN (19:46)
[2018-10-22] MEDS ORDERED: MORPHINE SULFATE 2 MG/ML SYRINGE IV PRN (19:55)
[2018-10-22] MEDS ORDERED: NALOXONE 0.4 MG/ML 1 ML VIAL IV PRN (19:55)
[2018-10-22] MEDS ORDERED: ONDANSETRON 4 MG/2 ML VIAL IVP PRN (19:55)
[2018-10-22] MEDS ORDERED: ACETAMINOPHEN TAB 325 MG TAB PO PRN (19:55)
[2018-10-22] MEDS ORDERED: CEFEPIME HCL 2 GM IV SCH (20:00)
[2018-10-22] MEDS ORDERED: TOBRAMYCIN INHALATION SCH (20:00)
[2018-10-22] MEDS ORDERED: FLUCONAZOLE 100 MG TAB PO PRN (20:00)
[2018-10-22] MEDS ORDERED: DENOSUMAB 60 MG/ML 1 ML SYRINGE SQ SCH (20:00)
[2018-10-22] MEDS ORDERED: NON-FORMULARY DRUG (Rabeprazole Sodium [Aciphex] 20 MG) PO SCH (21:00)
[2018-10-22] MEDS ORDERED: CEFEPIME 2 GM in SODIUM CHLORIDE 0.9% 100 ML IVPB ONE (22:00)
[2018-10-22] MEDS: IPRATROPIUM-ALBUTEROL 3 ML NEB INHALATION SCH (22:11)
[2018-10-22 22:13] VITALS: BMI 21.2
[2018-10-22] MEDS: CYCLOBENZAPRINE 10 MG TAB PO SCH (22:35)
[2018-10-22] MEDS: ATORVASTATIN 10 MG TAB PO SCH (22:35)
[2018-10-22] MEDS: DIAZEPAM 5 MG TAB PO SCH (22:35)
[2018-10-22] MEDS: GABAPENTIN 300 MG CAP PO SCH (22:36)
[2018-10-23] MEDS: ZOLPIDEM 5 MG TAB PO SCH ×2 (00:55→21:41)
[2018-10-23 04:00] LABS: Anisocytosis Slight; Basophils # (A) 0.1 k/uL (0-0.2); Basophils % (A) 0 %; Eosinophils # (A) 0.1 k/uL (0-0.7); Eosinophils % (A) 1 %; HCT 20.3 % (34.0-46.0); Hypochromasia Moderate; Lymphocytes # (A) 4.4 k/uL (1.0-4.8); Lymphocytes % (A) 27 %; MCH 31.2 pg (25.0-35.0); MCHC 31.6 g/dL (31.0-37.0); Macrocytosis Slight; Mean Platelet Volume 7.3; Monocytes # (A) 0.7 k/uL (0-1.0); Monocytes % (A) 4 %; Neutrophils # (A) 10.7 k/uL (1.3-7.7); Neutrophils % (A) 66 %; Platelet Count 201 k/uL (150-450); RBC 2.06 m/uL (3.80-5.40); RDW 16.9 % (11.5-15.5); WBC 16.1 k/uL (3.8-10.6)
[2018-10-23 04:08] LABS: MCV 98.7 fL (80.0-100.0)
[2018-10-23 04:10] LABS: HGB 6.4 gm/dL (11.4-16.0)
[2018-10-23 04:13] LABS: Anion Gap 2 mmol/L; Blood Urea Nitrogen 25 mg/dL (7-17); Calcium 6.9 mg/dL (8.4-10.2); Carbon Dioxide 21 mmol/L (22-30); Chloride 112 mmol/L (98-107); Glucose 106 mg/dL (74-99); Potassium 4.4 mmol/L (3.5-5.1); Sodium 135 mmol/L (137-145)
[2018-10-23 05:22] LABS: INR 1.6 (<1.2); Prothrombin Time 16.1 sec (9.0-12.0)
[2018-10-23] MEDS: LEVOTHYROXINE 50 MCG TAB PO SCH (06:31)
[2018-10-23] MEDS: predniSONE 10 MG TAB PO SCH (08:20)
[2018-10-23] MEDS: DULoxetine HCL 60 MG CAPSULE.DR PO SCH (08:20)
[2018-10-23] MEDS: MONTELUKAST 10 MG TAB PO SCH (08:20)
[2018-10-23] MEDS: GABAPENTIN 300 MG CAP PO SCH ×2 (08:20→21:42)
[2018-10-23] MEDS: IPRATROPIUM-ALBUTEROL 3 ML NEB INHALATION SCH ×4 (10:35→21:16)
[2018-10-23] MEDS: TOBRAMYCIN 300MG/7.5ML SYRG *FOR INHALATION INHALATION SCH ×2 (10:35→21:16)
[2018-10-23] MEDS: SYMBICORT 160-4.5 MCG INHALER INHALATION SCH ×2 (10:37→21:16)
--- NOTE | 2018-10-23 11:43 | P.CONS ---
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 Recent hospitalization for pseudomonas pneumonia receiving steroids and antibiotics. Last dose of Coumadin 4-5 days ago secondary to supratherapeutic INR. Denies gross hematemesis hematochezia or melena. Generalized weakness. Admission hemoglobin 9.8 presently 6.4. MCV 92. Platelet 242. INR 7.9 pre sently 1.6. Previous hemoglobin over the last month was in the 11-13 range. FOBT negative. BUN 25. Creatinine 0.9. 2 units of blood ordered. Heart rate greater than 100. Orthostatic changes documented. No history of GI bleed. No history of colonoscopy. Remote EGD more than 5 years ago to her memory was unremarkable. Patient states she has a sensation of discomfort to the right side of her abdomen. Denies trauma. Unsure if she fell. Chest x-ray probable COPD segmental atelectasis in the right midlung compared to last exam no heart failure. Review of Systems Constitutional: Denies fever, chills, sweats, weight gain, or loss. Syncope weakness. HEENT: Negative for migraines, blurred vision or loss, earaches, drainage, tinnitus, oral mucosal lesions, dysphagia, or odynophagia. CARDIAC: Negative for chest pain, arrhythmias, or palpitation. RESPIRATORY: Negative for shortness of breath, hemoptysis, cough, or sputum production. GI: See HPI for pertinent findings. : Negative for hematuria, urgency, frequency, polyuria, or dysuria. GYNc: Negative vaginal discharge. MUSCULOSKELETAL: Negative for muscle aches, swelling, arthritis, and a rthralgias. NEUROLOGIC: Negative for stroke or TIA. ENDOCRINE: Negative for thyroid problems. SKIN: Negative for rash or itching. PSYCHIATRIC: Negative history for depression and anxiety Past Medical History Past Medical History: Asthma, COPD, Fibromyalgia, GERD/Reflux, Hyperlipidemia, Mitral Valve Prolapse (MVP), Osteoarthritis (OA), Pneumonia, Pulmonary Embolus (PE), Respiratory Disorder, Thyroid Disorder Additional Past Medical History / Comment(s): tracheobronchomalacia, chronic interstitial changes and no evidence of any significant pulmonary fibrosis based on previous CAT scan of the chest, mitral valve prolapse, muscle pain/arthritis bilateral hips and neck, nephrolithiasis with surgery,O2- USES 4.5 LITERS AT NIGHT ,2.5 LITERS PRN History of Any Multi-Drug Resistant Organisms: MRSA Year Discovered:: 03/07/18 MDRO Source:: LUNG Past Surgical History: Appendectomy, Heart Catheterization, Orthopedic Surgery Additional Past Surgical History / Comment(s): Bronchoscopies/BALs, R lung bx, R chest port, 1993 cardiac cath-normal, R knee arthroscopy, kidney stone removal, D&C. Past Anesthesia/Blood Transfusion Reactions: No Reported Reaction Additional Past Anesthesia/Blood Transfusion Reaction / Comm: Pt has received blood in past without reaction. Past Psychological History: Panic Disorder Additional Psychological History / Comment(s): Pt resides with her spouse. She has home oxygen and nebulizer. She is independent. She works in a medical office. Smoking Status: Never smoker Past Alcohol Use History: None Reported Additional Past Alcohol Use History / Comment(s): Patient has been a lifelong nonsmoker, no illicit drug use, no alcohol use. She currently works at [employer] office. Past Drug Use History: None Reported - Past Family History Father Family Medical History: CVA/TIA Additional Family Medical History / Comment(s): Father 09/2017 from a massive CVA. He was 85-year-old. Brother(s) Family Medical History: No Reported History Sister(s) Family Medical History: Neurologic Disorder Daughter(s) Family Medical History: No Reported History Mother Family Medical History: AFIB Additional Family Medical History / Comment(s): Mother has a pacemaker. Medications and Allergies Home Medications Medication Instructions Recorded Confirmed Type Atorvastatin [Lipitor] 10 mg PO HS 04/16/14 10/22/18 History Cyclobenzaprine [Flexeril] 10 mg PO HS 04/16/14 10/22/18 History DULoxetine HCL [Duloxetine HCl] 60 mg PO DAILY 04/16/14 10/22/18 History Denosumab [Prolia] 60 mg SQ Q180D 04/16/14 10/22/18 History Estrogen,Con/M-Progest Acet 1 cap PO Q48H 04/16/14 10/22/18 History [Prempro 0.45-1.5 mg Tablet] Gabapentin 600 mg PO HS 04/16/14 10/22/18 History Levothyroxine Sodium [Synthroid] 50 mcg PO DAILY 04/16/14 10/22/18 History Meloxicam 7.5 mg PO BID 04/16/14 10/22/18 History Montelukast [Singulair] 10 mg PO DAILY 04/16/14 10/22/18 History Fluticasone/Vilanterol [Breo 1 puff INHALATION RT-DAILY 03/08/17 10/22/18 History Ellipta 200-25 Mcg INH] Gabapentin [Neurontin] 300 mg PO QAM 06/08/17 10/22/18 History RABEprazole SODIUM [Aciphex] 20 mg PO HS 11/30/17 10/22/18 History Zolpidem [Ambien] 5 mg PO HS 11/30/17 10/22/18 History Diazepam [Valium] 5 mg PO HS 03/30/18 10/22/18 History HYDROcodone/APAP 5-325MG [Stephen 1 tab PO DAILY PRN 03/30/18 10/22/18 History 5-325] Ipratropium-Albuterol Nebulize 3 ml INHALATION RT-QID #120 04/04/18 10/22/18 Rx [Duoneb 0.5 mg-3 mg/3 ml Soln] ampul.neb Fluconazole [Diflucan] 200 mg PO DAILY PRN 08/30/18 10/22/18 History L.acidoph,Paracasei, B.lactis 1 cap PO DAILY 10/01/18 10/22/18 History [Probiotic] Tobramycin Inh 300mg/5ml 300 mg INHALATION RT-Q12H 10/01/18 10/22/18 History Cefepime HCl [Maxipime] 2 gm IV Q12H #28 vial 10/04/18 10/22/18 Rx predniSONE See Taper PO DIRECTED 10/22/18 10/22/18 History Allergies Allergy/AdvReac Type Severity Reaction Status Date / Time erythromycin base Allergy Intermediate Rash/Hives Verified 10/22/18 16:27 metoclopramide HCl Allergy MUSCLE Verified 10/22/18 16:27 [From Reglan] SPASMS Milk Containing Products Allergy Nausea & Verified 10/22/18 17:06 [Dairy] Vomiting prochlorperazine edisylate Allergy MUSCLE Verified 10/22/18 16:27 [From Compazine] SPASMS prochlorperazine maleate Allergy MUSCLE Verified 10/22/18 16:27 [From Compazine] SPASMS Physical Exam Vitals: Vital Signs Temp Pulse Pulse Pulse Resp BP BP 10/23/18 08:25 98.6 F 113 H 18 10/23/18 07:30 98.7 F 112 H 20 100/54 10/23/18 07:00 98.9 F 115 H 18 87/56 10/23/18 06:50 97.6 F 117 H 18 95/50 10/23/18 06:48 98.6 F 116 H 18 101/67 10/23/18 04:15 98.3 F 112 H 16 10/23/18 04:00 112 H 16 10/23/18 00:00 98.2 F 116 H 16 10/22/18 21:25 98.3 F 100 18 109/62 10/22/18 20:20 97.7 F 104 H 18 10/22/18 19:09 97.8 F 108 H 18 96/70 10/22/18 17:45 96 15 99/70 10/22/18 17:00 112 H 109 H 14 80/50 10/22/18 16:23 97.9 F 106 H 24 113/99 BP Pulse Ox 10/23/18 08:25 101/63 99 10/23/18 07:30 98 10/23/18 07:00 97 10/23/18 06:50 100 10/23/18 06:48 96 10/23/18 04:15 90/67 98 10/23/18 04:00 10/23/18 00:00 95/44 96 10/22/18 21:25 99 10/22/18 20:20 90/68 99 10/22/18 19:09 100 10/22/18 17:45 100 10/22/18 17:00 87/53 10/22/18 16:23 100 Intake and Output 10/22/18 10/23/18 10/23/18 22:59 06:59 14:59 Intake Total 1050 0 Balance 1050 0 Intake: Intake, IV Titration 1050 Amount Sodium Chloride 0.9% 1, 800 000 ml @ 100 mls/hr IV . Q10H STA Rx#:[id number] Vancomycin 1,000 mg In 250 Sodium Chloride 0.9% 250 ml @ 125 mls/hr IVPB ONCE STA Rx#:[id number] Oral 0 Blood Product 0 Rc As-1 Unit 0 [id number] Other: Voiding Method Bedpan # Bowel Movements 1 Weight 54.431 kg 63 kg General appearance: The patient is alert, oriented, in no acute distress. HET: Head is normocephalic and atraumatic. Pupils are equal and reactive. Oropharynx is clear without lesions. Neck: Supple without lymphadenopathy. Trachea midline. Heart: S1 S2. Regular rate and rhythm. Lungs: No crackles or wheezes are heard. Mild ecchymotic areas to right side of chest. Abdomen: Soft, tenderness to the right mid quadrant, nondistended with bowel sounds. No peritoneal signs. No palpable organomegaly or masses. Extremities: Normal skin color and turgor. No cyanosis, rash, ulceration, clubbing, or edema. Radial and pedal pulses are 2/4 bilaterally. Neurological: No focal deficits. Strength and sensation are grossly intact. Results CBC & Chem 7: 10/24/18 05:47 10/23/18 03:46 Labs: Abnormal Lab Results - Last 24 Hours (Table) 10/22/18 10/22/18 10/22/18 Range/Units 16:33 16:39 16:39 WBC 20.6 H (3.8-10.6) k/uL RBC 3.36 L (3.80-5.40) m/uL Hgb 9.8 L D (11.4-16.0) gm/dL Hct 31.1 L (34.0-46.0) % RDW 16.3 H (11.5-15.5) % Neutrophils # 14.2 H (1.3-7.7) k/uL Lymphocytes # 5.2 H (1.0-4.8) k/uL PT (9.0-12.0) sec INR (<1.2) APTT (22.0-30.0) sec Sodium (137-145) mmol/L Chloride (98-107) mmol/L Carbon Dioxide (22-30) mmol/L BUN 25 H (7-17) mg/dL Glucose 156 H (74-99) mg/dL POC Glucose (mg/dL) 144 H (75-99) mg/dL Calcium (8.4-10.2) mg/dL Creatine Kinase 22 L (30-135) U/L Total Protein 5.6 L (6.3-8.2) g/dL Albumin 3.3 L (3.5-5.0) g/dL Crossmatch 10/22/18 10/23/18 10/23/18 Range/Units 16:39 03:46 03:46 WBC 16.1 H (3.8-10.6) k/uL RBC 2.06 L (3.80-5.40) m/uL Hgb 6.4 L* D (11.4-16.0) gm/dL Hct 20.3 L (34.0-46.0) % RDW 16.9 H (11.5-15.5) % Neutrophils # 10.7 H (1.3-7.7) k/uL Lymphocytes # (1.0-4.8) k/uL PT 77.3 H (9.0-12.0) sec INR 7.9 H* (<1.2) APTT 85.9 H (22.0-30.0) sec Sodium 135 L (137-145) mmol/L Chloride 112 H (98-107) mmol/L Carbon Dioxide 21 L (22-30) mmol/L BUN 25 H (7-17) mg/dL Glucose 106 H (74-99) mg/dL POC Glucose (mg/dL) (75-99) mg/dL Calcium 6.9 L (8.4-10.2) mg/dL Creatine Kinase (30-135) U/L Total Protein (6.3-8.2) g/dL Albumin (3.5-5.0) g/dL Crossmatch 10/23/18 10/23/18 Range/Units 04:58 05:07 WBC (3.8-10.6) k/uL RBC (3.80-5.40) m/uL Hgb (11.4-16.0) gm/dL Hct (34.0-46.0) % RDW (11.5-15.5) % Neutrophils # (1.3-7.7) k/uL Lymphocytes # (1.0-4.8) k/uL PT 16.1 H (9.0-12.0) sec INR 1.6 H (<1.2) APTT (22.0-30.0) sec Sodium (137-145) mmol/L Chloride (98-107) mmol/L Carbon Dioxide (22-30) mmol/L BUN (7-17) mg/dL Glucose (74-99) mg/dL POC Glucose (mg/dL) (75-99) mg/dL Calcium (8.4-10.2) mg/dL Creatine Kinase (30-135) U/L Total Protein (6.3-8.2) g/dL Albumin (3.5-5.0) g/dL Crossmatch See Detail Chest x-ray: report reviewed (Dr. Tom) Assessment and Plan (1) Symptomatic anemia Narrative/Plan: 52-year-old female recently hospitalized for pneumonia maintained on antibiotics and steroids presents with syncopal-type symptoms right-sided abdominal discomfort weakness fatigue without overt GI bleeding supratherapeutic INR with new onset of normocytic hypochromic anemia suggestive of acute blood loss. Underlying peptic ulcer disease bleeding AVM cannot be excluded. Chest ecchymosis cannot exclude underlying acute blood loss from soft tissues possible fall patient is unsure. Current Visit: No Status: Acute Code(s): D64.9 - ANEMIA, UNSPECIFIED SNOMED Code(s): 268016897 (2) Acute blood loss anemia Current Visit: Yes Status: Acute Code(s): D62 - ACUTE POSTHEMORRHAGIC ANEMIA SNOMED Code(s): 449279369 (3) Supratherapeutic INR Current Visit: Yes Status: Acute Code(s): R79.1 - ABNORMAL COAGULATION PROFILE SNOMED Code(s): 244532548 (4) Warfarin-induced coagulopathy Current Visit: Yes Status: Acute Code(s): D68.32 - HEMORRHAGIC DISORD D/T EXTRINSIC CIRCULATING ANTICOAGULANTS; T45.515A - ADVERSE EFFECT OF ANTICOAGULANTS, INITIAL ENCOUNTER SNOMED Code(s): 35404642 (5) H/O deep venous thrombosis Current Visit: Yes Status: Acute Code(s): Z86.718 - PERSONAL HISTORY OF OTHER VENOUS THROMBOSIS AND EMBOLISM SNOMED Code(s): 427359729 (6) History of pulmonary embolus (PE) Current Visit: Yes Status: Acute Code(s): Z86.711 - PERSONAL HISTORY OF PULMONARY EMBOLISM SNOMED Code(s): 701959539 Plan: 1. CBC monitoring. Protonix 40 mg daily. Nothing by mouth except medications. Hold anticoagulation. EGD evaluation contingent on clinical course; CT CAP pending. The rib builder has discussed the risks, benefits and alternative therapies for the above-mentioned procedure and for both sedation/analgesia as well as necessary blood product administration, if indicated, as they pertain to this patient. The patient has indicated understanding and acceptance of the risks and procedures discussed. Thank you for this kind referral and the opportunity to participate in the care of your patient. This consultation was discussed with Dr. Tom. The impression and plan of care have been directed as dictated.
[2018-10-23] MEDS ORDERED: RX INFO: IV CONTRAST WAS GIVEN 1 EACH MISC MISCELLANE PRN (12:08)
--- NOTE | 2018-10-23 12:16 | P.HPIM ---
History of Present Illness H&P Date: 10/23/18 Chief Complaint: Syncope This is a 52-year-old female patient of Dr. Guadalupe with a previous medical history significant for bronchial malacia, pulmonary fibrosis, int erstitial lung disease, pulmonary embolism on chronic Coumadin, hyperlipidemia, GERD, osteopenia. Patient underwent bronchoscopy and BAL on September 03 under the care of Dr. Hughes underwent a bronchoscopy and BAL and culture positive for Pseudomonas initially treated with Cipro. Pathology report revealed acute inflammatory cells, mucus and foaming debris. Stain negative for pneumocystic carinii organisms. Patient is on tobramycin nebulizer treatments. She had a recent hospitalization October 03 through October 08 which time she was treated for acute hypoxic respiratory failure secondary to acute exacerbation of chronic bronchiectasis, bronchial malacia Pseudomonas pneumonitis and HSV isolated. She presented with an INR 7.8 which was normalized previous to discharge. She also underwent a bronchoscopy with Dr. Hughes. Respiratory status gradually improved and she was discharged home on cefepime for [address] Mayfield. Patient now presents to [facility] emergency center stating that she was in the bathroom was feeling fuzzy and assisted herself down to the rug trying to get her head were then her body thinking that she was going to pass out. Her mom found her in the bathroom kneeling with her head down on the floor and rolled her over on the side but she was unresponsive. Patient's daughter got her oxygen on. Mom states the patient was hardly breathing. There was no noted seizure activity, patient did not bite her tongue. Patient was incontinent of urine. Eventually patient started coming around and her breathing was very shallow and she was brought in to [facility] emergency center for evaluation. The patient has a cough but not bothersome. She denies pedal edema, no fever or chills. Her initial white count was 20.6, hemoglobin 9.8 with repeat this morning at 6.4. Patient's previous hemoglobins running between 11 and 13. INR was 7.9, BUN 25 and creatinine 0.96. Troponins been negative on 3 draws. Stool for occult blood negative. Patient is noted have ecchymosis to the right chest wall and flank area. She does not recall hitting this when she had syncopal episode. She denies any blood in her stools. She is complaining of right upper abdominal discomfort. Regarding her INR, on she had an INR done and was told it was too high and was to be off Coumadin and resume on Monday. Patient has been admitted to the cardiac stepdown unit. She has been seen in consultation by GI with plan for EGD. Coumadin is on hold, continue Protonix 40 mg twice daily. Consults in place for Dr. Bruden in and Dr. Mayfield. Review of Systems All systems: negative Constitutional: Reports anorexia, Reports fatigue, Reports lethargy, Reports malaise, Reports poor appetite, Reports weakness, Denies chills, Denies fever Eyes: denies blurred vision, denies pain Ears, nose, mouth and throat: Reports vertigo, Denies dental pain, Denies dysphagia, Denies headache, Denies mouth pain, Denies sore throat Cardiovascular: Reports dyspnea on exertion, Reports lightheadedness, Reports syncope, Denies chest pain, Denies edema, Denies leg edema, Denies shortness of breath Respiratory: Reports cough, Reports cough with sputum, Reports home oxygen, Denies dyspnea, Denies excessive sputum, Denies hemoptysis Gastrointestinal: Reports abdominal pain, Reports loss of appetite, Denies coffee ground emesis, Denies diarrhea, Denies melena, Denies nausea, Denies vomiting Genitourinary: Denies dysuria, Denies hematuria, Denies urgency, Denies urinary frequency Musculoskeletal: Reports muscle weakness, Denies frequent falls, Denies gait dysfunction, Denies myalgias Integumentary: Reports darkening of skin, Reports unusual bruising, Denies pru ritus, Denies rash, Denies wounds Neurological: Denies aphasia, Denies change in speech, Denies head injury, Denies headaches, Denies numbness, Denies seizures, Denies weakness Psychiatric: Denies anxiety, Denies depression Endocrine: Denies fatigue, Denies weight change Past Medical History Past Medical History: Asthma, COPD, Fibromyalgia, GERD/Reflux, Hyperlipidemia, Mitral Valve Prolapse (MVP), Osteoarthritis (OA), Pneumonia, Pulmonary Embolus (PE), Respiratory Disorder, Thyroid Disorder Additional Past Medical History / Comment(s): tracheobronchomalacia, chronic interstitial changes and no evidence of any significant pulmonary fibrosis based on previous CAT scan of the chest, mitral valve prolapse, muscle pain/arthritis bilateral hips and neck, nephrolithiasis with surgery,O2- USES 4.5 LITERS AT NIGHT ,2.5 LITERS PRN History of Any Multi-Drug Resistant Organisms: MRSA Date of last positivie culture/infection: 03/07/18 MDRO Source:: LUNG Past Surgical History: Appendectomy, Heart Catheterization, Orthopedic Surgery Additional Past Surgical History / Comment(s): Bronchoscopies/BALs, R lung bx, R chest port, 1993 cardiac cath-normal, R knee arthroscopy, kidney stone removal, D&C. Past Anesthesia/Blood Transfusion Reactions: No Reported Reaction Additional Past Anesthesia/Blood Transfusion Reaction / Comment(s): Pt has received blood in past without reaction. Past Psychological History: Panic Disorder Additional Psychological History / Comment(s): Pt resides with her spouse. She has home oxygen and nebulizer. She is independent. She works in a medical office. Smoking Status: Never smoker Past Alcohol Use History: None Reported Additional Past Alcohol Use History / Comment(s): Patient has been a lifelong nonsmoker, no illicit drug use, no alcohol use. She currently works at [employer] office. Past Drug Use History: None Reported - Past Family History Father Family Medical History: CVA/TIA Additional Family Medical History / Comment(s): Father 09/2017 from a massive CVA. He was 85-year-old. Brother(s) Family Medical History: No Reported History Sister(s) Family Medical History: Neurologic Disorder Daughter(s) Family Medical History: No Reported History Mother Family Medical History: AFIB Additional Family Medical History / Comment(s): Mother has a pacemaker. Medications and Allergies Home Medications Medication Instructions Recorded Confirmed Type Atorvastatin [Lipitor] 10 mg PO HS 04/16/14 10/22/18 History Cyclobenzaprine [Flexeril] 10 mg PO HS 04/16/14 10/22/18 History DULoxetine HCL [Duloxetine HCl] 60 mg PO DAILY 04/16/14 10/22/18 History Denosumab [Prolia] 60 mg SQ Q180D 04/16/14 10/22/18 History Estrogen,Con/M-Progest Acet 1 cap PO Q48H 04/16/14 10/22/18 History [Prempro 0.45-1.5 mg Tablet] Gabapentin 600 mg PO HS 04/16/14 10/22/18 History Levothyroxine Sodium [Synthroid] 50 mcg PO DAILY 04/16/14 10/22/18 History Meloxicam 7.5 mg PO BID 04/16/14 10/22/18 History Montelukast [Singulair] 10 mg PO DAILY 04/16/14 10/22/18 History Fluticasone/Vilanterol [Breo 1 puff INHALATION RT-DAILY 03/08/17 10/22/18 History Ellipta 200-25 Mcg INH] Gabapentin [Neurontin] 300 mg PO QAM 06/08/17 10/22/18 History RABEprazole SODIUM [Aciphex] 20 mg PO HS 11/30/17 10/22/18 History Zolpidem [Ambien] 5 mg PO HS 11/30/17 10/22/18 History Diazepam [Valium] 5 mg PO HS 03/30/18 10/22/18 History HYDROcodone/APAP 5-325MG [Burns 1 tab PO DAILY PRN 03/30/18 10/22/18 History 5-325] Ipratropium-Albuterol Nebulize 3 ml INHALATION RT-QID #120 04/04/18 10/22/18 Rx [Duoneb 0.5 mg-3 mg/3 ml Soln] ampul.neb Fluconazole [Diflucan] 200 mg PO DAILY PRN 08/30/18 10/22/18 History L.acidoph,Paracasei, B.lactis 1 cap PO DAILY 10/01/18 10/22/18 History [Probiotic] Tobramycin Inh 300mg/5ml 300 mg INHALATION RT-Q12H 10/01/18 10/22/18 History Cefepime HCl [Maxipime] 2 gm IV Q12H #28 vial 10/04/18 10/22/18 Rx predniSONE See Taper PO DIRECTED 10/22/18 10/22/18 History Allergies Allergy/AdvReac Type Severity Reaction Status Date / Time erythromycin base Allergy Intermediate Rash/Hives Verified 10/22/18 16:27 metoclopramide HCl Allergy MUSCLE Verified 10/22/18 16:27 [From Reglan] SPASMS Milk Containing Products Allergy Nausea & Verified 10/22/18 17:06 [Dairy] Vomiting prochlorperazine edisylate Allergy MUSCLE Verified 10/22/18 16:27 [From Compazine] SPASMS prochlorperazine maleate Allergy MUSCLE Verified 10/22/18 16:27 [From Compazine] SPASMS Physical Exam Vitals: Vital Signs Temp Pulse Pulse Pulse Resp BP BP 10/23/18 10:43 108 H 10/23/18 10:42 112 H 10/23/18 10:30 112 H 10/23/18 08:25 98.6 F 113 H 18 10/23/18 07:30 98.7 F 112 H 20 100/54 10/23/18 07:00 98.9 F 115 H 18 87/56 10/23/18 06:50 97.6 F 117 H 18 95/50 10/23/18 06:48 98.6 F 116 H 18 101/67 10/23/18 04:15 98.3 F 112 H 16 10/23/18 04:00 112 H 16 10/23/18 00:00 98.2 F 116 H 16 10/22/18 21:25 98.3 F 100 18 109/62 10/22/18 20:20 97.7 F 104 H 18 10/22/18 19:09 97.8 F 108 H 18 96/70 10/22/18 17:45 96 15 99/70 10/22/18 17:00 112 H 109 H 14 80/50 10/22/18 16:23 97.9 F 106 H 24 113/99 BP Pulse Ox 10/23/18 10:43 10/23/18 10:42 10/23/18 10:30 10/23/18 08:25 101/63 99 10/23/18 07:30 98 10/23/18 07:00 97 10/23/18 06:50 100 10/23/18 06:48 96 10/23/18 04:15 90/67 98 10/23/18 04:00 10/23/18 00:00 95/44 96 10/22/18 21:25 99 10/22/18 20:20 90/68 99 10/22/18 19:09 100 10/22/18 17:45 100 10/22/18 17:00 87/53 10/22/18 16:23 100 Intake and Output 10/22/18 10/23/18 10/23/18 22:59 06:59 14:59 Intake Total 1050 0 Balance 1050 0 Intake: Intake, IV Titration 1050 Amount Sodium Chloride 0.9% 1, 800 000 ml @ 100 mls/hr IV . Q10H STA Rx#:[id number] Vancomycin 1,000 mg In 250 Sodium Chloride 0.9% 250 ml @ 125 mls/hr IVPB ONCE STA Rx#:[id number] Oral 0 Blood Product 0 Rc As-1 Unit 0 [id number] Other: Voiding Method Bedpan # Bowel Movements 1 Weight 54.431 kg 63 kg Gen: This is a 52-year-old female. Patient is resting in bed. She ap pears to be somewhat lethargic from her baseline. HEENT: Head is atraumatic, normocephalic. Pupils equal, round. Sclerae is anicteric. NECK: Supple. No JVD. No lymphadenopathy. No thyromegaly. LUNGS: Decreased breath sounds. No wheezes. No intercostal retractions. HEART: Regular rate and rhythm. Systolic murmur. ABDOMEN: Soft. Bowel sounds are present. No masses. Right upper quadrant tend erness, right rib tenderness. Ecchymosis to the right lower ribs and right flank. EXTREMITIES: No pedal edema. No calf tenderness. Clubbing noted. NEUROLOGICAL: Patient is awake, alert and oriented x3. Cranial nerves 2 through 12 are grossly intact. Results CBC & Chem 7: 10/23/18 03:46 10/23/18 03:46 Labs: Abnormal Lab Results - Last 24 Hours (Table) 10/22/18 10/22/18 10/22/18 Range/Units 16:33 16:39 16:39 WBC 20.6 H (3.8-10.6) k/uL RBC 3.36 L (3.80-5.40) m/uL Hgb 9.8 L D (11.4-16.0) gm/dL Hct 31.1 L (34.0-46.0) % RDW 16.3 H (11.5-15.5) % Neutrophils # 14.2 H (1.3-7.7) k/uL Lymphocytes # 5.2 H (1.0-4.8) k/uL PT (9.0-12.0) sec INR (<1.2) APTT (22.0-30.0) sec Sodium (137-145) mmol/L Chloride (98-107) mmol/L Carbon Dioxide (22-30) mmol/L BUN 25 H (7-17) mg/dL Glucose 156 H (74-99) mg/dL POC Glucose (mg/dL) 144 H (75-99) mg/dL Calcium (8.4-10.2) mg/dL Creatine Kinase 22 L (30-135) U/L Total Protein 5.6 L (6.3-8.2) g/dL Albumin 3.3 L (3.5-5.0) g/dL Crossmatch 10/22/18 10/23/18 10/23/18 Range/Units 16:39 03:46 03:46 WBC 16.1 H (3.8-10.6) k/uL RBC 2.06 L (3.80-5.40) m/uL Hgb 6.4 L* D (11.4-16.0) gm/dL Hct 20.3 L (34.0-46.0) % RDW 16.9 H (11.5-15.5) % Neutrophils # 10.7 H (1.3-7.7) k/uL Lymphocytes # (1.0-4.8) k/uL PT 77.3 H (9.0-12.0) sec INR 7.9 H* (<1.2) APTT 85.9 H (22.0-30.0) sec Sodium 135 L (137-145) mmol/L Chloride 112 H (98-107) mmol/L Carbon Dioxide 21 L (22-30) mmol/L BUN 25 H (7-17) mg/dL Glucose 106 H (74-99) mg/dL POC Glucose (mg/dL) (75-99) mg/dL Calcium 6.9 L (8.4-10.2) mg/dL Creatine Kinase (30-135) U/L Total Protein (6.3-8.2) g/dL Albumin (3.5-5.0) g/dL Crossmatch 10/23/18 10/23/18 Range/Units 04:58 05:07 WBC (3.8-10.6) k/uL RBC (3.80-5.40) m/uL Hgb (11.4-16.0) gm/dL Hct (34.0-46.0) % RDW (11.5-15.5) % Neutrophils # (1.3-7.7) k/uL Lymphocytes # (1.0-4.8) k/uL PT 16.1 H (9.0-12.0) sec INR 1.6 H (<1.2) APTT (22.0-30.0) sec Sodium (137-145) mmol/L Chloride (98-107) mmol/L Carbon Dioxide (22-30) mmol/L BUN (7-17) mg/dL Glucose (74-99) mg/dL POC Glucose (mg/dL) (75-99) mg/dL Calcium (8.4-10.2) mg/dL Creatine Kinase (30-135) U/L Total Protein (6.3-8.2) g/dL Albumin (3.5-5.0) g/dL Crossmatch See Detail Thrombosis Risk Factor Assmnt - DVT/VTE Prophylaxis DVT/VTE Prophylaxis: Mechanical Prophylaxis ordered - Choose All That Apply Any of the Below Risk Factors Present?: Yes Each Factor Represents 1 point: Age 41-60 years Other Risk Factors: Yes Each Risk Factor Represents 2 Points: Patient confined to bed Other congenital or acquired thrombophilia - If yes, enter type in comment: No Thrombosis Risk Factor Assessment Total Risk Factor Score: 3 Thrombosis Risk Factor Assessment Level: Moderate Risk Assessment and Plan Plan: 1. Acute syncopal episode possibly related to dehydration or blood loss. Patient is status post 2 L of IV fluid in the ER. 2 units of packed RBCs ordered. Coumadin is currently on hold. 2. Possible acute blood loss anemia with significant drop in hemoglobin with known ecchymosis to the right ribs and flank. Coumadin is on hold. Continue Protonix. GI consult appreciated with plan for EGD. Continue Protonix 40 mg daily. Chest x-ray with rib detail ordered as well as CT of the abdomen and pelvis. 3. Chronic bronchiectasis, bronchial malacia, Pseudomonas pneumonitis. Consult with Dr. Hughes. Continue Symbicort twice daily, DuoNeb treatments 4 times daily, Singulair 10 mg daily, oral prednisone, tobramycin inhalation. 4. Pseudomonas pneumonitis. Patient has been on cefepime outpatient management by Dr. Mayfield. Consult in place. Patient is currently on vancomycin and cefepi me. 5. Hypercoagulopathy secondary to Coumadin use and antibiotics. Patient is status post vitamin K. Coumadin on hold. 6. History of pulmonary embolism and patient has been on chronic Coumadin. Dr. walsh and has cleared patient to discontinue this. 7. Pulmonary fibrosis managed by pulmonary medicine. 4. Hyperlipidemia. Continue atorvastatin. 5. Osteoporosis. 10. Peripheral neuropathy. Continue gabapentin. 11. Hypothyroidism. Continue Synthroid 50 g daily. 12. GI prophylaxis. Protonix. 13. DVT prophylaxis. SCDs and LALITA frairee. Patient will be admitted to the hospital for a minimum of 2 night stay. Discharge plan: Most likely return home Impression and plan of care have been directed as dictated by the signing physician. Robyn Dorantes nurse practitioner acting as scribe for signing physician.
--- NOTE | 2018-10-23 12:21 | P.CONS ---
History of Present Illness - Reason for Consult Consult date: 10/23/18 Pseudomonas pneumonia - History of Present Illness This is a 52-year-old female patient well-known to ID service with a previous medical history significant for bronchial malacia, pulmonary fibrosis, interstitial lung disease, pulmonary embolism on chronic Coumadin, hyperlipidemia, GERD, osteopenia. Patient underwent bronchoscopy and BAL on September 03 under the care of Dr. Hughes underwent a bronchoscopy and BAL and culture positive for Pseudomonas initially treated with Cipro. Pathology report revealed acute inflammatory cells, mucus and foaming debris. Stain negative for pneumocystic carinii organisms. Patient is on tobramycin nebulizer treatments. She had a recent hospitalization October 03 through October 08 which time she was treated for acute hypoxic respiratory failure secondary to acute exacerbation of chronic bronchiectasis, bronchial malacia Pseudomonas pneumonitis and HSV isolated. She presented with an INR 7.8 which was normalized previous to discharge. She also underwent a bronchoscopy with Dr. Hughes. Respiratory status gradually improved and she was discharged home on cefepime for [address] Mayfield. Patient now presents to [facility] emergency center stating that she was in the bathroom was feeling fuzzy and assisted herself down to the rug trying to get her head were then her body thinking that she was going to pass out. Her mom found her in the bathroom kneeling with her head down on the floor and rolled her over on the side but she was unresponsive. Patient's daughter got her oxygen on. Mom states the patient was hardly breathing. There was no noted seizure activity, patient did not bite her tongue. Patient was incontinent of urine. Eventually patient started coming around and her breathing was very shallow and she was brought in to [facility] emergency center for evaluation. The patient has a cough but not bothersome. She denies pedal edema, no fever or chills. Her initial white count was 20.6, hemoglobin 9.8 with repeat this morning at 6.4. Patient's previous hemoglobins running between 11 and 13. INR was 7.9, BUN 25 and creatinine 0.96. Troponins been negative on 3 draws. Stool for occult blood negative. Patient is noted have ecchymosis to the right chest wall and flank area. She does not recall hitting this when she had syncopal episode. She denies any blood in her stools. She is complaining of right upper abdominal discomfort. Regarding her INR, on she had an INR done and was told it was too high and was to be off Coumadin and resume on Monday. Patient has been admitted to the cardiac stepdown unit. She has been seen in consultation by GI with plan for EGD. Coumadin is on hold, continue Protonix 40 mg twice daily. Consults in place for Dr. Hughes as well. Review of Systems All systems: negative Constitutional: Reports anorexia, Reports fatigue, Reports lethargy, Reports malaise, Reports poor appetite, Reports weakness, Denies chills, Denies fever Eyes: denies blurred vision, denies pain Ears, nose, mouth and throat: Reports vertigo, Denies dental pain, Denies dysphagia, Denies headache, Denies mouth pain, Denies sore throat Cardiovascular: Reports dyspnea on exertion, Reports lightheadedness, Reports syncope, Denies chest pain, Denies edema, Denies leg edema, Denies shortness of breath Respiratory: Reports cough, Reports cough with sputum, Reports home oxygen, Denies dyspnea, Denies excessive sputum, Denies hemoptysis Gastrointestinal: Reports abdominal pain, Reports loss of appetite, Denies coffee ground emesis, Denies diarrhea, Denies melena, Denies nausea, Denies vomiting Genitourinary: Denies dysuria, Denies hematuria, Denies urgency, Denies urinary frequency Musculoskeletal: Reports muscle weakness, Denies frequent falls, Denies gait dysfunction, Denies myalgias Integumentary: Reports darkening of skin, Reports unusual bruising, Denies pruritus, Denies rash, Denies wounds Neurological: Denies aphasia, Denies change in speech, Denies head injury, Denies headaches, Denies numbness, Denies seizures, Denies weakness Psychiatric: Denies anxiety, Denies depression Endocrine: Denies fatigue, Denies weight change Past Medical History Past Medical History: Asthma, COPD, Fibromyalgia, GERD/Reflux, Hyperlipidemia, Mitral Valve Prolapse (MVP), Osteoarthritis (OA), Pneumonia, Pulmonary Embolus (PE), Respiratory Disorder, Thyroid Disorder Additional Past Medical History / Comment(s): tracheobronchomalacia, chronic interstitial changes and no evidence of any significant pulmonary fibrosis based on previous CAT scan of the chest, mitral valve prolapse, muscle pain/arthritis bilateral hips and neck, nephrolithiasis with surgery,O2- USES 4.5 LITERS AT NIGHT ,2.5 LITERS PRN History of Any Multi-Drug Resistant Organisms: MRSA Year Discovered:: 03/07/18 MDRO Source:: LUNG Past Surgical History: Appendectomy, Heart Catheterization, Orthopedic Surgery Additional Past Surgical History / Comment(s): Bronchoscopies/BALs, R lung bx, R chest port, 1993 cardiac cath-normal, R knee arthroscopy, kidney stone removal, D&C. Past Anesthesia/Blood Transfusion Reactions: No Reported Reaction Additional Past Anesthesia/Blood Transfusion Reaction / Comm: Pt has received blood in past without reaction. Past Psychological History: Panic Disorder Additional Psychological History / Comment(s): Pt resides with her spouse. She has home oxygen and nebulizer. She is independent. She works in a [email or web address]. Smoking Status: Never smoker Past Alcohol Use History: None Reported Additional Past Alcohol Use History / Comment(s): Patient has been a lifelong nonsmoker, no illicit drug use, no alcohol use. She currently works at [employer] office. Past Drug Use History: None Reported - Past Family History Father Family Medical History: CVA/TIA Additional Family Medical History / Comment(s): Father 09/2017 from a massive CVA. He was 85-year-old. Brother(s) Family Medical History: No Reported History Sister(s) Family Medical History: Neurologic Disorder Daughter(s) Family Medical History: No Reported History Mother Family Medical History: AFIB Additional Family Medical History / Comment(s): Mother has a pacemaker. Medications and Allergies Home Medications Medication Instructions Recorded Confirmed Type Atorvastatin [Lipitor] 10 mg PO HS 04/16/14 10/22/18 History Cyclobenzaprine [Flexeril] 10 mg PO HS 04/16/14 10/22/18 History DULoxetine HCL [Duloxetine HCl] 60 mg PO DAILY 04/16/14 10/22/18 History Denosumab [Prolia] 60 mg SQ Q180D 04/16/14 10/22/18 History Estrogen,Con/M-Progest Acet 1 cap PO Q48H 04/16/14 10/22/18 History [Prempro 0.45-1.5 mg Tablet] Gabapentin 600 mg PO HS 04/16/14 10/22/18 History Levothyroxine Sodium [Synthroid] 50 mcg PO DAILY 04/16/14 10/22/18 History Meloxicam 7.5 mg PO BID 04/16/14 10/22/18 History Montelukast [Singulair] 10 mg PO DAILY 04/16/14 10/22/18 History Fluticasone/Vilanterol [Breo 1 puff INHALATION RT-DAILY 03/08/17 10/22/18 History Ellipta 200-25 Mcg INH] Gabapentin [Neurontin] 300 mg PO QAM 06/08/17 10/22/18 History RABEprazole SODIUM [Aciphex] 20 mg PO HS 11/30/17 10/22/18 History Zolpidem [Ambien] 5 mg PO HS 11/30/17 10/22/18 History Diazepam [Valium] 5 mg PO HS 03/30/18 10/22/18 History HYDROcodone/APAP 5-325MG [[place] 1 tab PO DAILY PRN 03/30/18 10/22/18 History 5-325] Ipratropium-Albuterol Nebulize 3 ml INHALATION RT-QID #120 04/04/18 10/22/18 Rx [Duoneb 0.5 mg-3 mg/3 ml Soln] ampul.neb Fluconazole [Diflucan] 200 mg PO DAILY PRN 08/30/18 10/22/18 History L.acidoph,Paracasei, B.lactis 1 cap PO DAILY 10/01/18 10/22/18 History [Probiotic] Tobramycin Inh 300mg/5ml 300 mg INHALATION RT-Q12H 10/01/18 10/22/18 History Cefepime HCl [Maxipime] 2 gm IV Q12H #28 vial 10/04/18 10/22/18 Rx predniSONE See Taper PO DIRECTED 10/22/18 10/22/18 History Allergies Allergy/AdvReac Type Severity Reaction Status Date / Time erythromycin base Allergy Intermediate Rash/Hives Verified 10/22/18 16:27 metoclopramide HCl Allergy MUSCLE Verified 10/22/18 16:27 [From Reglan] SPASMS Milk Containing Products Allergy Nausea & Verified 10/22/18 17:06 [Dairy] Vomiting prochlorperazine edisylate Allergy MUSCLE Verified 10/22/18 16:27 [From Compazine] SPASMS prochlorperazine maleate Allergy MUSCLE Verified 10/22/18 16:27 [From Compazine] SPASMS Physical Exam Vitals: Vital Signs Temp Pulse Pulse Pulse Resp BP BP 10/23/18 11:00 108 H 10/23/18 10:43 108 H 10/23/18 10:42 112 H 10/23/18 10:38 98.7 F 108 H 18 103/65 10/23/18 10:30 112 H 10/23/18 08:25 98.6 F 108 H 113 H 18 10/23/18 07:30 98.7 F 112 H 20 100/54 10/23/18 07:00 98.9 F 115 H 18 87/56 10/23/18 06:50 97.6 F 117 H 18 95/50 10/23/18 06:48 98.6 F 116 H 18 101/67 10/23/18 04:15 98.3 F 112 H 16 10/23/18 04:00 112 H 16 10/23/18 00:00 98.2 F 116 H 16 10/22/18 21:25 98.3 F 100 18 109/62 10/22/18 20:20 97.7 F 104 H 18 10/22/18 19:09 97.8 F 108 H 18 96/70 10/22/18 17:45 96 15 99/70 10/22/18 17:00 112 H 109 H 14 80/50 10/22/18 16:23 97.9 F 106 H 24 113/99 BP Pulse Ox 10/23/18 11:00 10/23/18 10:43 10/23/18 10:42 10/23/18 10:38 94 L 10/23/18 10:30 10/23/18 08:25 101/63 99 10/23/18 07:30 98 10/23/18 07:00 97 10/23/18 06:50 100 10/23/18 06:48 96 10/23/18 04:15 90/67 98 10/23/18 04:00 10/23/18 00:00 95/44 96 10/22/18 21:25 99 10/22/18 20:20 90/68 99 10/22/18 19:09 100 10/22/18 17:45 100 10/22/18 17:00 87/53 10/22/18 16:23 100 Intake and Output 10/22/18 10/23/18 10/23/18 22:59 06:59 14:59 Intake Total 1050 310 Balance 1050 310 Intake: Intake, IV Titration 1050 Amount Sodium Chloride 0.9% 1, 800 000 ml @ 100 mls/hr IV . Q10H STA Rx#:[id number] Vancomycin 1,000 mg In 250 Sodium Chloride 0.9% 250 ml @ 125 mls/hr IVPB ONCE STA Rx#:[id number] Oral 0 Blood Product 0 310 Rc As-1 Unit 0 310 [id number] Other: Voiding Method Bedpan # Bowel Movements 1 Weight 54.431 kg 63 kg Gen: This is a 52-year-old female. Patient is resting in bed. She appears to be somewhat lethargic from her baseline. HEENT: Head is atraumatic, normocephalic. Pupils equal, round. Sclerae is anicteric. NECK: Supple. No JVD. No lymphadenopathy. No thyromegaly. LUNGS: Decreased breath sounds. No wheezes. No intercostal retractions. HEART: Regular rate and rhythm. Systolic murmur. ABDOMEN: Soft. Bowel sounds are present. No masses. Right upper quadrant tenderness, right rib tenderness. Ecchymosis to the right lower ribs and right flank. EXTREMITIES: No pedal edema. No calf tenderness. Clubbing noted. NEUROLOGICAL: Patient is awake, alert and oriented x3. Cranial nerves 2 through 12 are grossly intact. Results Results: Laboratory Results WBC 16.1 k/uL (3.8-10.6) H 10/23/18 03:46 RBC 2.06 m/uL (3.80-5.40) L 10/23/18 03:46 Hgb 6.4 gm/dL (11.4-16.0) L* D 10/23/18 03:46 Hct 20.3 % (34.0-46.0) L 10/23/18 03:46 MCV 98.7 fL (80.0-100.0) D 10/23/18 03:46 MCH 31.2 pg (25.0-35.0) 10/23/18 03:46 MCHC 31.6 g/dL (31.0-37.0) 10/23/18 03:46 RDW 16.9 % (11.5-15.5) H 10/23/18 03:46 Plt Count 201 k/uL (150-450) 10/23/18 03:46 Neutrophils % 66 % 10/23/18 03:46 Lymphocytes % 27 % 10/23/18 03:46 Monocytes % 4 % 10/23/18 03:46 Eosinophils % 1 % 10/23/18 03:46 Basophils % 0 % 10/23/18 03:46 Neutrophils # 10.7 k/uL (1.3-7.7) H 10/23/18 03:46 Lymphocytes # 4.4 k/uL (1.0-4.8) 10/23/18 03:46 Monocytes # 0.7 k/uL (0-1.0) 10/23/18 03:46 Eosinophils # 0.1 k/uL (0-0.7) 10/23/18 03:46 Basophils # 0.1 k/uL (0-0.2) 10/23/18 03:46 Hypochromasia Moderate 10/23/18 03:46 Anisocytosis Slight 10/23/18 03:46 Macrocytosis Slight 10/23/18 03:46 PT 16.1 sec (9.0-12.0) H 10/23/18 05:07 INR 1.6 (<1.2) H 10/23/18 05:07 APTT 85.9 sec (22.0-30.0) H 10/22/18 16:39 Sodium 135 mmol/L (137-145) L 10/23/18 03:46 Potassium 4.4 mmol/L (3.5-5.1) 10/23/18 03:46 Chloride 112 mmol/L (98-107) H 10/23/18 03:46 Carbon Dioxide 21 mmol/L (22-30) L 10/23/18 03:46 Anion Gap 2 mmol/L 10/23/18 03:46 BUN 25 mg/dL (7-17) H 10/23/18 03:46 Creatinine 0.64 mg/dL (0.52-1.04) 10/23/18 03:46 Est GFR (CKD-EPI)AfAm >90 (>60 ml/min/1.73 sqM) 10/23/18 03:46 Est GFR (CKD-EPI)NonAf >90 (>60 ml/min/1.73 sqM) 10/23/18 03:46 Glucose 106 mg/dL (74-99) H 10/23/18 03:46 POC Glucose (mg/dL) 144 mg/dL (75-99) H 10/22/18 16:33 POC Glu [employer] Control Operator ID 10/22/18 16:33 Calcium 6.9 mg/dL (8.4-10.2) L 10/23/18 03:46 Magnesium 2.0 mg/dL (1.6-2.3) 10/22/18 16:39 Total Bilirubin 0.8 mg/dL (0.2-1.3) 10/22/18 16:39 AST 21 U/L (14-36) 10/22/18 16:39 ALT 32 U/L (9-52) 10/22/18 16:39 Alkaline Phosphatase 77 U/L (38-126) 10/22/18 16:39 Creatine Kinase 22 U/L (30-135) L 10/22/18 16:39 Troponin I <0.012 ng/mL (0.000-0.034) 10/23/18 03:46 Total Protein 5.6 g/dL (6.3-8.2) L 10/22/18 16:39 Albumin 3.3 g/dL (3.5-5.0) L 10/22/18 16:39 Stool Occult Blood Negative (Negative) 10/22/18 19:27 Blood Type O Negative 10/23/18 04:58 Blood Type Confirm O Negative 10/23/18 06:03 Blood Type Recheck CABO Indicated 10/23/18 04:58 Antibody Screen NEGATIVE 10/23/18 04:58 Crossmatch See Detail 10/23/18 04:58 Spec Expiration Date 10/26/2018 3795 10/23/18 04:58 CBC & Chem 7: 10/23/18 03:46 10/23/18 03:46 Labs: Abnormal Lab Results - Last 24 Hours (Table) 10/22/18 10/22/18 10/22/18 Range/Units 16:33 16:39 16:39 WBC 20.6 H (3.8-10.6) k/uL RBC 3.36 L (3.80-5.40) m/uL Hgb 9.8 L D (11.4-16.0) gm/dL Hct 31.1 L (34.0-46.0) % RDW 16.3 H (11.5-15.5) % Neutrophils # 14.2 H (1.3-7.7) k/uL Lymphocytes # 5.2 H (1.0-4.8) k/uL PT (9.0-12.0) sec INR (<1.2) APTT (22.0-30.0) sec Sodium (137-145) mmol/L Chloride (98-107) mmol/L Carbon Dioxide (22-30) mmol/L BUN 25 H (7-17) mg/dL Glucose 156 H (74-99) mg/dL POC Glucose (mg/dL) 144 H (75-99) mg/dL Calcium (8.4-10.2) mg/dL Creatine Kinase 22 L (30-135) U/L Total Protein 5.6 L (6.3-8.2) g/dL Albumin 3.3 L (3.5-5.0) g/dL Crossmatch 10/22/18 10/23/18 10/23/18 Range/Units 16:39 03:46 03:46 WBC 16.1 H (3.8-10.6) k/uL RBC 2.06 L (3.80-5.40) m/uL Hgb 6.4 L* D (11.4-16.0) gm/dL Hct 20.3 L (34.0-46.0) % RDW 16.9 H (11.5-15.5) % Neutrophils # 10.7 H (1.3-7.7) k/uL Lymphocytes # (1.0-4.8) k/uL PT 77.3 H (9.0-12.0) sec INR 7.9 H* (<1.2) APTT 85.9 H (22.0-30.0) sec Sodium 135 L (137-145) mmol/L Chloride 112 H (98-107) mmol/L Carbon Dioxide 21 L (22-30) mmol/L BUN 25 H (7-17) mg/dL Glucose 106 H (74-99) mg/dL POC Glucose (mg/dL) (75-99) mg/dL Calcium 6.9 L (8.4-10.2) mg/dL Creatine Kinase (30-135) U/L Total Protein (6.3-8.2) g/dL Albumin (3.5-5.0) g/dL Crossmatch 10/23/18 10/23/18 Range/Units 04:58 05:07 WBC (3.8-10.6) k/uL RBC (3.80-5.40) m/uL Hgb (11.4-16.0) gm/dL Hct (34.0-46.0) % RDW (11.5-15.5) % Neutrophils # (1.3-7.7) k/uL Lymphocytes # (1.0-4.8) k/uL PT 16.1 H (9.0-12.0) sec INR 1.6 H (<1.2) APTT (22.0-30.0) sec Sodium (137-145) mmol/L Chloride (98-107) mmol/L Carbon Dioxide (22-30) mmol/L BUN (7-17) mg/dL Glucose (74-99) mg/dL POC Glucose (mg/dL) (75-99) mg/dL Calcium (8.4-10.2) mg/dL Creatine Kinase (30-135) U/L Total Protein (6.3-8.2) g/dL Albumin (3.5-5.0) g/dL Crossmatch See Detail Assessment and Plan Plan: This is a 52-year-old female who presents to hospital with acute syncopal episode possibly related to dehydration or blood loss, acute blood loss anemia with significant drop in hemoglobin with hypercoagulopathy secondary to Coumadin use and antibiotics and noted ecchymosis to the right ribs and flank. Chest x-ray with rib detail ordered as well as CT of the chest abdomen and pelvis. She has been treated for Pseudomonas pneumonitis from her last admission and continued on cefepime and vancomycin. Continue supportive care. Further recommendations as patient progresses. The above dictated assessment and findings were discussed with Dr. Mayfield. The impression and plan of care have been directed as dictated. Robyn Dorantes nurse practitioner acting as scribe for Dr. Mayfield.
--- NOTE | 2018-10-23 13:13 | XR ---
EXAMINATION TYPE: XR ribs RT w pa chest xray DATE OF EXAM: 10/23/2018 COMPARISON: 10/22/2018 HISTORY: Right rib pain and bruising after a fall TECHNIQUE: Frontal and oblique views of the right ribs were obtained as well as a frontal chest FINDINGS: There are surgical sutures seen within the lateral right midlung. These are also seen along the right hemidiaphragm. Right-sided Mediport with a single Heubner needle terminates in the distal superior vena cava. Surgical clips overlie the L1 vertebral body. The right lung remains clear with n o pneumothorax visualized. On the frontal view of the chest the left lung also remains clear and the cardiomediastinal silhouette is within normal limits. No displaced acute rib fractures seen. No chron ic healed rib fracture deformity. IMPRESSION: 1. No acute displaced right rib fracture nor healed chronic rib fracture deformity. 2. Postsurgical changes of the right lung. No acute cardiopulmonary process.
[2018-10-23] MEDS ORDERED: VANCOMYCIN 1,000 MG in SODIUM CHLORIDE 0.9% 250 ML IVPB SCH (14:00)
--- NOTE | 2018-10-23 14:15 | P.CON ---
Consult Note - . Consult date: 10/23/18 Assessment/Plan:: This is a 52-year-old female patient well-known to ID service with a previous medical history significant for bronchial malacia, pulmonary fibrosis, interstitial lung disease, pulmonary embolism on chronic Coumadin, hyperlipid emia, GERD, osteopenia. Patient underwent bronchoscopy and BAL on September 03 under the care of Dr. Hughes underwent a bronchoscopy and BAL and culture positive for Pseudomonas initially treated with Cipro. Pathology report revealed acute inflammatory cells, mucus and foaming debris. Stain negative for pneumocystic carinii organisms. Patient is on tobramycin nebulizer treatments. She had a recent hospitalization October 03 through October 08 which time she was treated for acute hypoxic respiratory failure secondary to acute exacerbation of chronic bronchiectasis, bronchial malacia Pseudomonas pneumonitis and HSV isolated. She presented with an INR 7.8 which was normalized previous to discharge. She also underwent a bronchoscopy with Dr. Hughes. Respiratory status gradually improved and she was discharged home on cefepime for [address] Mayfield. Patient now presents to [facility] emergency center stating that she was in the bathroom was feeling fuzzy and assisted herself down to the rug trying to get her head were then her body thinking that she was going to pass out. Her mom found her in the bathroom kneeling with her head down on the floor and rolled her over on the side but she was unresponsive. Patient's daughter got her oxygen on. Mom states the patient was hardly breathing. There was no noted seizure activity, patient did not bite her tongue. Patient was incontinent of urine. Eventually patient started coming around and her breathing was very shallow and she was brought in to [facility] emergency center for evaluation. The patient has a cough but not bothersome. She denies pedal edema, no fever or chills. Her initial white count was 20.6, hemoglobin 9.8 with repeat this morning at 6.4. Patient's previous hemoglobins running between 11 and 13. INR was 7.9, BUN 25 and creatinine 0.96. Troponins been negative on 3 draws. Stool for occult blood negative. Patient is noted have ecchymosis to the right chest wall and flank area. She does not recall hitting this when she had syncopal episode. She denies any blood in her stools. She is complaining of right upper abdominal discomfort. Regarding her INR, on she had an INR done and was told it was too high and was to be off Coumadin and resume on Monday. Patient has been admitted to the cardiac stepdown unit. She has been seen in consultation by GI with plan for EGD. Coumadin is on hold, continue Protonix 40 mg twice daily. Consults in place for Dr. Hughes as well. Please see the consult note as dictated by MITCH Mrs. Robyn Dorantes. 52-year-old female who was recently hospitalized regarding her significant pulmonary disease and was being treated for pneumonia. She initiated therapy with intravenous antibiotic therapy and was completing her course at home with cefepime. Her pulmonary status has slowly improving, she was receiving trying to go to work a little bit at times. However in the day before coming to Hospital started feeling very weak and ill. She became quite dizzy and had a syncopal event. She constantly was brought into the emergency center where there is evidence of a leukocytosis and her INR was found to be 7.9. She's been given a dose of vitamin K with improvement of her INR today. However she did have a significant drop of her hemoglobin is receiving 2 units of packed red cells also at this time. The chest x-rays reviewed without evidence of new pneumonia possibly some atelectasis. Her pulmonary status has worsened and that she was more short of breath, but the significant wheezing and sputum production has not worsened. It is likely her acute anemia, most likely blood loss, is responsible for her increased dyspnea. And likely etiology of her syncopal event. With current treatment she is feeling somewhat better. We will continue the cefepime at least to the day today which should be completion of her prior course of therapy for her Pseudomonas pneumonia. She will receive her inhaled tobramycin today. Continue respiratory treatments. Await input from pulmonary critical care, as to any further steps from her chronic pulmonary disease. leukocytosis is multifactorial including the current acute blood loss anemia and steroid therapy. I agree with the evaluation, assessment and plan as dictated by MITCH Corazon Robyn Dorantes.
[2018-10-23] MEDS: LACTOBACILLUS ACIDOPH & BULGAR 1 EACH PACKET PO SCH (14:17)
[2018-10-23] MEDS: VANCOMYCIN 1,000 MG in SODIUM CHLORIDE 0.9% 250 ML IVPB SCH ×2 (14:19→19:17)
[2018-10-23] MEDS: PANTOPRAZOLE 40 MG/10 ML VIAL IV SCH (14:20)
--- NOTE | 2018-10-23 14:49 | P.CNPUL ---
History of Present Illness Consult date: 10/23/18 Requesting physician: Shawn Najera Reason for consult: other Chief complaint: Weakness, falls, coagulopathy, anemia History of present illness: This is a 52 year-old the patient of Dr. Guadalupe with past medical history of COPD/asthma, previous episodes of pneumonia with MRSA, Haemophilus, stenotr ophomonas, pseudomonal pulmonary infections, tracheobronchomalacia, bronchiectasis with history of recurrent bronchitis. Patient had been on the Zithromax as an antibiotic prophylaxis, she has had multiple bronchoscopies, with the most recent bronchoscopy on 10/03/2018 with bronchial wash cultures for Kerry albicans. Patient's pulmonary function is around 26% of predicted. Patient is on inhaled tobramycin, Breo-Ellipta, DuoNeb, Singulair as her maintenance medications. Patient was last hospitalized in September, recovered, she was treated with IV cefepime, and she completed her outpatient course of IV cefepime. On 10/23/2018 patient is brought into the hospital per EMS with complaints of weakness, episode of syncope, and falls at home. Patient felt extremely dizzy and lightheaded, she thought she was going to pass out, lowered herself to the floor and had a syncopal episode. Nuys any recent fever or chills. Denied any worsening shortness of breath, cough or worsening chest congestion. No nausea, vomiting or diarrhea, no blood in the stools or black tarry stools. Did compl ain of pain into her right lower chest, similar to the one she had several weeks ago apparently related to pneumonia. Lab work showed WBC of 20.6, hemoglobin is 9.8, INR was supratherapeutic at 7.9, a large lites were within normal limits, B1 is 25 creatinine was 0.96, troponins were negative 3, with today's were within normal limits, stool for occult blood was negative. Patient sustained bruises and hematomas to her abdomen, chest area and arms from a fall. Today's labs revealed blood cell count down to 16.1, hemoglobin is 6.4, sodium is 135, potassium is 4.4, chloride is 112, CO2 is 21, BUN was 25, creatinine 0.64, today's INR is 1.6, Coumadin remains on hold. She was given a dose of 5 mg vitamin K in the emergency department, some of the drop in hemoglobin could be hemodilution oh, patient did receive 2 L of IV fluids in the ER, in her maintenance IV was infusing at 100 ML per hour. Patient was hypotensive on presentation with a blood pressure of 80/50 tachycardic with a heart rate at 112 BPM. Chest x-ray was completed and showed COPD, new subsegmental atelectasis in the right midlung compared to last exam, no heart failure. EKG showed sinus tach with no acute ischemic changes. Chest x-ray of the ribs showed no evidence of acute displaced right rib fracture nor healed chronic rib fracture deformity. Postsurgical changes of the right lung, no acute cardiopulmonary process. Review of Systems All systems: negative Constitutional: Reports weakness, Denies chills, Denies fever Eyes: denies blurred vision, denies pain Ears, nose, mouth and throat: Denies headache, Denies sore throat Cardiovascular: Denies chest pain, Denies shortness of breath Respiratory: Reports dyspnea, Reports home oxygen, Denies cough Gastrointestinal: Denies abdominal pain, Denies diarrhea, Denies nausea, Denies vomiting Genitourinary: Denies dysuria, Denies hematuria Musculoskeletal: Denies myalgias Integumentary: Denies pruritus, Denies rash Neurological: Denies numbness, Denies weakness Psychiatric: Denies anxiety, Denies depression Endocrine: Denies fatigue, Denies weight change Past Medical History Past Medical History: Asthma, COPD, Fibromyalgia, GERD/Reflux, Hyperlipidemia, Mitral Valve Prolapse (MVP), Osteoarthritis (OA), Pneumonia, Pulmonary Embolus (PE), Respiratory Disorder, Thyroid Disorder Additional Past Medical History / Comment(s): tracheobronchomalacia, chronic interstitial changes and no evidence of any significant pulmonary fibrosis based on previous CAT scan of the chest, mitral valve prolapse, muscle pain/arthritis bilateral hips and neck, nephrolithiasis with surgery,O2- USES 4.5 LITERS AT NIGHT ,2.5 LITERS PRN History of Any Multi-Drug Resistant Organisms: MRSA Date of last positivie culture/infection: 03/07/18 MDRO Source:: LUNG Past Surgical History: Appendectomy, Heart Catheterization, Orthopedic Surgery Additional Past Surgical History / Comment(s): Bronchoscopies/BALs, R lung bx, R chest port1993 cardiac cath-normal, R knee arthroscopy, kidney stone removal, D&C. Past Anesthesia/Blood Transfusion Reactions: No Reported Reaction Additional Past Anesthesia/Blood Transfusion Reaction / Comment(s): Pt has received blood in past without reaction. Past Psychological History: Panic Disorder Additional Psychological History / Comment(s): Pt resides with her spouse. She has home oxygen and nebulizer. She is independent. She works in a medical office. Smoking Status: Never smoker Past Alcohol Use History: None Reported Additional Past Alcohol Use History / Comment(s): Patient has been a lifelong nonsmoker, no illicit drug use, no alcohol use. She currently works at Dr[employer]'s office. Past Drug Use History: None Reported - Past Family History Father Family Medical History: CVA/TIA Additional Family Medical History / Comment(s): Father 09/2017 from a massive CVA. He was 85-year-old. Brother(s) Family Medical History: No Reported History Sister(s) Family Medical History: Neurologic Disorder Daughter(s) Family Medical History: No Reported History Mother Family Medical History: AFIB Additional Family Medical History / Comment(s): Mother has a pacemaker. Medications and Allergies Home Medications Medication Instructions Recorded Confirmed Type Atorvastatin [Lipitor] 10 mg PO HS 04/16/14 10/22/18 History Cyclobenzaprine [Flexeril] 10 mg PO HS 04/16/14 10/22/18 History DULoxetine HCL [Duloxetine HCl] 60 mg PO DAILY 04/16/14 10/22/18 History Denosumab [Prolia] 60 mg SQ Q180D 04/16/14 10/22/18 History Estrogen,Con/M-Progest Acet 1 cap PO Q48H 04/16/14 10/22/18 History [Prempro 0.45-1.5 mg Tablet] Gabapentin 600 mg PO HS 04/16/14 10/22/18 History Levothyroxine Sodium [Synthroid] 50 mcg PO DAILY 04/16/14 10/22/18 History Meloxicam 7.5 mg PO BID 04/16/14 10/22/18 History Montelukast [Singulair] 10 mg PO DAILY 04/16/14 10/22/18 History Fluticasone/Vilanterol [Breo 1 puff INHALATION RT-DAILY 03/08/17 10/22/18 History Ellipta 200-25 Mcg INH] Gabapentin [Neurontin] 300 mg PO QAM 06/08/17 10/22/18 History RABEprazole SODIUM [Aciphex] 20 mg PO HS 11/30/17 10/22/18 History Zolpidem [Ambien] 5 mg PO HS 11/30/17 10/22/18 History Diazepam [Valium] 5 mg PO HS 03/30/18 10/22/18 History HYDROcodone/APAP 5-325MG [[place] 1 tab PO DAILY PRN 03/30/18 10/22/18 History 5-325] Ipratropium-Albuterol Nebulize 3 ml INHALATION RT-QID #120 04/04/18 10/22/18 Rx [Duoneb 0.5 mg-3 mg/3 ml Soln] ampul.neb Fluconazole [Diflucan] 200 mg PO DAILY PRN 08/30/18 10/22/18 History L.acidoph,Paracasei, B.lactis 1 cap PO DAILY 10/01/18 10/22/18 History [Probiotic] Tobramycin Inh 300mg/5ml 300 mg INHALATION RT-Q12H 10/01/18 10/22/18 History Cefepime HCl [Maxipime] 2 gm IV Q12H #28 vial 10/04/18 10/22/18 Rx predniSONE See Taper PO DIRECTED 10/22/18 10/22/18 History Allergies Allergy/AdvReac Type Severity Reaction Status Date / Time erythromycin base Allergy Intermediate Rash/Hives Verified 10/22/18 16:27 metoclopramide HCl Allergy MUSCLE Verified 10/22/18 16:27 [From Reglan] SPASMS Milk Containing Products Allergy Nausea & Verified 10/22/18 17:06 [Dairy] Vomiting prochlorperazine edisylate Allergy MUSCLE Verified 10/22/18 16:27 [From Compazine] SPASMS prochlorperazine maleate Allergy MUSCLE Verified 10/22/18 16:27 [From Compazine] SPASMS Physical Exam Vitals: Vital Signs Temp Pulse Pulse Pulse Resp BP BP 10/23/18 11:00 108 H 10/23/18 10:43 108 H 10/23/18 10:42 112 H 10/23/18 10:38 98.7 F 108 H 18 103/65 10/23/18 10:30 112 H 10/23/18 08:25 98.6 F 108 H 113 H 18 10/23/18 07:30 98.7 F 112 H 20 100/54 10/23/18 07:00 98.9 F 115 H 18 87/56 10/23/18 06:50 97.6 F 117 H 18 95/50 10/23/18 06:48 98.6 F 116 H 18 101/67 10/23/18 04:15 98.3 F 112 H 16 10/23/18 04:00 112 H 16 10/23/18 00:00 98.2 F 116 H 16 10/22/18 21:25 98.3 F 100 18 109/62 10/22/18 20:20 97.7 F 104 H 18 10/22/18 19:09 97.8 F 108 H 18 96/70 10/22/18 17:45 96 15 99/70 10/22/18 17:00 112 H 109 H 14 80/50 10/22/18 16:23 97.9 F 106 H 24 113/99 BP Pulse Ox 10/23/18 11:00 10/23/18 10:43 10/23/18 10:42 10/23/18 10:38 94 L 10/23/18 10:30 10/23/18 08:25 101/63 99 10/23/18 07:30 98 10/23/18 07:00 97 10/23/18 06:50 100 10/23/18 06:48 96 10/23/18 04:15 90/67 98 10/23/18 04:00 10/23/18 00:00 95/44 96 10/22/18 21:25 99 10/22/18 20:20 90/68 99 10/22/18 19:09 100 10/22/18 17:45 100 10/22/18 17:00 87/53 10/22/18 16:23 100 Intake and Output 10/22/18 10/23/18 10/23/18 22:59 06:59 14:59 Intake Total 1050 310 Output Total 450 Balance 1050 -140 Intake: Intake, IV Titration 1050 Amount Sodium Chloride 0.9% 1, 800 000 ml @ 100 mls/hr IV . Q10H [facility] Rx#:[id number] Vancomycin 1,000 mg In 250 Sodium Chloride 0.9% 250 ml @ 125 mls/hr IVPB ONCE [facility] Rx#:[id number] Oral 0 Blood Product 0 310 Rc As-1 Unit 0 310 [id number] Output: Urine 450 Other: Voiding Method Bedpan # Bowel Movements 1 Weight 54.431 kg 63 kg GENERAL EXAM: Alert, pleasant, 52-year-old white female, comfortable in no apparent distress. HEAD: Normocephalic/atraumatic. EYES: Normal reaction of pupils, equal size. Conjunctiva pink, sclera white. NOSE: Clear with pink turbinates. THROAT: No erythema or exudates. NECK: No masses, no JVD, no thyroid enlargement, no adenopathy. CHEST: No chest wall deformity. Symmetrical expansion. Patient has bruising on the chest, and abdominal area LUNGS: Diminished breath sounds, no wheezes, no rales, no rhonchi CVS: Regular rate and rhythm, normal S1 and S2, no gallops, no murmurs, no rubs ABDOMEN: Soft, nontender. No hepatosplenomegaly, normal bowel sounds, no guarding or rigidity. EXTREMITIES: No clubbing, no edema, no cyanosis, 2+ pulses and upper and lower extremities. MUSCULOSKELETAL: Muscle strength and tone normal. SPINE: No scoliosis or deformity SKIN: No rashes CENTRAL NERVOUS SYSTEM: Alert and oriented -3. No focal deficits, tone is normal in all 4 extremities. PSYCHIATRIC: Alert and oriented -3. Appropriate affect. Intact judgment and insight. Results - Laboratory Findings CBC and BMP: 10/23/18 03:46 10/23/18 03:46 PT/INR, D-dimer PT 16.1 sec (9.0-12.0) H 10/23/18 05:07 INR 1.6 (<1.2) H 10/23/18 05:07 Abnormal lab findings: Abnormal Labs 10/22/18 10/22/18 10/22/18 16:33 16:39 16:39 WBC 20.6 H RBC 3.36 L Hgb 9.8 L D Hct 31.1 L RDW 16.3 H Neutrophils # 14.2 H Lymphocytes # 5.2 H PT INR APTT Sodium Chloride Carbon Dioxide BUN 25 H Glucose 156 H POC Glucose (mg/dL) 144 H Calcium Creatine Kinase 22 L Total Protein 5.6 L Albumin 3.3 L Crossmatch 10/22/18 10/23/18 10/23/18 16:39 03:46 03:46 WBC 16.1 H RBC 2.06 L Hgb 6.4 L* D Hct 20.3 L RDW 16.9 H Neutrophils # 10.7 H Lymphocytes # PT 77.3 H INR 7.9 H* APTT 85.9 H Sodium 135 L Chloride 112 H Carbon Dioxide 21 L BUN 25 H Glucose 106 H POC Glucose (mg/dL) Calcium 6.9 L Creatine Kinase Total Protein Albumin Crossmatch 10/23/18 10/23/18 04:58 05:07 WBC RBC Hgb Hct RDW Neutrophils # Lymphocytes # PT 16.1 H INR 1.6 H APTT Sodium Chloride Carbon Dioxide BUN Glucose POC Glucose (mg/dL) Calcium Creatine Kinase Total Protein Albumin Crossmatch See Detail - Diagnostic Findings Chest x-ray: report reviewed Assessment and Plan Plan: Assessment: #1. Weakness, syncopal episode at home, falls likely related to anemia #2. Acute blood loss anemia, hypotension, with no clear history of GI bleeding, occult stool for blood was negative, no hematemesis, no melena, no hematochezia. Patient's hemoglobin on 10/16/2018 was 11.5, patient's hemoglobin today is down to 6.4 #3. Bruises in chest wall and abdominal hematomas sustained in the fall, we'll obtain CT chest, abdomen and pelvis #4. Coagulopathy, with INR of 7.9 on presentation #5. History of COPD/asthma, advanced, with underlying FEV1 of 26% of predicted #6. Tracheobronchomalacia, and bronchiectasis, with recurrent pulmonary infections, patient has had the bronchoscopies with bronchial wash cultures positive for pseudomonas aeruginosa, MRSA, and Haemophilus, and HSV-1 infection #7. Previous history of pulmonary embolism, on chronic anticoagulation with Coumadin, and patient has had problems with PT INR being supratherapeutic #8. Postop thyroidism #9. GERD/reflux #10. Chronic hypoxic respiratory failure continue to COPD, and bronchiectasis Plan: We'll obtain CT of the chest, abdomen and pelvis to rule out any large hematomas in the chest and abdomen. Patient has had no nausea, vomiting or diarrhea, patient has been fluid resuscitated, her blood pressure has improved, hemody namically patient is stable, GI service has been consulted for her anemia, and they're planning EGD today, is being transfused with 2 units of packed red blood cells. We'll keep the patient nothing by mouth. From pulmonary perspective patient is doing reasonably well, no significant cough or chest congestion, no worsening dyspnea, patient didn't complete her outpatient course of cefepime, vital signs are stable currently, no fever or chills. I performed a history & physical examination of the patient and discussed their management with my nurse practitioner, Bianka Saucedo. I reviewed the nurse practitioner's note and agree with the documented findings and plan of care. Lung sounds are positive for diminished breath sounds at the bases, no rhonchi, no wheezes. The findings and the impression was discussed with the patient. I attest to the documentation by the nurse practitioner. Time with Patient: Greater than 30
--- NOTE | 2018-10-23 15:12 | CT ---
EXAMINATION TYPE: CT ChestAbdPelvis w con DATE OF EXAM: 10/23/2018 COMPARISON: CT chest 04/28/2017 HISTORY: 52-year-old female Right sided pain post fall. Chest and abdominal hematoma. TECHNIQUE: Contiguous axial scanning of the chest, abdomen, and pelvis performed with IV Contrast, pa tient injected with 100 mL of Isovue 300. Delayed images through the kidneys were obtained. Coronal/s agittal reconstructions performed. CT DLP: 646.6 mGycm Automated exposure control for dose reduction was used. FINDINGS: CHEST: Heart normal size without pericardial effusion. Aorta normal caliber with conventional branching anatomy. Right anterior chest wall injection port with catheter tip at the upper SVC level. Some stable stranding or scarring inferior lingula and medial basilar right middle lobe. There may be some subtle underlying tree-in-bud opacities in the upper midlungs and also at the peripheral left b ase. No kaylyn consolidation. No pneumothorax. There is a small right pleural effusion. Post surgical changes at and just below the GE junction. There is extensive hematoma involving the right chest wall musculature including the intercostals, se rratus anterior, and latissimus dorsi. Swelling and thickening extends to the posterior right paraspi nal musculature. Thickening secondary to diffuse intramuscular hematoma measures up to 2.8 cm and the more focal hemat vicki spans up to 10.0 cm wide and 12.3 cm craniocaudal. No displaced rib fractures are identified. ABDOMEN: No focal liver lesion or biliary ductal dilatation. Portal venous system is patent. Gallbladder, adrenal glands, kidneys, spleen, and pancreas appear within normal limits. Fairly large stool burden. The cecum itself is distended up to 6.4 cm wide with stool. No pericolonic inflammatory change. No mesenteric or retroperitoneal lymphadenopathy. PELVIS: Bladder urine distended. Uterus and ovaries are visualized. No abnormal fluid collection in the pelvi s or pelvic lymphadenopathy seen. BONES: Again, no acute fracture is identified. IMPRESSION: 1. FOCAL RIGHT-SIDED CHEST WALL HEMATOMA SPANNING UP TO 12.3 CM CRANIOCAUDAL AND 2.8 CM THICK WITH AD DITIONAL DIFFUSE INTRAMUSCULAR HEMORRHAGE ALONG THE RIGHT CHEST WALL INVOLVING THE INTERCOSTALS, SERR ATUS ANTERIOR, AND LATISSIMUS DORSI, AND SOME OF THE UPPER ABDOMINAL OBLIQUES, EXTENDING BACK MEDIALL Y NEAR THE RIGHT POSTERIOR PARASPINAL MUSCULATURE. CORRELATE FOR ANTICOAGULATION STATUS. 2. NO DISPLACED FRACTURES ARE IDENTIFIED. 3. SMALL RIGHT PLEURAL EFFUSION. NO PNEUMOTHORAX. 4. CHRONIC-APPEARING POSTINFLAMMATORY CHANGES INFERIOR LINGULA AND MEDIAL BASILAR RIGHT MIDDLE LOBE A ND SUGGESTION OF SOME SUBTLE SCATTERED TREE-IN-BUD OPACITIES. CORRELATE TO EXCLUDE INDOLENT FAHAD INFEC TION.
[2018-10-23 19:52] LABS: Anisocytosis Slight; Basophils % (A) 0 %; Eosinophils % (A) 0 %; HCT 32.2 % (34.0-46.0); Lymphocytes # (A) 1.1 k/uL (1.0-4.8); Lymphocytes % (A) 7 %; MCH 30.4 pg (25.0-35.0); MCHC 32.7 g/dL (31.0-37.0); Mean Platelet Volume 7.3; Monocytes # (A) 0.6 k/uL (0-1.0); Monocytes % (A) 4 %; Neutrophils # (A) 13.5 k/uL (1.3-7.7); Neutrophils % (A) 88 %; Platelet Count 163 k/uL (150-450); RBC 3.46 m/uL (3.80-5.40); RDW 16.1 % (11.5-15.5); WBC 15.4 k/uL (3.8-10.6)
[2018-10-23 19:56] LABS: HGB 10.5 gm/dL (11.4-16.0); MCV 92.9 fL (80.0-100.0)
[2018-10-23] MEDS: CYCLOBENZAPRINE 10 MG TAB PO SCH (21:42)
[2018-10-23] MEDS: DIAZEPAM 5 MG TAB PO SCH (21:42)
[2018-10-23] MEDS: ATORVASTATIN 10 MG TAB PO SCH (21:43)
[2018-10-24] MEDS: VANCOMYCIN 1,000 MG in SODIUM CHLORIDE 0.9% 250 ML IVPB SCH ×2 (00:59→08:41)
[2018-10-24] MEDS: LEVOTHYROXINE 50 MCG TAB PO SCH (06:34)
[2018-10-24 07:21] LABS: Prothrombin Time 10.6 sec (9.0-12.0)
[2018-10-24 07:22] LABS: Anisocytosis Slight; Basophils # (A) 0.1 k/uL (0-0.2); Basophils % (A) 0 %; Eosinophils # (A) 0.1 k/uL (0-0.7); Eosinophils % (A) 1 %; HCT 26.7 % (34.0-46.0); Lymphocytes # (A) 2.3 k/uL (1.0-4.8); Lymphocytes % (A) 20 %; MCH 31.2 pg (25.0-35.0); MCHC 33.7 g/dL (31.0-37.0); MCV 92.8 fL (80.0-100.0); Monocytes # (A) 0.7 k/uL (0-1.0); Monocytes % (A) 6 %; Neutrophils # (A) 8.1 k/uL (1.3-7.7); Neutrophils % (A) 70 %; Platelet Count 171 k/uL (150-450); RBC 2.88 m/uL (3.80-5.40); RDW 16.6 % (11.5-15.5); WBC 11.4 k/uL (3.8-10.6)
[2018-10-24] MEDS: PANTOPRAZOLE 40 MG/10 ML VIAL IV SCH (08:43)
[2018-10-24] MEDS: LACTOBACILLUS ACIDOPH & BULGAR 1 EACH PACKET PO SCH (08:43)
[2018-10-24] MEDS: MONTELUKAST 10 MG TAB PO SCH (08:44)
[2018-10-24] MEDS: predniSONE 10 MG TAB PO SCH (08:44)
[2018-10-24] MEDS: DULoxetine HCL 60 MG CAPSULE.DR PO SCH (08:44)
[2018-10-24] MEDS: GABAPENTIN 300 MG CAP PO SCH ×2 (08:44→21:49)
[2018-10-24] MEDS: SYMBICORT 160-4.5 MCG INHALER INHALATION SCH ×2 (08:59→21:47)
[2018-10-24] MEDS: IPRATROPIUM-ALBUTEROL 3 ML NEB INHALATION SCH ×4 (09:00→21:47)
[2018-10-24] MEDS: TOBRAMYCIN 300MG/7.5ML SYRG *FOR INHALATION INHALATION SCH ×2 (09:25→21:48)
--- NOTE | 2018-10-24 13:17 | P.PN ---
Subjective Progress Note Date: 10/24/18 Principal diagnosis: Anemia No active GI bleeding. He will benign. CT chest abdomen and pelvis yesterday reported a small hematoma intramuscular hemorrhage. Objective - Vital Signs Vital signs: Vital Signs Temp 98.2 F 10/24/18 12:00 Pulse 104 H 10/24/18 12:27 Resp 20 10/24/18 12:00 BP 124/69 10/24/18 12:00 Pulse Ox 99 10/24/18 12:00 Intake & Output 10/23/18 10/24/18 10/24/18 18:59 06:59 18:59 Intake Total 620 260 240 Output Total 1500 400 Balance -880 -140 240 Weight 61.5 kg Intake: IV 10 Invasive Line 2 10 Intake, IV Titration 250 Amount Vancomycin 1,000 mg In 250 Sodium Chloride 0.9% 250 ml @ 125 mls/hr IVPB Q16H [facility] Rx#:[id number] Oral 0 240 Blood Product 620 Rc As-1 Unit 310 [id number] Rc As-1 Unit 310 [id number] Output: Urine 1500 400 Other: Voiding Method Bedpan Toilet # Voids 1 - Exam General appearance: The patient is alert, oriented, in no acute distress. HET: Head is normocephalic and atraumatic. Pupils are equal and reactive. Oropharynx is clear without lesions. Neck: Supple without lymphadenopathy. Trachea midline. Heart: S1 S2. Regular rate and rhythm. Lungs: No crackles or wheezes are heard. Diminished bilaterally. Ecchymosis to right chest wall worsened from yesterday's exam. Abdomen: Soft, nontender, nondistended with bowel sounds. No peritoneal signs. No palpable organomegaly or masses. Extremities: Normal skin color and turgor. No cyanosis, rash, ulceration, clubbing, or edema. Radial and pedal pulses are 2/4 bilaterally. Neurological: No focal deficits. Strength and sensation are grossly intact. - Labs CBC & Chem 7: 10/24/18 05:47 10/23/18 03:46 Labs: Abnormal Lab Results - Last 24 Hours (Table) 10/23/18 10/23/18 10/24/18 Range/Units 04:58 18:53 05:47 WBC 15.4 H 11.4 H (3.8-10.6) k/uL RBC 3.46 L 2.88 L (3.80-5.40) m/uL Hgb 10.5 L D 9.0 L D (11.4-16.0) gm/dL Hct 32.2 L 26.7 L (34.0-46.0) % RDW 16.1 H 16.6 H (11.5-15.5) % Neutrophils # 13.5 H 8.1 H (1.3-7.7) k/uL Crossmatch See Detail Assessment and Plan (1) Symptomatic anemia Narrative/Plan: 52-year-old female recently hospitalized for pneumonia maintained on antibiotics and steroids presents with syncopal-type symptoms right-sided abdominal discomfort weakness fatigue without overt GI bleeding supratherapeutic INR with new onset of normocytic hypochromic anemia suggestive of acute blood loss. CT chest abdomen and pelvis reported chest wall hematoma to muscular hemorrhage. Current Visit: No Status: Acute Code(s): D64.9 - ANEMIA, UNSPECIFIED SNOMED Code(s): 812654837 (2) Acute blood loss anemia Current Visit: Yes Status: Acute Code(s): D62 - ACUTE POSTHEMORRHAGIC ANEMIA SNOMED Code(s): 917346631 (3) Supratherapeutic INR Current Visit: Yes Status: Acute Code(s): R79.1 - ABNORMAL COAGULATION PROFILE SNOMED Code(s): 149300919 (4) Warfarin-induced coagulopathy Current Visit: Yes Status: Acute Code(s): D68.32 - HEMORRHAGIC DISORD D/T EXTRINSIC CIRCULATING ANTICOAGULANTS; T45.515A - ADVERSE EFFECT OF ANTICOAGULAN TS, INITIAL ENCOUNTER SNOMED Code(s): 59558349 (5) H/O deep venous thrombosis Current Visit: Yes Status: Acute Code(s): Z86.718 - PERSONAL HISTORY OF OTHER VENOUS THROMBOSIS AND EMBOLISM SNOMED Code(s): 584360709 (6) History of pulmonary embolus (PE) Current Visit: Yes Status: Acute Code(s): Z86.711 - PERSONAL HISTORY OF PULMONARY EMBOLISM SNOMED Code(s): 610844660 Plan: 1. Chest wall ecchymosis more apparent today continue with supportive measures. CBC monitoring. No evidence of active GI bleeding. Inpatient endoscopic exams not planned at this time. We'll follow as needed. Assessment and plan a care discussed with Dr. Tom
--- NOTE | 2018-10-24 15:00 | P.PN ---
Subjective Progress Note Date: 10/24/18 This is a 52-year-old female patient of Dr. Guadalupe with a previous medical history significant for bronchial malacia, pulmonary fibrosis, interstitial lung disease, pulmonary embolism on chronic Coumadin, hyperlipidemia, GERD, osteopenia. Patient underwent bronchoscopy and BAL on September 03 under the care of Dr. Hughes underwent a bronchoscopy and BAL and culture positive for Pseudomonas initially treated with Cipro. Pathology report revealed acute inflammatory cells, mucus and foaming debris. Stain negative for pneumocystic carinii organisms. Patient is on tobramycin nebulizer treatments. She had a recent hospitalization October 03 through October 08 which time she was treated for acute hypoxic respiratory failure secondary to acute exacerbation of chronic bronchiectasis, bronchial malacia Pseudomonas pneumonitis and HSV isolated. She presented with an INR 7.8 which was normalized previous to discharge. She also underwent a bronchoscopy with Dr. Hughes. Respiratory status gradually improved and she was discharged home on cefepime for [address] Mayfield. Patient now presents to [facility] emergency center stating that she was in the bathroom was feeling fuzzy and assisted herself down to the rug trying to get her head were then her body thinking that she was going to pass out. Her mom found her in the bathroom kneeling with her head down on the floor and rolled her over on the side but she was unresponsive. Patient's daughter got her oxygen on. Mom states the patient was hardly breathing. There was no noted seizure activity, patient did not bite her tongue. Patient was incontinent of urine. Eventually patient started coming around and her breathing was very shallow and she was brought in to [facility] emergency center for evaluation. The patient has a cough but not bothersome. She denies pedal edema, no fever or chills. Her initial white count was 20.6, hemoglobin 9.8 with repeat this morning at 6.4. Patient's previous hemoglobins running between 11 and 13. INR was 7.9, BUN 25 and creatinine 0.96. Troponins been negative on 3 draws. Stool for occult blood negative. Patient is noted have ecchymosis to the right chest wall and flank area. She does not recall hitting this when she had syncopal episode. She denies any blood in her stools. She is complaining of right upper abdominal discomfort. Regarding her INR, on she had an INR done and was told it was too high and was to be off Coumadin and resume on Monday. Patient has been admitted to the cardiac stepdown unit. She has been seen in consultation by GI with plan for EGD. Coumadin is on hold, continue Protonix 40 mg twice daily. Consults in place for Dr. Hughes and Dr. Mayfield. 10/24: CAT scan of the chest abdomen and pelvis with contrast reveals focal right-sided chest wall hematoma spanning up to 12.3 cm craniocaudal and 2.8 cm thick with additional diffuse intramuscular hemorrhage along the right chest wa ll involving the intercostals, serratus anterior, latissimus dorsi, upper abdominal obliques extending into the back medially near the right posterior paraspinal musculature. No displaced fractures seen. Small right pleural effusion. No pneumothorax. Patient has no evidence of GI bleeding and no endoscopy procedures will be performed by GI and they are now following on an as-needed basis. Patient has been seen by Dr. Mayfield and completed course of antibiotics for Pseudomonas pneumonia. The patient is feeling somewhat improved from yesterday. She will be transferred to the [facility] floor today. Respiratory status remained stable. Patient has been afebrile, heart rate in the 90s to low 100s, blood pressure 08/30/1970, pulse ox 99% on 4 L nasal cannula. WBC 11.4, hemoglobin 9, platelet count 171. INR is 1. Review of Systems Constitutional: Reports anorexia, Reports fatigue, Reports lethargy, Reports malaise, Reports poor appetite, Reports weakness, Denies chills, Denies fever Eyes: denies blurred vision, denies pain Ears, nose, mouth and throat: Reports vertigo, Denies dental pain, Denies dysphagia, Denies headache, Denies mouth pain, Denies sore throat Cardiovascular: Reports dyspnea on exertion, Reports lightheadedness, Reports syncope, Denies chest pain, Denies edema, Denies leg edema, Denies shortness of breath Respiratory: Reports cough, Reports cough with sputum, Reports home oxygen, Denies dyspnea, Denies excessive sputum, Denies hemoptysis Gastrointestinal: Reports abdominal pain, Reports loss of appetite, Denies coffee ground emesis, Denies diarrhea, Denies melena, Denies nausea, Denies vomi ting Genitourinary: Denies dysuria, Denies hematuria, Denies urgency, Denies urinary frequency Musculoskeletal: Reports muscle weakness, Denies frequent falls, Denies gait dysfunction, Denies myalgias Integumentary: Reports darkening of skin, Reports unusual bruising, Denies pruritus, Denies rash, Denies wounds Neurological: Denies aphasia, Denies change in speech, Denies head injury, Denies headaches, Denies numbness, Denies seizures, Denies weakness Psychiatric: Denies anxiety, Denies depression Endocrine: Denies fatigue, Denies weight change Objective - Vital Signs Vital signs: Vital Signs Temp 98.2 F 10/24/18 08:00 Pulse 100 10/24/18 09:51 Resp 18 10/24/18 08:00 BP 109/57 10/24/18 08:00 Pulse Ox 98 10/24/18 08:00 Intake & Output 10/23/18 10/24/18 10/24/18 18:59 06:59 18:59 Intake Total 620 260 240 Output Total 1500 400 Balance -880 -140 240 Weight 61.5 kg Intake: IV 10 Invasive Line 2 10 Intake, IV Titration 250 Amount Vancomycin 1,000 mg In 250 Sodium Chloride 0.9% 250 ml @ 125 mls/hr IVPB Q16H [facility] Rx#:[id number] Oral 0 240 Blood Product 620 Rc As-1 Unit 310 [id number] Rc As-1 Unit 310 [id number] Output: Urine 1500 400 Other: Voiding Method Bedpan Toilet # Voids 1 - Exam Gen: This is a 52-year-old female. Patient is resting in bed. She appears more comfortable today. HEENT: Head is atraumatic, normocephalic. Pupils equal, round. Sclerae is anicteric. NECK: Supple. No JVD. No lymphadenopathy. No thyromegaly. LUNGS: Decreased breath sounds. No wheezes. No intercostal retractions. HEART: Regular rate and rhythm. Systolic murmur. ABDOMEN: Soft. Bowel sounds are present. No masses. Right upper quadrant tenderness, right rib tenderness. Ecchymosis increasing and darker to the right lower ribs and right flank. EXTREMITIES: No pedal edema. No calf tenderness. Clubbing noted. NEUROLOGICAL: Patient is awake, alert and oriented x3. Cranial nerves 2 through 12 are grossly intact. - Labs CBC & Chem 7: 10/24/18 05:47 10/23/18 03:46 Labs: Abnormal Lab Results - Last 24 Hours (Table) 10/23/18 10/23/18 10/24/18 Range/Units 04:58 18:53 05:47 WBC 15.4 H 11.4 H (3.8-10.6) k/uL RBC 3.46 L 2.88 L (3.80-5.40) m/uL Hgb 10.5 L D 9.0 L D (11.4-16.0) gm/dL Hct 32.2 L 26.7 L (34.0-46.0) % RDW 16.1 H 16.6 H (11.5-15.5) % Neutrophils # 13.5 H 8.1 H (1.3-7.7) k/uL Crossmatch See Detail Assessment and Plan Plan: 1. Acute syncopal episode possibly related to acute blood loss. 2 units of packed RBCs transfused. Coumadin discontinued. 2. Acute blood loss anemia from right chest wall hematoma and chest musculature and abdominal hemorrhage. Coumadin discontinued. GI consult appreciated with no plan for endoscopy and will sign off. Continue to monitor CBC daily. 3. Chronic bronchiectasis, bronchial malacia, Pseudomonas pneumonitis. Consult with Dr. Hughes. Continue Symbicort twice daily, DuoNeb treatments 4 times daily, Singulair 10 mg daily, oral prednisone, tobramycin inhalation. 4. Pseudomonas pneumonitis. Patient completed course of cefepime. Consult with Dr. Mayfield appreciated. 5. Hypercoagulopathy secondary to Coumadin use and antibiotics. Patient is status post vitamin K. Coumadin discontinued. 6. History of pulmonary embolism and patient has been on chronic Coumadin. Dr. Hughes has cleared patient to discontinue this. 7. Pulmonary fibrosis managed by pulmonary medicine. 4. Hyperlipidemia. Continue atorvastatin. 5. Osteoporosis. 10. Peripheral neuropathy. Continue gabapentin. 11. Hypothyroidism. Continue Synthroid 50 g daily. 12. GI prophylaxis. Protonix. 13. DVT prophylaxis. SCDs and LALITA hose. Discharge plan: Most likely return home Impression and plan of care have been directed as dictated by the signing physician. Robyn Dorantes nurse practitioner acting as scribe for signing physician.
[2018-10-24] MEDS ORDERED: VANCOMYCIN TROUGH DUE 1 EACH MISC MISCELLANE ONE (16:00)
--- NOTE | 2018-10-24 16:12 | ECHOF ---
Referral Reason:LVF MEASUREMENTS -------- HEIGHT: 160.0 cm WEIGHT: 61.2 kg BP: 109/57 RVIDd: 2.7 cm (< 3.3) IVSd: 0.8 cm (0.6 - 1.1) LVIDd: 3.5 cm (3.9 - 5.3) LVPWd: 0.9 cm (0.6 - 1.1) IVSs: 1.1 cm LVIDs: 2.3 cm LVPWs: 1.2 cm LA Diam: 2.6 cm (2.7 - 3.8) LAESV Index (A-L): 14.71 ml/m Ao Diam: 2.3 cm (2.0 - 3.7) AV Cusp: 1.7 cm (1.5 - 2.6) MV EXCURSION: 13.275 mm (> 18.000) MV EF SLOPE: 86 mm/s (70 - 150) EPSS: 0.3 cm MV E Ralf: 0.92 m/s MV DecT: 259 ms MV A Ralf: 1.03 m/s MV E/A Ratio: 0.89 RAP: 5.00 mmHg RVSP: 26.20 mmHg FINDINGS -------- Sinus rhythm. This was a technically adequate study. The left ventricular size is normal. Left ventricular wall thickness is normal. Overall left vent ricular systolic function is low-normal with, an EF between 50 - 55 %. The right ventricle is normal in size. Normal LA size by volume 22+/-6 ml/m2. The right atrium is normal in size. The aortic valve is trileaflet and appears structurally normal. The mitral valve leaflets are mildly thickened. There is trace to mild mitral regurgitation. Mild tricuspid regurgitation present. Right ventricular systolic pressure is normal at < 35 mmHg. The pulmonic valve was not well visualized. The aortic root size is normal. Normal inferior vena cava with normal inspiratory collapse consistent with estimated right atrial pre ssure of 5 mmHg. There is no pericardial effusion. CONCLUSIONS -------- 1. Sinus rhythm. 2. This was a technically adequate study. 3. The left ventricular size is normal. 4. Left ventricular wall thickness is normal. 5. Overall left ventricular systolic function is low-normal with, an EF between 50 - 55 %. 6. The right ventricle is normal in size. 7. Normal LA size by volume 22+/-6 ml/m2. 8. The right atrium is normal in size. 9. The aortic valve is trileaflet and appears structurally normal. 10. The mitral valve leaflets are mildly thickened. 11. There is trace to mild mitral regurgitation. 12. Mild tricuspid regurgitation present. 13. Right ventricular systolic pressure is normal at < 35 mmHg. 14. The pulmonic valve was not well visualized. 15. The aortic root size is normal. 16. Normal inferior vena cava with normal inspiratory collapse consistent with estimated right atrial pressure of 5 mmHg. 17. There is no pericardial effusion. [employer]ATE [employer]KER: Vanesa Denny RDCS
--- NOTE | 2018-10-24 16:14 | P.PN ---
Subjective Progress Note Date: 10/24/18 Principal diagnosis: Weakness, falls, coagulopathy, anemia This is a 52 year-old the patient of Dr. Guadalupe with past medical history of COPD/asthma, previous episodes of pneumonia with MRSA, Haemophilus, stenotrophomonas, pseudomonal pulmonary infections, tracheobronchomalacia, b ronchiectasis with history of recurrent bronchitis. Patient had been on the Zithromax as an antibiotic prophylaxis, she has had multiple bronchoscopies, with the most recent bronchoscopy on 10/03/2018 with bronchial wash cultures for Kerry albicans. Patient's pulmonary function is around 26% of predicted. Patient is on inhaled tobramycin, Breo-Ellipta, DuoNeb, Singulair as her maintenance medications. Patient was last hospitalized in September, recovered, she was treated with IV cefepime, and she completed her outpatient course of IV cefepime. On 10/23/2018 patient is brought into the hospital per EMS with complaints of weakness, episode of syncope, and falls at home. Patient felt extremely dizzy and lightheaded, she thought she was going to pass out, lowered herself to the floor and had a syncopal episode. Nuys any recent fever or chills. Denied any worsening shortness of breath, cough or worsening chest congestion. No nausea, vomiting or diarrhea, no blood in the stools or black tarry stools. Did complain of pain into her right lower chest, similar to the one she had several weeks ago apparently related to pneumonia. Lab work showed WBC of 20.6, hemoglobin is 9.8, INR was supratherapeutic at 7.9, a large lites were within normal limits, B1 is 25 creatinine was 0.96, troponins were negative 3, with today's were within normal limits, stool for occult blood was negative. Patient sustained bruises and hematomas to her abdomen, chest area and arms from a fall. Today's labs revealed blood cell count down to 16.1, hemoglobin is 6.4, sodium is 135, potassium is 4.4, chloride is 112, CO2 is 21, BUN was 25, creatinine 0.64, today's INR is 1.6, Coumadin remains on hold. She was given a dose of 5 mg vitamin K in the emergency department, some of the drop in hemoglobin could be hemodilution oh, patient did receive 2 L of IV fluids in the ER, in her maintenance IV was infusing at 100 ML per hour. Patient was hypotensive on presentation with a blood pressure of 80/50 tachycardic with a heart rate at 112 BPM. Chest x-ray was completed and showed COPD, new subsegmental atelectasis in the right midlung compared to last exam, no heart failure. EKG showed sinus tach with no acute ischemic changes. Chest x-ray of the ribs showed no evidence of acute displaced right rib fracture nor healed chronic rib fracture deformity. Postsurgical changes of the right lung, no acute cardiopulmonary process. On 10/24/2017 patient seen in follow-up on the selective care unit, lung sounds are clear on today's exam, patient had a CT chest, abdomen and pelvis which ab wed massive hematomas involving the right chest wall musculature including the intercostals, there is anterior and latissimus dorsi. The right-sided chest wall hematoma spanning up to 12.3 cm craniocaudal and at 2.8 cm thick with additional diffuse intramuscular hemorrhage along the right chest wall. Hematoma involves some of the upper abdominal obliques, extending back immediately near the right posterior paraspinal musculature. No displaced fractures were identified, small right pleural effusion, no pneumothorax. Today's labs have been reviewed, and showed of hemoglobin of 9.0, WBC of 11.4, INR is down to 1.0, and in remains on hold, she was seen by infectious disease service, she continues on inhaled tobramycin only at this point, she did complete her IV course of cefepime. From pulmonary perspective she denies any acute complaints, no shortness of breath, no chest congestion, vital signs are stable. EGD was canceled yesterday, related to the fact that the source of anemia was identified, and was related to patient's extensive hematomas and coagulopathy. Objective - Vital Signs Vital signs: Vital Signs Temp 98.2 F 10/24/18 12:00 Pulse 104 H 10/24/18 12:27 Resp 20 10/24/18 12:00 BP 114/53 10/24/18 15:36 Pulse Ox 99 10/24/18 12:00 Intake & Output 10/23/18 10/24/18 10/24/18 18:59 06:59 18:59 Intake Total 620 260 480 Output Total 1500 400 Balance -880 -140 480 Weight 61.5 kg Intake: IV 10 Invasive Line 2 10 Intake, IV Titration 250 Amount Vancomycin 1,000 mg In 250 Sodium Chloride 0.9% 250 ml @ 125 mls/hr IVPB Q16H [facility] Rx#:[id number] Oral 0 480 Blood Product 620 Rc As-1 Unit 310 [id number] Rc As-1 Unit 310 [id number] Output: Urine 1500 400 Other: Voiding Method Bedpan Toilet # Voids 1 - Exam GENERAL EXAM: Alert, pleasant, 52-year-old white female, comfortable in no apparent distress. HEAD: Normocephalic/atraumatic. EYES: Normal reaction of pupils, equal size. Conjunctiva pink, sclera white. NOSE: Clear with pink turbinates. THROAT: No erythema or exudates. NECK: No masses, no JVD, no thyroid enlargement, no adenopathy. CHEST: No chest wall deformity. Symmetrical expansion. Patient has extensive bruising on the chest, and abdominal area LUNGS: Diminished breath sounds, no wheezes, no rales, no rhonchi CVS: Regular rate and rhythm, normal S1 and S2, no gallops, no murmurs, no rubs ABDOMEN: Soft, nontender. No hepatosplenomegaly, normal bowel sounds, no guarding or rigidity. EXTREMITIES: No clubbing, no edema, no cyanosis, 2+ pulses and upper and lower extremities. MUSCULOSKELETAL: Muscle strength and tone normal. SPINE: No scoliosis or deformity SKIN: No rashes CENTRAL NERVOUS SYSTEM: Alert and oriented -3. No focal deficits, tone is normal in all 4 extremities. PSYCHIATRIC: Alert and oriented -3. Appropriate affect. Intact judgment and insight. - Labs CBC & Chem 7: 10/24/18 05:47 10/23/18 03:46 Labs: Abnormal Lab Results - Last 24 Hours (Table) 10/23/18 10/23/18 10/24/18 Range/Units 04:58 18:53 05:47 WBC 15.4 H 11.4 H (3.8-10.6) k/uL RBC 3.46 L 2.88 L (3.80-5.40) m/uL Hgb 10.5 L D 9.0 L D (11.4-16.0) gm/dL Hct 32.2 L 26.7 L (34.0-46.0) % RDW 16.1 H 16.6 H (11.5-15.5) % Neutrophils # 13.5 H 8.1 H (1.3-7.7) k/uL Crossmatch See Detail Assessment and Plan Plan: Assessment: #1. Weakness, syncopal episode at home, falls likely related to anemia #2. Acute blood loss anemia, hypotension, with no clear history of GI bleeding, occult stool for blood was negative, no hematemesis, no melena, no hematochezia. Patient's hemoglobin on 10/16/2018 was 11.5, patient's hemoglobin today is down to 6.4 #3. Bruises in chest wall and abdominal hematomas sustained in the fall, we'll obtain CT chest, abdomen and pelvis. CT chest showed extensive right-sided chest wall hematoma, with additional intramuscular hemorrhage along the right chest wall involving the intercostals, and some and upper abdominal obliques. #4. Coagulopathy, with INR of 7.9 on presentation #5. History of COPD/asthma, advanced, with underlying FEV1 of 26% of predicted #6. Tracheobronchomalacia, and bronchiectasis, with recurrent pulmonary infections, patient has had the bronchoscopies with bronchial wash cultures positive for pseudomonas aeruginosa, MRSA, and Haemophilus, and HSV-1 infection #7. Previous history of pulmonary embolism, on chronic anticoagulation with Coumadin, and patient has had problems with PT INR being supratherapeutic #8. Postop thyroidism #9. GERD/reflux #10. Chronic hypoxic respiratory failure continue to COPD, and bronchiectasis Plan: Continue current medical treatment, the source of anemia was related to patient's extensive hematoma sustained in the fall and coagulopathy. EGD was canceled, and clinically the patient is doing well, no shortness of breath, no chest pain, today's hemoglobin is 9.0. Coumadin remains on hold, INR is down to 1.0. Continue nebulized bronchodilators, pulmonary status is stable. I performed a history & physical examination of the patient and discussed their management with my nurse practitioner, Bianka Saucedo. I reviewed the nurse practitioner's note and agree with the documented findings and plan of care. Lung sounds are positive for diminished breath sounds at the bases, no rhonchi, no wheezes. The findings and the impression was discussed with the patient. I attest to the documentation by the nurse practitioner. Time with Patient: Less than 30
[2018-10-24] MEDS: CYCLOBENZAPRINE 10 MG TAB PO SCH (21:49)
[2018-10-24] MEDS: DIAZEPAM 5 MG TAB PO SCH (21:49)
[2018-10-24] MEDS: ZOLPIDEM 5 MG TAB PO SCH (21:49)
[2018-10-24] MEDS: ATORVASTATIN 10 MG TAB PO SCH (21:50)
--- NOTE | 2018-10-24 23:21 | P.PN ---
Subjective Progress Note Date: 10/24/18 This is a 52-year-old female patient well-known to ID service with a previous medical history significant for bronchial malacia, pulmonary fibrosis, interstitial lung disease, pulmonary embolism on chronic Coumadin, hyperlipidemia, GERD, osteopenia. Patient underwent bronchoscopy and BAL on Aug under the care of Dr. Hughes underwent a bronchoscopy and BAL and culture positive for Pseudomonas initially treated with Cipro. Pathology report revealed acute inflammatory cells, mucus and foaming debris. Stain negative for pneumocystic carinii organisms. Patient is on tobramycin nebulizer treatments. She had a recent hospitalization October 03 through October 08 which time she was treated for acute hypoxic respiratory failure secondary to acute exacerbation of chronic bronchiectasis, bronchial malacia Pseudomonas pneumonitis and HSV isolated. She presented with an INR 7.8 which was normalized previous to discharge. She also underwent a bronchoscopy with Dr. Hughes. Respiratory status gradually improved and she was discharged home on cefepime for [address] Mayfield. Patient now presents to [facility] emergency center stating that she was in the bathroom was feeling fuzzy and assisted herself down to the rug trying to get her head were then her body thinking that she was going to pass out. Her mom found her in the bathroom kneeling with her head down on the floor and rolled her over on the side but she was unresponsive. Patient's d aughter got her oxygen on. Mom states the patient was hardly breathing. There was no noted seizure activity, patient did not bite her tongue. Patient was incontinent of urine. Eventually patient started coming around and her breathing was very shallow and she was brought in to [facility] emergency center for evaluation. The patient has a cough but not bothersome. She denies pedal edema, no fever or chills. Her initial white count was 20.6, hemoglobin 9.8 with repeat this morning at 6.4. Patient's previous hemoglobins running between 11 and 13. INR was 7.9, BUN 25 and creatinine 0.96. Troponins been negative on 3 draws. Stool for occult blood negative. Patient is noted have ecchymosis to the right chest wall and flank area. She does not recall hitting this when she had syncopal episode. She denies any blood in her stools. She is complaining of right upper abdominal discomfort. Regarding her INR, on she had an INR done and was told it was too high and was to be off Coumadin and resume on Monday. Patient has been admitted to the cardiac stepdown unit. She has been seen in consultation by GI with plan for EGD. Coumadin is on hold, continue Protonix 40 mg twice daily. Consults in place for Dr. Hughes as well. 10/24/2018 patient is feeling somewhat better today. There's been no evidence of further evidence of bleeding. But the ecchymosis from her fall on the right anterior chest right lateral chest and flank is markedly increased but is not very tender. She is less short of breath and has no other new acute complaints. She will moving to the general medical floor soon. Objective - Vital Signs Vital signs: Vital Signs Temp 98.1 F 10/24/18 20:31 Pulse 101 H 10/24/18 21:58 Resp 16 10/24/18 21:58 BP 149/74 10/24/18 20:31 Pulse Ox 100 10/24/18 20:31 Intake & Output 10/24/18 10/24/18 10/25/18 06:59 18:59 06:59 Intake Total 260 480 Output Total 400 Balance -140 480 Weight 61.5 kg Intake: IV 10 Invasive Line 2 10 Intake, IV Titration 250 Amount Vancomycin 1,000 mg In 250 Sodium Chloride 0.9% 250 ml @ 125 mls/hr IVPB Q16H [facility] Rx#:[id number] Oral 480 Output: Urine 400 Other: Voiding Method Toilet # Voids 1 - Exam Gen: This is a 52-year-old female. Patient is resting in bed. She appears to be fatigued. HEENT: Head is atraumatic, normocephalic. Pupils equal, round. Sclerae is anicteric. NECK: Supple. No JVD. No lymphadenopathy. No thyromegaly. LUNGS: Symmetrical bilateral air entry, scattered wheezes in lung nowak few basilar crackles no distinct dullness or egophony HEART: Regular rate and rhythm. Systolic murmur. ABDOMEN: Soft. Bowel sounds are present. No masses. Right upper quadrant tenderness, right rib tenderness. Ecchymosis to the right lower ribs and right flank. EXTREMITIES: No pedal edema. No calf tenderness. Clubbing noted. NEUROLOGICAL: Patient is awake, alert and oriented x3 - Labs CBC & Chem 7: 10/24/18 05:47 10/23/18 03:46 Labs: Abnormal Lab Results - Last 24 Hours (Table) 10/24/18 Range/Units 05:47 WBC 11.4 H (3.8-10.6) k/uL RBC 2.88 L (3.80-5.40) m/uL Hgb 9.0 L D (11.4-16.0) gm/dL Hct 26.7 L (34.0-46.0) % RDW 16.6 H (11.5-15.5) % Neutrophils # 8.1 H (1.3-7.7) k/uL Laboratory Results WBC 11.4 k/uL (3.8-10.6) H 10/24/18 05:47 RBC 2.88 m/uL (3.80-5.40) L 10/24/18 05:47 Hgb 9.0 gm/dL (11.4-16.0) L D 10/24/18 05:47 Hct 26.7 % (34.0-46.0) L 10/24/18 05:47 MCV 92.8 fL (80.0-100.0) 10/24/18 05:47 MCH 31.2 pg (25.0-35.0) 10/24/18 05:47 MCHC 33.7 g/dL (31.0-37.0) 10/24/18 05:47 RDW 16.6 % (11.5-15.5) H 10/24/18 05:47 Plt Count 171 k/uL (150-450) 10/24/18 05:47 Neutrophils % 70 % 10/24/18 05:47 Lymphocytes % 20 % 10/24/18 05:47 Monocytes % 6 % 10/24/18 05:47 Eosinophils % 1 % 10/24/18 05:47 Basophils % 0 % 10/24/18 05:47 Neutrophils # 8.1 k/uL (1.3-7.7) H 10/24/18 05:47 Lymphocytes # 2.3 k/uL (1.0-4.8) 10/24/18 05:47 Monocytes # 0.7 k/uL (0-1.0) 10/24/18 05:47 Eosinophils # 0.1 k/uL (0-0.7) 10/24/18 05:47 Basophils # 0.1 k/uL (0-0.2) 10/24/18 05:47 Hypochromasia Moderate 10/23/18 03:46 Anisocytosis Slight 10/24/18 05:47 Macrocytosis Slight 10/23/18 03:46 PT 10.6 sec (9.0-12.0) 10/24/18 05:47 INR 1.0 (<1.2) 10/24/18 05:47 APTT 85.9 sec (22.0-30.0) H 10/22/18 16:39 Sodium 135 mmol/L (137-145) L 10/23/18 03:46 Potassium 4.4 mmol/L (3.5-5.1) 10/23/18 03:46 Chloride 112 mmol/L (98-107) H 10/23/18 03:46 Carbon Dioxide 21 mmol/L (22-30) L 10/23/18 03:46 Anion Gap 2 mmol/L 10/23/18 03:46 BUN 25 mg/dL (7-17) H 10/23/18 03:46 Creatinine 0.64 mg/dL (0.52-1.04) 10/23/18 03:46 Est GFR (CKD-EPI)AfAm >90 (>60 ml/min/1.73 sqM) 10/23/18 03:46 Est GFR (CKD-EPI)NonAf >90 (>60 ml/min/1.73 sqM) 10/23/18 03:46 Glucose 106 mg/dL (74-99) H 10/23/18 03:46 POC Glucose (mg/dL) 144 mg/dL (75-99) H 10/22/18 16:33 POC Glu Senior Graphic Designer ID 10/22/18 16:33 Calcium 6.9 mg/dL (8.4-10.2) L 10/23/18 03:46 Magnesium 2.0 mg/dL (1.6-2.3) 10/22/18 16:39 Total Bilirubin 0.8 mg/dL (0.2-1.3) 10/22/18 16:39 AST 21 U/L (14-36) 10/22/18 16:39 ALT 32 U/L (9-52) 10/22/18 16:39 Alkaline Phosphatase 77 U/L (38-126) 10/22/18 16:39 Creatine Kinase 22 U/L (30-135) L 10/22/18 16:39 Troponin I <0.012 ng/mL (0.000-0.034) 10/23/18 03:46 Total Protein 5.6 g/dL (6.3-8.2) L 10/22/18 16:39 Albumin 3.3 g/dL (3.5-5.0) L 10/22/18 16:39 Stool Occult Blood Negative (Negative) 10/22/18 19:27 Blood Type O Negative 10/23/18 04:58 Blood Type Confirm O Negative 10/23/18 06:03 Blood Type Recheck CABO Indicated 10/23/18 04:58 Antibody Screen NEGATIVE 10/23/18 04:58 Crossmatch See Detail 10/23/18 04:58 Spec Expiration Date 10/26/2018235710/23/18 04:58 Assessment and Plan (1) Acute blood loss anemia Current Visit: Yes Status: Acute Code(s): D62 - ACUTE POSTHEMORRHAGIC ANEMIA SNOMED Code(s): 679118487 (2) Coagulopathy Current Visit: Yes Status: Acute Code(s): D68.9 - COAGULATION DEFECT, UNSPECIFIED SNOMED Code(s): 57751663 (3) History of Pseudomonas pneumonia Narrative/Plan: 52-year-old female who was recently hospitalized regarding her significant pulmonary disease and was being treated for pneumonia. She initiated therapy with intravenous antibiotic therapy and was completing her course at home with cefepime. Her pulmonary status has slowly improving, she was receiving trying to go to work a little bit at times. However in the day before coming to Hospital started feeling very weak and ill. She became quite dizzy and had a syncopal event. She constantly was brought into the emergency center where there is evidence of a leukocytosis and her INR was found to be 7.9. She's been given a dose of vitamin K with improvement of her INR today. However she did have a significant drop of her hemoglobin is receiving 2 units of packed red cells also at this time. The chest x-rays reviewed without evidence of new pneumonia possibly some atelectasis. Her pulmonary status has worsened and that she was more short of breath, but the significant wheezing and sputum production has not worsened. It is likely her acute anemia, most likely blood loss, is responsible for her increased dyspnea. And likely etiology of her syncopal event. With current treatment she is feeling somewhat better. We will continue the cefepime at least to the day today which should be completion of her prior course of therapy for her Pseudomonas pneumonia. She will receive her inhaled tobramycin today. Continue respiratory treatments. Await input from pulmonary critical care, as to any further steps from her chronic pulmonary disease. leukocytosis is multifactorial including the current acute blood loss anemia and steroid therapy. 10/24/2018 patient is feeling somewhat better today. She's having no other new acute complaints. Her profound fatigue and shortness of breath and improved status post her blood transfusion. Looking forward to going home in the next short period of time. She completes her course of intravenous antibiotic therapy today for Pseudomonas pneumonia. As noted on the exam there is evidence of the extensive ecchymosis over her anterior chest wall lateral chest and flank area. Likely the extensive coagulopathy resulted into the bleeding into the tissue and the precipitous drop of hemoglobin. She's had no evidence of hematemesis melena or hematochezia or hematuria. There is evidence of other site of blood loss anemia at this time. When she is stable to be discharged home and will not be receiving further IV antibiotic therapy at that time. She continue with her inhaled tobramycin as per pulmonology in the outpatient setting. Current Visit: Yes Status: Acute Code(s): Z87.01 - PERSONAL HISTORY OF PNEUMONIA (RECURRENT) SNOMED Code(s): 283354561
[2018-10-25] MEDS: LEVOTHYROXINE 50 MCG TAB PO SCH (05:29)
[2018-10-25 08:23] LABS: Anisocytosis Slight; Basophils % (A) 0 %; Eosinophils # (A) 0.1 k/uL (0-0.7); Eosinophils % (A) 1 %; HCT 25.2 % (34.0-46.0); HGB 8.2 gm/dL (11.4-16.0); Lymphocytes # (A) 2.3 k/uL (1.0-4.8); Lymphocytes % (A) 27 %; MCH 29.9 pg (25.0-35.0); MCHC 32.4 g/dL (31.0-37.0); MCV 92.1 fL (80.0-100.0); Mean Platelet Volume 7.8; Monocytes # (A) 0.6 k/uL (0-1.0); Monocytes % (A) 7 %; Neutrophils # (A) 5.3 k/uL (1.3-7.7); Neutrophils % (A) 64 %; Platelet Count 210 k/uL (150-450); RBC 2.74 m/uL (3.80-5.40); RDW 16.6 % (11.5-15.5); WBC 8.4 k/uL (3.8-10.6)
[2018-10-25] MEDS: MONTELUKAST 10 MG TAB PO SCH (08:31)
[2018-10-25] MEDS: GABAPENTIN 300 MG CAP PO SCH ×2 (08:31→20:12)
[2018-10-25] MEDS: DULoxetine HCL 60 MG CAPSULE.DR PO SCH (08:31)
[2018-10-25] MEDS: PANTOPRAZOLE 40 MG TABLET PO SCH (08:31)
[2018-10-25] MEDS: LACTOBACILLUS ACIDOPH & BULGAR 1 EACH PACKET PO SCH (08:32)
[2018-10-25] MEDS: IPRATROPIUM-ALBUTEROL 3 ML NEB INHALATION SCH ×4 (09:32→22:07)
[2018-10-25] MEDS: SYMBICORT 160-4.5 MCG INHALER INHALATION SCH ×2 (09:32→22:07)
[2018-10-25] MEDS: TOBRAMYCIN 300MG/7.5ML SYRG *FOR INHALATION INHALATION SCH ×2 (09:38→22:06)
[2018-10-25] MEDS: HYDROcodone/APAP 5-325MG 1 EACH TAB PO PRN (14:08)
--- NOTE | 2018-10-25 14:16 | P.PN ---
Subjective Progress Note Date: 10/25/18 This is a 52-year-old female patient of Dr. Guadalupe with a previous medical history significant for bronchial malacia, pulmonary fibrosis, interstitial lung disease, pulmonary embolism on chronic Coumadin, hyperlipidemia, GERD, osteopenia. Patient underwent bronchoscopy and BAL on September 03 under the care of Dr. Hughes underwent a bronchoscopy and BAL and culture positive for Pseudomonas initially treated with Cipro. Pathology report revealed acute inflammatory cells, mucus and foaming debris. Stain negative for pneumocystic carinii organisms. Patient is on tobramycin nebulizer treatments. She had a recent hospitalization October 03 through October 08 which time she was treated for acute hypoxic respiratory failure secondary to acute exacerbation of chronic bronchiectasis, bronchial malacia Pseudomonas pneumonitis and HSV isolated. She presented with an INR 7.8 which was normalized previous to discharge. She also underwent a bronchoscopy with Dr. Hughes. Respiratory status gradually improved and she was discharged home on cefepime for [address] Mayfield. Patient now presents to [facility] emergency center stating that she was in the bathroom was feeling fuzzy and assisted herself down to the rug trying to get her head were then her body thinking that she was going to pass out. Her mom found her in the bathroom kneeling with her head down on the floor and rolled her over on the side but she was unresponsive. Patient's daughter got her oxygen on. Mom states the patient was hardly breathing. There was no noted seizure activity, patient did not bite her tongue. Patient was incontinent of urine. Eventually patient started coming around and her breathing was very shallow and she was brought in to [facility] emergency center for evaluation. The patient has a cough but not bothersome. She denies pedal edema, no fever or chills. Her initial white count was 20.6, hemoglobin 9.8 with repeat this morning at 6.4. Patient's previous hemoglobins running between 11 and 13. INR was 7.9, BUN 25 and creatinine 0.96. Troponins been negative on 3 draws. Stool for occult blood negative. Patient is noted have ecchymosis to the right chest wall and flank area. She does not recall hitting this when she had syncopal episode. She denies any blood in her stools. She is complaining of right upper abdominal discomfort. Regarding her INR, on she had an INR done and was told it was too high and was to be off Coumadin and resume on Monday. Patient has been admitted to the cardiac stepdown unit. She has been seen in consultation by GI with plan for EGD. Coumadin is on hold, continue Protonix 40 mg twice daily. Consults in place for Dr. Hughes and Dr. Mayfield. 10/24: CAT scan of the chest abdomen and pelvis with contrast reveals focal right-sided chest wall hematoma spanning up to 12.3 cm craniocaudal and 2.8 cm thick with additional diffuse intramuscular hemorrhage along the right chest wa ll involving the intercostals, serratus anterior, latissimus dorsi, upper abdominal obliques extending into the back medially near the right posterior paraspinal musculature. No displaced fractures seen. Small right pleural effusion. No pneumothorax. Patient has no evidence of GI bleeding and no endoscopy procedures will be performed by GI and they are now following on an as-needed basis. Patient has been seen by Dr. Mayfield and completed course of antibiotics for Pseudomonas pneumonia. The patient is feeling somewhat improved from yesterday. She will be transferred to the [facility] floor today. Respiratory status remained stable. Patient has been afebrile, heart rate in the 90s to low 100s, blood pressure 08/30/1970, pulse ox 99% on 4 L nasal cannula. WBC 11.4, hemoglobin 9, platelet count 171. INR is 1. 10/25: Repeat hemoglobin is 8.2. Patient has decreased from the evening on October 23 of 10.5 yesterday morning at 9.0. Ecchymosis to the right chest wall and flank area is now dark purple. No other signs of bleeding. Dr. Mayfield states patient has completed her course of antibiotics. Regarding Coumadin, patient is to hold this until follow-up with Dr. Anupama Burden and in the office and it will be considered at that time to resume or place on other anticoagulation. Plan is to recheck lab work in the morning and probable discharge tomorrow. Review of Systems Constitutional: Reports anorexia, Reports fatigue, denies lethargy, denies malaise, Reports poor appetite, Reports weakness, Denies chills, Denies fever Eyes: denies blurred vision, denies pain Ears, nose, mouth and throat: Reports vertigo, Denies dental pain, Denies dysphagia, Denies headache, Denies mouth pain, Denies sore throat Cardiovascular: Reports dyspnea on exertion, denies lightheadedness, Reports syncope, Denies chest pain, Denies edema, Denies leg edema, Denies shortness of breath Respiratory: Reports cough, Reports cough with sputum, Reports home oxygen, Denies dyspnea, Denies excessive sputum, Denies hemoptysis Gastrointestinal: Reports abdominal pain, Reports loss of appetite, Denies coffee ground emesis, Denies diarrhea, Denies melena, Denies nausea, Denies vomiting Genitourinary: Denies dysuria, Denies hematuria, Denies urgency, Denies urinary frequency Musculoskeletal: Reports muscle weakness, Denies frequent falls, Denies gait dysfunction, Denies myalgias Integumentary: Reports darkening of skin, Reports unusual bruising, Denies pruritus, Denies rash, Denies wounds Neurological: Denies aphasia, Denies change in speech, Denies head injury, Denies headaches, Denies numbness, Denies seizures, Denies weakness Psychiatric: Denies anxiety, Denies depression Endocrine: Denies fatigue, Denies weight change Objective - Vital Signs Vital signs: Vital Signs Temp 98.3 F 10/25/18 07:00 Pulse 97 10/25/18 09:45 Resp 15 10/25/18 07:00 BP 121/70 10/25/18 07:00 Pulse Ox 99 10/25/18 07:00 Intake & Output 10/24/18 10/25/18 10/25/18 18:59 06:59 18:59 Intake Total 480 200 Balance 480 200 Intake: Oral 480 200 Other: # Voids 1 - Exam Gen: This is a 52-year-old female. Patient is resting in bed. She appears more comfortable today. HEENT: Head is atraumatic, normocephalic. Pupils equal, round. Sclerae is anicteric. NECK: Supple. No JVD. No lymphadenopathy. No thyromegaly. LUNGS: Decreased breath sounds. No wheezes. No intercostal retractions. HEART: Regular rate and rhythm. Systolic murmur. ABDOMEN: Soft. Bowel sounds are present. No masses. Right upper quadrant tenderness, right rib tenderness. Ecchymosis/dark purple to the right lower ribs and right flank. EXTREMITIES: No pedal edema. No calf tenderness. Clubbing noted. NEUROLOGICAL: Patient is awake, alert and oriented x3. Cranial nerves 2 through 12 are grossly intact. - Labs CBC & Chem 7: 10/25/18 07:09 10/23/18 03:46 Labs: Abnormal Lab Results - Last 24 Hours (Table) 10/25/18 Range/Units 07:09 RBC 2.74 L (3.80-5.40) m/uL Hgb 8.2 L (11.4-16.0) gm/dL Hct 25.2 L (34.0-46.0) % RDW 16.6 H (11.5-15.5) % Assessment and Plan Plan: 1. Acute syncopal episode possibly related to acute blood loss. 2 units of packed RBCs transfused. Coumadin discontinued. 2. Acute blood loss anemia from right chest wall hematoma and chest musculature and abdominal hemorrhage. Coumadin discontinued. GI consult appreciated with no plan for endoscopy and will sign off. Recheck CBC in the morning. 3. Chronic bronchiectasis, bronchial malacia, Pseudomonas pneumonitis. Consult with Dr. Hughes. Continue Symbicort twice daily, DuoNeb treatments 4 times daily, Singulair 10 mg daily, oral prednisone, tobramycin inhalation. 4. Pseudomonas pneumonitis. Patient completed course of cefepime. Consult with Dr. Mayfield appreciated. 5. Hypercoagulopathy secondary to Coumadin use and antibiotics. Patient is status post vitamin K. Coumadin discontinued. 6. History of pulmonary embolism and patient has been on chronic Coumadin. Dr. Hughes has cleared patient to discontinue this. 7. Pulmonary fibrosis managed by pulmonary medicine. 4. Hyperlipidemia. Continue atorvastatin. 5. Osteoporosis. 10. Peripheral neuropathy. Continue gabapentin. 11. Hypothyroidism. Continue Synthroid 50 g daily. 12. GI prophylaxis. Protonix. 13. DVT prophylaxis. SCDs and LALITA hose. Discharge plan: Most likely return home tomorrow. Impression and plan of care have been directed as dictated by the signing physician. Robyn Dorantes nurse practitioner acting as scribe for signing physician.
--- NOTE | 2018-10-25 16:56 | P.PN ---
Subjective Progress Note Date: 10/25/18 Principal diagnosis: Weakness, falls, coagulopathy, anemia secondary to subcutaneous bleeding in the back This is a 52 year-old the patient of Dr. Guadalupe with past medical history of COPD/asthma, previous episodes of pneumonia with MRSA, Haemophilus, stenotrophomonas, pseudomonal pulmonary infections, tracheobronchomalacia, bronchiectasis with history of recurrent bronchitis. Patient had been on the Zithromax as an antibiotic prophylaxis, she has had multiple bronchoscopies, with the most recent bronchoscopy on 10/03/2018 with bronchial wash cultures for Kerry albicans. Patient's pulmonary function is around 26% of predicted. Patient is on inhaled tobramycin, Breo-Ellipta, DuoNeb, Singulair as her maintenance medications. Patient was last hospitalized in September, recovered, she was treated with IV cefepime, and she completed her outpatient course of IV cefepime. On 10/23/2018 patient is brought into the hospital per EMS with complaints of weakness, episode of syncope, and falls at home. Patient felt extremely dizzy and lightheaded, she thought she was going to pass out, lowered herself to the floor and had a syncopal episode. [place] any recent fever or chills. Denied any worsening shortness of breath, cough or worsening chest congestion. No nausea, vomiting or diarrhea, no blood in the stools or black tarry stools. Did complain of pain into her right lower chest, similar to the one she had several weeks ago apparently related to pneumonia. Lab work showed WBC of 20.6, hemoglobin is 9.8, INR was supratherapeutic at 7.9, a large lites were within normal limits, B1 is 25 creatinine was 0.96, troponins were negative 3, with today's were within normal limits, stool for occult blood was negative. Patient sustained bruises and hematomas to her abdomen, chest area and arms from a fall. Today's labs revealed blood cell count down to 16.1, hemoglobin is 6.4, sodium is 135, potassium is 4.4, chloride is 112, CO2 is 21, BUN was 25, creatinine 0.64, today's INR is 1.6, Coumadin remains on hold. She was given a dose of 5 mg vitamin K in the emergency department, some of the drop in hemoglobin could be hemodilution oh, patient did receive 2 L of IV fluids in the ER, in her maintenance IV was infusing at 100 ML per hour. Patient was hypotensive on presentation with a blood pressure of 80/50 tachycardic with a heart rate at 112 BPM. Chest x-ray was completed and showed COPD, new subsegmental atelectasis in the right midlung compared to last exam, no heart failure. EKG showed sinus tach with no acute ischemic changes. Chest x-ray of the ribs showed no evidence of acute displaced right rib fracture nor healed chronic rib fracture deformity. Postsurgical changes of the right lung, no acute cardiopulmonary process. On 10/24/2017 patient seen in follow-up on the selective care unit, lung sounds are clear on today's exam, patient had a CT chest, abdomen and pelvis which showed massive hematomas involving the right chest wall musculature including the intercostals, there is anterior and latissimus dorsi. The right-sided chest wall hematoma spanning up to 12.3 cm craniocaudal and at 2.8 cm thick with additional diffuse intramuscular hemorrhage along the right chest wall. Hematoma involves some of the upper abdominal obliques, extending back immediately near the right posterior paraspinal musculature. No displaced fra ctures were identified, small right pleural effusion, no pneumothorax. Today's labs have been reviewed, and showed of hemoglobin of 9.0, WBC of 11.4, INR is down to 1.0, and in remains on hold, she was seen by infectious disease service, she continues on inhaled tobramycin only at this point, she did complete her IV course of cefepime. From pulmonary perspective she denies any acute complaints, no shortness of breath, no chest congestion, vital signs are stable. EGD was canceled yesterday, related to the fact that the source of anemia was identified, and was related to patient's extensive hematomas and coagulopathy. The patient is seen today 10/25/2018 in follow-up on the regular medical floor. She is currently awake and alert in no acute distress. Resting quite comfortably in bed. She does have significant hematoma the back no migrating to her abdomen. The globe and remains at 8.2. Status post 2 units of packed red blood cells. She does have a loose nonproductive cough. She is maintaining good O2 saturations in the upper 90s on 4 L/m per nasal cannula. She's been afebrile. Hemodynamically stable. Objective - Vital Signs Vital signs: Vital Signs Temp 98.1 F 10/25/18 15:00 Pulse 89 10/25/18 15:00 Resp 16 10/25/18 15:00 BP 145/72 10/25/18 15:00 Pulse Ox 98 10/25/18 15:00 Intake & Output 10/24/18 10/25/18 10/25/18 18:59 06:59 18:59 Intake Total 480 440 Balance 480 440 Intake: Oral 480 440 Other: # Voids 1 2 - Exam GENERAL EXAM: Alert, pleasant, 52-year-old white female, comfortable in no apparent distress. On 4 L. HEAD: Normocephalic/atraumatic. EYES: Normal reaction of pupils, equal size. Conjunctiva pink, sclera white. NOSE: Clear with pink turbinates. THROAT: No erythema or exudates. NECK: No masses, no JVD, no thyroid enlargement, no adenopathy. CHEST: No chest wall deformity. Symmetrical expansion. Patient has extensive bruising on the back, chest, and abdominal area LUNGS: Diminished breath sounds, no wheezes, no rales, no rhonchi CVS: Regular rate and rhythm, normal S1 and S2, no gallops, no murmurs, no rubs ABDOMEN: Soft, nontender. No hepatosplenomegaly, normal bowel sounds, no g uarding or rigidity. EXTREMITIES: No clubbing, no edema, no cyanosis, 2+ pulses and upper and lower extremities. MUSCULOSKELETAL: Muscle strength and tone normal. SPINE: No scoliosis or deformity SKIN: No rashes CENTRAL NERVOUS SYSTEM: Alert and oriented -3. No focal deficits, tone is normal in all 4 extremities. PSYCHIATRIC: Alert and oriented -3. Appropriate affect. Intact judgment and insight. - Labs CBC & Chem 7: 10/25/18 07:09 10/23/18 03:46 Labs: Abnormal Lab Results - Last 24 Hours (Table) 10/25/18 Range/Units 07:09 RBC 2.74 L (3.80-5.40) m/uL Hgb 8.2 L (11.4-16.0) gm/dL Hct 25.2 L (34.0-46.0) % RDW 16.6 H (11.5-15.5) % Assessment and Plan Assessment: Assessment: #1. Weakness, syncopal episode at home, falls likely related to anemia #2. Acute blood loss anemia, hypotension, with no clear history of GI bleeding, occult stool for blood was negative, no hematemesis, no melena, no hematochezia. Patient's hemoglobin on 10/16/2018 was 11.5, patient's hemoglobin today is down to 6.4 #3. Bruises in chest wall and abdominal hematomas sustained in the fall, we'll obtain CT chest, abdomen and pelvis. CT chest showed extensive right-sided chest wall hematoma, with additional intramuscular hemorrhage along the right chest wall involving the intercostals, and some and upper abdominal obliques. #4. Coagulopathy, with INR of 7.9 on presentation, warfarin on hold. Current INR 1.0. #5. History of COPD/asthma, advanced, with underlying FEV1 of 26% of predicted #6. Tracheobronchomalacia, and bronchiectasis, with recurrent pulmonary infections, patient has had the bronchoscopies with bronchial wash cultures positive for pseudomonas aeruginosa, MRSA, and Haemophilus, and HSV-1 infection #7. Previous history of pulmonary embolism, on chronic anticoagulation with Coumadin, and patient has had problems with PT INR being supratherapeutic #8. Postop thyroidism #9. GERD/reflux #10. Chronic hypoxic respiratory failure continue to COPD, and bronchiectasis Plan: The patient was seen and evaluated by Dr. Hughes. She is stable from the pulmonary standpoint. Hemoglobin 8.4. She continues with extensive hematoma in the back migrating to the abdomen. Her friend remains discontinued. We'll continue to follow make further recommendations based on her clinical status. I, the cosigning physician, performed a history & physical examination of the patient. Lungs sounds with few scattered rhonchi, end expiratory wheeze. Maintaining good O2 saturations in the 90s on 4 L/m per nasal cannula. I discussed the assessment and plan of care with my nurse practitioner, Vita Mercado. I attest to the above note as dictated by her.
[2018-10-25] MEDS: DIAZEPAM 5 MG TAB PO SCH (20:13)
[2018-10-25] MEDS: ATORVASTATIN 10 MG TAB PO SCH (20:13)
[2018-10-25] MEDS: ZOLPIDEM 5 MG TAB PO SCH (20:13)
[2018-10-25] MEDS: CYCLOBENZAPRINE 10 MG TAB PO SCH (20:13)
--- NOTE | 2018-10-25 22:17 | P.PN ---
Subjective Progress Note Date: 10/25/18 This is a 52-year-old female patient well-known to ID service with a previous medical history significant for bronchial malacia, pulmonary fibrosis, interstitial lung disease, pulmonary embolism on chronic Coumadin, hyperlipidemia, GERD, osteopenia. Patient underwent bronchoscopy and BAL on Aug under the care of Dr. Hughes underwent a bronchoscopy and BAL and culture positive for Pseudomonas initially treated with Cipro. Pathology report revealed acute inflammatory cells, mucus and foaming debris. Stain negative for pneumocystic carinii organisms. Patient is on tobramycin nebulizer treatments. She had a recent hospitalization October 03 through October 08 which time she was treated for acute hypoxic respiratory failure secondary to acute exacerbation of chronic bronchiectasis, bronchial malacia Pseudomonas pneumonitis and HSV isolated. She presented with an INR 7.8 which was normalized previous to discharge. She also underwent a bronchoscopy with Dr. Hughes. Respiratory status gradually improved and she was discharged home on cefepime for [address] Mayfield. Patient now presents to [facility] emergency center stating that she was in the bathroom was feeling fuzzy and assisted herself down to the rug trying to get her head were then her body thinking that she was going to pass out. Her mom found her in the bathroom kneeling with her head down on the floor and rolled her over on the side but she was unresponsive. Patient's d aughter got her oxygen on. Mom states the patient was hardly breathing. There was no noted seizure activity, patient did not bite her tongue. Patient was incontinent of urine. Eventually patient started coming around and her breathing was very shallow and she was brought in to [facility] emergency center for evaluation. The patient has a cough but not bothersome. She denies pedal edema, no fever or chills. Her initial white count was 20.6, hemoglobin 9.8 with repeat this morning at 6.4. Patient's previous hemoglobins running between 11 and 13. INR was 7.9, BUN 25 and creatinine 0.96. Troponins been negative on 3 draws. Stool for occult blood negative. Patient is noted have ecchymosis to the right chest wall and flank area. She does not recall hitting this when she had syncopal episode. She denies any blood in her stools. She is complaining of right upper abdominal discomfort. Regarding her INR, on she had an INR done and was told it was too high and was to be off Coumadin and resume on Monday. Patient has been admitted to the cardiac stepdown unit. She has been seen in consultation by GI with plan for EGD. Coumadin is on hold, continue Protonix 40 mg twice daily. Consults in place for Dr. Hughes as well. 10/24/2018 patient is feeling somewhat better today. There's been no evidence of further evidence of bleeding. But the ecchymosis from her fall on the right anterior chest right lateral chest and flank is markedly increased but is not very tender. She is less short of breath and has no other new acute complaints. She will moving to the general medical floor soon. 10/25/2018 patient is feeling better today. No further bleeding has been noted. She is he extensive ecchymosis onto the right flank chest wall and back, thoug ht to be the etiology of her significant anemia. Her extensive coagulopathy at admission is likely the mechanism of the bleeding that occurred. She's now feeling better and her hemoglobin is being monitored. Her shortness of breath is improved and she has no fevers. She has completed her course of antibiotic therapy for Pseudomonas pneumonia. Objective - Vital Signs Vital signs: Vital Signs Temp 98.7 F 10/25/18 22:09 Pulse 78 10/25/18 22:09 Resp 20 10/25/18 22:09 BP 128/79 10/25/18 22:09 Pulse Ox 98 10/25/18 22:09 Intake & Output 10/25/18 10/25/18 10/26/18 06:59 18:59 06:59 Intake Total 440 300 Balance 440 300 Intake: Oral 440 300 Other: Voiding Method Toilet # Voids 1 2 - Exam Gen: This is a 52-year-old female. Patient is resting in bed. She appears to be fatigued. HEENT: Head is atraumatic, normocephalic. Pupils equal, round. Sclerae is anicteric. NECK: Supple. No JVD. No lymphadenopathy. No thyromegaly. LUNGS: Symmetrical bilateral air entry, scattered wheezes in lung nowak few basilar crackles no distinct dullness or egophony HEART: Regular rate and rhythm. Systolic murmur. ABDOMEN: Soft. Bowel sounds are present. No masses. Right upper quadrant tenderness, right rib tenderness. Extensive Ecchymosis to the right lower ribs and right flank which traverses to her right back area also. The area is modestly tender. EXTREMITIES: No pedal edema. No calf tenderness. Clubbing noted. NEUROLOGICAL: Patient is awake, alert and oriented x3 - Labs CBC & Chem 7: 10/25/18 07:09 10/23/18 03:46 Labs: Abnormal Lab Results - Last 24 Hours (Table) 10/25/18 Range/Units 07:09 RBC 2.74 L (3.80-5.40) m/uL Hgb 8.2 L (11.4-16.0) gm/dL Hct 25.2 L (34.0-46.0) % RDW 16.6 H (11.5-15.5) % Laboratory Results WBC 8.4 k/uL (3.8-10.6) 10/25/18 07:09 RBC 2.74 m/uL (3.80-5.40) L 10/25/18 07:09 Hgb 8.2 gm/dL (11.4-16.0) L 10/25/18 07:09 Hct 25.2 % (34.0-46.0) L 10/25/18 07:09 MCV 92.1 fL (80.0-100.0) 10/25/18 07:09 MCH 29.9 pg (25.0-35.0) 10/25/18 07:09 MCHC 32.4 g/dL (31.0-37.0) 10/25/18 07:09 RDW 16.6 % (11.5-15.5) H 10/25/18 07:09 Plt Count 210 k/uL (150-450) 10/25/18 07:09 Neutrophils % 64 % 10/25/18 07:09 Lymphocytes % 27 % 10/25/18 07:09 Monocytes % 7 % 10/25/18 07:09 Eosinophils % 1 % 10/25/18 07:09 Basophils % 0 % 10/25/18 07:09 Neutrophils # 5.3 k/uL (1.3-7.7) 10/25/18 07:09 Lymphocytes # 2.3 k/uL (1.0-4.8) 10/25/18 07:09 Monocytes # 0.6 k/uL (0-1.0) 10/25/18 07:09 Eosinophils # 0.1 k/uL (0-0.7) 10/25/18 07:09 Basophils # 0.0 k/uL (0-0.2) 10/25/18 07:09 Hypochromasia Moderate 10/23/18 03:46 Anisocytosis Slight 10/25/18 07:09 Macrocytosis Slight 10/23/18 03:46 PT 10.6 sec (9.0-12.0) 10/24/18 05:47 INR 1.0 (<1.2) 10/24/18 05:47 APTT 85.9 sec (22.0-30.0) H 10/22/18 16:39 Sodium 135 mmol/L (137-145) L 10/23/18 03:46 Potassium 4.4 mmol/L (3.5-5.1) 10/23/18 03:46 Chloride 112 mmol/L (98-107) H 10/23/18 03:46 Carbon Dioxide 21 mmol/L (22-30) L 10/23/18 03:46 Anion Gap 2 mmol/L 10/23/18 03:46 BUN 25 mg/dL (7-17) H 10/23/18 03:46 Creatinine 0.64 mg/dL (0.52-1.04) 10/23/18 03:46 Est GFR (CKD-EPI)AfAm >90 (>60 ml/min/1.73 sqM) 10/23/18 03:46 Est GFR (CKD-EPI)NonAf >90 (>60 ml/min/1.73 sqM) 10/23/18 03:46 Glucose 106 mg/dL (74-99) H 10/23/18 03:46 POC Glucose (mg/dL) 144 mg/dL (75-99) H 10/22/18 16:33 POC Glu Body Press Operator ID 10/22/18 16:33 Calcium 6.9 mg/dL (8.4-10.2) L 10/23/18 03:46 Magnesium 2.0 mg/dL (1.6-2.3) 10/22/18 16:39 Total Bilirubin 0.8 mg/dL (0.2-1.3) 10/22/18 16:39 AST 21 U/L (14-36) 10/22/18 16:39 ALT 32 U/L (9-52) 10/22/18 16:39 Alkaline Phosphatase 77 U/L (38-126) 10/22/18 16:39 Creatine Kinase 22 U/L (30-135) L 10/22/18 16:39 Troponin I <0.012 ng/mL (0.000-0.034) 10/23/18 03:46 Total Protein 5.6 g/dL (6.3-8.2) L 10/22/18 16:39 Albumin 3.3 g/dL (3.5-5.0) L 10/22/18 16:39 Stool Occult Blood Negative (Negative) 10/22/18 19:27 Blood Type O Negative 10/23/18 04:58 Blood Type Confirm O Negative 10/23/18 06:03 Blood Type Recheck CABO Indicated 10/23/18 04:58 Antibody Screen NEGATIVE 10/23/18 04:58 Crossmatch See Detail 10/23/18 04:58 Spec Expiration Date 10/26/2018235710/23/18 04:58 Assessment and Plan (1) Acute blood loss anemia Current Visit: Yes Status: Acute Code(s): D62 - ACUTE POSTHEMORRHAGIC ANEMIA SNOMED Code(s): 363893214 (2) Coagulopathy Current Visit: Yes Status: Acute Code(s): D68.9 - COAGULATION DEFECT, UNSPECIFIED SNOMED Code(s): 40810070 (3) History of Pseudomonas pneumonia Narrative/Plan: 52-year-old female who was recently hospitalized regarding her significant pulmonary disease and was being treated for pneumonia. She initiated therapy with intravenous antibiotic therapy and was completing her course at home with cefepime. Her pulmonary status has slowly improving, she w as receiving trying to go to work a little bit at times. However in the day before coming to Hospital started feeling very weak and ill. She became quite dizzy and had a syncopal event. She constantly was brought into the emergency center where there is evidence of a leukocytosis and her INR was found to be 7.9. She's been given a dose of vitamin K with improvement of her INR today. However she did have a significant drop of her hemoglobin is receiving 2 units of packed red cells also at this time. The chest x-rays reviewed without evidence of new pneumonia possibly some atelectasis. Her pulmonary status has worsened and that she was more short of breath, but the significant wheezing and sputum production has not worsened. It is likely her acute anemia, most likely blood loss, is responsible for her increased dyspnea. And likely etiology of her syncopal event. With current treatment she is feeling somewhat better. We will continue the cefepime at least to the day today which should be completion of her prior course of therapy for her Pseudomonas pneumonia. She will receive her inhaled tobramycin today. Continue respiratory treatments. Await input from pulmonary critical care, as to any further steps from her chronic pulmonary disease. leukocytosis is multifactorial including the current acute blood loss anemia and steroid therapy. 10/24/2018 patient is feeling somewhat better today. She's having no other new acute complaints. Her profound fatigue and shortness of breath and improved status post her blood transfusion. Looking forward to going home in the next short period of time. She completes her course of intravenous antibiotic therapy today for Pseudomonas pneumonia. As noted on the exam there is evidence of the extensive ecchymosis over her anterior chest wall lateral chest and flank area. Likely the extensive coagulopathy resulted into the bleeding into the tissue and the precipitous drop of hemoglobin. She's had no evidence of hematemesis melena or hematochezia or hematuria. There is evidence of other site of blood loss anemia at this time. When she is stable to be discharged home and will not be receiving further IV antibiotic therapy at that time. She continue with her inhaled tobramycin as per pulmonology in the outpatient setting. 10/25/2018 patient is feeling better today. No further evidence of any bleeding has occurred. The extensive ecchymosis to the right chest wall, flank and back seems to have stabilized and is mildly tender. Hemoglobin is stable and is being monitored. If remains stable we'll likely discharge tomorrow. She has completed the course of cefepime for her Pseudomonas pneumonia. Plans to monitor in the outpatient center after her discharge. She remains on her every other month HOLLY inhalation continue her many respiratory treatments. His related that she will not be on Coumadin any further the outpatient setting and alternative to anticoagulation is being evaluated. Current Visit: Yes Status: Acute Code(s): Z87.01 - PERSONAL HISTORY OF PNEUMONIA (RECURRENT) SNOMED Code(s): 165811523
[2018-10-26 02:22] VITALS: RESP 14
[2018-10-26] MEDS: LEVOTHYROXINE 50 MCG TAB PO SCH (06:16)
[2018-10-26] MEDS: PANTOPRAZOLE 40 MG TABLET PO SCH (07:22)
[2018-10-26] MEDS: LACTOBACILLUS ACIDOPH & BULGAR 1 EACH PACKET PO SCH (07:22)
[2018-10-26] MEDS: MONTELUKAST 10 MG TAB PO SCH (07:22)
[2018-10-26] MEDS: DULoxetine HCL 60 MG CAPSULE.DR PO SCH (07:22)
[2018-10-26] MEDS: GABAPENTIN 300 MG CAP PO SCH (07:22)
[2018-10-26 07:43] VITALS: BP 121/77; TEMP 98.7
[2018-10-26 07:46] LABS: Anisocytosis Slight; HCT 30.1 % (34.0-46.0); HGB 9.4 gm/dL (11.4-16.0); MCH 28.8 pg (25.0-35.0); MCHC 31.2 g/dL (31.0-37.0); MCV 92.3 fL (80.0-100.0); Mean Platelet Volume 7.1; Platelet Count 264 k/uL (150-450); RBC 3.26 m/uL (3.80-5.40); RDW 16.9 % (11.5-15.5); WBC 8.3 k/uL (3.8-10.6)
[2018-10-26 07:50] LABS: INR 1.1 (<1.2); Prothrombin Time 11.8 sec (9.0-12.0)
[2018-10-26] MEDS: SYMBICORT 160-4.5 MCG INHALER INHALATION SCH (09:01)
[2018-10-26] MEDS: IPRATROPIUM-ALBUTEROL 3 ML NEB INHALATION SCH ×2 (09:01→12:09)
[2018-10-26] MEDS: TOBRAMYCIN 300MG/7.5ML SYRG *FOR INHALATION INHALATION SCH ×2 (09:47→12:09)
[2018-10-26 12:54] VITALS: PULSE 96
[2018-10-26] MEDS: HYDROcodone/APAP 5-325MG 1 EACH TAB PO PRN (13:50)
--- NOTE | 2018-10-26 14:32 | P.DS ---
Providers Date of admission: 10/22/18 20:02 Expected date of discharge: 10/26/18 Attending physician: Shawn Najera Consults: 10/22/18 19:56 Consult Physician Urgent Consulting Provider: Dominga Hughes Consult Reason/Comments: pneumonia, weakness Do you want consulting provider notified?: Yes 10/22/18 19:57 Consult Physician Urgent Consulting Provider: Bry Mayfield Consult Reason/Comments: hx pseudomonas pneumonia Do you want consulting provider notified?: Yes Primary care physician: [facility] Course: This is a 52-year-old female patient of Dr. Guadalupe with a previous medical history significant for bronchial malacia, pulmonary fibrosis, interstitial lung disease, pulmonary embolism on chronic Coumadin, hyperlipidemia, GERD, osteopenia. Patient underwent bronchoscopy and BAL on September 03 under the care of Dr. Hughes underwent a bronchoscopy and BAL and culture positive for Pseudomonas initially treated with Cipro. Pathology report revealed acute inflammatory cells, mucus and foaming debris. Stain negative for pneumocystic carinii organisms. Patient is on tobramycin nebulizer treatments. She had a recent hospitalization October 03 through October 08 which time she was treated for acute hypoxic respiratory failure secondary to acute exacerbation of chronic bronchiectasis, bronchial malacia Pseudomonas pneumonitis and HSV isolated. She presented with an INR 7.8 which was normalized previous to discharge. She also underwent a bronchoscopy with Dr. Hughes. Respiratory status gradually improved and she was discharged home on cefepime for [address] Mayfield. Patient now presents to [facility] emergency center stating that she was in the bathroom was feeling fuzzy and assisted herself down to the rug trying to get her head were then her body thinking that she was going to pass out. Her mom found her in the bathroom kneeling with her head down on the floor and rolled her over on the side but she was unresponsive. Patient's daughter got her oxygen on. Mom states the patient was hardly breathing. There was no noted seizure activity, patient did not bite her tongue. Patient was incontinent of urine. Eventually patient started coming around and her breathing was very shallow and she was brought in to [facility] emergency center for evaluation. The patient has a cough but not bothersome. She denies pedal edema, no fever or chills. Her initial white count was 20.6, hemoglobin 9.8 with repeat this morning at 6.4. Patient's previous hemoglobins running between 11 and 13. INR was 7.9, BUN 25 and creatinine 0.96. Troponins been negative on 3 draws. Stool for occult blood negative. Patient is noted have ecchymosis to the right chest wall and flank area. She does not recall hitting this when she had syncopal episode. She denies any blood in her stools. She is complaining of right upper abdominal discomfort. Regarding her INR, on she had an INR done and was told it was too high and was to be off Coumadin and resume on Monday. Patient has been admitted to the cardiac stepdown unit. She has been seen in consultation by GI with plan for EGD. Coumadin is on hold, continue Protonix 40 mg twice daily. Consults in place for Dr. Hughes and Dr. Mayfield. 10/24: CAT scan of the chest abdomen and pelvis with contrast reveals focal right-sided chest wall hematoma spanning up to 12.3 cm craniocaudal and 2.8 cm thick with additional diffuse intramuscular hemorrhage along the right chest wall involving the intercostals, serratus anterior, latissimus dorsi, upper abdominal obliques extending into the back medially near the right posterior paraspinal musculature. No displaced fractures seen. Small right pleural effusion. No pneumothorax. Patient has no evidence of GI bleeding and no endoscopy procedures will be performed by GI and they are now following on an as-needed basis. Patient has been seen by Dr. Mayfield and completed course of antibiotics for Pseudomonas pneumonia. The patient is feeling somewhat improved from yesterday. She will be transferred to the [facility] floor today. Respiratory status remained stable. Patient has been afebrile, heart rate in the 90s to low 100s, blood pressure 08/30/1970, pulse ox 99% on 4 L nasal cannula. WBC 11.4, hemoglobin 9, platelet count 171. INR is 1. 10/25: Repeat hemoglobin is 8.2. Patient has decreased from the evening on October 23 of 10.5 yesterday morning at 9.0. Ecchymosis to the right chest wall and flank area is now dark purple. No other signs of bleeding. Dr. Mayfield states patient has completed her course of antibiotics. Regarding Coumadin, patient is to hold this until follow-up with Dr. Anupama Burden and in the office and it will be considered at that time to resume or place on other anticoagulation. Plan is to recheck lab work in the morning and probable discharge tomorrow. 10/26: Repeat hgb 9.4. No worsening of ecchymosis. Respiratory status is stable. Patient will be discharged home today in stable condition. Discharge diagnoses: 1. Acute syncopal episode related to acute blood loss. 2 units of packed RBCs transfused. 2. Acute blood loss anemia from right chest wall hematoma and chest musculature and abdominal hemorrhage. 3. Chronic bronchiectasis, bronchial malacia, Pseudomonas pneumonitis. 4. Pseudomonas pneumonitis. Patient completed course of cefepime. 5. Hypercoagulopathy secondary to Coumadin use and antibiotics. 6. History of pulmonary embolism and patient has been on chronic Coumadin. 7. Pulmonary fibrosis. 4. Hyperlipidemia. 5. Osteoporosis. 10. Peripheral neuropathy. 11. Hypothyroidism. Discharge plan: home Impression and plan of care have been directed as dictated by the signing physician. Robyn Dorantes nurse practitioner acting as scribe for signing physician. Patient Condition at Discharge: Good Plan - Discharge Summary Discharge Rx Participant: No New Discharge Prescriptions: New Tobramycin INH 300 mg INHALATION RT-Q12H syringe Continue Cyclobenzaprine [Flexeril] 10 mg PO HS Atorvastatin [Lipitor] 10 mg PO HS Meloxicam 7.5 mg PO BID Montelukast [Singulair] 10 mg PO DAILY Levothyroxine Sodium [Synthroid] 50 mcg PO DAILY DULoxetine HCL [Duloxetine HCl] 60 mg PO DAILY Estrogen,Con/M-Progest Acet [Prempro 0.45-1.5 mg Tablet] 1 cap PO Q48H Gabapentin 600 mg PO HS Denosumab [Prolia] 60 mg SQ Q180D Fluticasone/Vilanterol [Breo Ellipta 200-25 Mcg INH] 1 puff INHALATION RT- DAILY Gabapentin [Neurontin] 300 mg PO QAM Zolpidem [Ambien] 5 mg PO HS RABEprazole SODIUM [Aciphex] 20 mg PO HS HYDROcodone/APAP 5-325MG [[place] 5-325] 1 tab PO DAILY PRN PRN Reason: Pain Diazepam [Valium] 5 mg PO HS Ipratropium-Albuterol Nebulize [Duoneb 0.5 mg-3 mg/3 ml Soln] 3 ml INHALATION RT-QID #120 ampul.neb L.acidoph,Paracasei, B.lactis [Probiotic] 1 cap PO DAILY Tobramycin Inh 300mg/5ml 300 mg INHALATION RT-Q12H predniSONE See Taper PO DIRECTED Discontinued Fluconazole [Diflucan] 200 mg PO DAILY PRN PRN Reason: FOR LUNG INFECTIONS Cefepime HCl [Maxipime] 2 gm IV Q12H #28 vial Discharge Medication List Atorvastatin [Lipitor] 10 mg PO HS 04/16/14 [History] Cyclobenzaprine [Flexeril] 10 mg PO HS 04/16/14 [History] DULoxetine HCL [Duloxetine HCl] 60 mg PO DAILY 04/16/14 [History] Denosumab [Prolia] 60 mg SQ Q180D 04/16/14 [History] Estrogen,Con/M-Progest Acet [Prempro 0.45-1.5 mg Tablet] 1 cap PO Q48H 04/16/14 [History] Gabapentin 600 mg PO HS 04/16/14 [History] Levothyroxine Sodium [Synthroid] 50 mcg PO DAILY 04/16/14 [History] Meloxicam 7.5 mg PO BID 04/16/14 [History] Montelukast [Singulair] 10 mg PO DAILY 04/16/14 [History] Fluticasone/Vilanterol [Breo Ellipta 200-25 Mcg INH] 1 puff INHALATION RT-DAILY 03/08/17 [History] Gabapentin [Neurontin] 300 mg PO QAM 06/08/17 [History] RABEprazole SODIUM [Aciphex] 20 mg PO HS 11/30/17 [History] Zolpidem [Ambien] 5 mg PO HS 11/30/17 [History] Diazepam [Valium] 5 mg PO HS 03/30/18 [History] HYDROcodone/APAP 5-325MG [[place] 5-325] 1 tab PO DAILY PRN 03/30/18 [History] Ipratropium-Albuterol Nebulize [Duoneb 0.5 mg-3 mg/3 ml Soln] 3 ml INHALATION RT-QID #120 ampul.neb 04/04/18 [Rx] L.acidoph,Paracasei, B.lactis [Probiotic] 1 cap PO DAILY 10/01/18 [History] Tobramycin Inh 300mg/5ml 300 mg INHALATION RT-Q12H 10/01/18 [History] predniSONE See Taper PO DIRECTED 10/22/18 [History] Tobramycin INH 300 mg INHALATION RT-Q12H syringe 10/26/18 [Rx] Follow up Appointment(s)/Referral(s): Bry Guadalupe MD [Primary Care Provider] - 10/31/18 1:15 pm (Monday with Swati DANIELSON) Dominga Hughes MD [STAFF PHYSICIAN] - 1 Week Patient Instructions/Handouts: Syncope (DC), Anemia (DC), Warfarin Toxicity (ED) Activity/Diet/Wound Care/Special Instructions: pt qualifies for $10/mo Eliquis or Xarelto Discharge Disposition: HOME SELF-CARE
--- NOTE | 2018-10-26 15:20 | P.PN ---
Subjective Progress Note Date: 10/26/18 This is a 52-year-old female patient well-known to ID service with a previous medical history significant for bronchial malacia, pulmonary fibrosis, interstitial lung disease, pulmonary embolism on chronic Coumadin, hyperlipidemia, GERD, osteopenia. Patient underwent bronchoscopy and BAL on Aug under the care of Dr. Hughes underwent a bronchoscopy and BAL and culture positive for Pseudomonas initially treated with Cipro. Pathology report revealed acute inflammatory cells, mucus and foaming debris. Stain negative for pneumocystic carinii organisms. Patient is on tobramycin nebulizer treatments. She had a recent hospitalization October 03 through October 08 which time she was treated for acute hypoxic respiratory failure secondary to acute exacerbation of chronic bronchiectasis, bronchial malacia Pseudomonas pneumonitis and HSV isolated. She presented with an INR 7.8 which was normalized previous to discharge. She also underwent a bronchoscopy with Dr. Hughes. Respiratory status gradually improved and she was discharged home on cefepime for [address] Mayfield. Patient now presents to [facility] emergency center stating that she was in the bathroom was feeling fuzzy and assisted herself down to the rug trying to get her head were then her body thinking that she was going to pass out. Her mom found her in the bathroom kneeling with her head down on the floor and rolled her over on the side but she was unresponsive. Patient's d aughter got her oxygen on. Mom states the patient was hardly breathing. There was no noted seizure activity, patient did not bite her tongue. Patient was incontinent of urine. Eventually patient started coming around and her breathing was very shallow and she was brought in to [facility] emergency center for evaluation. The patient has a cough but not bothersome. She denies pedal edema, no fever or chills. Her initial white count was 20.6, hemoglobin 9.8 with repeat this morning at 6.4. Patient's previous hemoglobins running between 11 and 13. INR was 7.9, BUN 25 and creatinine 0.96. Troponins been negative on 3 draws. Stool for occult blood negative. Patient is noted have ecchymosis to the right chest wall and flank area. She does not recall hitting this when she had syncopal episode. She denies any blood in her stools. She is complaining of right upper abdominal discomfort. Regarding her INR, on she had an INR done and was told it was too high and was to be off Coumadin and resume on Monday. Patient has been admitted to the cardiac stepdown unit. She has been seen in consultation by GI with plan for EGD. Coumadin is on hold, continue Protonix 40 mg twice daily. Consults in place for Dr. Hughes as well. 10/24/2018 patient is feeling somewhat better today. There's been no evidence of further evidence of bleeding. But the ecchymosis from her fall on the right anterior chest right lateral chest and flank is markedly increased but is not very tender. She is less short of breath and has no other new acute complaints. She will moving to the general medical floor soon. 10/25/2018 patient is feeling better today. No further bleeding has been noted. She is he extensive ecchymosis onto the right flank chest wall and back, thoug ht to be the etiology of her significant anemia. Her extensive coagulopathy at admission is likely the mechanism of the bleeding that occurred. She's now feeling better and her hemoglobin is being monitored. Her shortness of breath is improved and she has no fevers. She has completed her course of antibiotic therapy for Pseudomonas pneumonia. 10/26/2018 patient is feeling considerably better today. Still somewhat anxious. The inhaled tobramycin often gives her headache is still problematic. She is feeling somewhat better. Anemia is stable pulmonary status is stable pneumonia improved. Objective - Vital Signs Vital signs: Vital Signs Temp 98.7 F 10/26/18 07:00 Pulse 96 10/26/18 12:54 Resp 14 10/26/18 07:18 BP 121/77 10/26/18 07:00 Pulse Ox 99 10/26/18 07:00 Intake & Output 10/25/18 10/26/18 10/26/18 18:59 06:59 18:59 Intake Total 440 700 Balance 440 700 Intake: Oral 440 700 Other: Voiding Method Toilet # Voids 2 1 2 - Exam Gen: This is a 52-year-old female. Patient is resting in bed. She appears to be fatigued. HEENT: Head is atraumatic, normocephalic. Pupils equal, round. Sclerae is anicteric. NECK: Supple. No JVD. No lymphadenopathy. No thyromegaly. LUNGS: Symmetrical bilateral air entry, scattered wheezes in lung nowak few basilar crackles no distinct dullness or egophony HEART: Regular rate and rhythm. Systolic murmur. ABDOMEN: Soft. Bowel sounds are present. No masses. Right upper quadrant tenderness, right rib tenderness. Extensive Ecchymosis to the right lower ribs and right flank which traverses to her right back area also. The area is modestly tender. EXTREMITIES: No pedal edema. No calf tenderness. Clubbing noted. NEUROLOGICAL: Patient is awake, alert and oriented x3 - Labs CBC & Chem 7: 10/26/18 06:56 10/23/18 03:46 Labs: Abnormal Lab Results - Last 24 Hours (Table) 10/26/18 Range/Units 06:56 RBC 3.26 L (3.80-5.40) m/uL Hgb 9.4 L (11.4-16.0) gm/dL Hct 30.1 L (34.0-46.0) % RDW 16.9 H (11.5-15.5) % Laboratory Results WBC 8.3 k/uL (3.8-10.6) 10/26/18 06:56 RBC 3.26 m/uL (3.80-5.40) L 10/26/18 06:56 Hgb 9.4 gm/dL (11.4-16.0) L 10/26/18 06:56 Hct 30.1 % (34.0-46.0) L 10/26/18 06:56 MCV 92.3 fL (80.0-100.0) 10/26/18 06:56 MCH 28.8 pg (25.0-35.0) 10/26/18 06:56 MCHC 31.2 g/dL (31.0-37.0) 10/26/18 06:56 RDW 16.9 % (11.5-15.5) H 10/26/18 06:56 Plt Count 264 k/uL (150-450) 10/26/18 06:56 Neutrophils % 64 % 10/25/18 07:09 Lymphocytes % 27 % 10/25/18 07:09 Monocytes % 7 % 10/25/18 07:09 Eosinophils % 1 % 10/25/18 07:09 Basophils % 0 % 10/25/18 07:09 Neutrophils # 5.3 k/uL (1.3-7.7) 10/25/18 07:09 Lymphocytes # 2.3 k/uL (1.0-4.8) 10/25/18 07:09 Monocytes # 0.6 k/uL (0-1.0) 10/25/18 07:09 Eosinophils # 0.1 k/uL (0-0.7) 10/25/18 07:09 Basophils # 0.0 k/uL (0-0.2) 10/25/18 07:09 Hypochromasia Moderate 10/23/18 03:46 Anisocytosis Slight 10/26/18 06:56 Macrocytosis Slight 10/23/18 03:46 PT 11.8 sec (9.0-12.0) 10/26/18 06:56 INR 1.1 (<1.2) 10/26/18 06:56 APTT 85.9 sec (22.0-30.0) H 10/22/18 16:39 Sodium 135 mmol/L (137-145) L 10/23/18 03:46 Potassium 4.4 mmol/L (3.5-5.1) 10/23/18 03:46 Chloride 112 mmol/L (98-107) H 10/23/18 03:46 Carbon Dioxide 21 mmol/L (22-30) L 10/23/18 03:46 Anion Gap 2 mmol/L 10/23/18 03:46 BUN 25 mg/dL (7-17) H 10/23/18 03:46 Creatinine 0.64 mg/dL (0.52-1.04) 10/23/18 03:46 Est GFR (CKD-EPI)AfAm >90 (>60 ml/min/1.73 sqM) 10/23/18 03:46 Est GFR (CKD-EPI)NonAf >90 (>60 ml/min/1.73 sqM) 10/23/18 03:46 Glucose 106 mg/dL (74-99) H 10/23/18 03:46 POC Glucose (mg/dL) 144 mg/dL (75-99) H 10/22/18 16:33 POC Glu [employer] ID 10/22/18 16:33 Calcium 6.9 mg/dL (8.4-10.2) L 10/23/18 03:46 Magnesium 2.0 mg/dL (1.6-2.3) 10/22/18 16:39 Total Bilirubin 0.8 mg/dL (0.2-1.3) 10/22/18 16:39 AST 21 U/L (14-36) 10/22/18 16:39 ALT 32 U/L (9-52) 10/22/18 16:39 Alkaline Phosphatase 77 U/L (38-126) 10/22/18 16:39 Creatine Kinase 22 U/L (30-135) L 10/22/18 16:39 Troponin I <0.012 ng/mL (0.000-0.034) 10/23/18 03:46 Total Protein 5.6 g/dL (6.3-8.2) L 10/22/18 16:39 Albumin 3.3 g/dL (3.5-5.0) L 10/22/18 16:39 Stool Occult Blood Negative (Negative) 10/22/18 19:27 Blood Type O Negative 10/23/18 04:58 Blood Type Confirm O Negative 10/23/18 06:03 Blood Type Recheck CABO Indicated 10/23/18 04:58 Antibody Screen NEGATIVE 10/23/18 04:58 Crossmatch See Detail 10/23/18 04:58 Spec Expiration Date 10/26/2018235710/23/18 04:58 Assessment and Plan (1) Acute blood loss anemia Current Visit: Yes Status: Acute Code(s): D62 - ACUTE POSTHEMORRHAGIC ANEMIA SNOMED Code(s): 925014008 (2) Coagulopathy Current Visit: Yes Status: Acute Code(s): D68.9 - COAGULATION DEFECT, UNSPECIFIED SNOMED Code(s): 45676613 (3) History of Pseudomonas pneumonia Narrative/Plan: 52-year-old female who was recently hospitalized regarding her significant pulmonary disease and was being treated for pneumonia. She init iated therapy with intravenous antibiotic therapy and was completing her course at home with cefepime. Her pulmonary status has slowly improving, she was receiving trying to go to work a little bit at times. However in the day before coming to Hospital started feeling very weak and ill. She became quite dizzy and had a syncopal event. She constantly was brought into the emergency center where there is evidence of a leukocytosis and her INR was found to be 7.9. She's been given a dose of vitamin K with improvement of her INR today. However she did have a significant drop of her hemoglobin is receiving 2 units of packed red cells also at this time. The chest x-rays reviewed without evidence of new pneumonia possibly some atelectasis. Her pulmonary status has worsened and that she was more short of breath, but the significant wheezing and sputum production has not worsened. It is likely her acute anemia, most likely blood loss, is responsible for her increased dyspnea. And likely etiology of her syncopal event. With current treatment she is feeling somewhat better. We will continue the cefepime at least to the day today which should be completion of her prior course of therapy for her Pseudomonas pneumonia. She will receive her inhaled tobramycin today. Continue respiratory treatments. Await input from pulmonary critical care, as to any further steps from her chronic pulmonary disease. leukocytosis is multifactorial including the current acute blood loss anemia and steroid therapy. 10/24/2018 patient is feeling somewhat better today. She's having no other new acute complaints. Her profound fatigue and shortness of breath and improved status post her blood transfusion. Looking forward to going home in the next short period of time. She completes her course of intravenous antibiotic therapy today for Pseudomonas pneumonia. As noted on the exam there is evidence of the extensive ecchymosis over her anterior chest wall lateral chest and flank area. Likely the extensive coagulopathy resulted into the bleeding into the tissue and the precipitous drop of hemoglobin. She's had no evidence of hematemesis melena or hematochezia or hematuria. There is evidence of other site of blood loss anemia at this time. When she is stable to be discharged home and will not be receiving further IV antibiotic therapy at that time. She continue with her inhaled tobramycin as per pulmonology in the outpatient setting. 10/25/2018 patient is feeling better today. No further evidence of any bleeding has occurred. The extensive ecchymosis to the right chest wall, flank and back seems to have stabilized and is mildly tender. Hemoglobin is stable and is being monitored. If remains stable we'll likely discharge tomorrow. She has completed the course of cefepime for her Pseudomonas pneumonia. Plans to monitor in the outpatient center after her discharge. She remains on her every other month HOLLY inhalation continue her many respiratory treatments. His r elated that she will not be on Coumadin any further the outpatient setting and alternative to anticoagulation is being evaluated. 10/26/2018 patient does feel better today. No further bleeding. Hemoglobin stable at 9.4. Pulse respiratory status is stable to improved. He for discharge home per the primary service. She has completed her course of intravenous antibiotic therapy. A follow-up in the office in the next several weeks depending on how her follow-up with pulmonary critical care proceeds. Anticoagulation is as per the team. Current Visit: Yes Status: Acute Code(s): Z87.01 - PERSONAL HISTORY OF PNEUMONIA (RECURRENT) SNOMED Code(s): 154144617
--- NOTE | 2018-10-26 17:07 | P.PN ---
Subjective Progress Note Date: 10/26/18 Principal diagnosis: Weakness, falls, coagulopathy, anemia secondary to subcutaneous bleeding in the back This is a 52 year-old the patient of Dr. Guadalupe with past medical history of COPD/asthma, previous episodes of pneumonia with MRSA, Haemophilus, stenotrophomonas, pseudomonal pulmonary infections, tracheobronchomalacia, bronchiectasis with history of recurrent bronchitis. Patient had been on the Zithromax as an antibiotic prophylaxis, she has had multiple bronchoscopies, with the most recent bronchoscopy on 10/03/2018 with bronchial wash cultures for Kerry albicans. Patient's pulmonary function is around 26% of predicted. Patient is on inhaled tobramycin, Breo-Ellipta, DuoNeb, Singulair as her maintenance medications. Patient was last hospitalized in September, recovered, she was treated with IV cefepime, and she completed her outpatient course of IV cefepime. On 10/23/2018 patient is brought into the hospital per EMS with complaints of weakness, episode of syncope, and falls at home. Patient felt extremely dizzy and lightheaded, she thought she was going to pass out, lowered herself to the floor and had a syncopal episode. [place] any recent fever or chills. Denied any worsening shortness of breath, cough or worsening chest congestion. No nausea, vomiting or diarrhea, no blood in the stools or black tarry stools. Did complain of pain into her right lower chest, similar to the one she had several weeks ago apparently related to pneumonia. Lab work showed WBC of 20.6, hemoglobin is 9.8, INR was supratherapeutic at 7.9, a large lites were within normal limits, B1 is 25 creatinine was 0.96, troponins were negative 3, with today's were within normal limits, stool for occult blood was negative. Patient sustained bruises and hematomas to her abdomen, chest area and arms from a fall. Today's labs revealed blood cell count down to 16.1, hemoglobin is 6.4, sodium is 135, potassium is 4.4, chloride is 112, CO2 is 21, BUN was 25, creatinine 0.64, today's INR is 1.6, Coumadin remains on hold. She was given a dose of 5 mg vitamin K in the emergency department, some of the drop in hemoglobin could be hemodilution oh, patient did receive 2 L of IV fluids in the ER, in her maintenance IV was infusing at 100 ML per hour. Patient was hypotensive on presentation with a blood pressure of 80/50 tachycardic with a heart rate at 112 BPM. Chest x-ray was completed and showed COPD, new subsegmental atelectasis in the right midlung compared to last exam, no heart failure. EKG showed sinus tach with no acute ischemic changes. Chest x-ray of the ribs showed no evidence of acute displaced right rib fracture nor healed chronic rib fracture deformity. Postsurgical changes of the right lung, no acute cardiopulmonary process. On 10/24/2017 patient seen in follow-up on the selective care unit, lung sounds are clear on today's exam, patient had a CT chest, abdomen and pelvis which showed massive hematomas involving the right chest wall musculature including the intercostals, there is anterior and latissimus dorsi. The right-sided chest wall hematoma spanning up to 12.3 cm craniocaudal and at 2.8 cm thick with additional diffuse intramuscular hemorrhage along the right chest wall. Hematoma involves some of the upper abdominal obliques, extending back immediately near the right posterior paraspinal musculature. No displaced fra ctures were identified, small right pleural effusion, no pneumothorax. Today's labs have been reviewed, and showed of hemoglobin of 9.0, WBC of 11.4, INR is down to 1.0, and in remains on hold, she was seen by infectious disease service, she continues on inhaled tobramycin only at this point, she did complete her IV course of cefepime. From pulmonary perspective she denies any acute complaints, no shortness of breath, no chest congestion, vital signs are stable. EGD was canceled yesterday, related to the fact that the source of anemia was identified, and was related to patient's extensive hematomas and coagulopathy. The patient is seen today 10/25/2018 in follow-up on the regular medical floor. She is currently awake and alert in no acute distress. Resting quite comfortably in bed. She does have significant hematoma the back no migrating to her abdomen. The globe and remains at 8.2. Status post 2 units of packed red blood cells. She does have a loose nonproductive cough. She is maintaining good O2 saturations in the upper 90s on 4 L/m per nasal cannula. She's been afebrile. Hemodynamically stable. The patient is seen today 10/26/2018 in follow-up on the regular medical floor. She is currently resting quite comfortably in bed. Awake and alert in no acute distress. She still has a loose congested cough. She is maintaining good O2 saturations in the high 90s on 4 L/m per nasal cannula. She's afebrile. Hemodynamically stable. White count 8.3. Hemoglobin 9.4. Objective - Vital Signs Vital signs: Vital Signs Temp 98.7 F 10/26/18 07:00 Pulse 96 10/26/18 12:54 Resp 14 10/26/18 07:18 BP 121/77 10/26/18 07:00 Pulse Ox 99 10/26/18 07:00 Intake & Output 10/25/18 10/26/18 10/26/18 18:59 06:59 18:59 Intake Total 440 700 Balance 440 700 Intake: Oral 440 700 Other: Voiding Method Toilet # Voids 2 1 2 - Exam GENERAL EXAM: Alert, pleasant, 52-year-old white female, comfortable in no apparent distress. On 4 L. HEAD: Normocephalic/atraumatic. EYES: Normal reaction of pupils, equal size. Conjunctiva pink, sclera white. NOSE: Clear with pink turbinates. THROAT: No erythema or exudates. NECK: No masses, no JVD, no thyroid enlargement, no adenopathy. CHEST: No chest wall deformity. Symmetrical expansion. Patient has extensive bruising on the back, chest, and abdominal area LUNGS: Diminished breath sounds, few scattered rhonchi CVS: Regular rate and rhythm, normal S1 and S2, no gallops, no murmurs, no rubs ABDOMEN: Soft, nontender. No hepatosplenomegaly, normal bowel sounds, no guarding or rigidity. EXTREMITIES: No clubbing, no edema, no cyanosis, 2+ pulses and upper and lower extremities. MUSCULOSKELETAL: Muscle strength and tone normal. SPINE: No scoliosis or deformity SKIN: No rashes CENTRAL NERVOUS SYSTEM: Alert and oriented -3. No focal deficits, tone is normal in all 4 extremities. PSYCHIATRIC: Alert and oriented -3. Appropriate affect. Intact judgment and insight. - Labs CBC & Chem 7: 10/26/18 06:56 10/23/18 03:46 Labs: Abnormal Lab Results - Last 24 Hours (Table) 10/26/18 Range/Units 06:56 RBC 3.26 L (3.80-5.40) m/uL Hgb 9.4 L (11.4-16.0) gm/dL Hct 30.1 L (34.0-46.0) % RDW 16.9 H (11.5-15.5) % Assessment and Plan Assessment: Assessment: #1. Weakness, syncopal episode at home, falls likely related to anemia #2. Acute blood loss anemia, hypotension, with no clear history of GI bleeding, occult stool for blood was negative, no hematemesis, no melena, no hematochezia. Patient's hemoglobin on 10/16/2018 was 11.5, patient's hemoglobin today is down to 6.4 #3. Bruises in chest wall and abdominal hematomas sustained in the fall, we'll obtain CT chest, abdomen and pelvis. CT chest showed extensive right-sided chest wall hematoma, with additional intramuscular hemorrhage along the right chest wall involving the intercostals, and some and upper abdominal obliques. #4. Coagulopathy, with INR of 7.9 on presentation, warfarin on hold. Current INR 1.0. #5. History of COPD/asthma, advanced, with underlying FEV1 of 26% of predicted #6. Tracheobronchomalacia, and bronchiectasis, with recurrent pulmonary infections, patient has had the bronchoscopies with bronchial wash cultures positive for pseudomonas aeruginosa, MRSA, and Haemophilus, and HSV-1 infection #7. Previous history of pulmonary embolism, on chronic anticoagulation with Coumadin, and patient has had problems with PT INR being supratherapeutic #8. Postop thyroidism #9. GERD/reflux #10. Chronic hypoxic respiratory failure continue to COPD, and bronchiectasis Plan: The patient was seen and evaluated by Dr. Hughes. She is stable from the pulmonary standpoint. She could be discharged home on her usual pulmonary medications. Antibiotics per infectious disease. She'll follow-up with Dr. Hughes our office as scheduled. She is encouraged to call sooner with any recurrence of symptoms or other questions or concerns. I, the cosigning physician, performed a history & physical examination of the patient. Lungs sounds with few scattered rhonchi, end expiratory wheeze. Maintaining good O2 saturations in the 90s on 4 L/m per nasal cannula. I discussed the assessment and plan of care with my nurse practitioner, Vita Mercado. I attest to the above note as dictated by her.
== END 2018-10-26 15:46 | disposition home or self-care (01) | DRG 813 ==
LOC: EC 16:19 → 3SCARD 20:02 → 4SSUR 10-24 16:49
PROVIDERS: ADMIT Internal Medicine; ATTEND Internal Medicine
PROC: 30233N1 Transfusion of Nonautologous Red Blood Cells into Peripheral Vein, Percutaneous Approach (ICD-10-PCS; principal; 2018-10-23)
DX: D68.32 Hemorrhagic disorder due to extrinsic circulating anticoagulants (principal); J15.1 Pneumonia due to Pseudomonas; D62 Acute posthemorrhagic anemia; J96.11 Chronic respiratory failure with hypoxia; J98.11 Atelectasis; J44.0 Chronic obstructive pulmonary disease with (acute) lower respiratory infection; J84.9 Interstitial pulmonary disease, unspecified; I95.9 Hypotension, unspecified; J84.10 Pulmonary fibrosis, unspecified; G62.9 Polyneuropathy, unspecified; J39.8 Other specified diseases of upper respiratory tract; T45.515A Adverse effect of anticoagulants, initial encounter; S20.211A Contusion of right front wall of thorax, initial encounter; S30.1XXA Contusion of abdominal wall, initial encounter; M81.0 Age-related osteoporosis without current pathological fracture; E03.9 Hypothyroidism, unspecified; F41.0 Panic disorder [episodic paroxysmal anxiety]; M79.7 Fibromyalgia; K21.9 Gastro-esophageal reflux disease without esophagitis; I34.1 Nonrheumatic mitral (valve) prolapse; E78.5 Hyperlipidemia, unspecified; R32 Unspecified urinary incontinence; M19.90 Unspecified osteoarthritis, unspecified site; Z99.81 Dependence on supplemental oxygen; Z79.01 Long term (current) use of anticoagulants; Z79.890 Hormone replacement therapy; Z79.1 Long term (current) use of non-steroidal anti-inflammatories (NSAID); Z79.2 Long term (current) use of antibiotics; Z79.899 Other long term (current) drug therapy; Z86.711 Personal history of pulmonary embolism; Z86.718 Personal history of other venous thrombosis and embolism; Z86.14 Personal history of Methicillin resistant Staphylococcus aureus infection; Z87.442 Personal history of urinary calculi; Z87.01 Personal history of pneumonia (recurrent); Z82.49 Family history of ischemic heart disease and other diseases of the circulatory system; Z88.8 Allergy status to other drugs, medicaments and biological substances; Z88.1 Allergy status to other antibiotic agents; Z91.011 Allergy to milk products; Z82.3 Family history of stroke; Z82.0 Family history of epilepsy and other diseases of the nervous system
CPT/HCPCS: 36415; 71045; 71260; 74177; 80048; 80053; 82272; 82550; 83735; 84484; 85025; 85027; 85610; 85730; 86850; 86900; 86901; 86920; 93005; 93306; 94640; 96360; 96361; 99285

== ENCOUNTER → 2018-11-21 | Day surgery (SDC) | payer BC ==
[2018-11-20 08:51] VITALS: BMI 21.2
[~2018-11-21] MED LIST changes: +GLYCOPYRROLATE 0.2 MG/ML 2 ML VIAL ONE; +KETAMINE 10 MG/ML 20 ML VIAL ONE; +LIDOCAINE 1% INJ 10MG/ML (20 ML MDV) ONE; +LIDOCAINE 2% INJ 20 MG/ML INTRATRACH ONE; -LIDOCAINE VISCOUS 2% 15 ML CUP MUCOUS MEM ONE; +LIDOCAINE VISCOUS 300 MG/15 ML CUP MUCOUS MEM ONE; -MIDAZOLAM 2 MG/2 ML VIAL IV PRN; +MIDAZOLAM 2 MG/2 ML VIAL ONE; +PROPOFOL 10 MG/ML 20 ML VIAL IV ONE; +fentaNYL (PF) 50 MCG/ML 2 ML AMP ONE
[2018-11-21 11:58] VITALS: RESP 16; TEMP 98.8
--- NOTE | 2018-11-21 13:57 | PCN ---
PROCEDURE NOTE PROCEDURE: Bronchoscopy and random bronchial washings from all different lobes, and bronchoalveolar lavage from right middle lobe and right lower lobe. PREOPERATIVE DIAGNOSIS: Bronchiectasis and chronic productive cough. POSTOPERATIVE DIAGNOSIS: Bronchiectasis involving mostly right middle lobe and right lower lobe, tracheal bronchomalacia. ANESTHESIA USED: IV conscious sedation. Please refer to [employer] documentation. PROCEDURE DESCRIPTION: The patient was placed in the supine position and O2 was applied via nasal cannula. We monitored the O2 saturation continuously, blood pressure was intermittently monitored and cardiac rhythm was continuously monitored. After adequate IV conscious sedation, the bronchoscope was inserted through the right naris, which was locally anesthetized by instilling some lidocaine into the right naris. The bronchoscope was advanced to the area of the vocal cords, which were noted to be patent. Lidocaine applied over the vocal cords and the bronchoscope was advanced further down to the trachea. More lidocaine was applied in the trachea, and as soon as the trachea was entered, we could visualize a significant amount of purulent secretions filling up most of the right mainstem bronchus and the left mainstem bronchus. The secretions were suctioned, and as we went down, we had a thorough examination of the right upper lobe, right middle lobe, right lower lobe, left upper lobe, lingula and left lower lobe. The trachea was noted to have a bit of tracheal malacia, and different secretions were noted and these were suctioned and lavaged from the right upper lobe, right middle lobe, right lower lobe and left upper lobe, lingula and left lower lobe. All secretions were suctioned from these different lobes until they were completely clear. Procedure was well tolerated, no evidence of any immediate complications, the fluid obtained from the lungs was sent for the further diagnostic studies, mostly different types of cultures. Patient will follow up on outpatient basis regarding the results of her cultures and bronchoscopy. MMODL / IJN: [id number] /
[2018-11-21 14:05] VITALS: BP 128/78; PULSE 104
[2018-11-21 16:18] LABS: Appearance,BF Cloudy; Color,BF Colorless; Nucleated Cells, Body Fluid 12250 /uL; RBC, Body Fluid 400 /uL
[2018-11-21 16:47] LABS: Mononuclear WBC,Body Fluid 7 %; Polynuclear WBC,Body Fluid 93 %; Total Cells Counted,Body Fluid 100
== END | disposition home or self-care (01) ==
LOC: ORWHC2ENDO 11:35
PROVIDERS: ATTEND Internal Medicine Critical Care Medicine
DX: J47.9 Bronchiectasis, uncomplicated (principal); J98.09 Other diseases of bronchus, not elsewhere classified; E78.2 Mixed hyperlipidemia; I34.1 Nonrheumatic mitral (valve) prolapse; Z99.81 Dependence on supplemental oxygen; J44.9 Chronic obstructive pulmonary disease, unspecified; Z87.442 Personal history of urinary calculi; Z86.711 Personal history of pulmonary embolism; M79.7 Fibromyalgia; D64.9 Anemia, unspecified; E03.9 Hypothyroidism, unspecified; K21.9 Gastro-esophageal reflux disease without esophagitis; G47.00 Insomnia, unspecified; Z79.01 Long term (current) use of anticoagulants; Z79.890 Hormone replacement therapy; Z79.1 Long term (current) use of non-steroidal anti-inflammatories (NSAID); Z79.891 Long term (current) use of opiate analgesic; Z79.51 Long term (current) use of inhaled steroids; Z79.899 Other long term (current) drug therapy; Z88.8 Allergy status to other drugs, medicaments and biological substances; Z88.1 Allergy status to other antibiotic agents; Z91.011 Allergy to milk products
CPT/HCPCS: 94640; 87798 ×3; 87496; 87498; 87529; 88108; 88305; 89050; 87252; 87502; 87634; 87070; 87205; 87116; 87102; 87077; 87186; 87206; 31624; J2001 ×3; J2250; J3010; J2704

== ENCOUNTER 2019-04-12 11:00 | Day surgery (SDC) | payer BC ==
[2019-04-11 10:25] VITALS: BMI 20.3
[~2019-04-12 11:00] MED LIST changes: -GLYCOPYRROLATE 0.2 MG/ML 2 ML VIAL ONE; -KETAMINE 10 MG/ML 20 ML VIAL ONE; -LIDOCAINE 1% INJ 10MG/ML (20 ML MDV) ONE; -LIDOCAINE 2% (PF) 20 MG/ML 10 ML AMP INHALATION ONE; +LIDOCAINE 2% (PF) 20 MG/ML 5 ML VIAL INHALATION ONE; -LIDOCAINE 2% INJ 20 MG/ML INTRATRACH ONE; -MIDAZOLAM 2 MG/2 ML VIAL ONE; -PROPOFOL 10 MG/ML 20 ML VIAL IV ONE; -fentaNYL (PF) 50 MCG/ML 2 ML AMP ONE
[2019-04-12 11:52] VITALS: TEMP 97.3
[2019-04-12] MEDS ORDERED: LIDOCAINE 1% INJ 10MG/ML (20 ML MDV) ONE (12:23)
[2019-04-12] MEDS ORDERED: GLYCOPYRROLATE 0.2 MG/ML 2 ML VIAL ONE (12:23)
[2019-04-12] MEDS ORDERED: PROPOFOL 10 MG/ML 20 ML VIAL IV ONE (12:23)
[2019-04-12] MEDS ORDERED: fentaNYL (PF) 50 MCG/ML 2 ML AMP ONE (12:23)
[2019-04-12] MEDS ORDERED: LIDOCAINE 2% INJ 20 MG/ML INTRATRACH ONE (12:45)
--- NOTE | 2019-04-12 12:51 | P.PCN ---
Date of Procedure: 04/12/19 Preoperative Diagnosis: Tracheobronchomalacia, recurrent pulmonary infections Postoperative Diagnosis: Tracheobronchomalacia, recurrent pulmonary infections, copious amount of purulent respiratory secretions / therapeutic suctioning was done and a total of 25 mL of purulent material was aspirated from the patient's lungs. Procedure(s) Performed: Flexible bronchoscopy, bronchoalveolar lavage Anesthesia: MAC Surgeon: Dominga Hughes Pathology: other Condition: stable Disposition: same day Operative Findings: 53-year-old female patient with known history of significant bronchomalacia and bronchiectasis coming in for increased shortness of breath. The patient was brought in for flexible bronchoscopy, bronchial lavage and therapeutic it was suctioning. The patient has had previous infections with Pseudomonas aeruginosa and the patient has completed a course of IV antibiotics regarding his pulmonary infection. This procedure was done under conscious sedation. After achieving adequate sedation flexible bronchoscope was inserted to the left nostril. Examination of the posterior oropharynx, larynx, epiglottis, arytenoids and the vocal cords were all within normal limits. No significant abnormalities were noted. There was some purulent secretions covering the laryngeal wall which was being coughed out episodically origin of the secretions was lower airways. At this point in time, a total of 2 mL of 1% lidocaine was applied to the vocal cords and then the bronchoscope was advanced into the upper trachea and examination of the tracheal bronchial tree was done. Immediately after the trachea was intubated by the bronchoscope, copious amount of purulent distal secretions were identi fied occupying the entire trachea more so in the lower lobes in the bilateral mainstem bronchi bilaterally. Therapeutic it was suctioning was done. Secretions were suctioned out and a total of 20 mL of purulent material was aspirated from the patient's lungs and this aspirate was quite purulent, brownish looking and take. Underlying bronchial mucosa was quite inflamed. Examination trachea showed a moderate degree of tracheal bronchomalacia with dynamic obstruction while exhalation and cough. Similar amount of malacia was seen and the various bronchi including involving the main bronchi and secondary bronchi and upper and lower lobes bilaterally. The therapy given suctioning was completed. At the completion of the procedure, the right upper lobe bronchus, bronchus intermedius, right middle lobe bronchus and right lower lobe bronchus and a left upper lobe bronchus, lingular segment and left lower lobe bronchus were visualized. More secretions and purulent material was identified and the secondary bronchi and there were also suctioned. A. bronchioalveolar lavage of the left lower lobe was done with total of 25 mL of material was suctioned out and ultimately the bronchoscope was removed and the patient was transferred recovery in stable condition. The samples were sent for microbial analysis and cultures. We'll continue to follow. Patient can be discharged home once shirley ared by anesthesia.
[2019-04-12 13:38] VITALS: RESP 16
[2019-04-12 13:49] VITALS: BP 115/65; PULSE 100
== END 2019-04-12 14:34 | disposition home or self-care (01) ==
LOC: ORWHC2ENDO 11:00
PROVIDERS: ATTEND Internal Medicine Critical Care Medicine
DX: J39.8 Other specified diseases of upper respiratory tract (principal); J40 Bronchitis, not specified as acute or chronic; J47.9 Bronchiectasis, uncomplicated; E03.9 Hypothyroidism, unspecified; G47.00 Insomnia, unspecified; J44.9 Chronic obstructive pulmonary disease, unspecified; K21.9 Gastro-esophageal reflux disease without esophagitis; Z86.711 Personal history of pulmonary embolism; Z82.49 Family history of ischemic heart disease and other diseases of the circulatory system; E78.5 Hyperlipidemia, unspecified; M79.7 Fibromyalgia; Z79.1 Long term (current) use of non-steroidal anti-inflammatories (NSAID); Z79.01 Long term (current) use of anticoagulants; Z79.890 Hormone replacement therapy; Z79.51 Long term (current) use of inhaled steroids; Z79.899 Other long term (current) drug therapy; Z88.1 Allergy status to other antibiotic agents; Z88.8 Allergy status to other drugs, medicaments and biological substances
CPT/HCPCS: 94640; 87798 ×3; 87496; 87498; 87529; 87252; 87502; 87634; 87070; 87205; 87116; 87102; 87077; 87186; 87206; 31624; J2001 ×3; J3010; J2704

== ENCOUNTER → 2019-05-27 | Outpatient (CLI) | payer BC ==
--- NOTE | 2019-05-28 08:06 | MM ---
Reason for exam: screening (asymptomatic). Last mammogram was performed 1 year and 2 months ago. History: Patient is postmenopausal. Taking estrogen for 5 years. Physical Findings: A clinical breast exam by your physician is recommended on an annual basis and results should be correlated with mammographic findings. MG Screening Mammo w CAD Bilateral CC and MLO view(s) were taken. Prior study comparison: March 21, 2018, left breast MG 3d work up w/cad LT. March 01, 2018, bilateral MG 3d screening mammo w/cad. The breast tissue is heterogeneously dense. This may lower the sensitivity of mammography. Right sided injection port. No significant changes when compared with prior studies. ASSESSMENT: Negative, BI-RAD 1 RECOMMENDATION: Routine screening mammogram of both breasts in 1 year.
== END ==
LOC: RADMAMWWP 05-24 13:13
PROVIDERS: ATTEND Obstetrics & Gynecology
DX: Z12.31 Encounter for screening mammogram for malignant neoplasm of breast (principal)
CPT/HCPCS: 77067

== ENCOUNTER 2019-07-03 09:51 | Day surgery (SDC) | payer BC ==
[2019-06-28 15:36] VITALS: BMI 21.0
[2019-07-03 10:13] VITALS: RESP 16; TEMP 97
[2019-07-03] MEDS: LACTATED RINGERS 1,000 ML IV SCH ×2 (10:23→11:12)
[2019-07-03] MEDS ORDERED: LIDOCAINE 1% 20 ML VIAL (10MG/ML) FOR IV START INTRADERMA ONE (10:24)
[2019-07-03] MEDS ORDERED: HYDROCORTISONE SUCCINATE 100 MG/2 ML VIAL IV ONE (10:26)
[2019-07-03 10:29] LABS: Glucose,Whole Blood 86 mg/dL (75-99)
[2019-07-03] MEDS ORDERED: PROPOFOL 10 MG/ML 20 ML VIAL IV ONE (11:14)
--- NOTE | 2019-07-03 11:39 | P.PCN ---
Date of Procedure: 07/03/19 Procedure(s) Performed: BRIEF HISTORY: Patient is a 53-year-old pleasant white female, scheduled for an elective colonoscopy as a part of screening for colorectal neoplasia. PROCEDURE PERFORMED: Colonoscopy. PREOPERATIVE DIAGNOSIS: Screening for colon cancer. IV sedation per Anesthesia. PROCEDURE: After informed consent was obtained, the patient, was brought into the endoscopy unit. IV sedation was administered by Anesthesia under continuous monitoring. Digital rectal examination was normal. Initially the Olympus CF-160 flexible video colonoscope was then inserted in the rectum, gradually advanced into the cecum without any difficulty. Careful examination was performed as the scope was gradually being withdrawn. Ileocecal valve and the appendiceal orifice were visualized and appeared normal. Prep was excellent. Mucosa of the cecum, ascending colon, transverse colon, descending colon, sigmoid colon, and rectum appeared normal. Retroflexion was performed in the rectum and no lesions were seen. The patient tolerated the procedure well. IMPRESSION: Normal-appearing colon from rectum to cecum with no evidence of colorectal neoplasia. RECOMMENDATIONS: Findings of this examination were discussed with the patient as well as a family. She was advised to have a repeat screening colonoscopy in 10 years.
[2019-07-03 11:55] VITALS: BP 117/77; PULSE 84
== END 2019-07-03 12:15 | disposition home or self-care (01) ==
LOC: ORWHC2ENDO 09:51
PROVIDERS: ATTEND Internal Medicine Gastroenterology
DX: Z12.11 Encounter for screening for malignant neoplasm of colon (principal); J47.9 Bronchiectasis, uncomplicated; E07.9 Disorder of thyroid, unspecified; G89.29 Other chronic pain; K21.9 Gastro-esophageal reflux disease without esophagitis; Z79.890 Hormone replacement therapy; Z79.51 Long term (current) use of inhaled steroids; Z79.1 Long term (current) use of non-steroidal anti-inflammatories (NSAID); Z79.899 Other long term (current) drug therapy; Z88.1 Allergy status to other antibiotic agents; Z88.8 Allergy status to other drugs, medicaments and biological substances
CPT/HCPCS: J1720; J2704; G0121; 45378

== ENCOUNTER → 2019-08-29 | Outpatient (CLI) | payer BC ==
--- NOTE | 2019-08-29 14:04 | MR ---
MR neck with and without contrast HISTORY: Neck swelling, anterior neck mass, history of lung disease Multiplanar multisequence and postcontrast images obtained through the neck following 5.5 cc Gadavist IV There is a large amount of artifact due to patient's dental hardware. This may limit evaluation. Port -A-Cath is present in the right pectoral region, catheter courses via the internal jugular vein appro ach. The orbits show a symmetric appearance. No evident cervical adenopathy. No supraclavicular adenopathy . Upper chest is unremarkable. Airway is patent. Epiglottis shows an unremarkable appearance as visua lized. Skull base is normal. Cerebellopontine angles are unremarkable. There are normal vascular flow voids. Sheath diverticula noted at the upper thoracic level. No evident spinal stenosis. There is no abnormal enhancement following contrast administration. Salivary glands are symmetric. IMPRESSION: There is some artifact present. No abnormalities evident to account for patient's symptom s. CT scan with contrast could be performed for increased spatial resolution as indicated and for les s artifact.
== END | disposition home or self-care (01) ==
LOC: RADMRIMAIN 12:37
PROVIDERS: ATTEND Otolaryngology
DX: R22.1 Localized swelling, mass and lump, neck (principal)
CPT/HCPCS: 70543; A9585

== ENCOUNTER 2019-09-18 07:21 | Day surgery (SDC) | payer BC, OTHER ==
[2019-09-17 09:22] VITALS: BMI 21.9
[~2019-09-18 07:21] MED LIST changes: -ALBUTEROL NEB (CONC) 2.5 MG/0.5 ML INHALATION ONE; +DEXAMETHASONE SOD PHOSPHATE 10 MG/ML 1 ML VIAL IV ONE; -LIDOCAINE 2% (PF) 20 MG/ML 5 ML VIAL INHALATION ONE; -LIDOCAINE VISCOUS 300 MG/15 ML CUP MUCOUS MEM ONE; +MOXIFLOXACIN HCL 0.5% DROPS 3 ML BTL OP ONE; +ONDANSETRON 4 MG/2 ML VIAL IVP ONE; -SODIUM CHLORIDE 0.9% 1,000 ML IV SCH; +TETRACAINE 0.5% OPHTH (PF) DROPS 4 ML BTL OP ONE; +TIMOLOL 0.5% OPHTH DROPS 5 ML BTL OP ONE
[2019-09-18] MEDS: CYCLOPENTOLATE 1% OPHTH SOLN 2 ML BTL OP ONE ×3 (07:55→08:14)
[2019-09-18 07:58] VITALS: RESP 16; TEMP 97.2
[2019-09-18] MEDS: PHENYLEPHRINE 2.5% OPHTH DRP 2ML OP NR ×3 (08:00→08:17)
[2019-09-18 08:16] LABS: Glucose,Whole Blood 82 mg/dL (75-99)
[2019-09-18] MEDS ORDERED: MIDAZOLAM 2 MG/2 ML VIAL ONE (09:00)
[2019-09-18] MEDS ORDERED: fentaNYL (PF) 50 MCG/ML 2 ML AMP ONE (09:00)
[2019-09-18] MEDS ORDERED: LIDOCAINE 1% (PF) 10MG/ML VIAL MISCELLANE ONE (09:04)
[2019-09-18] MEDS ORDERED: BALANCED SALT IRRIG SOLN COMB2 15 ML IRRIG.SOLN INTRAOCULA ONE (09:04)
[2019-09-18] MEDS ORDERED: HYALURONATE SODIUM INTRAOCULAR 1 EACH SYRINGE (12MG/ML) INTRAOCULA ONE (09:04)
[2019-09-18] MEDS ORDERED: ATROPINE OPHTH SOLN 1% 5ML BTL LEFT EYE ONE (09:05)
[2019-09-18] MEDS ORDERED: EPINEPHrine (PF) 0.3 ML in BALANCED SALT IRRIG SOLN COMB2 500 ML IRRIGATION ONE (09:06)
--- NOTE | 2019-09-18 09:24 | P.OP ---
Date of Procedure: 09/18/19 Preoperative Diagnosis: NS & CS & PSC Postoperative Diagnosis: same Procedure(s) Performed: PIOL, OS Implants: [id number] 24.50 Anesthesia: MAC Surgeon: Mohsen Rider Pathology: none sent Condition: stable Disposition: same day Indications for Procedure: blurry vision Operative Findings: no complications
[2019-09-18 09:43] VITALS: BP 101/59; PULSE 89
--- NOTE | 2019-09-19 06:24 | OP ---
OPERATIVE REPORT DATE OF SURGERY: September 18, 2019. SURGEON: Dr. Mohsen Rider PREOPERATIVE DIAGNOSIS: Nuclear sclerosis, cortical sclerosis and posterior subcapsular cataract. POSTOPERATIVE DIAGNOSIS: Nuclear sclerosis, cortical sclerosis and posterior subcapsular cataract. OPERATION: Phacoemulsification of cataract and intraocular lens implant of the left eye with a Crystalens. NARRATIVE: After obtaining the appropriate consent, the patient was brought to the operating room. There the patient was placed under cardiac monitoring, prepped and draped in the usual sterile manner. The patient was approached from the left temporal side. The mm Tono ring inked in gentian nithin was placed centrally on the cornea. At the 5 o'clock position, a 1.1 mm keratome was used to create a paracentesis port. Through this opening, 1% Xylocaine MPF 50/50 mix with balanced salt solution was injected into the anterior chamber. This was followed by stabilization of the anterior chamber with Amvisc viscoelastic. At the 3 o'clock position, a 2.75 mm emperatriz keratome was used to create a self-scaling corneal flap incision in a Langerman fashion. Through this opening, a cystotome was introduced to begin a continuous tear capsulorrhexis which was completed using the Utrata forceps. Care was taken to ensure that the capsulorrhexis was at least the size of the wily on the anterior cornea. Hydrodissection and hydrodelineation of the lens was accomplished with balanced salt solution. Phacoemulsification of the lens utilizing phaco chop was accomplished in 3.19 seconds at 4% power. Addition Xylocaine MPF was instilled into the anterior chamber. This was followed by removal of the remaining cortex under irrigation and aspiration along with careful polishing of the posterior capsule in a capsule vacuum mode. Additional Amvisc viscoelastic was then used to stabilize the capsular bag, and the Bausch [employer] Lomb Crystalens AO1UV 24.5 diopters intraocular lens was injected into the capsular bag without difficulty. The lens was rotated 270 degrees so that the haptics resided at the 6 and 12 o'clock positions, and all remaining viscoelastic was then removed from within the capsular bag and around the anterior chamber. The eye was brought to normal intraocular pressure through the paracentesis port along with slight hydration of the incision sites. Watertight integrity was confirmed using a fluorescein strip. The patient then received 2 drops of 0.5% timolol followed by 2 drops of Vigamox and 2 drops of 1% atropine. The patient was then lightly patched and shielded in the usual manner. There was no complications from the procedure. The patient tolerated the procedure well and was returned to outpatient recovery in good condition. LUIS / FABIO: [id number] /
== END 2019-09-18 10:00 | disposition home or self-care (01) ==
LOC: OR 07:21
PROVIDERS: ATTEND Ophthalmology
DX: H25.813 Combined forms of age-related cataract, bilateral (principal); H16.223 Keratoconjunctivitis sicca, not specified as Sjogren's, bilateral; H00.023 Hordeolum internum right eye, unspecified eyelid; H00.026 Hordeolum internum left eye, unspecified eyelid; H52.223 Regular astigmatism, bilateral; H52.03 Hypermetropia, bilateral; H52.4 Presbyopia; J45.909 Unspecified asthma, uncomplicated; J43.9 Emphysema, unspecified; F41.0 Panic disorder [episodic paroxysmal anxiety]; E07.9 Disorder of thyroid, unspecified; Z97.3 Presence of spectacles and contact lenses; Z87.01 Personal history of pneumonia (recurrent); Z79.01 Long term (current) use of anticoagulants; Z79.52 Long term (current) use of systemic steroids; Z79.51 Long term (current) use of inhaled steroids; Z79.890 Hormone replacement therapy; Z79.899 Other long term (current) drug therapy; Z86.14 Personal history of Methicillin resistant Staphylococcus aureus infection; Z88.1 Allergy status to other antibiotic agents; Z88.8 Allergy status to other drugs, medicaments and biological substances; Z83.518 Family history of other specified eye disorder; Z82.61 Family history of arthritis; Z83.3 Family history of diabetes mellitus; Z82.49 Family history of ischemic heart disease and other diseases of the circulatory system
CPT/HCPCS: 66984; V2632; V2788; J2250; J0171; J3010; J2001

== ENCOUNTER → 2019-10-16 | Day surgery (SDC) | payer BC, OTHER ==
[2019-10-15 10:23] VITALS: BMI 22.8
[~2019-10-16] MED LIST changes: +ATROPINE OPHTH SOLN 1% 5ML BTL LEFT EYE ONE; +BALANCED SALT IRRIG SOLN COMB2 15 ML IRRIG.SOLN IRRIGATION ONE; +CYCLOPENTOLATE 1% OPHTH SOLN 2 ML BTL OP ONE; -DEXAMETHASONE SOD PHOSPHATE 10 MG/ML 1 ML VIAL IV ONE; +DUOVISC KIT (GREEN BOX) INTRAOCULA ONE; +EPINEPHrine (PF) 0.3 ML in BALANCED SALT IRRIG SOLN COMB2 500 ML IRRIGATION ONE; -LIDOCAINE 1% 20 ML VIAL (10MG/ML) FOR IV START INTRADERMA PRN; +LIDOCAINE 1% INJ 10MG/ML (10 ML MDV) SQ ONE; +MIDAZOLAM 2 MG/2 ML VIAL ONE; -ONDANSETRON 4 MG/2 ML VIAL IVP ONE; +PHENYLEPHRINE 2.5% OPHTH DRP 2ML OP NR; +fentaNYL (PF) 50 MCG/ML 2 ML AMP ONE
[2019-10-16 13:55] VITALS: TEMP 97.9
--- NOTE | 2019-10-16 15:56 | P.OP ---
Date of Procedure: 10/16/19 Preoperative Diagnosis: lens displacement Postoperative Diagnosis: same Procedure(s) Performed: repositioning IOL, OS Implants: CTR [id number] Anesthesia: MAC Surgeon: Mohsen Rider Pathology: none sent Condition: stable Disposition: same day Indications for Procedure: lens not in correct position. Operative Findings: no complications
[2019-10-16 16:02] VITALS: BP 114/75; PULSE 82; RESP 16
--- NOTE | 2019-10-17 07:54 | OP ---
OPERATIVE REPORT DATE OF SURGERY: October 16, 2019. PROCEDURE: Reposition of intraocular lens of the left eye. PREOPERATIVE DIAGNOSIS: Vaulted Crystalens of the left eye. POSTOPERATIVE DIAGNOSIS: Vaulted Crystalens of the left eye. SURGEON: Dr. Mohsen Rider. ANESTHESIA: Topical. ESTIMATED BLOOD LOSS: None. SPECIMEN TAKEN: None. NARRATIVE: After obtaining the appropriate consent, the patient was brought to the operating room. There she was placed under cardiac monitoring, prepped and draped in the usual sterile manner. She was approached from her left temporal side and at the 3 o'clock position, a 2.5 mm keratome was used to create a self-sealing corneal flap incision. Through this opening, 1% Xylocaine MPF 50:50 mix with balanced salt solution was injected into the anterior chamber. This was followed by stabilization of the anterior chamber with Viscoat. Additional viscoelastic was instilled between the capsular bag and intraocular lens as well as between the anterior and posterior capsular leaflets with an increase in stretch between the anterior and posterior, the intraocular lens had begun to loosen. The most significant capsular fibrosis was at the 1 o'clock position and with manipulation of the superior haptic the lens was released from its fibrotic capture. This was followed by removing the inferior haptic from its position at the equator of the lens bag as well. Using a Pepose capsule polisher, attempts to remove additional capsular fibrotic material was accomplished from the anterior capsule as well as the equatorial region of the capsular bag. Care was taken so as not to damage the posterior capsule. Once this material as much as possible could be removed, a 12 mm capsular ring model [id number] capsular tension ring was inserted into the equatorial region of the capsular bag without difficulty. The previously prolapsed Crystalens was then replaced back into the capsular bag with the haptics at the equator. The lens was rotated approximately 120 degrees from its original placement where it appeared that there was less remaining fibrotic material in the capsular bag. The viscoelastic was removed from in and around the intraocular lens under irrigation and aspiration as well as the anterior chamber. The eye was then brought to normal intraocular pressure with balanced salt solution. The wound was hydrated slightly and ReSure was used to maintain a watertight integrity. The patient then received 2 drops of 0.5% timolol followed by 2 drops of moxifloxacin as well as 2 drops of 1% atropine. She was then lightly patched and shielded in the usual manner. There were no complications from the procedure. She tolerated the procedure well and was returned to outpatient recovery in good condition. LUIS / NAELN: [id number] /
== END | disposition home or self-care (01) ==
LOC: OR 13:23
PROVIDERS: ATTEND Ophthalmology
DX: T85.22XA Displacement of intraocular lens, initial encounter (principal); H16.223 Keratoconjunctivitis sicca, not specified as Sjogren's, bilateral; H25.012 Cortical age-related cataract, left eye; H00.023 Hordeolum internum right eye, unspecified eyelid; H00.026 Hordeolum internum left eye, unspecified eyelid; H52.223 Regular astigmatism, bilateral; H52.03 Hypermetropia, bilateral; H52.4 Presbyopia; J98.09 Other diseases of bronchus, not elsewhere classified; J39.8 Other specified diseases of upper respiratory tract; I34.1 Nonrheumatic mitral (valve) prolapse; Z86.711 Personal history of pulmonary embolism; Z87.442 Personal history of urinary calculi; M79.7 Fibromyalgia; M19.90 Unspecified osteoarthritis, unspecified site; K21.9 Gastro-esophageal reflux disease without esophagitis; Z98.890 Other specified postprocedural states; Z79.01 Long term (current) use of anticoagulants; Z79.1 Long term (current) use of non-steroidal anti-inflammatories (NSAID); Z79.890 Hormone replacement therapy; Z79.51 Long term (current) use of inhaled steroids; Z79.52 Long term (current) use of systemic steroids; Z79.899 Other long term (current) drug therapy; Z88.8 Allergy status to other drugs, medicaments and biological substances
CPT/HCPCS: 66825; L8610; J2250; J0171; J3010; J2001

== ENCOUNTER 2020-01-15 07:35 | Day surgery (SDC) | payer BC, OTHER ==
[2020-01-13 15:59] VITALS: BMI 23.3
[~2020-01-15 07:35] MED LIST changes: -ATROPINE OPHTH SOLN 1% 5ML BTL LEFT EYE ONE; -BALANCED SALT IRRIG SOLN COMB2 15 ML IRRIG.SOLN IRRIGATION ONE; -CYCLOPENTOLATE 1% OPHTH SOLN 2 ML BTL OP ONE; +DEXAMETHASONE SOD PHOSPHATE 10 MG/ML 1 ML VIAL IV ONE; -DUOVISC KIT (GREEN BOX) INTRAOCULA ONE; -EPINEPHrine (PF) 0.3 ML in BALANCED SALT IRRIG SOLN COMB2 500 ML IRRIGATION ONE; -LIDOCAINE 1% INJ 10MG/ML (10 ML MDV) SQ ONE; -MIDAZOLAM 2 MG/2 ML VIAL ONE; +ONDANSETRON 4 MG/2 ML VIAL IVP ONE; -PHENYLEPHRINE 2.5% OPHTH DRP 2ML OP NR; -fentaNYL (PF) 50 MCG/ML 2 ML AMP ONE
[2020-01-15] MEDS: CYCLOPENTOLATE 1% OPHTH SOLN 2 ML BTL OP ONE ×3 (08:01→08:16)
[2020-01-15] MEDS: PHENYLEPHRINE 2.5% OPHTH DRP 2ML OP NR ×3 (08:04→08:22)
[2020-01-15 08:05] VITALS: RESP 16; TEMP 98.3
[2020-01-15] MEDS ORDERED: fentaNYL (PF) 50 MCG/ML 2 ML AMP ONE (08:52)
[2020-01-15] MEDS ORDERED: MIDAZOLAM 2 MG/2 ML VIAL ONE (08:52)
[2020-01-15] MEDS ORDERED: BALANCED SALT IRRIG SOLN COMB2 15 ML IRRIG.SOLN INTRAOCULA ONE (09:18)
[2020-01-15] MEDS ORDERED: DUOVISC KIT (GREEN BOX) INTRAOCULA ONE (09:18)
[2020-01-15] MEDS ORDERED: LIDOCAINE 1% (PF) 10MG/ML VIAL SQ ONE (09:18)
[2020-01-15] MEDS ORDERED: EPINEPHrine (PF) 0.3 ML in BALANCED SALT IRRIG SOLN COMB2 500 ML IRRIGATION ONE (09:19)
--- NOTE | 2020-01-15 09:51 | P.OP ---
Date of Procedure: 01/15/20 Preoperative Diagnosis: NS & CS & PSC Postoperative Diagnosis: same Procedure(s) Performed: PIOL, OD Implants: AO1UV 24.50 Anesthesia: MAC Surgeon: Mohsen Rider Estimated Blood Loss (ml): 0 Pathology: none sent Condition: stable Disposition: same day Indications for Procedure: blurry vision Operative Findings: nocomplications
[2020-01-15 10:38] VITALS: BP 100/54; PULSE 78
--- NOTE | 2020-01-15 17:55 | OP ---
OPERATIVE REPORT DATE OF SURGERY: January 15, 2020. PROCEDURE PERFORMED: Phacoemulsification of cataract and intraocular lens implant of the right eye. PREOPERATIVE DIAGNOSES: Nuclear sclerosis, cortical sclerosis and subcapsular cataract. POSTOPERATIVE DIAGNOSES: Nuclear sclerosis, cortical sclerosis and subcapsular cataract. SURGEON: Dr. Mohsen Rider. ANESTHESIA: Topical. ESTIMATED BLOOD LOSS: None. SPECIMEN: Taken none. NARRATIVE: After obtaining the appropriate consent, the patient was brought to the operating room. There she was placed under cardiac monitoring, prepped and draped in the usual sterile manner. She was approached from her right temporal side and a 5.5 mm Sinclair ring was placed on the patient's cornea over the central light reflex. At the 11 o'clock position, a 1.1 mm MVR blade was used to create a paracentesis port. Through this opening, 1% Xylocaine MPF 50/50 mix of balanced salt solution was injected into the anterior chamber. This was followed by stabilization of the anterior chamber with Amvisc. At the 9 o'clock position, a 2.75 mm emperatriz keratome was used to create a self-sealing corneal flap incision in a Langerman's fashion. A cystotome was advanced across the anterior chamber over the middle of the lens and a continuous tear capsulorrhexis was begun and was completed using the Utrata forceps. Care was taken to ensure that the size of the rhexis was at least the size of the wily on the patient's cornea. Hydrodissection and hydrodelineation of the lens was accomplished with balanced salt solution. Phacoemulsification lens utilizing phaco chop was accomplished in 14.08 seconds, at 15% power. Additional Xylocaine MPF was instilled into the anterior chamber. This was followed by removal of the remaining cortex from in and around the capsular bag as well as careful polishing of the posterior capsule in the capsule vacuum mode. Amvisc was then used to stabilize the capsular bag and using Pappose and Gemma capsule polisher, care was taken to ensure as much remaining debris from within the equator the anterior capsule of the lens was removed for 360 degrees. The temporal incision was enlarged slightly and a 13 mm capsular tension ring model [id number] was placed into the equator of the bag. Once this was placed, then a Bausch and Lomb crystal lens model a AO1UV 24.5 diopter posterior chamber intra-ocular lens was inserted into the capsular bag with no difficulty. The lens was rotated approximately 90 degrees and moved well within the bag. This was followed by removal of the remaining viscoelastic from in and around the intra-ocular lens as well as the anterior chamber. Care was taken to ensure that the lens remained in the proper orientation. The eye was then brought to normal intraocular pressure through the paracentesis port. The incisions were dried with a Weck-sandy sponge and ReSure was used to ensure proper closure over the paracentesis as well as the temporal incision. She then received 2 drops of 0.5% timolol followed by 2 drops of moxifloxacin. She was then lightly patched and shielded in the usual manner. There were no complications from the procedure. She tolerated the procedure well and was returned to outpatient recovery in good condition. LUIS / FABIO: [id number] / PRANEETH
== END 2020-01-15 10:24 | disposition home or self-care (01) ==
LOC: OR 07:35
PROVIDERS: ATTEND Ophthalmology
DX: H25.11 Age-related nuclear cataract, right eye (principal); H25.011 Cortical age-related cataract, right eye; H25.041 Posterior subcapsular polar age-related cataract, right eye; H00.023 Hordeolum internum right eye, unspecified eyelid; H00.026 Hordeolum internum left eye, unspecified eyelid; H16.223 Keratoconjunctivitis sicca, not specified as Sjogren's, bilateral; H52.223 Regular astigmatism, bilateral; H52.03 Hypermetropia, bilateral; H52.4 Presbyopia; Z96.1 Presence of intraocular lens; Z98.890 Other specified postprocedural states; E78.5 Hyperlipidemia, unspecified; E07.9 Disorder of thyroid, unspecified; J47.9 Bronchiectasis, uncomplicated; Z79.01 Long term (current) use of anticoagulants; Z79.1 Long term (current) use of non-steroidal anti-inflammatories (NSAID); Z79.890 Hormone replacement therapy; Z79.51 Long term (current) use of inhaled steroids; Z79.52 Long term (current) use of systemic steroids; Z79.899 Other long term (current) drug therapy; Z88.1 Allergy status to other antibiotic agents; Z88.8 Allergy status to other drugs, medicaments and biological substances
CPT/HCPCS: 66984; L8610; V2632; V2788; J2250; J0171; J3010; J2001

== ENCOUNTER → 2020-05-05 | Outpatient (CLI) | payer BC, OTHER ==
--- NOTE | 2020-05-05 12:39 | XR ---
EXAMINATION TYPE: XR KUB DATE OF EXAM: 05/05/2020 COMPARISON: 07/17/2017 HISTORY: Pain TECHNIQUE: One view abdominal series FINDINGS: The osseous structures are intact. The bowel gas pattern is nonspecific. Stent retained fecal debris throughout the colon. There is artifact seen scattered throughout the abdomen and pelvis. Renal outline assessment limited due to the amount of bowel content. No obvious calcifications. Bilat eral lower lobe areas of linear consolidation are seen and there is postsurgical change in the epigas trium.. IMPRESSION: 1. Nonspecific abdomen. No obvious renal calcifications. Correlate for constipation. 2. Bilateral areas of lower lobe consolidation most likely on the basis of discoid atelectasis, corre late clinically.
== END | disposition home or self-care (01) ==
LOC: RADXRMAIN 12:12
PROVIDERS: ATTEND Urology
DX: N23 Unspecified renal colic (principal)
CPT/HCPCS: 74018

== ENCOUNTER → 2020-05-20 | Outpatient (CLI) | payer BC ==
--- NOTE | 2020-05-20 14:59 | MR ---
EXAMINATION TYPE: MR cervical spine wo/w con DATE OF EXAM: 05/20/2020 2:44 PM COMPARISON: NONE HISTORY: Spinal stenosis, cervicalgia CONTRAST: The patient was injected with 5.5 mL intravenous Gadavist gadolinium contrast. Multiplanar MultiSpin echo imaging of the cervical spine was performed. C2-C3: No evidence for degenerative disc disease. No disc bulge/herniation or protrusion. No Canal stenosis. Foramina are patent bilaterally. C3-C4: Mild decreased signal and loss of height compatible degenerative disc disease. Posterior disc bulge mild in degree. Minimal effacement ventral thecal sac. No evidence for herniation or central st enosis. No evidence for foraminal encroachment. C4-C5: Moderate disc desiccation compatible with degenerative disc disease. Moderate posterior disc b ulge with effacement ventral thecal sac over the spinal canal is capacious and there is no evidence f or central stenosis. Mild left foraminal encroachment identified. C5-C6: Mild decreased signal and loss of height compatible degenerative disc disease. Posterior disc bulge mild in degree. Minimal effacement ventral thecal sac. No evidence for herniation or central st enosis. No evidence for foraminal encroachment. C6-C7:No evidence for degenerative disc disease. No disc bulge/herniation or protrusion. No Canal s tenosis. Foramina are patent bilaterally. C7-T1: No evidence for degenerative disc disease. No disc bulge/herniation or protrusion. No Canal stenosis. Foramina are patent bilaterally. No cervical spine fracture.There is normal alignment. Cervical spinal cord is of normal signal. Parts Facilitator niovertebral junction relationships are within normal limits. No pathologic enhancement. IMPRESSION: 1. Multilevel degenerative disc disease with posterior disc bulge. No evidence for central stenosis o r disc herniation.
== END | disposition home or self-care (01) ==
LOC: RADMRIMAIN 13:54
PROVIDERS: ATTEND Internal Medicine Geriatric Medicine
DX: M50.321 Other cervical disc degeneration at C4-C5 level (principal); M50.221 Other cervical disc displacement at C4-C5 level
CPT/HCPCS: 72156; A9585

== ENCOUNTER → 2020-10-13 | Outpatient (CLI) | payer BC, MEDICARE ==
[~2020-10-13] MED LIST changes: +DENOSUMAB 60 MG/ML 1 ML SYRINGE SQ NR; -DEXAMETHASONE SOD PHOSPHATE 10 MG/ML 1 ML VIAL IV ONE; -LACTATED RINGERS 1,000 ML IV SCH; -MOXIFLOXACIN HCL 0.5% DROPS 3 ML BTL OP ONE; -ONDANSETRON 4 MG/2 ML VIAL IVP ONE; -TETRACAINE 0.5% OPHTH (PF) DROPS 4 ML BTL OP ONE; -TIMOLOL 0.5% OPHTH DROPS 5 ML BTL OP ONE
[2020-10-13 14:03] VITALS: BP 116/75; PULSE 72; RESP 16; TEMP 98.4
== END ==
LOC: PROCWHC3 13:10
PROVIDERS: ATTEND Obstetrics & Gynecology
DX: M81.0 Age-related osteoporosis without current pathological fracture (principal)
CPT/HCPCS: 96372; J0897

== ENCOUNTER 2021-06-14 20:26 | Inpatient (IN) | payer MEDICARE, BC ==
[2021-06-14] MEDS ORDERED: IPRATROPIUM 0.5 MG/2.5 ML NEBU INHALATION STA (20:42)
[2021-06-14] MEDS ORDERED: SODIUM CHLORIDE 0.9% 500 ML 500 ML IV STA (20:42)
[2021-06-14] MEDS ORDERED: ALBUTEROL NEBULIZED 2.5 MG/3 ML INHALATION STA (20:42)
[2021-06-14] MEDS ORDERED: methylPREDNISolone SOD SUCCI 125 MG/2 ML VIAL IV STA (20:42)
--- NOTE | 2021-06-14 20:47 | ED ---
General Adult HPI - General Stated complaint: SOB, chest pain Time Seen by Provider: 06/14/21 20:29 Source: patient, EMS, RN notes reviewed, old records reviewed - History of Present Illness Initial comments: 55-year-old female presenting with dyspnea and chest pain. Chest pain is predominantly left sided. This has been on and off for the past several weeks. It has worsened today. She also reports increased dyspnea. She denies fever or chills. She has been vaccinated against coronavirus. 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 She has no previous history of CAD. She states she is currently on Eliquis. - Related Data Home Medications Medication Instructions Recorded Confirmed Atorvastatin [Lipitor] 10 mg PO HS 04/16/14 06/14/21 DULoxetine HCL [Duloxetine HCl] 60 mg PO DAILY 04/16/14 06/14/21 Gabapentin 600 mg PO HS 04/16/14 06/14/21 Levothyroxine Sodium [Synthroid] 50 mcg PO DAILY 04/16/14 06/14/21 Montelukast [Singulair] 10 mg PO DAILY 04/16/14 06/14/21 Fluticasone/Vilanterol [Breo 1 puff INHALATION RT-DAILY 03/08/17 06/14/21 Ellipta 200-25 Mcg Inhaler] traZODone HCL 50 mg PO HS 06/28/19 06/14/21 Apixaban [Eliquis] 5 mg PO BID 06/14/21 06/14/21 Celecoxib [CeleBREX] 200 mg PO BID PRN 06/14/21 06/14/21 DULoxetine HCL [Cymbalta] 60 mg PO DAILY 06/14/21 06/14/21 Gabapentin 300 mg PO DAILY 06/14/21 06/14/21 Zolpidem [Ambien] 5 mg PO HS 06/14/21 06/14/21 Allergies Allergy/AdvReac Type Severity Reaction Status Date / Time erythromycin base Allergy Intermediate Rash/Hives Verified 06/14/21 22:07 metoclopramide HCl Allergy MUSCLE Verified 06/14/21 22:07 [From Reglan] SPASMS prochlorperazine edisylate Allergy MUSCLE Verified 06/14/21 22:07 [From Compazine] SPASMS/muscle jerking prochlorperazine maleate Allergy MUSCLE Verified 06/14/21 22:07 [From Compazine] SPASMS/muscle jerking Review of Systems ROS Statement: Those systems with pertinent positive or pertinent negative responses have been documented in the HPI. ROS Other: All systems not noted in ROS Statement are negative. Past Medical History Past Medical History: Asthma, COPD, Eye Disorder, Fibromyalgia, GERD/Reflux, Hyperlipidemia, Mitral Valve Prolapse (MVP), Osteoarthritis (OA), Pneumonia, Pulmonary Embolus (PE), Respiratory Disorder, Thyroid Disorder Additional Past Medical History / Comment(s): Tracheobronchomalacia, hx kidney stones, O2 - USES 3.5 -4 LITERS AT NIGHT, 4L/NC DURING DAY NEEDED. RT CATARACTS History of Any Multi-Drug Resistant Organisms: MRSA Date of last positivie culture/infection: 03/07/18 MDRO Source:: LUNG Past Surgical History: Appendectomy, Heart Catheterization, Orthopedic Surgery Additional Past Surgical History / Comment(s): Bronchoscopies/BALs, R lung bx, R chest port, 1993 cardiac cath-normal, R knee arthroscopy, kidney stone removal, D&C. LT CATARACT X 2 Past Anesthesia/Blood Transfusion Reactions: No Reported Reaction Additional Past Anesthesia/Blood Transfusion Reaction / Comment(s): Pt has received blood in past without reaction. Past Psychological History: Panic Disorder Additional Psychological History / Comment(s): Pt resides with her spouse. She has home oxygen and nebulizer. She is independent. She works in a medical office. Smoking Status: Never smoker Past Alcohol Use History: None Reported Additional Past Alcohol Use History / Comment(s): Patient has been a lifelong nonsmoker, no illicit drug use, no alcohol use. She currently works at [employer] office. Past Drug Use History: None Reported - Past Family History Father Family Medical History: CVA/TIA Additional Family Medical History / Comment(s): Father 09/2017 from a massive CVA. He was 85-year-old. Brother(s) Family Medical History: No Reported History Sister(s) Family Medical History: Neurologic Disorder Daughter(s) Family Medical History: No Reported History Mother Family Medical History: AFIB Additional Family Medical History / Comment(s): Mother has a pacemaker. General Exam General appearance: alert, in no apparent distress Head exam: Present: atraumatic, normocephalic Eye exam: Present: normal appearance, PERRL ENT exam: Present: normal exam Neck exam: Present: normal inspection. Absent: tenderness, meningismus Respiratory exam: Present: respiratory distress, rales, decreased breath sounds Cardiovascular Exam: Present: normal rhythm, tachycardia GI/Abdominal exam: Present: soft. Absent: distended, tenderness, guarding Extremities exam: Present: normal inspection, normal capillary refill. Absent: pedal edema Neurological exam: Present: alert, oriented X3, CN II-XII intact. Absent: motor sensory deficit Psychiatric exam: Present: anxious Skin exam: Present: warm, dry, intact. Absent: cyanosis, diaphoretic EKG Findings - EKG Comments: EKG Findings:: EKG: Sinus tachycardia nonspecific T-wave abnormality, no ST segment elevation, artifact in V5, rate of 118, [place] interval 116, QRS duration 72, QTC 403 Medical Decision Making - Medical Decision Making 55-year-old female who presented with cough, dyspnea, left-sided chest pain. Increased oxygenation requirements. History of primary fibrosis and COPD. Patient has EKG showing sinus rhythm without ST segment elevation. Chest x-ray showing no lobar pneumonia left lower lung. Patient has a normal CBC, normal CMP. Troponin is negative. Coronavirus testing is pending. She's given IV steroids, albuterol, Atrovent, started on IV antibiotics including cefepime and Levaquin. She will be admitted to internal medicine with pulmonology on consult. Case discussed with Dr. Ayala who will admit. - Lab Data Result diagrams: 06/14/21 21:25 06/14/21 21:25 Lab Results 06/14/21 06/14/21 06/14/21 Range/Units 21:20 21:25 21:25 WBC 9.1 (3.8-10.6) k/uL RBC 3.79 L (3.80-5.40) m/uL Hgb 12.6 (11.4-16.0) gm/dL Hct 37.0 (34.0-46.0) % MCV 97.5 (80.0-100.0) fL MCH 33.1 (25.0-35.0) pg MCHC 34.0 (31.0-37.0) g/dL RDW 13.0 (11.5-15.5) % Plt Count 182 (150-450) k/uL MPV 8.3 PT 10.8 (9.0-12.0) sec INR 1.0 (<1.2) APTT 22.5 (22.0-30.0) sec Sodium (137-145) mmol/L Potassium (3.5-5.1) mmol/L Chloride (98-107) mmol/L Carbon Dioxide (22-30) mmol/L Anion Gap mmol/L BUN (7-17) mg/dL Creatinine (0.52-1.04) mg/dL Est GFR (CKD-EPI)AfAm (>60 ml/min/1.73 sqM) Est GFR (CKD-EPI)NonAf (>60 ml/min/1.73 sqM) Glucose (74-99) mg/dL Plasma Lactic Acid Saran 1.7 (0.7-2.0) mmol/L Calcium (8.4-10.2) mg/dL Magnesium (1.6-2.3) mg/dL Total Bilirubin (0.2-1.3) mg/dL AST (14-36) U/L ALT (4-34) U/L Alkaline Phosphatase (38-126) U/L Troponin I (0.000-0.034) ng/mL Total Protein (6.3-8.2) g/dL Albumin (3.5-5.0) g/dL 06/14/21 06/14/21 Range/Units 21:25 21:25 WBC (3.8-10.6) k/uL RBC (3.80-5.40) m/uL Hgb (11.4-16.0) gm/dL Hct (34.0-46.0) % MCV (80.0-100.0) fL MCH (25.0-35.0) pg MCHC (31.0-37.0) g/dL RDW (11.5-15.5) % Plt Count (150-450) k/uL MPV PT (9.0-12.0) sec INR (<1.2) APTT (22.0-30.0) sec Sodium 136 L (137-145) mmol/L Potassium 3.4 L (3.5-5.1) mmol/L Chloride 104 (98-107) mmol/L Carbon Dioxide 24 (22-30) mmol/L Anion Gap 8 mmol/L BUN 17 (7-17) mg/dL Creatinine 0.76 (0.52-1.04) mg/dL Est GFR (CKD-EPI)AfAm >90 (>60 ml/min/1.73 sqM) Est GFR (CKD-EPI)NonAf 88 (>60 ml/min/1.73 sqM) Glucose 98 (74-99) mg/dL Plasma Lactic Acid Saran (0.7-2.0) mmol/L Calcium 9.8 (8.4-10.2) mg/dL Magnesium 1.3 L (1.6-2.3) mg/dL Total Bilirubin 0.7 (0.2-1.3) mg/dL AST 33 (14-36) U/L ALT 20 (4-34) U/L Alkaline Phosphatase 106 (38-126) U/L Troponin I <0.012 (0.000-0.034) ng/mL Total Protein 6.2 L (6.3-8.2) g/dL Albumin 3.8 (3.5-5.0) g/dL Disposition Clinical Impression: Pneumonia Disposition: ADMITTED IP TO THIS [facility] Condition: Stable Is patient prescribed a controlled substance at d/c from ED?: No Referrals: Bry Guadalupe MD [Primary Care Provider] - 1-2 days Decision to Admit Reason: Admit from EC Decision Date: 06/14/21 Decision Time: 22:32
--- NOTE | 2021-06-14 21:15 | XR ---
EXAMINATION TYPE: XR chest 1V portable DATE OF EXAM: 06/14/2021 COMPARISON: 11/07/2018 HISTORY: Short of breath TECHNIQUE: Single view FINDINGS: There is large area of airspace infiltrate in the left lower lobe. There is small infiltrat e right lung base. There is no heart failure. Heart size is fairly normal. There is right central hemanth ous catheter with tip in the superior vena cava. There are chest leads. IMPRESSION: Bilateral pneumonia which is much worse on the left side and essentially new compared to old exam. Normal heart.
[2021-06-14] MEDS ORDERED: CEFEPIME 2 GM in SODIUM CHLORIDE 0.9% 100 ML IVPB STA (21:20)
[2021-06-14 21:39] LABS: Partial Thromboplastin Time 22.5 sec (22.0-30.0); Prothrombin Time 10.8 sec (9.0-12.0)
[2021-06-14 21:44] LABS: ALT 20 U/L (4-34); AST 33 U/L (14-36); African American GFR (CKD) >90 (>60 ml/min/1.73 sqM); Albumin 3.8 g/dL (3.5-5.0); Alkaline Phosphatase 106 U/L (38-126); Anion Gap 8 mmol/L; Blood Urea Nitrogen 17 mg/dL (7-17); Calcium 9.8 mg/dL (8.4-10.2); Carbon Dioxide 24 mmol/L (22-30); Chloride 104 mmol/L (98-107); Glucose 98 mg/dL (74-99); Magnesium 1.3 mg/dL (1.6-2.3); Non-African American GFR(CKD) 88 (>60 ml/min/1.73 sqM); Potassium 3.4 mmol/L (3.5-5.1); Sodium 136 mmol/L (137-145); Total Bilirubin 0.7 mg/dL (0.2-1.3); Total Protein 6.2 g/dL (6.3-8.2)
[2021-06-14 21:46] LABS: HGB 12.6 gm/dL (11.4-16.0); MCH 33.1 pg (25.0-35.0); MCV 97.5 fL (80.0-100.0); Mean Platelet Volume 8.3; Platelet Count 182 k/uL (150-450); RBC 3.79 m/uL (3.80-5.40); WBC 9.1 k/uL (3.8-10.6)
[2021-06-14] MEDS ORDERED: MORPHINE SULFATE 4 MG/ML SYRINGE IVP STA (22:22)
[2021-06-14] MEDS ORDERED: LEVOFLOXACIN 500MG-D5W PMX 500 MG in DEXTROSE/WATER 1 100ML.BAG IVPB STA (22:29)
[2021-06-14] MEDS ORDERED: NALOXONE 0.4 MG/ML 1 ML VIAL IV PRN (22:29)
[2021-06-14] MEDS: SODIUM CHLORIDE 0.9% 1,000 ML IV SCH (22:31)
[2021-06-14 22:55] LABS: Band Neutrophils % 10 %; Eosinophils # (M) 0.09 k/uL (0-0.7); Lymphocytes # (M) 1.37 k/uL (1.0-4.8); Monocytes # (M) 0.09 k/uL (0-1.0); Neutrophils % (M) 73 %; Nucleated Red Blood Cells 0 /100 WBC (0-0); Total Cells Counted 100
[2021-06-14] MEDS: HYDROmorphone 0.5 MG/0.5 ML SYRINGE IVP PRN (23:42)
[2021-06-15] MEDS: HYDROmorphone 0.5 MG/0.5 ML SYRINGE IVP PRN ×2 (05:19→10:56)
[2021-06-15] MEDS: SODIUM CHLORIDE 0.9% 1,000 ML IV SCH ×3 (06:57→23:05)
[2021-06-15] MEDS: CEFEPIME 2 GM in SODIUM CHLORIDE 0.9% 100 ML IVPB SCH ×3 (06:57→23:02)
[2021-06-15] MEDS ORDERED: Magnesium Replacement Protocol 1 EACH MISC MISCELLANE PRN (10:18)
[2021-06-15] MEDS: APIXABAN 5 MG TAB PO SCH ×2 (10:56→22:59)
[2021-06-15] MEDS: LEVOFLOXACIN 750MG-D5W PMX 750 MG in DEXTROSE/WATER 1 150ML.BAG IVPB SCH (11:20)
[2021-06-15] MEDS ORDERED: VANCOMYCIN IV PER PHARMACY 1 EACH MISC MISCELLANE PRN (11:22)
--- NOTE | 2021-06-15 11:31 | P.CNPUL ---
History of Present Illness Consult date: 06/15/21 Reason for consult: dyspnea, hypoxemia, pneumonia History of present illness: This is a 55-year-old female patient was very well-known to me. The patient has severe tracheal bronchomalacia, bronchiectasis and recurrent bouts of pneumonias and bronchitis. The patient has been infected with MRSA, Haemophilus influenza, stenotrophomonas and Pseudomonas in the past. She has had multiple bronchoscopies in the past and she has poor based on lung capacity with a FEV1 of 26% of predicted at baseline. She is a nonsmoker. Note that over the past 2 years, the patient was doing well and the patient has not been hospitalized recently and her condition is been essentially stable. Her outpatient respiratory medications included Breo Ellipta and albuterol nebulized treatments around the clock as needed. No recent antibiotic use. She has also had previous history of pulmonary embolism and she is maintained on Eliquis for that on outpatient basis. She came into the hospital because of 1-1/2 week worth of increased shortness of breath and cough and congestion and worsening shortness of breath. Chest x-ray showed bilateral pneumonia left more than right. In the emergency department, the patient's was seen and the patient a white cell count 9.1 with a hemoglobin of 12.6, normal renal function, normal coagulation profile, the patient's COVID 19 testing was essentially negative. Chest x-ray showed bilateral pneumonia left more than right assessment affecting the lung bases. Troponin is a been negative for now. The patient is currently on 6 L of oxygen by nasal cannula with a pulse ox of 91%. She is complaining of some pleuritic pain on the left that she is producing copious amount of thick or purulent respiratory secretions. She comments of cefepime and Levaquin and this was given to her in the emergency department. Note that the patient was having episodes of fever at home on and off. Review of Systems Constitutional: Reports weakness, Denies chills, Denies fever Eyes: denies blurred vision, denies pain Ears, nose, mouth and throat: Denies headache, Denies sore throat Cardiovascular: Denies chest pain, Denies shortness of breath Respiratory: Reports dyspnea, Reports home oxygen, Denies cough Gastrointestinal: Denies abdominal pain, Denies diarrhea, Denies nausea, Denies vomiting Genitourinary: Denies dysuria, Denies hematuria Musculoskeletal: Denies myalgias Integumentary: Denies pruritus, Denies rash Neurological: Denies numbness, Denies weakness Psychiatric: Denies anxiety, Denies depression Endocrine: Denies fatigue, Denies weight change Past Medical History Past Medical History: Asthma, COPD, Eye Disorder, Fibromyalgia, GERD/Reflux, Hyperlipidemia, Mitral Valve Prolapse (MVP), Osteoarthritis (OA), Pneumonia, Pulmonary Embolus (PE), Respiratory Disorder, Thyroid Disorder Additional Past Medical History / Comment(s): Tracheobronchomalacia, hx kidney stones, O2 - USES 3.5 -4 LITERS AT NIGHT, 4L/NC DURING DAY NEEDED. RT CATARACTS History of Any Multi-Drug Resistant Organisms: MRSA Date of last positivie culture/infection: 03/07/18 MDRO Source:: LUNG Past Surgical History: Appendectomy, Heart Catheterization, Orthopedic Surgery Additional Past Surgical History / Comment(s): Bronchoscopies/BALs, R lung bx, R chest port, 1993 cardiac cath-normal, R knee arthroscopy, kidney stone removal, D&C. LT CATARACT X 2 Past Anesthesia/Blood Transfusion Reactions: No Reported Reaction Additional Past Anesthesia/Blood Transfusion Reaction / Comment(s): Pt has received blood in past without reaction. Past Psychological History: Panic Disorder Additional Psychological History / Comment(s): Pt resides with her spouse. She has home oxygen and nebulizer. She is independent. She works in a medical office. Smoking Status: Never smoker Past Alcohol Use History: None Reported Additional Past Alcohol Use History / Comment(s): Patient has been a lifelong nonsmoker, no illicit drug use, no alcohol use. She currently works at [employer] office. Past Drug Use History: None Reported - Past Family History Father Family Medical History: CVA/TIA Additional Family Medical History / Comment(s): Father 09/2017 from a massive CVA. He was 85-year-old. Brother(s) Family Medical History: No Reported History Sister(s) Family Medical History: Neurologic Disorder Daughter(s) Family Medical History: No Reported History Mother Family Medical History: AFIB Additional Family Medical History / Comment(s): Mother has a pacemaker. Medications and Allergies Home Medications Medication Instructions Recorded Confirmed Type Atorvastatin [Lipitor] 10 mg PO HS 04/16/14 06/14/21 History DULoxetine HCL [Duloxetine HCl] 60 mg PO DAILY 04/16/14 06/14/21 History Gabapentin 600 mg PO HS 04/16/14 06/14/21 History Levothyroxine Sodium [Synthroid] 50 mcg PO DAILY 04/16/14 06/14/21 History Montelukast [Singulair] 10 mg PO DAILY 04/16/14 06/14/21 History Fluticasone/Vilanterol [Breo 1 puff INHALATION RT-DAILY 03/08/17 06/14/21 History Ellipta 200-25 Mcg Inhaler] traZODone HCL 50 mg PO HS 06/28/19 06/14/21 History Apixaban [Eliquis] 5 mg PO BID 06/14/21 06/14/21 History Celecoxib [CeleBREX] 200 mg PO BID PRN 06/14/21 06/14/21 History DULoxetine HCL [Cymbalta] 60 mg PO DAILY 06/14/21 06/14/21 History Gabapentin 300 mg PO DAILY 06/14/21 06/14/21 History Zolpidem [Ambien] 5 mg PO HS 06/14/21 06/14/21 History Allergies Allergy/AdvReac Type Severity Reaction Status Date / Time erythromycin base Allergy Intermediate Rash/Hives Verified 06/14/21 22:07 metoclopramide HCl Allergy MUSCLE Verified 06/14/21 22:07 [From Reglan] SPASMS prochlorperazine edisylate Allergy MUSCLE Verified 06/14/21 22:07 [From Compazine] SPASMS/muscle jerking prochlorperazine maleate Allergy MUSCLE Verified 06/14/21 22:07 [From Compazine] SPASMS/muscle jerking Physical Exam Vitals: Vital Signs Temp Pulse Resp BP Pulse Ox 06/15/21 09:09 98.1 F 89 22 97/46 93 L 06/15/21 06:21 89 22 96/56 93 L 06/15/21 05:30 24 06/15/21 05:20 89 20 95/58 91 L 06/15/21 01:24 105 H 24 94/63 94 L 06/15/21 00:56 105 H 24 99/60 92 L 06/14/21 21:57 112 H 22 93 L 06/14/21 20:40 98.2 F 105 H 24 123/73 94 L Intake and Output 06/14/21 06/15/21 06/15/21 22:59 06:59 14:59 Other: Weight 53.07 kg GENERAL EXAM: Alert, pleasant, 52-year-old white female, comfortable in no apparent distress. The patient is currently on 6 L about 2 by nasal cannula HEAD: Normocephalic/atraumatic. EYES: Normal reaction of pupils, equal size. Conjunctiva pink, sclera white. NOSE: Clear with pink turbinates. THROAT: No erythema or exudates. NECK: No masses, no JVD, no thyroid enlargement, no adenopathy. CHEST: No chest wall deformity. Symmetrical expansion. Patient has bruising on the chest, and abdominal area LUNGS: Diminished breath sounds, no wheezes, no rales, no rhonchi, the patient's crackles in the lung bases bilaterally CVS: Regular rate and rhythm, normal S1 and S2, no gallops, no murmurs, no rubs ABDOMEN: Soft, nontender. No hepatosplenomegaly, normal bowel sounds, no guarding or rigidity. EXTREMITIES: No clubbing, no edema, no cyanosis, 2+ pulses and upper and lower extremities. MUSCULOSKELETAL: Muscle strength and tone normal. SPINE: No scoliosis or deformity SKIN: No rashes CENTRAL NERVOUS SYSTEM: Alert and oriented -3. No focal deficits, tone is normal in all 4 extremities. PSYCHIATRIC: Alert and oriented -3. Appropriate affect. Intact judgment and insight. Results - Laboratory Findings CBC and BMP: 06/14/21 21:25 06/14/21 21:25 PT/INR, D-dimer PT 10.8 sec (9.0-12.0) 06/14/21 21:25 INR 1.0 (<1.2) 06/14/21 21:25 Abnormal lab findings: Abnormal Labs 06/14/21 06/14/21 21:25 21:25 RBC 3.79 L Sodium 136 L Potassium 3.4 L Magnesium 1.3 L Total Protein 6.2 L - Diagnostic Findings Chest x-ray: image reviewed Assessment and Plan Plan: 1 acute bilateral lower lobe pneumonia left more than right with secondary hypoxic respiratory failure currently on 6 L about 2 by nasal cannula 2 acute hypoxic respiratory failure secondary to above 3 history of tracheal bronchomalacia with bronchiectasis and the patient has had multiple bronchoscopies in the past 4 history of recurrent bronchitis and pneumonia with Pseudomonas, MRSA, and Haemophilus influenza 5 history of chronic obstructive lung disease COPD/asthma with an FEV1 of 26% of predicted 6 previous history of pulmonary embolism maintained on anticoagulation with Eliquis 7 hypothyroidism 8 preserved LV function with normal ejection fraction based on previous echocardiogram that was done on in 2019 Plan Obtain sputum Gram stain and cultures Check pro calcitonin level Cover the patient with several antibiotics including cefepime and Levaquin and vancomycin Obtain Legionella urine antigen Check influenza A and B and RSV by PCR COVID 19 testing is been negative Resume home medications including anticoagulation Put the patient on DuoNeb nebulized treatments around the clock Aggressive pulmonary toileting Provide the patient incentive spirometer We'll continue to follow, may need a bronchoscopy at a later stage for Pulmonary toileting.
[2021-06-15] MEDS: MAGNESIUM SULFATE-D5W PMX 1 GM in DEXTROSE/WATER 1 100ML.BAG IVPB SCH ×3 (12:20→14:39)
[2021-06-15] MEDS: VANCOMYCIN 1,000 MG in SODIUM CHLORIDE 0.9% 250 ML IVPB SCH (12:21)
[2021-06-15] MEDS ORDERED: IPRATROPIUM-ALBUTEROL 3 ML NEB INHALATION PRN (14:24)
--- NOTE | 2021-06-15 14:32 | P.HPIM ---
History of Present Illness H&P Date: 06/15/21 HISTORY OF PRESENT ILLNESS This is a 55-year-old female patient of Dr. Guadalupe with a previous medical history significant for bronchial malacia, pulmonary fibrosis, i nterstitial lung disease, pulmonary embolism on chronic eliquis, hyperlipidemia, GERD, osteopenia. Patient is undergone bronchoscopy and BAL with Dr. Hughes underwent and culture positive for Pseudomonas. She has had admission for acute hypoxic respiratory failure secondary to acute exacerbation of chronic bronchiectasis, bronchial malacia Pseudomonas pneumonitis and HSV isolated. Patient states that she has not felt well for the past 1-2 weeks with a cough for 1 week. Her states that yesterday at dinnertime she became much worse with tightness in her chest and coughing. She denies any concern for aspiration. She is normally ambulating. She complains of nausea without vomiti ng and not eating very much. She denies having diarrhea. Patient is on home O2 at 3 L at bedtime and monitors her pulse ox. Patient states she did have some blood, dark blood in her sputum. Patient presented to [facility] emergency center for evaluation and found to be afebrile, heart rate in the low 100s, blood pressure 123/73, pulse ox 94% on 4 L nasal cannula. EKG sinus tachycardia. WBC 9.1, hemoglobin 12.6, platelet count 182. INR 1.0. Potassium 3.4. Creatinine 0.76. Magnesium 1.3 liver function tests were normal. Troponin negative. Pro-calcitonin 0.22. Coronavirus PCR not detected. Chest x-ray reveals bilateral pneumonia much worse on the left side. Patient was started on an consult with pulmonary medicine, patient seen in the ER waiting for bed on the [facility] floor. REVIEW OF SYSTEMS Constitutional: No fever, no chills, no night sweats. No weight change. No weakness, reports fatigue or lethargy. No daytime sleepiness. EENT: No headache. No blurred vision or double vision, no loss of vision. No loss of Hearing, no ringing in the ears, no dizziness. No nasal drainage or congestion. No epistaxis. No sore throat. Lungs: Reports shortness of breath, Reports cough, Reports sputum production. No wheezing. Reports blood in sputum. Cardiovascular: No chest pain, no lower extremity edema. No palpitations. No paroxysmal nocturnal dyspnea. No orthopnea. No lightheadedness or dizziness. No syncopal episodes. Abdominal: No abdominal pain. No nausea, vomiting. No diarrhea. No constipation. No bloody or tarry stools. No loss of appetite. Genitourinary: No dysuria, increased frequency, urgency. No urinary retention. Musculoskeletal: No myalgias. No muscle weakness, no gait dysfunction, no frequent falls. No back pain. No neck pain. Integumentary: No wounds, no lesions. No rash or pruritus. No unusual bruising. No change in hair or nails. Neurologic: No aphasia. No facial droop. No change in mentation. No head injury. No headache. No paralysis. No paresthesia. Psychiatric: No depression. No anxiety. No mood swings. Endocrine: No abnormal blood sugars. No weight change. No excessive sweating or thirst. No cold intolerance. SOCIAL HISTORY Patient has been a lifelong nonsmoker, no illicit drug use, no alcohol use. She lives at home with her patient has oxygen and nebulizer. FAMILY HISTORY Father 09/2017 from a massive CVA. He was 85-year-old. Mother has history of pacemaker and history of atrial fibrillation. Patient has a sister with neurological disorder. PHYSICAL EXAMINATION Gen: This is a thin 55-year-old female. Patient is resting on the ER stretcher and does not appear to be any acute distress but fatigued. HEENT: Head is atraumatic, normocephalic. Pupils equal, round. Sclerae is anicteric. NECK: Supple. No JVD. No lymphadenopathy. No thyromegaly. LUNGS: Diminished breath sounds with diffuse rhonchi. No intercostal retractions. HEART: Regular rate and rhythm. No murmur. ABDOMEN: Soft. Bowel sounds are present. No masses. No tenderness. EXTREMITIES: No pedal edema. No calf tenderness. Dorsalis pedis +2 bilaterally. NEUROLOGICAL: Patient is awake, alert and oriented x3. Cranial nerves 2 through 12 are grossly intact. ASSESSMENT AND PLAN 1. Acute bilateral lower lobe pneumonia, possible gram-negative pneumonia. Patient has been started on cefepime, vancomycin and Levaquin. Continue Symbicort 2 puffs twice daily, DuoNeb treatments 4 times daily and as needed. Blood cultures are in progress, influenza a, influenza B, Legionella, RSV have all been ordered [facility] medicine, obtain sputum specimen for culture. 2. Acute hypoxic respiratory failure secondary to pneumonia. 3. History of tracheobronchial malacia with bronchiectasis. 4. History of COPD, moderate intermittent asthma with FEV1 of 26. Continue Singulair 10 mg daily. 5. History of pulmonary embolism on long-term anticoagulation with eliquis. 6. Hypomagnesemia, status post replacement, continue to monitor. 7. Hypothyroidism. Continue levothyroxine 50 g daily. 8. Insomnia. Continue Ambien 5 mg at bedtime, trazodone 50 mg at bedtime. 9. Hyperlipidemia. Continue atorvastatin 10 mg at bedtime.. 10. Recurrent depression, generalized anxiety disorder. Continue Cymbalta 60 mg daily, gabapentin 300 mg daily and 60 mg at bedtime. 11. GI prophylaxis. Protonix. 12. DVT prophylaxis. Eliquis. 13. COVID-19 testing negative. Patient has been hospitalized during a pandemic. Patient will be admitted to the hospital for a minimum of 2 night stay. DISCHARGE PLAN Home. Impression and plan of care have been directed as dictated by the signing physician. Robyn Dorantes nurse practitioner acting as scribe for signing physician. Past Medical History Past Medical History: Asthma, COPD, Eye Disorder, Fibromyalgia, GERD/Reflux, Hyperlipidemia, Mitral Valve Prolapse (MVP), Osteoarthritis (OA), Pneumonia, Pulmonary Embolus (PE), Respiratory Disorder, Thyroid Disorder Additional Past Medical History / Comment(s): Tracheobronchomalacia, hx kidney stones, O2 - USES 3.5 -4 LITERS AT NIGHT, 4L/NC DURING DAY NEEDED. RT CATARACTS History of Any Multi-Drug Resistant Organisms: MRSA Date of last positivie culture/infection: 03/07/18 MDRO Source:: LUNG Past Surgical History: Appendectomy, Heart Catheterization, Orthopedic Surgery Additional Past Surgical History / Comment(s): Bronchoscopies/BALs, R lung bx, R chest port, 1993 cardiac cath-normal, R knee arthroscopy, kidney stone removal, D&C. LT CATARACT X 2 Past Anesthesia/Blood Transfusion Reactions: No Reported Reaction Additional Past Anesthesia/Blood Transfusion Reaction / Comment(s): Pt has received blood in past without reaction. Past Psychological History: Panic Disorder Additional Psychological History / Comment(s): Pt resides with her spouse. She h as home oxygen and nebulizer. She is independent. She works in a medical office. Smoking Status: Never smoker Past Alcohol Use History: None Reported Additional Past Alcohol Use History / Comment(s): Patient has been a lifelong nonsmoker, no illicit drug use, no alcohol use. She currently works at [employer] office. Past Drug Use History: None Reported - Past Family History Father Family Medical History: CVA/TIA Additional Family Medical History / Comment(s): Father 09/2017 from a massive CVA. He was 85-year-old. Brother(s) Family Medical History: No Reported History Sister(s) Family Medical History: Neurologic Disorder Daughter(s) Family Medical History: No Reported History Mother Family Medical History: AFIB Additional Family Medical History / Comment(s): Mother has a pacemaker. Medications and Allergies Home Medications Medication Instructions Recorded Confirmed Type Atorvastatin [Lipitor] 10 mg PO HS 04/16/14 06/14/21 History DULoxetine HCL [Duloxetine HCl] 60 mg PO DAILY 04/16/14 06/14/21 History Gabapentin 600 mg PO HS 04/16/14 06/14/21 History Levothyroxine Sodium [Synthroid] 50 mcg PO DAILY 04/16/14 06/14/21 History Montelukast [Singulair] 10 mg PO DAILY 04/16/14 06/14/21 History Fluticasone/Vilanterol [Breo 1 puff INHALATION RT-DAILY 03/08/17 06/14/21 History Ellipta 200-25 Mcg Inhaler] traZODone HCL 50 mg PO HS 06/28/19 06/14/21 History Apixaban [Eliquis] 5 mg PO BID 06/14/21 06/14/21 History Celecoxib [CeleBREX] 200 mg PO BID PRN 06/14/21 06/14/21 History DULoxetine HCL [Cymbalta] 60 mg PO DAILY 06/14/21 06/14/21 History Gabapentin 300 mg PO DAILY 06/14/21 06/14/21 History Zolpidem [Ambien] 5 mg PO HS 06/14/21 06/14/21 History Allergies Allergy/AdvReac Type Severity Reaction Status Date / Time erythromycin base Allergy Intermediate Rash/Hives Verified 06/14/21 22:07 metoclopramide HCl Allergy MUSCLE Verified 06/14/21 22:07 [From Reglan] SPASMS prochlorperazine edisylate Allergy MUSCLE Verified 06/14/21 22:07 [From Compazine] SPASMS/muscle jerking prochlorperazine maleate Allergy MUSCLE Verified 06/14/21 22:07 [From Compazine] SPASMS/muscle jerking Physical Exam Vitals: Vital Signs Temp Pulse Resp BP Pulse Ox 06/15/21 09:09 98.1 F 89 22 97/46 93 L 06/15/21 06:21 89 22 96/56 93 L 06/15/21 05:30 24 06/15/21 05:20 89 20 95/58 91 L 06/15/21 01:24 105 H 24 94/63 94 L 06/15/21 00:56 105 H 24 99/60 92 L 06/14/21 21:57 112 H 22 93 L 06/14/21 20:40 98.2 F 105 H 24 123/73 94 L Intake and Output 06/14/21 06/15/21 06/15/21 22:59 06:59 14:59 Other: Weight 53.07 kg Results CBC & Chem 7: 06/14/21 21:25 06/14/21 21:25 Labs: Abnormal Lab Results - Last 24 Hours (Table) 06/14/21 06/14/21 Range/Units 21:25 21:25 RBC 3.79 L (3.80-5.40) m/uL Sodium 136 L (137-145) mmol/L Potassium 3.4 L (3.5-5.1) mmol/L Magnesium 1.3 L (1.6-2.3) mg/dL Total Protein 6.2 L (6.3-8.2) g/dL
[2021-06-15] MEDS: IPRATROPIUM-ALBUTEROL 3 ML NEB INHALATION SCH ×2 (16:40→21:02)
[2021-06-15] MEDS: SYMBICORT 160-4.5 MCG INHALER INHALATION SCH (21:02)
[2021-06-15] MEDS: traZODone HCL 50 MG TAB PO SCH (22:59)
[2021-06-15] MEDS: GABAPENTIN 300 MG CAP PO SCH (22:59)
[2021-06-15] MEDS: ACETAMINOPHEN TAB 325 MG TAB PO PRN (22:59)
[2021-06-15] MEDS: ATORVASTATIN 10 MG TAB PO SCH (23:00)
[2021-06-16] MEDS: ZOLPIDEM 5 MG TAB PO SCH ×2 (01:14→20:22)
[2021-06-16] MEDS: VANCOMYCIN 1,000 MG in SODIUM CHLORIDE 0.9% 250 ML IVPB SCH ×2 (01:15→11:58)
[2021-06-16] MEDS: SODIUM CHLORIDE 0.9% 1,000 ML IV SCH ×2 (04:05→14:58)
[2021-06-16] MEDS: CEFEPIME 2 GM in SODIUM CHLORIDE 0.9% 100 ML IVPB SCH ×3 (05:28→21:59)
[2021-06-16] MEDS: LEVOTHYROXINE 50 MCG TAB PO SCH (05:28)
[2021-06-16] MEDS: IPRATROPIUM-ALBUTEROL 3 ML NEB INHALATION SCH ×4 (07:41→19:48)
[2021-06-16] MEDS: SYMBICORT 160-4.5 MCG INHALER INHALATION SCH ×2 (07:41→19:48)
[2021-06-16] MEDS ORDERED: SYMBICORT 160-4.5 MCG INHALER INHALATION SCH (08:00)
[2021-06-16] MEDS ORDERED: DULoxetine HCL 60 MG CAPSULE.DR PO SCH (09:00)
[2021-06-16 09:36] LABS: HCT 29.6 % (37.2-46.3); HGB 9.5 g/dL (12.0-15.0); MCH 33.6 pg (27.0-32.0); MCHC 32.1 g/dL (32.0-37.0); MCV 104.6 fL (80.0-97.0); Mean Platelet Volume 11.2 fL (9.5-12.2); Platelet Count 136 X 10*3/uL (140-440); RBC 2.83 X 10*6/uL (4.10-5.20); RDW 12.8 % (11.5-14.5); WBC 20.15 X 10*3/uL (4.50-10.00)
[2021-06-16] MEDS: GABAPENTIN 300 MG CAP PO SCH ×2 (09:46→20:21)
[2021-06-16] MEDS: DULoxetine HCL 60 MG CAPSULE.DR PO SCH (09:46)
[2021-06-16] MEDS: APIXABAN 5 MG TAB PO SCH ×2 (09:46→20:21)
[2021-06-16] MEDS: MONTELUKAST 10 MG TAB PO SCH (09:46)
[2021-06-16] MEDS: LEVOFLOXACIN 750MG-D5W PMX 750 MG in DEXTROSE/WATER 1 150ML.BAG IVPB SCH (09:48)
[2021-06-16] MEDS: guaiFENesin 600 MG TABLET.ER PO SCH ×2 (11:58→20:22)
[2021-06-16 12:43] LABS: African American GFR (CKD) 111.5 (60.0-200.0); Anion Gap 10.7 mmol/L (4.00-12.00); Blood Urea Nitrogen 14.7 mg/dL (9.0-27.0); Calcium 8.3 mg/dL (8.7-10.3); Carbon Dioxide 18.3 mmol/L (21.6-31.8); Magnesium 1.9 mg/dL (1.5-2.4); Non-African American GFR(CKD) 96.2 (60.0-200.0); Potassium 3.8 mmol/L (3.5-5.5)
--- NOTE | 2021-06-16 13:27 | P.PN ---
Subjective Progress Note Date: 06/16/21 On today's evaluation of 06/16/2021, the patient is awake and lethargic. She is sleeping most of the time. She has a harsh cough which is quite congested. She is able to bring up sputum. She gave a sputum sample yesterday which turned out to be positive for gram-positive cocci in the sputum sample and the final culture are still pending. Meanwhile the patient's white secretions up to 20. She is afebrile. The pro calcitonin level was mildly elevated. She is on a combination of Zosyn and Levaquin and vancomycin. Legionella urine antigen came back negative. Influenza A and B and RSV came back negative. COVID 19 testing was also negative. Objective - Vital Signs Vital signs: Vital Signs Temp 97.8 F 06/16/21 07:23 Pulse 108 H 06/16/21 11:40 Resp 18 06/16/21 07:23 BP 97/63 06/16/21 07:23 Pulse Ox 97 06/16/21 07:43 Intake & Output 06/15/21 06/16/21 06/16/21 18:59 06:59 18:59 Other: # Voids 2 - Exam GENERAL EXAM: Alert, pleasant, 52-year-old white female, comfortable in no apparent distress. The patient is currently on 4 L by nasal cannula HEAD: Normocephalic/atraumatic. EYES: Normal reaction of pupils, equal size. Conjunctiva pink, sclera white. NOSE: Clear with pink turbinates. THROAT: No erythema or exudates. NECK: No masses, no JVD, no thyroid enlargement, no adenopathy. CHEST: No chest wall deformity. Symmetrical expansion. Patient has bruising on the chest, and abdominal area LUNGS: Diminished breath sounds, no wheezes, no rales, no rhonchi, the patient's crackles in the lung bases bilaterally CVS: Regular rate and rhythm, normal S1 and S2, no gallops, no murmurs, no rubs ABDOMEN: Soft, nontender. No hepatosplenomegaly, normal bowel sounds, no guarding or rigidity. EXTREMITIES: No clubbing, no edema, no cyanosis, 2+ pulses and upper and lower extremities. MUSCULOSKELETAL: Muscle strength and tone normal. SPINE: No scoliosis or deformity SKIN: No rashes CENTRAL NERVOUS SYSTEM: Alert and oriented -3. No focal deficits, tone is normal in all 4 extremities. PSYCHIATRIC: Alert and oriented -3. Appropriate affect. Intact judgment and insight. - Labs CBC & Chem 7: 06/16/21 06:23 06/16/21 06:23 Labs: Abnormal Lab Results - Last 24 Hours (Table) 06/16/21 06/16/21 Range/Units 06:23 06:23 WBC 20.15 H (4.50-10.00) X 10*3/uL RBC 2.83 L (4.10-5.20) X 10*6/uL Hgb 9.5 L (12.0-15.0) g/dL Hct 29.6 L (37.2-46.3) % MCV 104.6 H (80.0-97.0) fL MCH 33.6 H (27.0-32.0) pg Plt Count 136 L (140-440) X 10*3/uL Chloride 113 H (96-109) mmol/L Carbon Dioxide 18.3 L (21.6-31.8) mmol/L BUN/Creatinine Ratio 21.00 H (12.00-20.00) Ratio Calcium 8.3 L (8.7-10.3) mg/dL Microbiology - Last 24 Hours (Table) 06/14/21 22:20 Blood Culture - Preliminary Blood No Growth after 24 hours 06/14/21 22:40 Blood Culture - Preliminary Blood No Growth after 24 hours 06/15/21 12:37 Gram Stain - Preliminary Sputum Sputum Culture - Preliminary Assessment and Plan Plan: 1 acute bilateral lower lobe pneumonia left more than right with secondary hypoxic respiratory failure currently on 4 L by nasal cannula, the patient is currently growing gram-positive cocci in his sputum. Covered with broad-s pectrum antibiotics with a combination of cefepime and Levaquin and vancomycin. 2 acute hypoxic respiratory failure secondary to above 3 history of tracheal bronchomalacia with bronchiectasis and the patient has had multiple bronchoscopies in the past 4 history of recurrent bronchitis and pneumonia with Pseudomonas, MRSA, and Haemophilus influenza 5 history of chronic obstructive lung disease COPD/asthma with an FEV1 of 26% of predicted 6 previous history of pulmonary embolism maintained on anticoagulation with Eliquis 7 hypothyroidism 8 preserved LV function with normal ejection fraction based on previous echocardiogram that was done on in 2019 Plan Obtain sputum Gram stain and cultures, there is gram-positive cocci in the blood in the sputum. Consider staph infection. Currently on vancomycin. Check pro calcitonin level level is slightly elevated at 0.22 Continue antibiotics including cefepime and Levaquin and vancomycin Obtain Legionella urine antigen was negative Check influenza A and B and RSV by PCR was negative COVID 19 testing is been negative Resume home medications including anticoagulation Put the patient on DuoNeb nebulized treatments around the clock Aggressive pulmonary toileting Provide the patient incentive spirometer We'll continue to follow, may need a bronchoscopy at a later stage for Pulmonary toileting. Repeat chest x-ray in the morning Deep breathing and pulmonary toileting She was weaned down to 4 l by nasal cannula We'll continue to follow
--- NOTE | 2021-06-16 14:02 | P.PN ---
Subjective Progress Note Date: 06/16/21 HISTORY OF PRESENT ILLNESS This is a 55-year-old female patient of Dr. Guadalupe with a previous medical history significant for bronchial malacia, pulmonary fibrosis, interst itial lung disease, pulmonary embolism on chronic eliquis, hyperlipidemia, GERD, osteopenia. Patient is undergone bronchoscopy and BAL with Dr. Saul rogers and culture positive for Pseudomonas. She has had admission for acute hypoxic respiratory failure secondary to acute exacerbation of chronic bronchiectasis, bronchial malacia Pseudomonas pneumonitis and HSV isolated. Patient states that she has not felt well for the past 1-2 weeks with a cough for 1 week. Her states that yesterday at dinnertime she became much worse with tightness in her chest and coughing. She denies any concern for aspiration. She is normally ambulating. She complains of nausea without vomiting and not eating very much. She denies having diarrhea. Patient is on home O2 at 3 L at bedtime and monitors her pulse ox. Patient states she did have some blood, dark blood in her sputum. Patient presented to [facility] emergency center for evaluation and found to be afebrile, heart rate in the low 100s, blood pressure 123/73, pulse ox 94% on 4 L nasal cannula. EKG sinus tachycardia. WBC 9.1, hemoglobin 12.6, platelet count 182. INR 1.0. Potassium 3.4. Creatinine 0.76. Magnesium 1.3 liver function tests were normal. Troponin negative. Pro-calcitonin 0.22. Coronavirus PCR not detected. Chest x-ray reveals bilateral pneumonia much worse on the left side. Patient was started on an consult with pulmonary medicine, patient seen in the ER waiting for bed on the [facility] floor. 06/16: Patient apparently slept well during the night but was exhausted as she spent an extended period in the emergency center. She is sleeping at the time of evaluation and wakens easily to verbal stimuli. She continues to have a cough for which Mucinex will be added. She has been seen by pulmonary medicine with recommendations continue broad-spectrum antibiotics which are placed with c efepime, Levaquin and vancomycin. Sputum culture has been obtained and is in progress. Blood cultures showing no growth. Pro-calcitonin came back at 0.22. Patient may require bronchoscopy at a later stage. Patient is currently at 4 L nasal cannula with pulse ox 97%. She has been afebrile, heart rate running in the 80s to low 100s. Blood pressure 97/63. Repeat blood work reveals WBC 20.1, hemoglobin 9.5, platelet count 136. Sodium 142, potassium 3.8, chloride 113, CO2 18, BUN 14 creatinine 0.7. Influenza A and influenza B not detected. Legionella negative. RSV negative. Repeat chest x-ray and blood work have been ordered for tomorrow. REVIEW OF SYSTEMS Constitutional: No fever, no chills, no night sweats. No weight change. No weakness, reports fatigue or lethargy. Reports daytime sleepiness. EENT: No headache. No blurred vision or double vision, no loss of vision. No loss of Hearing, no ringing in the ears, no dizziness. No nasal drainage or congestion. No epistaxis. No sore throat. Lungs: Reports shortness of breath, Reports cough, Reports sputum production. No wheezing. Reports blood in sputum. Cardiovascular: No chest pain, no lower extremity edema. No palpitations. No paroxysmal nocturnal dyspnea. No orthopnea. No lightheadedness or dizziness. No syncopal episodes. Abdominal: No abdominal pain. No nausea, vomiting. No diarrhea. No constipation. No bloody or tarry stools. No loss of appetite. Genitourinary: No dysuria, increased frequency, urgency. No urinary retention. Musculoskeletal: No myalgias. No muscle weakness, no gait dysfunction, no frequent falls. No back pain. No neck pain. Integumentary: No wounds, no lesions. No rash or pruritus. No unusual bruising. No change in hair or nails. Neurologic: No aphasia. No facial droop. No change in mentation. No head injury. No headache. No paralysis. No paresthesia. Psychiatric: No depression. No anxiety. No mood swings. Endocrine: No abnormal blood sugars. No weight change. PHYSICAL EXAMINATION Gen: This is a thin 55-year-old female. Patient is resting in bed and does not appear to be any acute distress but fatigued. Patient's is at bedside. HEENT: Head is atraumatic, normocephalic. Pupils equal, round. Sclerae is anicteric. NECK: Supple. No JVD. No lymphadenopathy. No thyromegaly. LUNGS: Diminished breath sounds with diffuse rhonchi. No intercostal retractions. HEART: Regular rate and rhythm. No murmur. ABDOMEN: Soft. Bowel sounds are present. No masses. No tenderness. EXTREMITIES: No pedal edema. No calf tenderness. Dorsalis pedis +2 bilaterally. NEUROLOGICAL: Patient is awake, alert and oriented x3. Cranial nerves 2 through 12 are grossly intact. ASSESSMENT AND PLAN 1. Acute bilateral lower lobe pneumonia, possible gram-negative pneumonia. Pat ient has been started on cefepime, vancomycin and Levaquin. Continue Symbicort 2 puffs twice daily, DuoNeb treatments 4 times daily and as needed. Blood cultures are in progress, sputum culture in progress, pulmonary consult appreciated. Mucinex and. 2. Acute hypoxic respiratory failure secondary to pneumonia. 3. History of tracheobronchial malacia with bronchiectasis. 4. History of COPD, moderate intermittent asthma with FEV1 of 26. Continue Singulair 10 mg daily. 5. History of pulmonary embolism on long-term anticoagulation with eliquis. 6. Hypomagnesemia, status post replacement, continue to monitor. 7. Hypothyroidism. Continue levothyroxine 50 g daily. 8. Insomnia. Continue Ambien 5 mg at bedtime, trazodone 50 mg at bedtime. 9. Hyperlipidemia. Continue atorvastatin 10 mg at bedtime. 10. Recurrent depression, generalized anxiety disorder. Continue Cymbalta 60 mg daily, gabapentin 300 mg daily and 60 mg at bedtime. 11. GI prophylaxis. Protonix. 12. DVT prophylaxis. Eliquis. 13. COVID-19 testing negative. Patient has been hospitalized during a mejia demic. DISCHARGE PLAN Home. Impression and plan of care have been directed as dictated by the signing physician. Robyn Dorantes nurse practitioner acting as scribe for signing physician. Objective - Vital Signs Vital signs: Vital Signs Temp 97.8 F 06/16/21 07:23 Pulse 81 06/16/21 07:51 Resp 18 06/16/21 07:23 BP 97/63 06/16/21 07:23 Pulse Ox 97 06/16/21 07:43 Intake & Output 06/15/21 06/16/21 06/16/21 18:59 06:59 18:59 Other: # Voids 2 - Labs CBC & Chem 7: 06/16/21 06:23 06/16/21 06:23 Labs: Abnormal Lab Results - Last 24 Hours (Table) 06/14/21 06/16/21 Range/Units 21:25 06:23 WBC 20.15 H (4.50-10.00) X 10*3/uL RBC 2.83 L (4.10-5.20) X 10*6/uL Hgb 9.5 L (12.0-15.0) g/dL Hct 29.6 L (37.2-46.3) % MCV 104.6 H (80.0-97.0) fL MCH 33.6 H (27.0-32.0) pg Plt Count 136 L (140-440) X 10*3/uL Procalcitonin 0.22 H (0.02-0.09) ng/mL Microbiology - Last 24 Hours (Table) 06/14/21 22:20 Blood Culture - Preliminary Blood No Growth after 24 hours 06/14/21 22:40 Blood Culture - Preliminary Blood No Growth after 24 hours 06/15/21 12:37 Gram Stain - Preliminary Sputum Sputum Culture - Preliminary
[2021-06-16] MEDS: IBUPROFEN 400 MG TAB PO PRN (14:36)
[2021-06-16] MEDS: HYDROmorphone 0.5 MG/0.5 ML SYRINGE IVP PRN ×2 (14:37→22:05)
[2021-06-16] MEDS: ATORVASTATIN 10 MG TAB PO SCH (20:21)
[2021-06-16] MEDS: traZODone HCL 50 MG TAB PO SCH (20:22)
[2021-06-17] MEDS: VANCOMYCIN 1,000 MG in SODIUM CHLORIDE 0.9% 250 ML IVPB SCH ×2 (00:31→13:18)
[2021-06-17] MEDS: HYDROmorphone 0.5 MG/0.5 ML SYRINGE IVP PRN ×4 (02:28→18:01)
[2021-06-17] MEDS: LEVOTHYROXINE 50 MCG TAB PO SCH (06:15)
[2021-06-17] MEDS: CEFEPIME 2 GM in SODIUM CHLORIDE 0.9% 100 ML IVPB SCH ×3 (06:15→21:34)
[2021-06-17] MEDS: SYMBICORT 160-4.5 MCG INHALER INHALATION SCH ×2 (07:43→20:22)
[2021-06-17] MEDS: IPRATROPIUM-ALBUTEROL 3 ML NEB INHALATION SCH ×4 (07:43→20:22)
--- NOTE | 2021-06-17 07:51 | XR ---
EXAMINATION TYPE: XR chest 1V portable DATE OF EXAM: 06/17/2021 COMPARISON: 06/14/2021 INDICATION: Pneumonia TECHNIQUE: Single frontal view of the chest is obtained. FINDINGS: The heart size is normal. The pulmonary vasculature is normal. There is left lower lobe consolidation. This may be slightly larger than comparison. Increasing right lower lobe infiltrate is present. Port is present on the right with the tip in the superior vena cava region. IMPRESSION: 1. Increasing bibasilar infiltrates greater on the left.
[2021-06-17] MEDS: MONTELUKAST 10 MG TAB PO SCH (09:03)
[2021-06-17] MEDS: GABAPENTIN 300 MG CAP PO SCH ×2 (09:03→21:38)
[2021-06-17] MEDS: APIXABAN 5 MG TAB PO SCH ×2 (09:03→21:37)
[2021-06-17] MEDS: DULoxetine HCL 60 MG CAPSULE.DR PO SCH (09:03)
[2021-06-17] MEDS: guaiFENesin 600 MG TABLET.ER PO SCH ×2 (09:03→21:38)
[2021-06-17] MEDS ORDERED: VANCOMYCIN TROUGH DUE 1 EACH MISC MISCELLANE ONE (11:00)
[2021-06-17] MEDS: LEVOFLOXACIN 750MG-D5W PMX 750 MG in DEXTROSE/WATER 1 150ML.BAG IVPB SCH (11:07)
[2021-06-17 11:32] LABS: Basophils # (A) 0.1 k/uL (0-0.2); Basophils % (A) 1 %; Eosinophils # (A) 0.3 k/uL (0-0.7); Eosinophils % (A) 2 %; HCT 32.9 % (34.0-46.0); HGB 11.1 gm/dL (11.4-16.0); Lymphocytes % (A) 12 %; MCH 33.9 pg (25.0-35.0); MCHC 33.7 g/dL (31.0-37.0); MCV 100.4 fL (80.0-100.0); Monocytes # (A) 0.9 k/uL (0-1.0); Monocytes % (A) 6 %; Neutrophils # (A) 12.5 k/uL (1.3-7.7); Neutrophils % (A) 78 %; Platelet Count 153 k/uL (150-450); RBC 3.28 m/uL (3.80-5.40); RDW 13.1 % (11.5-15.5); WBC 15.9 k/uL (3.8-10.6)
[2021-06-17 11:33] LABS: ALT 16 U/L (4-34); AST 22 U/L (14-36); African American GFR (CKD) >90 (>60 ml/min/1.73 sqM); Albumin 2.8 g/dL (3.5-5.0); Albumin/Globulin Ratio 1.1; Alkaline Phosphatase 81 U/L (38-126); Anion Gap 5 mmol/L; Blood Urea Nitrogen 11 mg/dL (7-17); Calcium 9.2 mg/dL (8.4-10.2); Carbon Dioxide 26 mmol/L (22-30); Chloride 107 mmol/L (98-107); Globulin 2.6 g/dL; Glucose 96 mg/dL (74-99); Non-African American GFR(CKD) >90 (>60 ml/min/1.73 sqM); Potassium 3.4 mmol/L (3.5-5.1); Sodium 138 mmol/L (137-145); Total Bilirubin 0.7 mg/dL (0.2-1.3); Total Protein 5.4 g/dL (6.3-8.2)
[2021-06-17] MEDS ORDERED: POTASSIUM CHLORIDE ER 20 MEQ TAB.ER PO STA (12:02)
--- NOTE | 2021-06-17 12:22 | P.PN ---
<Yobani Garcia - Last Filed: 06/17/21 12:08> Subjective Progress Note Date: 06/17/21 Hospital course: Patient is a very pleasant 55-year-old female with a past medical history of h yperlipidemia, hypothyroidism, severe tracheal bronchomalacia, pulmonary fibrosis, pulmonary embolism on anticoagulation with Eliquis, bronchiectasis, recurrent bouts of pneumonia and bronchitis with history of MRSA, H. influenzae, and history of stenotrophomonas and pseudomonas in the past. She presented to the hospital on 06/14/21 with a chief complaint of shortness of breath. Chest x- ray revealed bilateral pneumonia worse on left. Patient admitted under hospitalist team with consultation to pulmonology. Physical exam: Patient continues to have coarse cough producing minimal phlegm, patient encouraged to increase hydration and drink more fluids to assist with thinning sputum to possibly assist her with bringing up. Sputum culture collected was positive for gram-positive cocci showing presumptive Staphylococcus aureus pending final culture results and sensitivity report. Patient remains on combination of Zosyn, Levaquin, and vancomycin. Viral panel consisting of influenza a, influenza B, RSV, and Covid all negative. Legionella urine negative. Leukocytosis improving from previous 20.15 down to 15.9 this morning. Hypokalemia with potassium of 3.4 this morning. Patient remains on 3 L O2 maintaining oxygen saturations at this time. Patient remains afebrile and denies having any chest pain, palpitations, nausea, vomiting, or experiencing any numbness/tingling/weakness/swelling in her extremities. Vital signs reviewed and stable. General: Nontoxic, no distress and appears stated age. Derm: Skin warm and dry, normal coloration for ethnicity. Head: Atraumatic, normocephalic and symmetric. Eyes: EOMs intact, no lid lag, and anicteric sclera Mouth: no lip lesions, mucus membranes moist Cardiovascular: regular rate and rhythm with normal S1S2, no murmur, positive posterior tibial pulses bilaterally, and cap refill < 2 seconds. MediPort right chest Lungs: Respirations even, regular, and unlabored on 3L O2 via nasal cannula.. Lungs tight and diminished with crackles at bilateral bases (worse on left), no rhonchi, no rales, no wheezing, and no accessory muscle usage. Voice coarse. Abdominal: soft, nontender to palpation, no guarding, no appreciable organomegaly Ext: ROM intact. No gross muscle atrophy, no edema, no contractures Neuro: Speech clear, face symmetrical and CN II-XII grossly intact with no noted focal neuro deficits Psych: Alert and oriented to person, place, time, and situation. Appropriate and pleasant affect. Assessment and Plan of Care: Acute on chronic respiratory failure secondary to Bilateral pneumonia in patient with advanced interstitial lung disease with pulmonary fibrosis History of severe tracheal bronchomalacia, pulmonary fibrosis, bronchiectasis, recurrent bouts of pneumonia and bronchitis -Continue Oxygenation to be administered and titrated as needed to maintain SPO2 equal to or greater than 92% -Viral panel consisting of influenza a, influenza B, RSV, and Covid all negative. -Legionella urine negative. -Telemetry monitoring. -Continue Zosyn, Levaquin, and vancomycin pending final culture and sensitivity results -Duonebs as needed for SOB and/or wheezing -Incentive Spirometry -Sputum culture positive for gram-positive cocci showing presumptive Staphylococcus aureus pending final culture results and sensitivity report. -pulmonology following Hypokalemia -Hypokalemia with potassium of 3.4 this morning, replaced. -We will continue to monitor with repeat a.m. labs and replace abnormal values as indicated. Hypomagnesemia, replaced -We will continue to monitor with repeat a.m. labs and replace abnormal values as indicated. Hypothyroidism -continue daily medication regimen of levothyroxine. Hyperlipidemia -Continue daily medication regimen with atorvastatin 10 mg nightly. -Heart healthy diet Insomnia -Continue daily medication regimen with Ambien CODE STATUS: Full code DVT prophylaxis: Vik Discussed with: Patient and RN Anticipated discharge date: Clinical course to determine Anticipated discharge place: Home A total of 45 minutes was spent on the care of this complex patient more than 50% of the time was spent in counseling and care coordination. Objective - Vital Signs Vital signs: Vital Signs Temp 98.5 F 06/17/21 06:54 Pulse 87 06/17/21 07:57 Resp 18 06/17/21 06:54 BP 98/61 06/17/21 06:54 Pulse Ox 100 06/17/21 07:45 Intake & Output 06/16/21 06/17/21 06/17/21 18:59 06:59 18:59 Intake Total 400 Balance 400 Intake: Oral 400 Other: # Voids 1 2 - Labs CBC & Chem 7: 06/17/21 10:58 06/17/21 10:58 Labs: Abnormal Lab Results - Last 24 Hours (Table) 06/16/21 06/16/21 Range/Units 06:23 06:23 WBC 20.15 H (4.50-10.00) X 10*3/uL RBC 2.83 L (4.10-5.20) X 10*6/uL Hgb 9.5 L (12.0-15.0) g/dL Hct 29.6 L (37.2-46.3) % MCV 104.6 H (80.0-97.0) fL MCH 33.6 H (27.0-32.0) pg Plt Count 136 L (140-440) X 10*3/uL Chloride 113 H (96-109) mmol/L Carbon Dioxide 18.3 L (21.6-31.8) mmol/L BUN/Creatinine Ratio 21.00 H (12.00-20.00) Ratio Calcium 8.3 L (8.7-10.3) mg/dL Microbiology - Last 24 Hours (Table) 06/14/21 22:20 Blood Culture - Preliminary Blood No Growth after 48 hours 06/14/21 22:40 Blood Culture - Preliminary Blood No Growth after 48 hours 06/15/21 12:37 Gram Stain - Preliminary Sputum Sputum Culture - Preliminary Presumptive Staph aureus <Aniyah Neal - Last Filed: 06/17/21 14:28> Subjective Patient seen and examined independently. Patient was also seen by Yobani Garcia NP and case was discussed. I am in agreement with subjective, physical exam, assessment and plan as written above and amended below. Patient seen and examined at bedside. She states that her breathing is somewhat better though she still feels hard to get stuff up. She was able to get one l arge chunk up today. General: non toxic, no distress, appears at stated age, sunken in eyes Derm: warm, dry Head: atraumatic, normocephalic, symmetric Eyes: EOMI, no lid lag, anicteric sclera Mouth: no lip lesion, mucus membranes dry Cardiovascular: S1S2 reg, no murmur, positive posterior tibial pulse bilateral, Lungs: Decreased breath sounds bilateral bilateral, no rhonchi, no rales , no accessory muscle use Abdominal: soft, nontender to palpation, no guarding, no appreciable organomegaly Ext: no gross muscle atrophy, no edema, no contractures Neuro: CN II-XI grossly intact, no focal neuro deficits Psych: Alert, oriented, appropriate affect Objective - Vital Signs Vital signs: Vital Signs Temp 98.5 F 06/17/21 06:54 Pulse 84 06/17/21 11:55 Resp 18 06/17/21 11:55 BP 98/61 06/17/21 06:54 Pulse Ox 100 06/17/21 07:45 Intake & Output 06/16/21 06/17/21 06/17/21 18:59 06:59 18:59 Intake Total 400 Balance 400 Intake: Oral 400 Other: # Voids 1 2 - Labs CBC & Chem 7: 06/17/21 10:58 06/17/21 10:58 Labs: Abnormal Lab Results - Last 24 Hours (Table) 06/17/21 06/17/21 Range/Units 10:58 10:58 WBC 15.9 H (3.8-10.6) k/uL RBC 3.28 L (3.80-5.40) m/uL Hgb 11.1 L (11.4-16.0) gm/dL Hct 32.9 L (34.0-46.0) % MCV 100.4 H (80.0-100.0) fL Neutrophils # 12.5 H (1.3-7.7) k/uL Potassium 3.4 L (3.5-5.1) mmol/L Total Protein 5.4 L (6.3-8.2) g/dL Albumin 2.8 L (3.5-5.0) g/dL Microbiology - Last 24 Hours (Table) 06/15/21 12:37 Gram Stain - Preliminary Sputum Sputum Culture - Preliminary Presumptive Staph aureus 06/14/21 22:20 Blood Culture - Preliminary Blood No Growth after 48 hours 06/14/21 22:40 Blood Culture - Preliminary Blood No Growth after 48 hours
[2021-06-17] MEDS: ACETAMINOPHEN TAB 325 MG TAB PO PRN (14:18)
--- NOTE | 2021-06-17 15:24 | P.PN ---
Subjective Progress Note Date: 06/17/21 On today's evaluation of 06/16/2021, the patient is awake and lethargic. She is sleeping most of the time. She has a harsh cough which is quite congested. She is able to bring up sputum. She gave a sputum sample yesterday which turned out to be positive for gram-positive cocci in the sputum sample and the final culture are still pending. Meanwhile the patient's white secretions up to 20. She is afebrile. The pro calcitonin level was mildly elevated. She is on a combination of Zosyn and Levaquin and vancomycin. Legionella urine antigen came back negative. Influenza A and B and RSV came back negative. COVID 19 testing was also negative. 06/17/2021, the patient is still sleepy and lethargic. Nevertheless, her breathing has improved compared to yesterday. She is able to take a deeper breath. Her cough has subsided and is less congested. Meanwhile, the sputum sample that she was able to give showed gram-positive cocci and is showing presumed staph aureus. The patient remains on the same antibiotics including vancomycin. On today's evaluation, her white cell count of 15.9 with a hemoglobin of 11.1. Her white cell count is improved compared to yesterday. Electrolytes are all within normal limits. Potassium level is at 3.4 that needs to be replaced.: covid 19 testing was negative. Influenza A and B were negative. RSV was negative. Legionella urine antigen was negative. For now, the patient is receiving cefepime, vancomycin and Levaquin. Objective - Vital Signs Vital signs: Vital Signs Temp 99.9 F H 06/17/21 15:13 Pulse 90 06/17/21 14:09 Resp 18 06/17/21 14:09 BP 110/68 06/17/21 14:09 Pulse Ox 98 06/17/21 14:09 Intake & Output 06/16/21 06/17/21 06/17/21 18:59 06:59 18:59 Intake Total 400 Balance 400 Intake: Oral 400 Other: # Voids 1 2 - Exam GENERAL EXAM: Alert, pleasant, 52-year-old white female, comfortable in no apparent distress. The patient is currently on 4 L by nasal cannula HEAD: Normocephalic/atraumatic. EYES: Normal reaction of pupils, equal size. Conjunctiva pink, sclera white. NOSE: Clear with pink turbinates. THROAT: No erythema or exudates. NECK: No masses, no JVD, no thyroid enlargement, no adenopathy. CHEST: No chest wall deformity. Symmetrical expansion. Patient has bruising on the chest, and abdominal area LUNGS: Diminished breath sounds, no wheezes, no rales, no rhonchi, the patient's crackles in the lung bases bilaterally, nevertheless, compared to yesterday, there is improvement in air entry bilaterally. CVS: Regular rate and rhythm, normal S1 and S2, no gallops, no murmurs, no rubs ABDOMEN: Soft, nontender. No hepatosplenomegaly, normal bowel sounds, no guarding or rigidity. EXTREMITIES: No clubbing, no edema, no cyanosis, 2+ pulses and upper and lower extremities. MUSCULOSKELETAL: Muscle strength and tone normal. SPINE: No scoliosis or deformity SKIN: No rashes CENTRAL NERVOUS SYSTEM: Alert and oriented -3. No focal deficits, tone is norm al in all 4 extremities. PSYCHIATRIC: Alert and oriented -3. Appropriate affect. Intact judgment and insight. - Labs CBC & Chem 7: 06/17/21 10:58 06/17/21 10:58 Labs: Abnormal Lab Results - Last 24 Hours (Table) 06/17/21 06/17/21 Range/Units 10:58 10:58 WBC 15.9 H (3.8-10.6) k/uL RBC 3.28 L (3.80-5.40) m/uL Hgb 11.1 L (11.4-16.0) gm/dL Hct 32.9 L (34.0-46.0) % MCV 100.4 H (80.0-100.0) fL Neutrophils # 12.5 H (1.3-7.7) k/uL Potassium 3.4 L (3.5-5.1) mmol/L Total Protein 5.4 L (6.3-8.2) g/dL Albumin 2.8 L (3.5-5.0) g/dL Microbiology - Last 24 Hours (Table) 06/15/21 12:37 Gram Stain - Preliminary Sputum Sputum Culture - Preliminary Presumptive Staph aureus 06/14/21 22:20 Blood Culture - Preliminary Blood No Growth after 48 hours 06/14/21 22:40 Blood Culture - Preliminary Blood No Growth after 48 hours Assessment and Plan Plan: 1 acute bilateral lower lobe pneumonia left more than right with secondary hypoxic respiratory failure currently on 4 L by nasal cannula, the patient is currently growing gram-positive cocci in his sputum. Covered with broad- spectrum antibiotics with a combination of cefepime and Levaquin and vancomycin. Clinically, the patient is slightly improved compared to yesterday. There is presumed staph aureus in the sputum and the patient continues to be on same antibiotics. I'm going to repeat the chest x-ray and continue with the same treatment. 2 acute hypoxic respiratory failure secondary to above 3 history of tracheal bronchomalacia with bronchiectasis and the patient has had multiple bronchoscopies in the past 4 history of recurrent bronchitis and pneumonia with Pseudomonas, MRSA, and Haemophilus influenza 5 history of chronic obstructive lung disease COPD/asthma with an FEV1 of 26% of predicted 6 previous history of pulmonary embolism maintained on anticoagulation with Eliquis 7 hypothyroidism 8 preserved LV function with normal ejection fraction based on previous echocardiogram that was done on in 2019 Plan Awaiting final sputum cultures Continue same antibiotic coverage Resume home medications including anticoagulation Put the patient on DuoNeb nebulized treatments around the clock Aggressive pulmonary toileting Provide the patient incentive spirometer We'll continue to follow, may need a bronchoscopy at a later stage for Pulmonary toileting. Repeat chest x-ray in the morning Deep breathing and pulmonary toileting She was weaned down to 4 l by nasal cannula We'll continue to follow
[2021-06-17] MEDS: ATORVASTATIN 10 MG TAB PO SCH (21:37)
[2021-06-17] MEDS: ZOLPIDEM 5 MG TAB PO SCH (21:37)
[2021-06-17] MEDS: traZODone HCL 50 MG TAB PO SCH (21:38)
[2021-06-17] MEDS: VANCOMYCIN 1,250 MG in SODIUM CHLORIDE 0.9% 250 ML IVPB SCH (22:56)
[2021-06-18] MEDS: HYDROmorphone 0.5 MG/0.5 ML SYRINGE IVP PRN ×2 (00:43→08:38)
[2021-06-18] MEDS: CEFEPIME 2 GM in SODIUM CHLORIDE 0.9% 100 ML IVPB SCH (06:02)
[2021-06-18] MEDS: LEVOTHYROXINE 50 MCG TAB PO SCH (06:02)
--- NOTE | 2021-06-18 07:06 | XR ---
EXAMINATION TYPE: XR chest 1V DATE OF EXAM: 06/18/2021 COMPARISON: 06/17/2021 HISTORY: Pneumonia TECHNIQUE: Single frontal view of the chest is obtained. FINDINGS: Bilateral airspace disease is again seen with slight improved aeration of the left lung ba se. Right port is in unchanged position. Cardiac silhouette is unchanged. IMPRESSION: Slight interval improved aeration of the left lung base. Otherwise, no significant messer e of bilateral airspace disease and bibasilar pleural/parenchymal disease.
[2021-06-18 08:33] LABS: African American GFR (CKD) >90 (>60 ml/min/1.73 sqM); Anion Gap 5 mmol/L; Blood Urea Nitrogen 7 mg/dL (7-17); Calcium 9.4 mg/dL (8.4-10.2); Carbon Dioxide 28 mmol/L (22-30); Chloride 105 mmol/L (98-107); Glucose 95 mg/dL (74-99); Magnesium 1.4 mg/dL (1.6-2.3); Non-African American GFR(CKD) >90 (>60 ml/min/1.73 sqM); Potassium 3.4 mmol/L (3.5-5.1); Sodium 138 mmol/L (137-145)
[2021-06-18] MEDS: ACETAMINOPHEN TAB 325 MG TAB PO PRN (08:34)
[2021-06-18] MEDS: APIXABAN 5 MG TAB PO SCH ×2 (08:35→21:50)
[2021-06-18] MEDS: GABAPENTIN 300 MG CAP PO SCH ×2 (08:35→21:50)
[2021-06-18] MEDS: DULoxetine HCL 60 MG CAPSULE.DR PO SCH (08:35)
[2021-06-18] MEDS: guaiFENesin 600 MG TABLET.ER PO SCH ×2 (08:35→21:50)
[2021-06-18] MEDS: MONTELUKAST 10 MG TAB PO SCH (08:35)
[2021-06-18] MEDS: SYMBICORT 160-4.5 MCG INHALER INHALATION SCH ×2 (09:36→19:45)
[2021-06-18] MEDS: IPRATROPIUM-ALBUTEROL 3 ML NEB INHALATION SCH ×4 (09:37→19:45)
[2021-06-18 10:40] LABS: HCT 33.9 % (37.2-46.3); HGB 10.8 g/dL (12.0-15.0); MCHC 31.9 g/dL (32.0-37.0); MCV 100.3 fL (80.0-97.0); Mean Platelet Volume 10.6 fL (9.5-12.2); Platelet Count 149 X 10*3/uL (140-440); RBC 3.38 X 10*6/uL (4.10-5.20); RDW 12.6 % (11.5-14.5); WBC 12.79 X 10*3/uL (4.50-10.00)
[2021-06-18] MEDS: LEVOFLOXACIN 750MG-D5W PMX 750 MG in DEXTROSE/WATER 1 150ML.BAG IVPB SCH (11:06)
--- NOTE | 2021-06-18 11:27 | P.PN ---
<Yobani Garcia - Last Filed: 06/18/21 11:16> Subjective Progress Note Date: 06/18/21 Hospital course: Patient is a very pleasant 55-year-old female with a past medical history of h yperlipidemia, hypothyroidism, severe tracheal bronchomalacia, pulmonary fibrosis, pulmonary embolism on anticoagulation with Eliquis, bronchiectasis, recurrent bouts of pneumonia and bronchitis with history of MRSA, H. influenzae, and history of stenotrophomonas and pseudomonas in the past. She presented to the hospital on 06/14/21 with a chief complaint of shortness of breath. Chest x- ray revealed bilateral pneumonia worse on left. Patient admitted under hospitalist team with consultation to pulmonology. Physical exam: Patient continues to have coarse cough that is producing increased amounts of sputum she is able to get up. Letter valve was ordered yesterday afternoon and patient educated on use. Patient is encouraged to continue use of flutter valve hourly while awake along with incentive spirometry 10-15 times hourly while awake. Leukocytosis continues to improve with WBC count of 12.79. Elevated temp over the past 24 hours was 101F. Patient reports feeling weak and tired, voice remains very soft and raspy. She remains on 3 L O2, which is her baseline home oxygen. Patient continues to deny having any chest pain, palpitations, nausea, vomiting, or experiencing any numbness/tingling/weakness/swelling in her extremities. Vital signs reviewed and stable. General: Nontoxic, mild distress, and appears stated age. Derm: Skin warm and dry, normal coloration for ethnicity. Head: Atraumatic, normocephalic and symmetric. Eyes: EOMs intact, no lid lag, and anicteric sclera Mouth: no lip lesions, mucus membranes moist Cardiovascular: regular rate and rhythm with normal S1S2, no murmur, positive posterior tibial pulses bilaterally, and cap refill < 2 seconds. MediPort right chest Lungs: Respirations even, regular, and unlabored on 3L O2 via nasal cannula.. Lungs have good airflow improved from yesterday's examination, she continues to have soft crackles at bilateral bases, no rhonchi, no rales, no wheezing, and no accessory muscle usage. Voice hoarse. Abdominal: soft, nontender to palpation, no guarding, no appreciable organomegal y Ext: ROM intact. No gross muscle atrophy, no edema, no contractures Neuro: Speech clear, face symmetrical and CN II-XII grossly intact with no noted focal neuro deficits Psych: Alert and oriented to person, place, time, and situation. Appropriate and pleasant affect. Assessment and Plan of Care: Acute on chronic respiratory failure secondary to Bilateral pneumonia in patient with advanced interstitial lung disease with pulmonary fibrosis History of severe tracheal bronchomalacia, pulmonary fibrosis, bronchiectasis, recurrent bouts of pneumonia and bronchitis -Continue Oxygenation to be administered and titrated as needed to maintain SPO2 equal to or greater than 92% -Viral panel consisting of influenza a, influenza B, RSV, and Covid all negative. -Legionella urine negative. -Telemetry monitoring. -Continue Zosyn, Levaquin, and vancomycin pending final culture and sensitivity results -Duonebs as needed for SOB and/or wheezing -Incentive Spirometry -Sputum culture positive for gram-positive cocci showing presumptive Staphylococcus aureus pending final culture results and sensitivity report. -Pulmonology following -Encouraged use of flutter valve Hypokalemia -Hypokalemia with potassium of 3.4 this morning, replaced. -We will continue to monitor with repeat a.m. labs and replace abnormal values as indicated. Hypomagnesemia, replaced -Magnesium 1.4, replaced -We will continue to monitor with repeat a.m. labs and replace abnormal values as indicated. Hypothyroidism -continue daily medication regimen of levothyroxine. Hyperlipidemia -Continue daily medication regimen with atorvastatin 10 mg nightly. -Heart healthy diet Insomnia -Continue daily medication regimen with Ambien CODE STATUS: Full code DVT prophylaxis: Nnekaquis Discussed with: Patient and RN Anticipated discharge date: Clinical course to determine Anticipated discharge place: Home A total of 45 minutes was spent on the care of this complex patient more than 50% of the time was spent in counseling and care coordination. Objective - Vital Signs Vital signs: Vital Signs Temp 98.4 F 06/18/21 08:00 Pulse 84 06/18/21 09:45 Resp 16 06/18/21 08:30 BP 104/59 06/18/21 08:00 Pulse Ox 93 L 06/18/21 08:00 Intake & Output 06/17/21 06/18/21 06/18/21 18:59 06:59 18:59 Intake Total 200 Balance 200 Intake: Oral 200 Other: # Voids 2 3 3 - Labs CBC & Chem 7: 06/18/21 06:53 06/18/21 06:50 Labs: Abnormal Lab Results - Last 24 Hours (Table) 06/17/21 06/17/21 06/18/21 Range/Units 10:58 10:58 06:50 WBC 15.9 H (3.8-10.6) k/uL RBC 3.28 L (3.80-5.40) m/uL Hgb 11.1 L (11.4-16.0) gm/dL Hct 32.9 L (34.0-46.0) % MCV 100.4 H (80.0-100.0) fL MCHC (32.0-37.0) g/dL Absolute Nucleated RBC (0.00-0.00) X 10*3/uL Neutrophils # 12.5 H (1.3-7.7) k/uL NRBC/100 WBC Diff (0.0-0.0) /100 WBCS Potassium 3.4 L 3.4 L (3.5-5.1) mmol/L Magnesium 1.4 L (1.6-2.3) mg/dL Total Protein 5.4 L (6.3-8.2) g/dL Albumin 2.8 L (3.5-5.0) g/dL 06/18/21 Range/Units 06:53 WBC 12.79 H (3.8-10.6) k/uL RBC 3.38 L (3.80-5.40) m/uL Hgb 10.8 L (11.4-16.0) gm/dL Hct 33.9 L (34.0-46.0) % MCV 100.3 H (80.0-100.0) fL MCHC 31.9 L (32.0-37.0) g/dL Absolute Nucleated RBC 0.02 H (0.00-0.00) X 10*3/uL Neutrophils # (1.3-7.7) k/uL NRBC/100 WBC Diff 0.2 H (0.0-0.0) /100 WBCS Potassium (3.5-5.1) mmol/L Magnesium (1.6-2.3) mg/dL Total Protein (6.3-8.2) g/dL Albumin (3.5-5.0) g/dL Microbiology - Last 24 Hours (Table) 06/15/21 12:37 Gram Stain - Final Sputum Sputum Culture - Final Staphylococcus aureus 06/14/21 22:40 Blood Culture - Preliminary Blood No Growth after 72 hours 06/14/21 22:20 Blood Culture - Preliminary Blood No Growth after 72 hours <ValAniyah krueger - Last Filed: 06/18/21 13:55> Subjective Patient seen and examined independently. Patient was also seen by Yobani Garcia NP and case was discussed. I am in agreement with subjective, physical exam, assessment and plan as written above and amended below. She is still feeling very fatigued, appetite is still low, no energy, shortness of breath is unchanged. General: ill appearing, no distress, appears at stated age Derm: warm, dry Head: atraumatic, normocephalic, symmetric Eyes: EOMI, no lid lag, anicteric sclera Mouth: no lip lesion, mucus membranes moist Cardiovascular: S1S2 reg, no murmur, positive posterior tibial pulse bilateral, Lungs: Faint breathsounds bilateral, no rhonchi, no rales , no accessory muscle use Abdominal: soft, nontender to palpation, no guarding, no appreciable organom egaly Ext: no gross muscle atrophy, no edema, no contractures Neuro: CN II-XI grossly intact, no focal neuro deficits Psych: Alert, oriented, appropriate affect Objective - Vital Signs Vital signs: Vital Signs Temp 98.4 F 06/18/21 08:00 Pulse 84 06/18/21 12:31 Resp 16 06/18/21 08:30 BP 104/59 06/18/21 08:00 Pulse Ox 93 L 06/18/21 08:00 Intake & Output 06/17/21 06/18/21 06/18/21 18:59 06:59 18:59 Intake Total 200 Balance 200 Intake: Oral 200 Other: # Voids 2 3 3 - Labs CBC & Chem 7: 06/18/21 06:53 06/18/21 06:50 Labs: Abnormal Lab Results - Last 24 Hours (Table) 06/18/21 06/18/21 Range/Units 06:50 06:53 WBC 12.79 H (4.50-10.00) X 10*3/uL RBC 3.38 L (4.10-5.20) X 10*6/uL Hgb 10.8 L (12.0-15.0) g/dL Hct 33.9 L (37.2-46.3) % MCV 100.3 H (80.0-97.0) fL MCHC 31.9 L (32.0-37.0) g/dL Absolute Nucleated RBC 0.02 H (0.00-0.00) X 10*3/uL NRBC/100 WBC Diff 0.2 H (0.0-0.0) /100 WBCS Potassium 3.4 L (3.5-5.1) mmol/L Magnesium 1.4 L (1.6-2.3) mg/dL Microbiology - Last 24 Hours (Table) 06/15/21 12:37 Gram Stain - Final Sputum Sputum Culture - Final Staphylococcus aureus 06/14/21 22:40 Blood Culture - Preliminary Blood No Growth after 72 hours 06/14/21 22:20 Blood Culture - Preliminary Blood No Growth after 72 hours
[2021-06-18] MEDS ORDERED: POTASSIUM BICARBONATE/CIT AC 20 MEQ TABLET.EFF PO ONE (12:00)
[2021-06-18] MEDS: VANCOMYCIN 1,250 MG in SODIUM CHLORIDE 0.9% 250 ML IVPB SCH (12:12)
[2021-06-18] MEDS: MAGNESIUM SULFATE-D5W PMX 1 GM in DEXTROSE/WATER 1 100ML.BAG IVPB SCH ×4 (12:26→17:49)
--- NOTE | 2021-06-18 14:15 | P.PN ---
Subjective Progress Note Date: 06/18/21 On today's evaluation of 06/16/2021, the patient is awake and lethargic. She is sleeping most of the time. She has a harsh cough which is quite congested. She is able to bring up sputum. She gave a sputum sample yesterday which turned out to be positive for gram-positive cocci in the sputum sample and the final culture are still pending. Meanwhile the patient's white secretions up to 20. She is afebrile. The pro calcitonin level was mildly elevated. She is on a combination of Zosyn and Levaquin and vancomycin. Legionella urine antigen came back negative. Influenza A and B and RSV came back negative. COVID 19 testing was also negative. 06/17/2021, the patient is still sleepy and lethargic. Nevertheless, her breathing has improved compared to yesterday. She is able to take a deeper breath. Her cough has subsided and is less congested. Meanwhile, the sputum sample that she was able to give showed gram-positive cocci and is showing presumed staph aureus. The patient remains on the same antibiotics including vancomycin. On today's evaluation, her white cell count of 15.9 with a hemoglobin of 11.1. Her white cell count is improved compared to yesterday. Electrolytes are all within normal limits. Potassium level is at 3.4 that needs to be replaced.: covid 19 testing was negative. Influenza A and B were negative. RSV was negative. Legionella urine antigen was negative. For now, the patient is receiving cefepime, vancomycin and Levaquin. 02/15/2021, the patient is being seen for a follow-up. The patient was Hospital as for bilateral pneumonia and the patient is clinically improving. The sputum culture was positive for staph aureus and the patient is currently on the appropriate antibiotics and repeat chest x-ray shows interval improvement in the elevation of the left lung base. There is persistent infiltration in the lung bases bilaterally. Clinically is doing well and she is on room air oxygen. He off the oxygenand her pulse ox currently is above 90%. She is looking better.the white cell count is down to 12 and her electrolytes are all within normal limits. She remains on broad-spectrum antibiotics and she was covered with triple antibiotic regimen Zosyn and Levaquin and vancomycin. Vancomycin will be discontinued today. Objective - Vital Signs Vital signs: Vital Signs Temp 98.4 F 06/18/21 08:00 Pulse 84 06/18/21 12:31 Resp 16 06/18/21 08:30 BP 104/59 06/18/21 08:00 Pulse Ox 93 L 06/18/21 08:00 Intake & Output 06/17/21 06/18/21 06/18/21 18:59 06:59 18:59 Intake Total 200 Balance 200 Intake: Oral 200 Other: # Voids 2 3 3 - Exam GENERAL EXAM: Alert, pleasant, 52-year-old white female, comfortable in no apparent distress. The patient is currently on RA HEAD: Normocephalic/atraumatic. EYES: Normal reaction of pupils, equal size. Conjunctiva pink, sclera white. NOSE: Clear with pink turbinates. THROAT: No erythema or exudates. NECK: No masses, no JVD, no thyroid enlargement, no adenopathy. CHEST: No chest wall deformity. Symmetrical expansion. Patient has bruising on the chest, and abdominal area LUNGS: Diminished breath sounds, no wheezes, no rales, no rhonchi, the patient's crackles in the lung bases bilaterally, nevertheless, compared to yesterday, there is improvement in air entry bilaterally. CVS: Regular rate and rhythm, normal S1 and S2, no gallops, no murmurs, no rubs ABDOMEN: Soft, nontender. No hepatosplenomegaly, normal bowel sounds, no gua rding or rigidity. EXTREMITIES: No clubbing, no edema, no cyanosis, 2+ pulses and upper and lower extremities. MUSCULOSKELETAL: Muscle strength and tone normal. SPINE: No scoliosis or deformity SKIN: No rashes CENTRAL NERVOUS SYSTEM: Alert and oriented -3. No focal deficits, tone is normal in all 4 extremities. PSYCHIATRIC: Alert and oriented -3. Appropriate affect. Intact judgment and insight. - Labs CBC & Chem 7: 06/18/21 06:53 06/18/21 06:50 Labs: Abnormal Lab Results - Last 24 Hours (Table) 06/18/21 06/18/21 Range/Units 06:50 06:53 WBC 12.79 H (4.50-10.00) X 10*3/uL RBC 3.38 L (4.10-5.20) X 10*6/uL Hgb 10.8 L (12.0-15.0) g/dL Hct 33.9 L (37.2-46.3) % MCV 100.3 H (80.0-97.0) fL MCHC 31.9 L (32.0-37.0) g/dL Absolute Nucleated RBC 0.02 H (0.00-0.00) X 10*3/uL NRBC/100 WBC Diff 0.2 H (0.0-0.0) /100 WBCS Potassium 3.4 L (3.5-5.1) mmol/L Magnesium 1.4 L (1.6-2.3) mg/dL Microbiology - Last 24 Hours (Table) 06/15/21 12:37 Gram Stain - Final Sputum Sputum Culture - Final Staphylococcus aureus 06/14/21 22:40 Blood Culture - Preliminary Blood No Growth after 72 hours 06/14/21 22:20 Blood Culture - Preliminary Blood No Growth after 72 hours Assessment and Plan Plan: 1 acute bilateral lower lobe pneumonia left more than right with secondary hy poxic respiratory failure , clinically improved and the patient is currently on room air oxygen. Chest x-ray shows improvement in aeration of the left lung base. The patient has staphylococcal pneumonia, MSSA and the patient was taken off the vancomycin and Zosyn currently is on Levaquin. Clinically improving 2 acute hypoxic respiratory failure secondary to above, currently on room air oxygen 3 history of tracheal bronchomalacia with bronchiectasis and the patient has had multiple bronchoscopies in the past 4 history of recurrent bronchitis and pneumonia with Pseudomonas, MRSA, and Haemophilus influenza 5 history of chronic obstructive lung disease COPD/asthma with an FEV1 of 26% of predicted 6 previous history of pulmonary embolism maintained on anticoagulation with Eliquis 7 hypothyroidism 8 preserved LV function with normal ejection fraction based on previous echocardiogram that was done on in 2019 Plan the patient has staph aureus pneumonia. White cell count is improving. The oxygenation is also improving. The patient will be monitored very closely. Continue pulmonary toileting. Deep breathing. Cough and then using incentive spirometer. She also has a flutter valve at the bedside. Continue same antibiotic coverage Resume home medications including anticoagulation Put the patient on DuoNeb nebulized treatments around the clock Aggressive pulmonary toileting Provide the patient incentive spirometer We'll continue to follow, may need a bronchoscopy at a later stage for Pulmonary toileting. Repeat chest x-ray in the morningwas noted and the patient is showing improvement in the aeration of the left lung base Deep breathing and pulmonary toiletingwithout oxygen follow she received oxygen We'll continue to follow
[2021-06-18] MEDS: ZOLPIDEM 5 MG TAB PO SCH (21:50)
[2021-06-18] MEDS: ATORVASTATIN 10 MG TAB PO SCH (21:50)
[2021-06-18] MEDS: traZODone HCL 50 MG TAB PO SCH (21:50)
[2021-06-19] MEDS: IBUPROFEN 400 MG TAB PO PRN (01:05)
[2021-06-19] MEDS: LEVOTHYROXINE 50 MCG TAB PO SCH (06:20)
[2021-06-19] MEDS: IPRATROPIUM-ALBUTEROL 3 ML NEB INHALATION SCH ×4 (08:25→19:56)
[2021-06-19] MEDS: SYMBICORT 160-4.5 MCG INHALER INHALATION SCH ×2 (08:25→19:56)
[2021-06-19] MEDS: DULoxetine HCL 60 MG CAPSULE.DR PO SCH (10:57)
[2021-06-19] MEDS: APIXABAN 5 MG TAB PO SCH ×2 (10:57→23:04)
[2021-06-19] MEDS: GABAPENTIN 300 MG CAP PO SCH ×2 (10:58→23:03)
[2021-06-19] MEDS: guaiFENesin 600 MG TABLET.ER PO SCH ×2 (10:58→23:04)
[2021-06-19] MEDS: MONTELUKAST 10 MG TAB PO SCH (10:58)
--- NOTE | 2021-06-19 11:50 | P.PN ---
Subjective Progress Note Date: 06/19/21 On today's evaluation of 06/16/2021, the patient is awake and lethargic. She is sleeping most of the time. She has a harsh cough which is quite congested. She is able to bring up sputum. She gave a sputum sample yesterday which turned out to be positive for gram-positive cocci in the sputum sample and the final culture are still pending. Meanwhile the patient's white secretions up to 20. She is afebrile. The pro calcitonin level was mildly elevated. She is on a combination of Zosyn and Levaquin and vancomycin. Legionella urine antigen came back negative. Influenza A and B and RSV came back negative. COVID 19 testing was also negative. 06/17/2021, the patient is still sleepy and lethargic. Nevertheless, her breathing has improved compared to yesterday. She is able to take a deeper breath. Her cough has subsided and is less congested. Meanwhile, the sputum sample that she was able to give showed gram-positive cocci and is showing presumed staph aureus. The patient remains on the same antibiotics including vancomycin. On today's evaluation, her white cell count of 15.9 with a hemoglobin of 11.1. Her white cell count is improved compared to yesterday. Electrolytes are all within normal limits. Potassium level is at 3.4 that needs to be replaced.: covid 19 testing was negative. Influenza A and B were negative. RSV was negative. Legionella urine antigen was negative. For now, the patient is receiving cefepime, vancomycin and Levaquin. 02/15/2021, the patient is being seen for a follow-up. The patient was Hospital as for bilateral pneumonia and the patient is clinically improving. The sputum culture was positive for staph aureus and the patient is currently on the appropriate antibiotics and repeat chest x-ray shows interval improvement in the elevation of the left lung base. There is persistent infiltration in the lung bases bilaterally. Clinically is doing well and she is on room air oxygen. He off the oxygenand her pulse ox currently is above 90%. She is looking better.the white cell count is down to 12 and her electrolytes are all within normal limits. She remains on broad-spectrum antibiotics and she was covered with triple antibiotic regimen Zosyn and Levaquin and vancomycin. Vancomycin will be discontinued today. 06/19/2021, the patient is being seen for a follow-up. As mentioned earlier, the patient has bilateral pneumonia and she tested positive for staph aureus. For now she is on Levaquin. Her overall respiratory status is stable. In terms of her oxygenation, the patient is on 3 L with a pulse ox of 97%. Yesterday she was weaned down to room air oxygen. She remains on bronchodilators. She remains on systemic steroids. Vancomycin and Zosyn were both discontinued. She is afebrile. She remains on long-term and to coagulation with Eliquis. No other significant events overnight. Objective - Vital Signs Vital signs: Vital Signs Temp 98.3 F 06/19/21 09:40 Pulse 74 06/19/21 09:40 Resp 17 06/19/21 09:40 BP 99/65 06/19/21 09:40 Pulse Ox 97 06/19/21 09:40 Intake & Output 06/18/21 06/19/21 06/19/21 18:59 06:59 18:59 Other: # Voids 1 3 - Exam GENERAL EXAM: Alert, pleasant, 52-year-old white female, comfortable in no apparent distress. The patient is currently on RA and this morning she was placed on 3 L of oxygen by cannula and this can be easily weaned off. HEAD: Normocephalic/atraumatic. EYES: Normal reaction of pupils, equal size. Conjunctiva pink, sclera white. NOSE: Clear with pink turbinates. THROAT: No erythema or exudates. NECK: No masses, no JVD, no thyroid enlargement, no adenopathy. CHEST: No chest wall deformity. Symmetrical expansion. Patient has bruising on the chest, and abdominal area LUNGS: Diminished breath sounds, no wheezes, no rales, no rhonchi, the patient's crackles in the lung bases bilaterally, nevertheless, compared to yesterday, there is improvement in air entry bilaterally. CVS: Regular rate and rhythm, normal S1 and S2, no gallops, no murmurs, no rubs ABDOMEN: Soft, nontender. No hepatosplenomegaly, normal bowel sounds, no guarding or rigidity. EXTREMITIES: No clubbing, no edema, no cyanosis, 2+ pulses and upper and lower extremities. MUSCULOSKELETAL: Muscle strength and tone normal. SPINE: No scoliosis or deformity SKIN: No rashes CENTRAL NERVOUS SYSTEM: Alert and oriented -3. No focal deficits, tone is normal in all 4 extremities. PSYCHIATRIC: Alert and oriented -3. Appropriate affect. Intact judgment and insight. - Labs CBC & Chem 7: 06/18/21 06:53 06/18/21 06:50 Labs: Microbiology - Last 24 Hours (Table) 06/14/21 22:40 Blood Culture - Preliminary Blood No Growth after 96 hours 06/14/21 22:20 Blood Culture - Preliminary Blood No Growth after 96 hours 06/15/21 12:37 Gram Stain - Final Sputum Sputum Culture - Final Staphylococcus aureus Assessment and Plan Plan: 1 acute bilateral lower lobe pneumonia left more than right with secondary hypoxic respiratory failure , clinically improved and the patient is currently on room air oxygen. Chest x-ray shows improvement in aeration of the left lung base. The patient has staphylococcal pneumonia, MSSA and the patient was taken off the vancomycin and Zosyn currently is on Levaquin. Clinically improving 2 acute hypoxic respiratory failure secondary to above, currently on room air oxygen 3 history of tracheal bronchomalacia with bronchiectasis and the patient has had multiple bronchoscopies in the past 4 history of recurrent bronchitis and pneumonia with Pseudomonas, MRSA, and Haemophilus influenza 5 history of chronic obstructive lung disease COPD/asthma with an FEV1 of 26% of predicted 6 previous history of pulmonary embolism maintained on anticoagulation with Eliquis 7 hypothyroidism 8 preserved LV function with normal ejection fraction based on previous echocardiogram that was done on in 2019 Plan Clinically the patient continues to improve his overall respiratory secretions have subsided compared to the of admission. She is still bringing up mucus also less copious in amounts. Chest x-ray was improving. She was cultures have staph aureus. She is on Levaquin. IV Solu Medrol will be tapered. I do not see the need for any bronchoscopy at this point in time. Repeat chest x-ray in the morning. Deep breathing. Pulmonary toileting. Increase mobility. We'll continue to follow.
[2021-06-19] MEDS: LEVOFLOXACIN 750MG-D5W PMX 750 MG in DEXTROSE/WATER 1 150ML.BAG IVPB SCH (12:34)
--- NOTE | 2021-06-19 13:17 | P.PN ---
Subjective Progress Note Date: 06/19/21 HISTORY OF PRESENT ILLNESS This is a 55-year-old female patient of Dr. Guadalupe with a previous medical history significant for bronchial malacia, pulmonary fibrosis, intersti tial lung disease, pulmonary embolism on chronic eliquis, hyperlipidemia, GERD, osteopenia. Patient is undergone bronchoscopy and BAL with Dr. Saul rogers and culture positive for Pseudomonas. She has had admission for acute hypoxic respiratory failure secondary to acute exacerbation of chronic bronchiectasis, bronchial malacia Pseudomonas pneumonitis and HSV isolated. Patient states that she has not felt well for the past 1-2 weeks with a cough for 1 week. Her states that yesterday at dinnertime she became much worse with tightness in her chest and coughing. She denies any concern for aspiration. She is normally ambulating. She complains of nausea without vomiting and not eating very much. She denies having diarrhea. Patient is on home O2 at 3 L at bedtime and monitors her pulse ox. Patient states she did have some blood, dark blood in her sputum. Patient presented to [facility] emergency center for evaluation and found to be afebrile, heart rate in the low 100s, blood pressure 123/73, pulse ox 94% on 4 L nasal cannula. EKG sinus tachycardia. WBC 9.1, hemoglobin 12.6, platelet count 182. INR 1.0. Potassium 3.4. Creatinine 0.76. Magnesium 1.3 liver function tests were normal. Troponin negative. Pro-calcitonin 0.22. Coronavirus PCR not detected. Chest x-ray reveals bilateral pneumonia much worse on the left side. Patient was started on an consult with pulmonary medicine, patient seen in the ER waiting for bed on the [facility] floor. 06/16: Patient apparently slept well during the night but was exhausted as she spent an extended period in the emergency center. She is sleeping at the time of evaluation and wakens easily to verbal stimuli. She continues to have a cough for which Mucinex will be added. She has been seen by pulmonary medicine with recommendations continue broad-spectrum antibiotics which are placed with cefepime, Levaquin and vancomycin. Sputum culture has been obtained and is in progress. Blood cultures showing no growth. Pro-calcitonin came back at 0.22. Patient may require bronchoscopy at a later stage. Patient is currently at 4 L nasal cannula with pulse ox 97%. She has been afebrile, heart rate running in the 80s to low 100s. Blood pressure 97/63. Repeat blood work reveals WBC 20.1, hemoglobin 9.5, platelet count 136. Sodium 142, potassium 3.8, chloride 113, CO2 18, BUN 14 creatinine 0.7. Influenza A and influenza B not detected. Legionella negative. RSV negative. Repeat chest x-ray and blood work have been ordered for tomorrow. 06/19: She was found resting comfortably in bed. She's been ambulatory within her room tolerating without any difficulties in breathing. Patient states that she is breathing better today compared to yesterday. She remains afebrile, heart rate 74, respirations 16, blood pressure 99/65, pulse ox 97% on 3 L. To be BCC 12.7, hemoglobin 10.8, potassium 3.4, BUN 7, creatinine 0.65. REVIEW OF SYSTEMS Constitutional: No fever, no chills, no night sweats. No weight change. No weakness, reports fatigue or lethargy. Reports daytime sleepiness. EENT: No headache. No blurred vision or double vision, no loss of vision. No loss of Hearing, no ringing in the ears, no dizziness. No nasal drainage or congestion. No epistaxis. No sore throat. Lungs: Reports shortness of breath, Reports cough, Reports sputum production. No wheezing. Reports blood in sputum. Cardiovascular: No chest pain, no lower extremity edema. No palpitations. No paroxysmal nocturnal dyspnea. No orthopnea. No lightheadedness or dizziness. No syncopal episodes. Abdominal: No abdominal pain. No nausea, vomiting. No diarrhea. No cons tipation. No bloody or tarry stools. No loss of appetite. Genitourinary: No dysuria, increased frequency, urgency. No urinary retention. Musculoskeletal: No myalgias. No muscle weakness, no gait dysfunction, no frequent falls. No back pain. No neck pain. Integumentary: No wounds, no lesions. No rash or pruritus. No unusual bruising. No change in hair or nails. Neurologic: No aphasia. No facial droop. No change in mentation. No head injury. No headache. No paralysis. No paresthesia. Psychiatric: No depression. No anxiety. No mood swings. Endocrine: No abnormal blood sugars. No weight change. PHYSICAL EXAMINATION Gen: This is a thin 55-year-old female. Patient is resting in bed and does not appear to be any acute distress but fatigued. Mediport right chest HEENT: Head is atraumatic, normocephalic. Pupils equal, round. Sclerae is anicteric. Voice hoarse NECK: Supple. No JVD. No lymphadenopathy. No thyromegaly. LUNGS: Diminished breath sounds with diffuse rhonchi. No intercostal retractions. HEART: Regular rate and rhythm. No murmur. ABDOMEN: Soft. Bowel sounds are present. No masses. No tenderness. EXTREMITIES: No pedal edema. No calf tenderness. Dorsalis pedis +2 bilaterally. NEUROLOGICAL: Patient is awake, alert and oriented x3. Cranial nerves 2 through 12 are grossly intact. ASSESSMENT AND PLAN 1. Acute bilateral lower lobe pneumonia, possible gram-negative pneumonia. Patient has been started on cefepime, vancomycin and Levaquin. Continue Symbicort 2 puffs twice daily, DuoNeb treatments 4 times daily and as needed. Blood cultures are in progress, sputum culture in progress, pulmonary consult appreciated. Mucinex. 2. Acute hypoxic respiratory failure secondary to pneumonia. 3. History of tracheobronchial malacia with bronchiectasis. 4. History of COPD, moderate intermittent asthma with FEV1 of 26. Continue Singulair 10 mg daily. 5. History of pulmonary embolism on long-term anticoagulation with eliquis. 6. Hypomagnesemia, status post replacement, continue to monitor. 7. Hypothyroidism. Continue levothyroxine 50 g daily. 8. Insomnia. Continue Ambien 5 mg at bedtime, trazodone 50 mg at bedtime. 9. Hyperlipidemia. Continue atorvastatin 10 mg at bedtime. 10. Recurrent depression, generalized anxiety disorder. Continue Cymbalta 60 mg daily, gabapentin 300 mg daily and 60 mg at bedtime. 11. GI prophylaxis. Protonix. 12. DVT prophylaxis. Eliquis. 13. COVID-19 testing negative. Patient has been hospitalized during a pandemic. DISCHARGE PLAN Home poss. Monday Impression and plan of care have been directed as dictated by the signing physician. Lalita Domingo nurse practitioner acting as scribe for signing physician. Objective - Vital Signs Vital signs: Vital Signs Temp 98.3 F 06/19/21 09:40 Pulse 74 06/19/21 09:40 Resp 17 06/19/21 09:40 BP 99/65 06/19/21 09:40 Pulse Ox 97 06/19/21 09:40 Intake & Output 06/18/21 06/19/21 06/19/21 18:59 06:59 18:59 Other: # Voids 1 3 - Labs CBC & Chem 7: 06/18/21 06:53 06/18/21 06:50 Labs: Microbiology - Last 24 Hours (Table) 06/14/21 22:40 Blood Culture - Preliminary Blood No Growth after 96 hours 06/14/21 22:20 Blood Culture - Preliminary Blood No Growth after 96 hours 06/15/21 12:37 Gram Stain - Final Sputum Sputum Culture - Final Staphylococcus aureus
[2021-06-19] MEDS: traZODone HCL 50 MG TAB PO SCH (23:03)
[2021-06-19] MEDS: ACETAMINOPHEN TAB 325 MG TAB PO PRN (23:04)
[2021-06-19] MEDS: ATORVASTATIN 10 MG TAB PO SCH (23:04)
[2021-06-19] MEDS: ZOLPIDEM 5 MG TAB PO SCH (23:04)
[2021-06-20] MEDS: LEVOTHYROXINE 50 MCG TAB PO SCH (05:48)
[2021-06-20] MEDS: SYMBICORT 160-4.5 MCG INHALER INHALATION SCH ×2 (07:27→19:30)
[2021-06-20] MEDS: IPRATROPIUM-ALBUTEROL 3 ML NEB INHALATION SCH ×4 (07:27→19:30)
[2021-06-20] MEDS: DULoxetine HCL 60 MG CAPSULE.DR PO SCH (09:43)
[2021-06-20] MEDS: MONTELUKAST 10 MG TAB PO SCH (09:43)
[2021-06-20] MEDS: APIXABAN 5 MG TAB PO SCH ×2 (09:43→20:55)
[2021-06-20] MEDS: GABAPENTIN 300 MG CAP PO SCH ×2 (09:43→20:55)
[2021-06-20] MEDS: guaiFENesin 600 MG TABLET.ER PO SCH ×2 (09:43→20:55)
[2021-06-20] MEDS: LEVOFLOXACIN 750MG-D5W PMX 750 MG in DEXTROSE/WATER 1 150ML.BAG IVPB SCH (09:44)
[2021-06-20 10:11] LABS: Basophils # (A) 0.1 k/uL (0-0.2); Basophils % (A) 1 %; Eosinophils # (A) 0.4 k/uL (0-0.7); Eosinophils % (A) 4 %; HCT 34.3 % (34.0-46.0); HGB 11.1 gm/dL (11.4-16.0); Lymphocytes # (A) 2.4 k/uL (1.0-4.8); Lymphocytes % (A) 27 %; MCH 32.3 pg (25.0-35.0); MCHC 32.2 g/dL (31.0-37.0); MCV 100.5 fL (80.0-100.0); Mean Platelet Volume 7.7; Monocytes # (A) 0.6 k/uL (0-1.0); Monocytes % (A) 6 %; Neutrophils # (A) 5.3 k/uL (1.3-7.7); Neutrophils % (A) 59 %; Platelet Count 183 k/uL (150-450); RBC 3.42 m/uL (3.80-5.40); RDW 12.4 % (11.5-15.5); WBC 8.9 k/uL (3.8-10.6)
[2021-06-20 10:13] LABS: African American GFR (CKD) >90 (>60 ml/min/1.73 sqM); Anion Gap 7 mmol/L; Blood Urea Nitrogen 10 mg/dL (7-17); Calcium 9.5 mg/dL (8.4-10.2); Carbon Dioxide 30 mmol/L (22-30); Chloride 102 mmol/L (98-107); Glucose 147 mg/dL (74-99); Non-African American GFR(CKD) >90 (>60 ml/min/1.73 sqM); Potassium 3.5 mmol/L (3.5-5.1); Sodium 139 mmol/L (137-145)
--- NOTE | 2021-06-20 11:07 | P.PN ---
Subjective Progress Note Date: 06/20/21 On today's evaluation of 06/16/2021, the patient is awake and lethargic. She is sleeping most of the time. She has a harsh cough which is quite congested. She is able to bring up sputum. She gave a sputum sample yesterday which turned out to be positive for gram-positive cocci in the sputum sample and the final culture are still pending. Meanwhile the patient's white secretions up to 20. She is afebrile. The pro calcitonin level was mildly elevated. She is on a combination of Zosyn and Levaquin and vancomycin. Legionella urine antigen came back negative. Influenza A and B and RSV came back negative. COVID 19 testing was also negative. 06/17/2021, the patient is still sleepy and lethargic. Nevertheless, her breathing has improved compared to yesterday. She is able to take a deeper breath. Her cough has subsided and is less congested. Meanwhile, the sputum sample that she was able to give showed gram-positive cocci and is showing presumed staph aureus. The patient remains on the same antibiotics including vancomycin. On today's evaluation, her white cell count of 15.9 with a hemoglobin of 11.1. Her white cell count is improved compared to yesterday. Electrolytes are all within normal limits. Potassium level is at 3.4 that needs to be replaced.: covid 19 testing was negative. Influenza A and B were negative. RSV was negative. Legionella urine antigen was negative. For now, the patient is receiving cefepime, vancomycin and Levaquin. 02/15/2021, the patient is being seen for a follow-up. The patient was Hospital as for bilateral pneumonia and the patient is clinically improving. The sputum culture was positive for staph aureus and the patient is currently on the appropriate antibiotics and repeat chest x-ray shows interval improvement in the elevation of the left lung base. There is persistent infiltration in the lung bases bilaterally. Clinically is doing well and she is on room air oxygen. He off the oxygenand her pulse ox currently is above 90%. She is looking better.the white cell count is down to 12 and her electrolytes are all within normal limits. She remains on broad-spectrum antibiotics and she was covered with triple antibiotic regimen Zosyn and Levaquin and vancomycin. Vancomycin will be discontinued today. 06/19/2021, the patient is being seen for a follow-up. As mentioned earlier, the patient has bilateral pneumonia and she tested positive for staph aureus. For now she is on Levaquin. Her overall respiratory status is stable. In terms of her oxygenation, the patient is on 3 L with a pulse ox of 97%. Yesterday she was weaned down to room air oxygen. She remains on bronchodilators. She remains on systemic steroids. Vancomycin and Zosyn were both discontinued. She is afebrile. She remains on long-term and to coagulation with Eliquis. No other significant events overnight. 06/20/2021, the patient is resting comfortably in bed. Still on Levaquin. No new complaints. No chest pain. No shortness of breath. Breathing is nonlabored. She has a staphylococcal pneumonia for which she is on Levaquin for now in addition to bronchodilators. No fever or chills. Still coughing chunks of mucus although the amount of rest or secretions are improving on a daily basis. She remains on long-term articulation with Eliquis.Her blood work shows a white cell count of 8.9 with a hemoglobin of 11, normal renal function, sodium is at 139 Objective - Vital Signs Vital signs: Vital Signs Temp 98.2 F 06/20/21 07:13 Pulse 76 06/20/21 07:40 Resp 16 06/20/21 07:13 BP 96/56 06/20/21 07:13 Pulse Ox 97 06/20/21 07:13 Intake & Output 06/19/21 06/20/21 06/20/21 18:59 06:59 18:59 Other: # Voids 2 - Exam GENERAL EXAM: Alert, pleasant, 52-year-old white female, comfortable in no apparent distress. The patient is currently on RA and this morning she was placed on 3 L of oxygen by cannula and this can be easily weaned off. HEAD: Normocephalic/atraumatic. EYES: Normal reaction of pupils, equal size. Conjunctiva pink, sclera white. NOSE: Clear with pink turbinates. THROAT: No erythema or exudates. NECK: No masses, no JVD, no thyroid enlargement, no adenopathy. CHEST: No chest wall deformity. Symmetrical expansion. Patient has bruising on the chest, and abdominal area LUNGS: Diminished breath sounds, no wheezes, no rales, no rhonchi, the patient's crackles in the lung bases bilaterally, nevertheless, compared to yesterday, there is improvement in air entry bilaterally. CVS: Regular rate and rhythm, normal S1 and S2, no gallops, no murmurs, no rubs ABDOMEN: Soft, nontender. No hepatosplenomegaly, normal bowel sounds, no guarding or rigidity. EXTREMITIES: No clubbing, no edema, no cyanosis, 2+ pulses and upper and lower extremities. MUSCULOSKELETAL: Muscle strength and tone normal. SPINE: No scoliosis or deformity SKIN: No rashes CENTRAL NERVOUS SYSTEM: Alert and oriented -3. No focal deficits, tone is normal in all 4 extremities. PSYCHIATRIC: Alert and oriented -3. Appropriate affect. Intact judgment and insight. - Labs CBC & Chem 7: 06/20/21 08:49 06/20/21 08:49 Labs: Abnormal Lab Results - Last 24 Hours (Table) 06/20/21 06/20/21 Range/Units 08:49 08:49 RBC 3.42 L (3.80-5.40) m/uL Hgb 11.1 L (11.4-16.0) gm/dL MCV 100.5 H (80.0-100.0) fL Glucose 147 H (74-99) mg/dL Microbiology - Last 24 Hours (Table) 06/14/21 22:40 Blood Culture - Preliminary Blood No Growth after 120 hours 06/14/21 22:20 Blood Culture - Preliminary Blood No Growth after 120 hours Assessment and Plan Plan: 1 acute bilateral lower lobe pneumonia left more than right with secondary hypoxic respiratory failure , clinically improved and the patient is currently on room air oxygen. Chest x-ray shows improvement in aeration of the left lung base. The patient has staphylococcal pneumonia, MSSA and the patient was taken off the vancomycin and Zosyn currently is on Levaquin. Clinically improving 2 acute hypoxic respiratory failure secondary to above, currently on room air oxygen 3 history of tracheal bronchomalacia with bronchiectasis and the patient has had multiple bronchoscopies in the past 4 history of recurrent bronchitis and pneumonia with Pseudomonas, MRSA, and Haemophilus influenza 5 history of chronic obstructive lung disease COPD/asthma with an FEV1 of 26% of predicted 6 previous history of pulmonary embolism maintained on anticoagulation with Eliquis 7 hypothyroidism 8 preserved LV function with normal ejection fraction based on previous echocardiogram that was done on in 2019 Plan Clinically continues to improve. No respiratory difficulties. Continue same treatment. Possible discharge within the next 24-48 hours based on her progress. Repeat chest x-ray in a.m.
[2021-06-20 11:27] LABS: Band Neutrophils % 5 %; Eosinophils # (M) 0.53 k/uL (0-0.7); Metamyelocytes # (M) 0.09 k/uL (0); Metamyelocytes % 1 %; Monocytes # (M) 0.53 k/uL (0-1.0); Myelocytes # (M) 0.53 k/uL (0); Myelocytes % 6 %; Neutrophils % (M) 60 %; Nucleated Red Blood Cells 0 /100 WBC (0-0); Total Cells Counted 200
[2021-06-20 11:28] LABS: Anisocytosis (M) Present; Poikilocytosis (M) Present; Polychromasia Present; Toxic Granulation Present
--- NOTE | 2021-06-20 11:50 | P.PN ---
Subjective Progress Note Date: 06/20/21 HISTORY OF PRESENT ILLNESS This is a 55-year-old female patient of Dr. Guadalupe with a previous medical history significant for bronchial malacia, pulmonary fibrosis, intersti tial lung disease, pulmonary embolism on chronic eliquis, hyperlipidemia, GERD, osteopenia. Patient is undergone bronchoscopy and BAL with Dr. Saul rogers and culture positive for Pseudomonas. She has had admission for acute hypoxic respiratory failure secondary to acute exacerbation of chronic bronchiectasis, bronchial malacia Pseudomonas pneumonitis and HSV isolated. Patient states that she has not felt well for the past 1-2 weeks with a cough for 1 week. Her states that yesterday at dinnertime she became much worse with tightness in her chest and coughing. She denies any concern for aspiration. She is normally ambulating. She complains of nausea without vomiting and not eating very much. She denies having diarrhea. Patient is on home O2 at 3 L at bedtime and monitors her pulse ox. Patient states she did have some blood, dark blood in her sputum. Patient presented to [facility] emergency center for evaluation and found to be afebrile, heart rate in the low 100s, blood pressure 123/73, pulse ox 94% on 4 L nasal cannula. EKG sinus tachycardia. WBC 9.1, hemoglobin 12.6, platelet count 182. INR 1.0. Potassium 3.4. Creatinine 0.76. Magnesium 1.3 liver function tests were normal. Troponin negative. Pro-calcitonin 0.22. Coronavirus PCR not detected. Chest x-ray reveals bilateral pneumonia much worse on the left side. Patient was started on an consult with pulmonary medicine, patient seen in the ER waiting for bed on the [facility] floor. 06/16: Patient apparently slept well during the night but was exhausted as she spent an extended period in the emergency center. She is sleeping at the time of evaluation and wakens easily to verbal stimuli. She continues to have a cough for which Mucinex will be added. She has been seen by pulmonary medicine with recommendations continue broad-spectrum antibiotics which are placed with cefepime, Levaquin and vancomycin. Sputum culture has been obtained and is in progress. Blood cultures showing no growth. Pro-calcitonin came back at 0.22. Patient may require bronchoscopy at a later stage. Patient is currently at 4 L nasal cannula with pulse ox 97%. She has been afebrile, heart rate running in the 80s to low 100s. Blood pressure 97/63. Repeat blood work reveals WBC 20.1, hemoglobin 9.5, platelet count 136. Sodium 142, potassium 3.8, chloride 113, CO2 18, BUN 14 creatinine 0.7. Influenza A and influenza B not detected. Legionella negative. RSV negative. Repeat chest x-ray and blood work have been ordered for tomorrow. 06/19: She was found resting comfortably in bed. She's been ambulatory within her room tolerating without any difficulties in breathing. Patient states that she is breathing better today compared to yesterday. She remains afebrile, heart rate 74, respirations 16, blood pressure 99/65, pulse ox 97% on 3 L. To be BCC 12.7, hemoglobin 10.8, potassium 3.4, BUN 7, creatinine 0.65. 06/20: Patient is found resting comfortable in bed she looks improved compared to yesterday. Patient states that her breathing has improved compared to yesterday. She is feeling much more comfortable today. She remains afebrile, heart rate 76, respirations 16, blood pressure 96/56, pulse ox is 97% on 3 L. If patient continues to improve more than likely home on Monday. REVIEW OF SYSTEMS Constitutional: No fever, no chills, no night sweats. No weight change. No weakness, reports fatigue or lethargy. Reports daytime sleepiness. EENT: No headache. No blurred vision or double vision, no loss of vision. No loss of Hearing, no ringing in the ears, no dizziness. No nasal drainage or congestion. No epistaxis. No sore throat. Lungs: Reports shortness of breath, Reports cough, Reports sputum production. No wheezing. Reports blood in sputum. Cardiovascular: No chest pain, no lower extremity edema. No palpitations. No paroxysmal nocturnal dyspnea. No orthopnea. No lightheadedness or dizziness. No syncopal episodes. Abdominal: No abdominal pain. No nausea, vomiting. No diarrhea. No constipation. No bloody or tarry stools. No loss of appetite. Genitourinary: No dysuria, increased frequency, urgency. No urinary retention. Musculoskeletal: No myalgias. No muscle weakness, no gait dysfunction, no frequent falls. No back pain. No neck pain. Integumentary: No wounds, no lesions. No rash or pruritus. No unusual bruising. No change in hair or nails. Neurologic: No aphasia. No facial droop. No change in mentation. No head injury. No headache. No paralysis. No paresthesia. Psychiatric: No depression. No anxiety. No mood swings. Endocrine: No abnormal blood sugars. No weight change. PHYSICAL EXAMINATION Gen: This is a thin 55-year-old female. Patient is resting in bed and does not appear to be any acute distress but fatigued. Mediport right chest HEENT: Head is atraumatic, normocephalic. Pupils equal, round. Sclerae is anicteric. Voice hoarse NECK: Supple. No JVD. No lymphadenopathy. No thyromegaly. LUNGS: Diminished breath sounds with diffuse rhonchi. No intercostal retractions. HEART: Regular rate and rhythm. No murmur. ABDOMEN: Soft. Bowel sounds are present. No masses. No tenderness. EXTREMITIES: No pedal edema. No calf tenderness. Dorsalis pedis +2 bilaterally. NEUROLOGICAL: Patient is awake, alert and oriented x3. Cranial nerves 2 through 12 are grossly intact. ASSESSMENT AND PLAN 1. Acute bilateral lower lobe pneumonia, possible gram-negative pneumonia. Patient has been started on cefepime, vancomycin and Levaquin. Continue Symbicort 2 puffs twice daily, DuoNeb treatments 4 times daily and as needed. Blood cultures are in progress, sputum culture in progress, pulmonary consult appreciated. Mucinex. 2. Acute hypoxic respiratory failure secondary to pneumonia. 3. History of tracheobronchial malacia with bronchiectasis. 4. History of COPD, moderate intermittent asthma with FEV1 of 26. Continue Singulair 10 mg daily. 5. History of pulmonary embolism on long-term anticoagulation with eliquis. 6. Hypomagnesemia, status post replacement, continue to monitor. 7. Hypothyroidism. Continue levothyroxine 50 g daily. 8. Insomnia. Continue Ambien 5 mg at bedtime, trazodone 50 mg at bedtime. 9. Hyperlipidemia. Continue atorvastatin 10 mg at bedtime. 10. Recurrent depression, generalized anxiety disorder. Continue Cymbalta 60 mg daily, gabapentin 300 mg daily and 60 mg at bedtime. 11. GI prophylaxis. Protonix. 12. DVT prophylaxis. Eliquis. 13. COVID-19 testing negative. Patient has been hospitalized during a pandemic. DISCHARGE PLAN Home poss. Monday Impression and plan of care have been directed as dictated by the signing juanito hickman. Lalita Domingo nurse practitioner acting as scribe for signing physician. Objective - Vital Signs Vital signs: Vital Signs Temp 98.2 F 06/20/21 07:13 Pulse 76 06/20/21 07:40 Resp 16 06/20/21 07:13 BP 96/56 06/20/21 07:13 Pulse Ox 97 06/20/21 07:13 Intake & Output 06/19/21 06/20/21 06/20/21 18:59 06:59 18:59 Other: # Voids 2 - Labs CBC & Chem 7: 06/20/21 08:49 06/20/21 08:49 Labs: Abnormal Lab Results - Last 24 Hours (Table) 06/20/21 06/20/21 Range/Units 08:49 08:49 RBC 3.42 L (3.80-5.40) m/uL Hgb 11.1 L (11.4-16.0) gm/dL MCV 100.5 H (80.0-100.0) fL Metamyelocytes # (Man) 0.09 H (0) k/uL Myelocytes # (Manual) 0.53 H (0) k/uL Glucose 147 H (74-99) mg/dL Microbiology - Last 24 Hours (Table) 06/14/21 22:40 Blood Culture - Preliminary Blood No Growth after 120 hours 06/14/21 22:20 Blood Culture - Preliminary Blood No Growth after 120 hours
[2021-06-20] MEDS: ACETAMINOPHEN TAB 325 MG TAB PO PRN (20:55)
[2021-06-20] MEDS: ATORVASTATIN 10 MG TAB PO SCH (20:55)
[2021-06-20] MEDS: ZOLPIDEM 5 MG TAB PO SCH (20:55)
[2021-06-20] MEDS: traZODone HCL 50 MG TAB PO SCH (20:55)
[2021-06-21] MEDS: LEVOTHYROXINE 50 MCG TAB PO SCH (05:33)
[2021-06-21] MEDS: GABAPENTIN 300 MG CAP PO SCH (07:39)
[2021-06-21] MEDS: APIXABAN 5 MG TAB PO SCH (07:39)
[2021-06-21] MEDS: DULoxetine HCL 60 MG CAPSULE.DR PO SCH (07:39)
[2021-06-21] MEDS: guaiFENesin 600 MG TABLET.ER PO SCH (07:39)
[2021-06-21] MEDS: MONTELUKAST 10 MG TAB PO SCH (07:39)
--- NOTE | 2021-06-21 07:41 | XR ---
EXAMINATION TYPE: XR chest 1V DATE OF EXAM: 06/21/2021 COMPARISON: 06/18/2021 HISTORY: 55-year-old female cough, pneumonia TECHNIQUE: Single frontal view of the chest is obtained. FINDINGS: Right anterior chest wall injection port. Catheter tip at the mid SVC level. Heart normal size. Right pool patient rotation ultrasound and normal cardiomediastinal contours. There are small pleural effus ions, right greater than left. Patchy lower lung opacities are improving. Hyperinflation. IMPRESSION: COPD with continued small right greater than left pleural effusions but with improving lower lung are as of atelectasis and/or consolidation.
[2021-06-21 08:25] VITALS: BP 160/73; TEMP 98.1
[2021-06-21] MEDS: IPRATROPIUM-ALBUTEROL 3 ML NEB INHALATION SCH ×2 (08:33→12:00)
[2021-06-21] MEDS: SYMBICORT 160-4.5 MCG INHALER INHALATION SCH (08:33)
[2021-06-21 08:35] VITALS: RESP 18
--- NOTE | 2021-06-21 10:28 | P.DS ---
Providers Date of admission: 06/14/21 22:29 Expected date of discharge: 06/21/21 Attending physician: Arash Ayala MD Consults: 06/14/21 22:30 Consult Physician Routine Consulting Provider: Dominga Hughes Consult Reason/Comments: PNA Do you want consulting provider notified?: Yes Primary care physician: [facility] [place] Course: HISTORY OF PRESENT ILLNESS This is a 55-year-old female patient of Dr. Guadalupe with a previous medical history significant for bronchial malacia, pulmonary fibrosis, interstitial lung disease, pulmonary embolism on chronic eliquis, hyperlipidemia, GERD, osteopenia. Patient is undergone bronchoscopy and BAL with Dr. Hughes underwent and culture positive for Pseudomonas. She has had admission for acute hypoxic respiratory failure secondary to acute exacerbation of chronic bronchiectasis, bronchial malacia Pseudomonas pneumonitis and HSV isolated. Patient states that she has not felt well for the past 1-2 weeks with a cough for 1 week. Her states that yesterday at dinnertime she became much worse with tightness in her chest and coughing. She denies any concern for aspiration. She is normally ambulating. She complains of nausea without vomiting and not eating very much. She denies having diarrhea. Patient is on home O2 at 3 L at bedtime and monitors her pulse ox. Patient states she did have some blood, dark blood in her sputum. Patient presented to [facility] emergency center for evaluation and found to be afebrile, heart rate in the low 100s, blood pressure 123/73, pulse ox 94% on 4 L nasal cannula. EKG sinus tachycardia. WBC 9.1, hemoglobin 12.6, platelet count 182. INR 1.0. Potassium 3.4. Creatinine 0.76. Magnesium 1.3 liver function tests were normal. Troponin negative. Pro-calcitonin 0.22. Coronavirus PCR not detected. Chest x-ray reveals bilateral pneumonia much worse on the left side. Patient was started on an consult with pulmonary medicine, patient seen in the ER waiting for bed on the [facility] floor. 06/16: Patient apparently slept well during the night but was exhausted as she spent an extended period in the emergency center. She is sleeping at the time of evaluation and wakens easily to verbal stimuli. She continues to have a cough for which Mucinex will be added. She has been seen by pulmonary medicine with recommendations continue broad-spectrum antibiotics which are placed with cefepime, Levaquin and vancomycin. Sputum culture has been obtained and is in progress. Blood cultures showing no growth. Pro-calcitonin came back at 0.22. Patient may require bronchoscopy at a later stage. Patient is currently at 4 L nasal cannula with pulse ox 97%. She has been afebrile, heart rate running in the 80s to low 100s. Blood pressure 97/63. Repeat blood work reveals WBC 20.1, hemoglobin 9.5, platelet count 136. Sodium 142, potassium 3.8, chloride 113, CO2 18, BUN 14 creatinine 0.7. Influenza A and influenza B not detected. Legionella negative. RSV negative. Repeat chest x-ray and blood work have been ordered for tomorrow. 06/19: She was found resting comfortably in bed. She's been ambulatory within her room tolerating without any difficulties in breathing. Patient states that she is breathing better today compared to yesterday. She remains afebrile, heart rate 74, respirations 16, blood pressure 99/65, pulse ox 97% on 3 L. To be BCC 12.7, hemoglobin 10.8, potassium 3.4, BUN 7, creatinine 0.65. 06/20: Patient is found resting comfortable in bed she looks improved compared to yesterday. Patient states that her breathing has improved compared to yesterday. She is feeling much more comfortable today. She remains afebrile, heart rate 76, respirations 16, blood pressure 96/56, pulse ox is 97% on 3 L. If patient continues to improve more than likely home on Monday. 06/21: Patient states her breathing status is improved, she is off oxygen. She is complaining of discomfort in the left side of her chest. Repeat chest x-ray shows more density on the right. We will plan for dexamethasone 4 mg for 10 day course. Patient is not eating very much and is having some constipation which she will take care of at home. Patient will be discharged home today in stable condition. ASSESSMENT AND PLAN 1. Acute bilateral lower lobe pneumonia, possible gram-negative pneumonia. 2. Acute hypoxic respiratory failure secondary to pneumonia. 3. History of tracheobronchial malacia with bronchiectasis. 4. History of COPD, moderate intermittent asthma with FEV1 of 26. 5. History of pulmonary embolism on long-term anticoagulation with eliquis. 6. Hypomagnesemia. 7. Hypothyroidism. 8. Insomnia. 9. Hyperlipidemia. 10. Recurrent depression, generalized anxiety disorder. 11. COVID-19 testing negative. Patient has been hospitalized during a pandemic. DISCHARGE PLAN Home Impression and plan of care have been directed as dictated by the signing physician. Robyn Dorantes nurse practitioner acting as scribe for signing physician. Patient Condition at Discharge: Stable Plan - Discharge Summary New Discharge Prescriptions: New Dexamethasone [Decadron] 4 mg PO DAILY #10 tablet Ipratropium-Albuterol Nebulize [Duoneb 0.5 mg-3 mg/3 ml Soln] 3 ml INHALATION RT-QID ml Levofloxacin [Levaquin] 500 mg PO DAILY 5 Days #5 tab guaiFENesin [Mucinex] 1,200 mg PO Q12HR tablet Continue Atorvastatin [Lipitor] 10 mg PO HS Montelukast [Singulair] 10 mg PO DAILY Levothyroxine Sodium [Synthroid] 50 mcg PO DAILY Gabapentin 600 mg PO HS Fluticasone/Vilanterol [Breo Ellipta 200-25 Mcg Inhaler] 1 puff INHALATION RT-DAILY traZODone HCL 50 mg PO HS Zolpidem [Ambien] 5 mg PO HS Apixaban [Eliquis] 5 mg PO BID Gabapentin 300 mg PO DAILY DULoxetine HCL [Cymbalta] 60 mg PO DAILY Celecoxib [CeleBREX] 200 mg PO BID PRN PRN Reason: Pain Discharge Medication List Atorvastatin [Lipitor] 10 mg PO HS 04/16/14 [History] Gabapentin 600 mg PO HS 04/16/14 [History] Levothyroxine Sodium [Synthroid] 50 mcg PO DAILY 04/16/14 [History] Montelukast [Singulair] 10 mg PO DAILY 04/16/14 [History] Fluticasone/Vilanterol [Breo Ellipta 200-25 Mcg Inhaler] 1 puff INHALATION RT- DAILY 03/08/17 [History] traZODone HCL 50 mg PO HS 06/28/19 [History] Apixaban [Eliquis] 5 mg PO BID 06/14/21 [History] Celecoxib [CeleBREX] 200 mg PO BID PRN 06/14/21 [History] DULoxetine HCL [Cymbalta] 60 mg PO DAILY 06/14/21 [History] Gabapentin 300 mg PO DAILY 06/14/21 [History] Zolpidem [Ambien] 5 mg PO HS 06/14/21 [History] Dexamethasone [Decadron] 4 mg PO DAILY #10 tablet 06/21/21 [Rx] Ipratropium-Albuterol Nebulize [Duoneb 0.5 mg-3 mg/3 ml Soln] 3 ml INHALATION RT-QID ml 06/21/21 [Rx] Levofloxacin [Levaquin] 500 mg PO DAILY 5 Days #5 tab 06/21/21 [Rx] guaiFENesin [Mucinex] 1,200 mg PO Q12HR tablet 06/21/21 [Rx] Follow up Appointment(s)/Referral(s): Bry Guadalupe MD [Primary Care Provider] - 06/24/21 10:45 am Dominga Hughes MD [STAFF PHYSICIAN] - 07/07/21 2:45 pm (appointment with Rosalia Mercado DNP) Patient Instructions/Handouts: Pneumonia (DC) Discharge Disposition: HOME SELF-CARE
[2021-06-21] MEDS ORDERED: dexAMETHasone 4 MG TAB PO SCH (10:30)
[2021-06-21] MEDS: LEVOFLOXACIN 750MG-D5W PMX 750 MG in DEXTROSE/WATER 1 150ML.BAG IVPB SCH (11:19)
[2021-06-21 12:23] VITALS: PULSE 82
[2021-06-21] MEDS ORDERED: polyethylene glycoL 3350 17 GM POWD.PACK PO SCH (13:15)
[2021-06-21] MEDS ORDERED: SENNOSIDES-DOCUSATE SODIUM 1 EACH TAB PO SCH (13:15)
[2021-06-21 14:55] VITALS: BMI 20.7
== END 2021-06-21 15:32 | disposition home or self-care (01) | DRG 177 ==
LOC: EC 20:26 → 4SSUR 22:29 → UNDOADMOB 22:29 → 6NMEDSUR 22:29 → 4SSUR 06-15 06:32
PROVIDERS: ADMIT Internal Medicine; ATTEND Internal Medicine
DX: J15.6 Pneumonia due to other Gram-negative bacteria (principal); J96.01 Acute respiratory failure with hypoxia; F33.9 Major depressive disorder, recurrent, unspecified; J44.0 Chronic obstructive pulmonary disease with (acute) lower respiratory infection; E03.9 Hypothyroidism, unspecified; E78.5 Hyperlipidemia, unspecified; E83.42 Hypomagnesemia; F41.0 Panic disorder [episodic paroxysmal anxiety]; F41.1 Generalized anxiety disorder; G47.00 Insomnia, unspecified; I34.1 Nonrheumatic mitral (valve) prolapse; J45.20 Mild intermittent asthma, uncomplicated; J84.10 Pulmonary fibrosis, unspecified; J98.09 Other diseases of bronchus, not elsewhere classified; M79.7 Fibromyalgia; M85.80 Other specified disorders of bone density and structure, unspecified site; Z20.822 Contact with and (suspected) exposure to COVID-19; Z79.01 Long term (current) use of anticoagulants; Z79.1 Long term (current) use of non-steroidal anti-inflammatories (NSAID); Z79.51 Long term (current) use of inhaled steroids; Z79.890 Hormone replacement therapy; Z79.899 Other long term (current) drug therapy; Z82.3 Family history of stroke; Z86.14 Personal history of Methicillin resistant Staphylococcus aureus infection; Z86.711 Personal history of pulmonary embolism; Z87.442 Personal history of urinary calculi; Z99.81 Dependence on supplemental oxygen
CPT/HCPCS: 36415; 71045; 80048; 80053; 80202; 83605; 83735; 84145; 84484; 85025; 85027; 85610; 85730; 87040; 87070; 87077; 87186; 87205; 87449; 87502; 87634; 87635; 93005; 94640; 94667; 94760; 96365; 96367; 96375; 99285

== ENCOUNTER → 2022-08-23 | Outpatient (CLI) | payer MEDICARE ==
--- NOTE | 2022-08-24 21:45 | MM ---
Reason for Exam: Screening (asymptomatic). Last mammogram was performed 3 year(s) and 3 month(s) ago. Patient History: Menarche at age 10. First Full-Term at age 27. Postmenopausal. Patient has history of breast feeding. Patient used Estrogen for 5 years. Risk Values: Evelyn 5 year model risk: 1.5%. NCI Lifetime model risk: 8.5%. Prior Study Comparison: 03/01/2018 Bilateral Screening Mammogram, [facility]. 03/21/2018 Left Diagnostic Mammogram, [facility]. 05/27/2019 Bilateral Screening Mammogram, [facility]. Tissue Density: The breast tissue is heterogeneously dense. This may lower the sensitivity of mammography. Findings: Analyzed By CAD. Injection port projecting over the right pectoralis. Benign vascular calcifications laterally in the right. Faint group of microcalcifications upper outer quadrant right breast appear increased. Magnification views are recommended to further evaluate. Otherwise, no significant change. Overall Assessment: Incomplete: need additional imaging evaluation, BI-RAD 0 Management: Special View Mammogram of the right breast. Including mag CC, mag ML, and 3-D ML views. [facility] will attempt to contact patient to return for supplemental views and ultrasound if indicated. Electronically signed and approved by: Griselda Reynolds M.D. Radiologist
== END | disposition home or self-care (01) ==
LOC: RADMAMWWP 13:15
PROVIDERS: ATTEND Internal Medicine Geriatric Medicine
DX: Z12.31 Encounter for screening mammogram for malignant neoplasm of breast (principal); Z78.0 Asymptomatic menopausal state
CPT/HCPCS: 77063; 77067

== ENCOUNTER → 2022-08-26 | Outpatient (CLI) | payer MEDICARE ==
--- NOTE | 2022-08-26 10:51 | MM ---
Reason for Exam: Additional evaluation requested from abnormal screening. Last screening mammogram was performed less than 1 month ago. Patient History: Menarche at age 10. First Full-Term at age 27. Postmenopausal. Patient has history of breast feeding. Patient used Estrogen for 5 years. Risk Values: Evelyn 5 year model risk: 1.5%. NCI Lifetime model risk: 8.5%. Prior Study Comparison: 12/07/2012 Bilateral Screening Mammogram, [facility]. 08/04/2016 Bilateral Screening Mammogram, [facility]. 03/21/2018 Left Diagnostic Mammogram, [facility] 05/27/2019 Bilateral Screening Mammogram, [facility]. 08/23/2022 Bilateral MG 3D screening mammo w/cad, [facility]. Tissue Density: Right: The breast tissue is heterogeneously dense. This may lower the sensitivity of mammography. Findings: Analyzed By CAD. No suspicious mass identified. There are 3 separate groups of coarse heterogenous calcifications within the right breast. The most dense grouped within the upper outer right breast at posterior depth. The other one is demonstrated at upper outer right breast middle depth and the other one is at lower outer right breast at middle depth. Overall Assessment: Suspicious, BI-RAD 4 Management: Stereotactic Core Biopsy of the right breast. A clinical breast exam by your physician is recommended on an annual basis and results should be correlated with mammographic findings. This exam should not preclude additional follow-up of suspicious palpable abnormalities. Results were given to the patient verbally at the time of exam. Electronically signed and approved by: Luciano Cage D.O.
== END | disposition home or self-care (01) ==
LOC: RADMAMWWP 10:09
PROVIDERS: ATTEND Internal Medicine Geriatric Medicine
DX: R92.8 Other abnormal and inconclusive findings on diagnostic imaging of breast (principal); Z78.0 Asymptomatic menopausal state
CPT/HCPCS: 77065; G0279; 77061

== ENCOUNTER → 2023-03-09 | Outpatient (CLI) | payer MEDICARE | END | disposition home or self-care (01) | LOC: LABWHC1 10:52 | PROVIDERS: ATTEND Psychiatry & Neurology Neurology | DX: M35.00 Sjogren syndrome, unspecified (principal); M35.3 Polymyalgia rheumatica; R51.9 Headache, unspecified; M25.50 Pain in unspecified joint; M79.10 Myalgia, unspecified site | CPT/HCPCS: 36415; 82306; 82550; 85652; 86038; 86235 ==

== ENCOUNTER → 2023-03-17 | Outpatient (CLI) | payer MEDICARE ==
--- NOTE | 2023-03-17 11:24 | MM ---
Reason for Exam: Additional evaluation requested from abnormal screening. Last screening mammogram was performed 7 month(s) ago. Patient History: Menarche at age 10. First Full-Term at age 27. Postmenopausal. Patient has history of breast feeding. Patient used Estrogen for 5 years. Currently using Raloxifene, starting at age 55. 09/16/2022, Benign MG stereo VAD BX RT on the right side. Risk Values: Evelyn 5 year model risk: 1.8%. NCI Lifetime model risk: 9.8%. Prior Study Comparison: 08/04/2016 Bilateral Screening Mammogram, [facility]. 03/01/2018 Bilateral Screening Mammogram, [facility]. 03/21/2018 Left Diagnostic Mammogram, [facility]. 05/27/2019 Bilateral Screening Mammogram, [facility]. 08/23/2022 Bilateral MG 3D screening mammo w/cad, [facility]. 08/26/2022 Right MG 3D work up w/cad RT, [facility]. Tissue Density: Right: The breast tissue is heterogeneously dense. This may lower the sensitivity of mammography. Findings: Analyzed By CAD. Microclip marker upper outer right breast from prior biopsy is noted. There is no evidence for suspicious cluster of microcalcifications, mass or distortion. Port device is noted. Overall Assessment: Benign, BI-RAD 2 Management: Screening Mammogram of both breasts in 6 months. . Results were given to the patient verbally at the time of exam. Patient should continue monthly self-breast exams. A clinical breast exam by your physician is recommended on an annual basis. This exam should not preclude additional follow-up of suspicious palpable abnormalities. Note on Evelyn scores and lifetime risk: 1. A Evelyn score greater than 3% is considered moderate risk. If this is the case, consider specialist referral to assess eligibility for a risk reducing agent. 2. If overall lifetime risk for the development of breast cancer is 20% or higher, the patient may qualify for future screening with alternating mammogram and breast MRI. Electronically signed and approved by: Yoandy Allen M.D. Radiologis
--- NOTE | 2023-03-17 11:51 | P.PN ---
Subjective Progress Note Date: 03/17/23 abnormal right breast mammogram Joana is a 56 year old white female seen in consultation for Dr. Guadalupe regarding three areas of microcalcification of concern in the right [place] [address]. She was noted to have some areas of calcification in the right breast which [place] [address]. 3 areas of microcalcification were identified. The most dense was grouped within the upper outer quadrant right breast at the posterior depth. One was at the upper outer right middle depth. In the other was at the lower outer right at middle depth. Stereotactic core biopsy of these areas were recommended. Her last mammogram was in 2019. The patient does not feel any lumps masses or nodules of concern in either breast. She is not complaining of any nipple discharge or skin changes. She has not had any recent trauma or infection of the breast. The patient does have a right subclavian Port-A-Cath in place for which she receives antibiotics intermittently when she develops lung infections. She has interstitial pulmonary fibrosis. She has not had any problems with this for several years. She did take estrogen for approximately 20 years after a premature menopause. She has not take any for about 8 years. She has been on raloxifene for approximately 1 year related to low bone density. A stero core biopsy of the right breast calcifications was done on 09-16-22, only one area was sampled but this was felt to be key account representative of the three areas. This was benign concordant. A repeat mammogram on 03-17-23 was BIRAD 2. Patient is not complaining of any new lumps masses or nodules in either breast. Caffeine: 1/2 cup coffee am nicotine: never smoker, no second hand smoke chocolate: weekly BCP: none Family History: paternal aunt: breast cancer of this paternal grandmother: female cancer Hormonal History: menarche: 10 breast fed: yes, age at first : 27 menopause: 32 hormones: estrogen for 20 years, now does not take any hormones Surgical History: right port a cath appy fundoplication for reflux, hiatal hernia repair lung biopsy/ wedge resection kidney stone removed heart cath Medical History: pulmonary fibrosis ? autoimmune frozen right shoulder now mitral valve prolapse arthritis asthma prior pulmonary embolism Social History: nicotine: none alcohol: occasional drugs: none - Constitutional Constitutional: Denies chills, Denies fever - EENT Eyes: denies blurred vision, denies pain Ears: deny: decreased hearing, tinnitus Ears, nose, mouth and throat: Denies headache, Denies sore throat - Breasts Breasts: bilateral: as per HPI - Cardiovascular Cardiovascular: Denies chest pain, Denies shortness of breath - Respiratory Respiratory: Reports as per HPI - Gastrointestinal Gastrointestinal: Reports as per HPI - Genitourinary (Female) Genitourinary: Reports kidney stones, Denies dysuria, Denies hematuria - Menstruation Menstruation: Reports postmenopausal - Musculoskeletal Comment: arthritis, frozen shoulder right - Integumentary Integumentary: Denies pruritus, Denies rash - Neurological Neurological: Denies numbness, Denies weakness - Psychiatric Psychiatric: Denies anxiety, Denies depression - Endocrine Endocrine: Denies fatigue, Denies weight change - Hematologic/Lymphatic Comment: patient is on eloquis, she had a pulmonary embolism many years ago - Allergic/Immunologic Allergic/Immunologic: Reports as per HPI, Reports seasonal allergies Past Medical History Past Medical History: Asthma, COPD, Eye Disorder, Fibromyalgia, GERD/Reflux, Hyperlipidemia, Mitral Valve Prolapse (MVP), Osteoarthritis (OA), Pneumonia, Pulmonary Embolus (PE), Respiratory Disorder, Thyroid Disorder Additional Past Medical History / Comment(s): Tracheobronchomalacia, hx kidney stones, O2 - USES 3.5 -4 LITERS AT NIGHT, 4L/NC DURING DAY NEEDED. RT CATARACTS History of Any Multi-Drug Resistant Organisms: MRSA Date of last positivie culture/infection: 03/07/19 MDRO Source:: LUNG Past Surgical History: Appendectomy, Heart Catheterization, Orthopedic Surgery Additional Past Surgical History / Comment(s): Bronchoscopies/BALs, R lung bx, R chest port, 1993 cardiac cath-normal, R knee arthroscopy, kidney stone removal, D&C. LT CATARACT X 2 Past Anesthesia/Blood Transfusion Reactions: No Reported Reaction Additional Past Anesthesia/Blood Transfusion Reaction / Comment(s): Pt has received blood in past without reaction. Past Psychological History: Panic Disorder Additional Psychological History / Comment(s): Pt resides with her spouse. She has home oxygen and nebulizer. She is independent. She works in a medical office. Smoking Status: Never smoker Past Alcohol Use History: None Reported Additional Past Alcohol Use History / Comment(s): Patient has been a lifelong nonsmoker, no illicit drug use, no alcohol use. She currently works at [employer] office. Past Drug Use History: None Reported - Past Family History Father Family Medical History: CVA/TIA Additional Family Medical History / Comment(s): Father 09/2017 from a massive CVA. He was 85-year-old. Brother(s) Family Medical History: No Reported History Sister(s) Family Medical History: Neurologic Disorder Daughter(s) Family Medical History: No Reported History Mother Family Medical History: AFIB Additional Family Medical History / Comment(s): Mother has a pacemaker. Medications and Allergies Home Medications Medication Instructions Recorded Confirmed Type Levothyroxine Sodium [Synthroid] 50 mcg PO DAILY 04/16/14 09/16/22 History Fluticasone/Vilanterol [Breo 1 puff INHALATION RT-DAILY 03/08/17 09/16/22 History Ellipta 200-25 Mcg Inhaler] traZODone HCL 50 mg PO HS 06/28/19 09/16/22 History Apixaban [Eliquis] 5 mg PO BID 06/14/21 09/16/22 History Celecoxib [CeleBREX] 200 mg PO BID 06/14/21 09/16/22 History DULoxetine HCL [Cymbalta] 60 mg PO DAILY 06/14/21 09/16/22 History Gabapentin 300 mg PO BID 06/14/21 09/16/22 History Zolpidem [Ambien] 5 mg PO HS 06/14/21 09/16/22 History Cyclobenzaprine [Flexeril] 1 each PO HS 08/26/22 09/16/22 History Raloxifene [Evista] 60 mg PO DAILY 08/26/22 09/16/22 History cycloSPORINE 0.05% OPHTH SOLN 1 applicator BOTH EYES Q12H 08/26/22 09/16/22 History [Restasis] Allergies Allergy/AdvReac Type Severity Reaction Status Date / Time erythromycin base Allergy Intermediate Rash/Hives Verified 09/16/22 07:14 metoclopramide HCl Allergy MUSCLE Verified 09/16/22 07:14 [From Reglan] SPASMS prochlorperazine edisylate Allergy MUSCLE Verified 09/16/22 07:14 [From Compazine] SPASMS/muscle jerking prochlorperazine maleate Allergy MUSCLE Verified 09/16/22 07:14 [From Compazine] SPASMS/muscle jerking Objective - Constitutional General appearance: Present: cooperative - EENT Eyes: Present: EOMI ENT: Present: hearing grossly normal - Neck Neck: Present: normal ROM - Respiratory Respiratory: bilateral: CTA - Cardiovascular Heart sounds: normal: S1, S2 - Integumentary Integumentary: Present: normal turgor - Musculoskeletal Musculoskeletal: Present: gait normal - Psychiatric Psychiatric: Present: A&O x's 3, appropriate affect, intact judgment & insight - Additional findings Additional findings: Breast Exam: BRA: 34A Inspection: Bilateral grade 1/2 ptosis; port a cath right chest wall Palpation: Right breast: Multi-positional exam no dominant masses or nodules of concern; well-healed scars Right axilla: No adenopathy of concern Left breast: Multiple positional exam fibrocystic changes no dominant masses or nodules of concern; scar left chest wall from prior port at that site Left axilla: No adenopathy of concern Assessment and Plan Assessment: Impression: Microcalcifications of concern right breast mammogram status post stero biopsy on 09-16-22 benign concordant pulmonary fibrosis ? autoimmune frozen right shoulder now mitral valve prolapse arthritis asthma prior pulmonary embolism right breast mammogram 03-17-23 BIRAD 2 Plan: repeat bilateral mammogram in 6 months with appointment at that time CC: Dr. Guadalupe
== END | disposition home or self-care (01) ==
LOC: RADMAMWWP 10:45
PROVIDERS: ATTEND Surgery
DX: R92.8 Other abnormal and inconclusive findings on diagnostic imaging of breast (principal); Z78.0 Asymptomatic menopausal state
CPT/HCPCS: 77065; G0279; 77061

== ENCOUNTER → 2023-03-22 | Outpatient (CLI) | payer MEDICARE ==
--- NOTE | 2023-03-22 08:32 | MR ---
MRI BRAIN AND CERVICAL SPINE: CLINICAL HISTORY: Multiple sclerosis TECHNIQUE: Multiplanar, multisequence imaging of the brain and cervical spine is performed without IV contrast. COMPARISON: MR neck 08/29/2019, MR cervical spine 05/20/2020 FINDINGS: Evaluation is limited due to lack of intravenous contrast. The sanchez-white junctions, ventricular system, and cisterns appear unremarkable. No abnormal hyperten se FLAIR signal abnormalities identified. Midline structures show no abnormality. Diffusion-weighted imaging shows no evidence of restricted diffusion. The susceptibility weighted images do not reveal a ny evidence for micro-hemorrhage. The bone marrow signal is within normal limits. The paranasal sinuses and globes are unremarkable. The cervical vertebral bodies have preserved heights. Alignment is within normal limits given patient positioning. Bone signal is within normal limits. Multilevel degenerative disc disease is noted. Th e spinal cord is unremarkable with regards to their signal intensity and morphology. Multilevel disc desiccation. C2-C3: No significant disc pathology. The spinal canal is patent. No neural foraminal stenosis. C3-C4: Broad-based disc bulge without significant effacement of anterior thecal sac. No neural merced inal stenosis. C4-C5: Broad-based disc bulge without significant effacement of anterior thecal sac. Uncovertebral weston int hypertrophy with mild to moderate left neural foraminal stenosis. The right neural foramen is pat ent. C5-C6: Broad-based disc bulge without significant effacement of anterior thecal sac. No neural forami nal stenosis. C6-C7: No significant disc pathology. The spinal canal is patent. No neural foraminal stenosis. C7-T1: No significant disc pathology. The spinal canal is patent. No neural foraminal stenosis. IMPRESSION: 1. No evidence of intracranial mass or acute/subacute infarct. 2. No MRI evidence of FLAIR signal abnormalities within the brain or cervical spine to suggest multip le sclerosis. 3. Minimal multilevel degenerative disc disease and uncovertebral joint hypertrophy at C3-C6 without significant central canal stenosis. There is mild to moderate left neural foraminal stenosis at C4-C5 .
== END | disposition home or self-care (01) ==
LOC: RADMRIMAIN 06:57
PROVIDERS: ATTEND Psychiatry & Neurology Neurology
DX: G35 Multiple sclerosis (principal); M50.31 Other cervical disc degeneration, high cervical region; M47.812 Spondylosis without myelopathy or radiculopathy, cervical region; M48.02 Spinal stenosis, cervical region; M99.71 Connective tissue and disc stenosis of intervertebral foramina of cervical region
CPT/HCPCS: 70551; 72141

== ENCOUNTER → 2023-04-18 | Outpatient (CLI) | payer MEDICARE ==
[2023-04-18 14:38] VITALS: BP 117/60; PULSE 91; RESP 16; TEMP 97.8
--- NOTE | 2023-04-18 16:00 | P.HPOB ---
History of Present Illness H&P Date: 04/18/23 Chief Complaint: The patient is here for her routine gynecologic exam. This is a 57-year-old 202 with an LMP of 1998. The patient is here to establish with this office. It has been about 5 years since her last pelvic exam. She is without gynecologic complaints and denies any postmenopausal bleeding. Review of Systems The patient's weight has been stable over the last year. She denies respiratory or cardiac problems. GI: She does have issues with constipation and can can go up to 10 days without having bowel movements. This has been going on for a while. When she does end up going, it can be large amounts and has occasionally noticed blood with large bowel movements. Past Medical History Past Medical History: Asthma, COPD, Eye Disorder, Fibromyalgia, GERD/Reflux, Hyperlipidemia, Mitral Valve Prolapse (MVP), Osteoarthritis (OA), Pneumonia, Pulmonary Embolus (PE), Respiratory Disorder, Thyroid Disorder Additional Past Medical History / Comment(s): Tracheobronchomalacia, hx kidney stones, O2 - USES 3.5 -4 LITERS AT NIGHT, 4L/NC DURING DAY NEEDED. RT CATARACTS. Fibromyalgia. Osteoporosis. Dry eyes. 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 History of Any Multi-Drug Resistant Organisms: MRSA Date of last positivie culture/infection: 03/07/19 MDRO Source:: LUNG Past Surgical History: Appendectomy, Breast Surgery, Heart Catheterization, Orthopedic Surgery Additional Past Surgical History / Comment(s): Bronchoscopies/BALs, R lung bx, R chest port, 1993 cardiac cath-normal, R knee arthroscopy, kidney stone removal, D&C. LT CATARACT X 2. Breast biopsy. Past Anesthesia/Blood Transfusion Reactions: No Reported Reaction Additional Past Anesthesia/Blood Transfusion Reaction / Comment(s): Pt has received blood in past without reaction. Past Psychological History: Depression, Panic Disorder Additional Psychological History / Comment(s): Pt resides with her spouse. She has home oxygen and nebulizer. She is independent. She works in a medical office. Smoking Status: Never smoker Past Alcohol Use History: Occasional (4 drinks per month.) Additional Past Alcohol Use History / Comment(s): Patient has been a lifelong nonsmoker, no illicit drug use, no alcohol use. Retired Past Drug Use History: None Reported Additional History: She has been since 1990. She is currently not working outside the home. - Past Family History Father Family Medical History: CVA/TIA Additional Family Medical History / Comment(s): Father 09/2017 from a massive CVA. He was 85-year-old. Brother(s) Family Medical History: Hypertension, Myocardial Infarction ([place]) Sister(s) Family Medical History: Neurologic Disorder Daughter(s) Family Medical History: No Reported History Mother Family Medical History: AFIB, Hypertension Additional Family Medical History / Comment(s): Mother has a pacemaker. Medications and Allergies Home Medications Medication Instructions Recorded Confirmed Type Levothyroxine Sodium [Synthroid] 50 mcg PO DAILY 04/16/14 04/18/23 History Fluticasone/Vilanterol [Breo 1 puff INHALATION RT-DAILY 03/08/17 04/18/23 History Ellipta 200-25 Mcg Inhaler] traZODone HCL 50 mg PO HS 06/28/19 04/18/23 History Apixaban [Eliquis] 5 mg PO BID 06/14/21 04/18/23 History Celecoxib [CeleBREX] 200 mg PO BID 06/14/21 04/18/23 History DULoxetine HCL [Cymbalta] 60 mg PO DAILY 06/14/21 04/18/23 History Gabapentin 300 mg PO BID 06/14/21 04/18/23 History Zolpidem [Ambien] 5 mg PO HS 06/14/21 04/18/23 History Cyclobenzaprine [Flexeril] 1 each PO HS 08/26/22 04/18/23 History Raloxifene [Evista] 60 mg PO DAILY 08/26/22 04/18/23 History cycloSPORINE 0.05% OPHTH SOLN 1 applicator BOTH EYES Q12H 08/26/22 04/18/23 History [Restasis] Allergies Allergy/AdvReac Type Severity Reaction Status Date / Time erythromycin base Allergy Intermediate Rash/Hives Verified 04/18/23 14:34 metoclopramide HCl Allergy MUSCLE Verified 04/18/23 14:34 [From Reglan] SPASMS prochlorperazine edisylate Allergy MUSCLE Verified 04/18/23 14:34 [From Compazine] SPASMS/muscle jerking prochlorperazine maleate Allergy MUSCLE Verified 04/18/23 14:34 [From Compazine] SPASMS/muscle jerking Exam Vital Signs Temp Pulse Resp BP Pulse Ox 04/18/23 14:34 97.8 F 91 16 117/60 96 Intake and Output 04/18/23 04/18/23 04/18/23 06:59 14:59 22:59 Other: Weight 51.256 kg Height 5 feet 3 inches, weight 113 pounds, BMI 20.0. This is a well-developed well-nourished white female who is alert and oriented times 3 in no acute distress. HEENT: Within normal limits. NECK: Supple without mass or thyromegaly. CHEST AND LUNGS: Clear to auscultation. HEART: Regular rate and rhythm. BREASTS: Are without mass or discharge. AXILLARY EXAM: Negative for adenopathy. BACK: Negative for CVA tenderness. ABDOMEN: Soft, nontender, without palpable masses. PELVIC EXAM: Normal external genitalia with mild atrophy. Cervix and vagina appear normal with mild atrophy. The cervix is anterior. There is no unusual discharge. There is no evidence of prolapse. The uterus is retroverted, nongravid size and nontender. There is a palpable left adnexal mass which measures approximately 4 x 5 cm and is irregular and somewhat firm. This is mildly tender. There are no right adnexal masses or tenderness. RECTAL EXAM: Rectovaginal exam is negative for mass or tenderness and is negative for occult blood. There is minimal amounts of stool in the rectum. The mass noted above seem to be above the rectum and I could not confirm whether this was stool. EXTREMITIES: Nontender. IMPRESSION: 1. 57-year-old menopausal female with a palpable left pelvic mass. Based on her infrequent bowel movements, I think this probably represents colonic stool, however, that differential diagnosis will also include ovarian mass. 2. History of osteoporosis and the patient is now on Evista. PLAN: 1. Pap smear cotest was performed. 2. Self breast awareness was discussed with the patient. We have also discussed symptoms associated with inflammatory breast cancer. 3. She had a right diagnostic mammogram on 03/17/2023 which was benign. They have recommended to go back to bilateral screening mammogram in 6 months after the unilateral mammogram. The order slip was given to the patient for this and she will do this in approximately September 2023. 4. Osteoporosis management was discussed. I have stressed the importance of adequate calcium, vitamin D and regular exercise. Recommended amounts of calcium and vitamin D were also discussed. She states she had a bone density test at a different office less than 2 years ago. I recommended that she repeat the bone density test in 1 year and she we'll do this at the time of her annual examination. 5. I recommended that she speak with Dr. Guadalupe regarding her infrequent bowel movements and blood noted with large stools. Have also recommended that she increase fiber intake. She should consider colonoscopy if she continues to have blood with bowel movements. 6. Pelvic ultrasound was recommended because of the palpable left pelvic mass. I have recommended that she try to evacuate her bowels the best she can. I have also recommended that she can try Senokot as directed prior to the ultrasound. The order slip was given to the patient for the ultrasound. 7. She was advised to return in one year for her annual well woman exam and as needed.
== END ==
LOC: WWCWWP 14:24
PROVIDERS: ATTEND Obstetrics & Gynecology
DX: Z01.419 Encounter for gynecological examination (general) (routine) without abnormal findings (principal); J44.9 Chronic obstructive pulmonary disease, unspecified; E78.5 Hyperlipidemia, unspecified; F32.A Depression, unspecified; I34.1 Nonrheumatic mitral (valve) prolapse; K21.9 Gastro-esophageal reflux disease without esophagitis; M19.90 Unspecified osteoarthritis, unspecified site; M79.7 Fibromyalgia; E07.9 Disorder of thyroid, unspecified; M81.0 Age-related osteoporosis without current pathological fracture; Z79.01 Long term (current) use of anticoagulants; Z79.890 Hormone replacement therapy; Z86.711 Personal history of pulmonary embolism; Z88.1 Allergy status to other antibiotic agents; Z88.8 Allergy status to other drugs, medicaments and biological substances; Z90.49 Acquired absence of other specified parts of digestive tract; Z88.6 Allergy status to analgesic agent

== ENCOUNTER → 2023-07-11 | Outpatient (CLI) | payer MEDICARE ==
--- NOTE | 2023-07-12 07:23 | US ---
EXAMINATION TYPE: US pelvis complete transvag DATE OF EXAM: 07/11/2023 COMPARISON: CT 2013 CLINICAL INDICATION: Female, 57 years old with history of R19.09 PELVIC MASS; TECHNIQUE: . Transabdominal sonographic images of the pelvis were acquired. Transvaginal sonographi c images were medically necessary to better assess the following anatomy: ovaries Date of LMP: 15+ years ago EXAM MEASUREMENTS: Uterus: 4.5 x 3.1 x 1.8 cm Endometrial Stripe: 0.3 cm Right Ovary: not seen Left Ovary: not seen 1. Uterus: anteverted, heterogeneous 2. Endometrium: wnl 3. Right Ovary: not seen 4. Left Ovary: not seen 5. Bilateral Adnexa: wnl 6. Posterior cul-de-sac: wnl IMPRESSION: 1. No suspicious ultrasound abnormalities pelvic ultrasound.
== END | disposition home or self-care (01) ==
LOC: RADUSWWP 14:46
PROVIDERS: ATTEND Obstetrics & Gynecology
DX: R19.09 Other intra-abdominal and pelvic swelling, mass and lump (principal)
CPT/HCPCS: 76830; 76856

== ENCOUNTER 2023-08-15 11:40 | Day surgery (SDC) | payer MEDICARE ==
[2023-08-14 14:22] VITALS: BMI 19.8
[2023-08-15] MEDS ORDERED: LACTATED RINGERS 1,000 ML IV ONE (12:12)
[2023-08-15 12:15] VITALS: RESP 16; TEMP 98
[2023-08-15] MEDS ORDERED: LIDOCAINE 1% INJ 10MG/ML (20 ML MDV) ONE (12:43)
[2023-08-15] MEDS ORDERED: PROPOFOL 10 MG/ML 20 ML VIAL IV ONE (12:43)
[2023-08-15] MEDS ORDERED: KETAMINE HCL IN 0.9 % NACL 50 MG/5 ML SYRINGE ONE (12:43)
--- NOTE | 2023-08-15 13:10 | P.PCN ---
Date of Procedure: 08/15/23 Preoperative Diagnosis: Severe tracheobronchomalacia Covid 19 infection July 2023 Shortness of breath with excessive mucus, unable to do pulmonary toileting Postoperative Diagnosis: Severe tracheal bronchomalacia Severe and diffuse tracheitis and bronchitis with excessive mucus plugging Procedure(s) Performed: Flexible bronchoscopy, therapeutic airway suctioning, bronchioloalveolar lavage Anesthesia: MAC Surgeon: Dominga Hughes Estimated Blood Loss (ml): 0 Pathology: other Condition: stable Disposition: same day Operative Findings: This procedure was done in the endoscopy suite. A timeout was obtained. A consent was obtained. The procedure was done under conscious sedation and the patient was given propofol for sedation. She was placed on a fullface mask at 10 L of oxygen and following that, the bronchoscopy was completed. The flexible bronchoscope was introduced in the left nostril. The bronchoscope was gradually advanced into the posterior pharynx, larynx, epiglottis, and the vallecula and the cords were inspected including the true and the false vocal cords. There was some limited association upper airways that were suctioned out without any major difficulties. The cords were within normal limits with normal functionality and mobility. A total of 2 mL of 1% lidocaine was applied to the vocal cord and following that the bronchoscope was advanced into the upper trachea. Examination of the airway was done. There was severe tracheal bronc homalacia. There was severe tracheal bronchitis with excessive respiratory secretions plugging the airways and this involved the trachea, bilateral mainstem bronchi, and the various segments of the lower lobes bilaterally. The bronchial mucosa was mildly inflamed and erythematous and friable. At this point, therapeutic airway suctioning was done and the rest or secretions were removed. The airway inspection was completed and the visualized airways included the trachea, bilateral mainstem bronchi, right upper lobe bronchus, bronchus intermedius, right middle lobe bronchus and the right lower lobe bronchus, examination of the left side included the left upper lobe bronchus and left lower bronchus and the various segments and subsegments were noted on the right than on the left. Of significance is a significant mucosal inflammatory changes throughout the airways. A bronchial lavage of the right lower lobe was done. A total of 15-20 mL's of fluid was aspirated. The flexible bronchoscope was removed. At the completion of the procedure, the airways were free of any respiratory secretions. The patient was already started on a combination of Decadron and Augmentin as broad-spectrum antibiotics pending further cultures. We'll continue to follow.
[2023-08-15 13:53] VITALS: BP 101/67; PULSE 81
== END 2023-08-15 14:00 | disposition home or self-care (01) ==
LOC: ORWHC2ENDO 11:40
PROVIDERS: ATTEND Internal Medicine Critical Care Medicine
DX: J04.10 Acute tracheitis without obstruction (principal); J40 Bronchitis, not specified as acute or chronic; J47.9 Bronchiectasis, uncomplicated; J44.9 Chronic obstructive pulmonary disease, unspecified; E03.9 Hypothyroidism, unspecified; E78.5 Hyperlipidemia, unspecified; I34.1 Nonrheumatic mitral (valve) prolapse; K21.9 Gastro-esophageal reflux disease without esophagitis; F41.9 Anxiety disorder, unspecified; M79.7 Fibromyalgia; Z79.01 Long term (current) use of anticoagulants; Z79.890 Hormone replacement therapy; Z79.899 Other long term (current) drug therapy; Z86.16 Personal history of COVID-19
CPT/HCPCS: 87070; 87205; 87102; 31645; 31624; J2001; J2704

== ENCOUNTER → 2023-09-20 | Outpatient (CLI) | payer MEDICARE ==
--- NOTE | 2023-09-21 22:12 | MM ---
Reason for Exam: Screening (asymptomatic). Last mammogram was performed 1 year(s) and 1 month(s) ago. Patient History: Menarche at age 10. First Full-Term at age 27. Postmenopausal. Patient has history of breast feeding. Patient used Estrogen for 5 years. Raloxifene, starting at age 55. 09/16/2022, Benign MG stereo VAD BX RT on the right side. Risk Values: Evelyn 5 year model risk: 1.8%. NCI Lifetime model risk: 9.8%. Prior Study Comparison: 08/23/2022 Bilateral MG 3D screening mammo w/cad, [facility]. 08/26/2022 Right MG 3D work up w/cad RT, [facility]. 03/17/2023 Right MG 3D diag mammo w/cad RT, [facility]. Tissue Density: The breast tissue is heterogeneously dense. This may lower the sensitivity of mammography. Findings: Analyzed By CAD. Right anterior chest wall injection port. Microclip right breast from prior biopsy. There is no suspicious group of microcalcifications or new suspicious mass in either breast. Overall Assessment: Benign, BI-RAD 2 Management: Screening Mammogram of both breasts in 1 year. . Patient should continue monthly self-breast exams. A clinical breast exam by your physician is recommended on an annual basis. This exam should not preclude additional follow-up of suspicious palpable abnormalities. Note on Evelyn scores and lifetime risk: 1. A Evelyn score greater than 3% is considered moderate risk. If this is the case, consider specialist referral to assess eligibility for a risk reducing agent. 2. If overall lifetime risk for the development of breast cancer is 20% or higher, the patient may qualify for future screening with alternating mammogram and breast MRI. Electronically signed and approved by: Griselda Reynolds M.D. Radiologist
== END | disposition home or self-care (01) ==
LOC: RADMAMWWP 09:26
PROVIDERS: ATTEND Surgery
DX: Z12.31 Encounter for screening mammogram for malignant neoplasm of breast (principal); Z78.0 Asymptomatic menopausal state
CPT/HCPCS: 77063; 77067

== ENCOUNTER → 2023-09-22 | Outpatient (CLI) | payer MEDICARE ==
[2023-09-22 14:05] VITALS: BP 106/58; PULSE 116; RESP 16; TEMP 98.1
--- NOTE | 2023-09-22 14:14 | P.PN ---
Subjective Progress Note Date: 09/22/23 Principal diagnosis: fibrocystic breast disease 03/17/23 abnormal right breast mammogram Joana is a 56 year old white female seen in consultation for Dr. Guadalupe regarding three areas of microcalcification of concern in the right [place] [address]. She was noted to have some areas of calcification in the right breast which [place] [address]. 3 areas of microcalcification were identified. The most dense was grouped within the upper outer quadrant right breast at the posterior depth. One was at the upper outer right middle depth. In the other was at the lower outer right at middle depth. Stereotactic core biopsy of these areas were recommended. Her last mammogram prior to this was in 2019. The patient did not feel any lumps masses or nodules of concern in either breast. She was not complaining of any nipple discharge or skin changes. She had not had any recent trauma or infection of the breast. The patient did have a right subclavian Port-A-Cath in place for which she receives antibiotics intermittently when she develops lung infections. She has interstitial pulmonary fibrosis. She had not had any problems with this for several years. She did take estrogen for approximately 20 years after a premature menopause. She has not take any for about 9 years. She had been on raloxifene for approximately 1 year related to low bone density. A stero core biopsy of the right breast calcifications was done on 09-16-22, only one area was sampled but this was felt to be outside sales account representative of the three areas. This was benign concordant. A repeat mammogram on 03-17-23 was BIRAD 2. Patient was not complaining of any new lumps masses or nodules in either breast. Bilateral mammogram on 09-20-23 BIRAD 2, she stopped taking Raloxifene about 6 months ago Planing of any new lumps masses or nodules of concern in either breast. Evelyn Risk 5 year 1.8% we have discussed chemoprophylaxis and she has declined. Caffeine: 1/2 cup coffee am nicotine: never smoker, no second hand smoke chocolate: weekly BCP: none Family History: paternal aunt: breast cancer of this paternal grandmother: female cancer Hormonal History: menarche: 10 breast fed: yes, age at first : 27 menopause: 32 hormones: estrogen for 20 years, now does not take any hormones Surgical History: right port a cath appy fundoplication for reflux, hiatal hernia repair lung biopsy/ wedge resection kidney stone removed heart cath broncoscopy Medical History: pulmonary fibrosis ? autoimmune frozen right shoulder now mitral valve prolapse arthritis asthma prior pulmonary embolism Social History: nicotine: none alcohol: occasional drugs: none - Constitutional Constitutional: Denies chills, Denies fever - EENT Eyes: denies blurred vision, denies pain Ears: deny: decreased hearing, tinnitus Ears, nose, mouth and throat: Denies headache, Denies sore throat - Breasts Breasts: bilateral: as per HPI - Cardiovascular Cardiovascular: Denies chest pain, Denies shortness of breath - Respiratory Respiratory: Reports as per HPI - Gastrointestinal Gastrointestinal: Reports as per HPI - Genitourinary (Female) Genitourinary: Reports kidney stones, Denies dysuria, Denies hematuria - Menstruation Menstruation: Reports postmenopausal - Musculoskeletal Comment: arthritis, frozen shoulder right - Integumentary Integumentary: Denies pruritus, Denies rash - Neurological Neurological: Denies numbness, Denies weakness - Psychiatric Psychiatric: Denies anxiety, Denies depression - Endocrine Endocrine: Denies fatigue, Denies weight change - Hematologic/Lymphatic Comment: patient is on eloquis, she had a pulmonary embolism many years ago - Allergic/Immunologic Allergic/Immunologic: Reports as per HPI, Reports seasonal allergies Past Medical History Past Medical History: Asthma, COPD, Eye Disorder, Fibromyalgia, GERD/Reflux, Hyperlipidemia, Mitral Valve Prolapse (MVP), Osteoarthritis (OA), Pneumonia, Pulmonary Embolus (PE), Respiratory Disorder, Thyroid Disorder Additional Past Medical History / Comment(s): Tracheobronchomalacia, hx kidney stones, O2 - USES 3.5 -4 LITERS AT NIGHT, 4L/NC DURING DAY NEEDED. RT CATARACTS History of Any Multi-Drug Resistant Organisms: MRSA Date of last positivie culture/infection: 03/07/19 MDRO Source:: LUNG Past Surgical History: Appendectomy, Heart Catheterization, Orthopedic Surgery Additional Past Surgical History / Comment(s): Bronchoscopies/BALs, R lung bx, R chest port, 1993 cardiac cath-normal, R knee arthroscopy, kidney stone removal, D&C. LT CATARACT X 2 Past Anesthesia/Blood Transfusion Reactions: No Reported Reaction Additional Past Anesthesia/Blood Transfusion Reaction / Comment(s): Pt has received blood in past without reaction. Past Psychological History: Panic Disorder Additional Psychological History / Comment(s): Pt resides with her spouse. She has home oxygen and nebulizer. She is independent. She works in a medical office. Smoking Status: Never smoker Past Alcohol Use History: None Reported Additional Past Alcohol Use History / Comment(s): Patient has been a lifelong nonsmoker, no illicit drug use, no alcohol use. She currently works at [employer] office. Past Drug Use History: None Reported - Past Family History Father Family Medical History: CVA/TIA Additional Family Medical History / Comment(s): Father 09/2017 from a massive CVA. He was 85-year-old. Brother(s) Family Medical History: No Reported History Sister(s) Family Medical History: Neurologic Disorder Daughter(s) Family Medical History: No Reported History Mother Family Medical History: AFIB Additional Family Medical History / Comment(s): Mother has a pacemaker. Medications and Allergies Home Medications Medication Instructions Recorded Confirmed Type Levothyroxine Sodium [Synthroid] 50 mcg PO DAILY 04/16/14 09/16/22 History Fluticasone/Vilanterol [Breo 1 puff INHALATION RT-DAILY 03/08/17 09/16/22 History Ellipta 200-25 Mcg Inhaler] traZODone HCL 50 mg PO HS 06/28/19 09/16/22 History Apixaban [Eliquis] 5 mg PO BID 06/14/21 09/16/22 History Celecoxib [CeleBREX] 200 mg PO BID 06/14/21 09/16/22 History DULoxetine HCL [Cymbalta] 60 mg PO DAILY 06/14/21 09/16/22 History Gabapentin 300 mg PO BID 06/14/21 09/16/22 History Zolpidem [Ambien] 5 mg PO HS 06/14/21 09/16/22 History Cyclobenzaprine [Flexeril] 1 each PO HS 08/26/22 09/16/22 History Raloxifene [Evista] 60 mg PO DAILY 08/26/22 09/16/22 History cycloSPORINE 0.05% OPHTH SOLN 1 applicator BOTH EYES Q12H 08/26/22 09/16/22 History [Restasis] Allergies Allergy/AdvReac Type Severity Reaction Status Date / Time erythromycin base Allergy Intermediate Rash/Hives Verified 09/16/22 07:14 metoclopramide HCl Allergy MUSCLE Verified 09/16/22 07:14 [From Reglan] SPASMS prochlorperazine edisylate Allergy MUSCLE Verified 09/16/22 07:14 [From Compazine] SPASMS/muscle jerking prochlorperazine maleate Allergy MUSCLE Verified 09/16/22 07:14 [From Compazine] SPASMS/muscle jerking Objective - Vital Signs Vital signs: Vital Signs Temp 98.1 F 09/22/23 13:57 Pulse 116 H 09/22/23 13:57 Resp 16 09/22/23 13:57 BP 106/58 09/22/23 13:57 Pulse Ox 97 09/22/23 13:57 FiO2 Intake & Output 09/21/23 09/22/23 09/22/23 18:59 06:59 18:59 Weight 52.163 kg - Constitutional General appearance: Present: cooperative - EENT Eyes: Present: EOMI ENT: Present: hearing grossly normal - Neck Neck: Present: normal ROM - Respiratory Respiratory: bilateral: CTA - Cardiovascular Heart sounds: normal: S1, S2 - Integumentary Integumentary: Present: normal turgor - Musculoskeletal Musculoskeletal: Present: gait normal - Psychiatric Psychiatric: Present: A&O x's 3, appropriate affect, intact judgment & insight - Additional findings Additional findings: Breast Exam: BRA: 34A Inspection: Bilateral grade 1/2 ptosis; port a cath right chest wall Palpation: Right breast: Multi-positional exam no dominant masses or nodules of concern; well-healed scars Right axilla: No adenopathy of concern Left breast: Multiple positional exam fibrocystic changes no dominant masses or nodules of concern; scar left chest wall from prior port at that site Left axilla: No adenopathy of concern Assessment and Plan Assessment: Impression: Microcalcifications of concern right breast mammogram status post stero biopsy on 09-16-22 benign concordant pulmonary fibrosis ? autoimmune frozen right shoulder now mitral valve prolapse arthritis asthma prior pulmonary embolism right breast mammogram 09-20-23 BIRAD 2 Plan: repeat bilateral mammogram in 2024 with appointment at that time CC: Dr. Guadalupe
== END ==
LOC: WWCWWP 13:30
PROVIDERS: ATTEND Surgery
DX: R92.0 Mammographic microcalcification found on diagnostic imaging of breast (principal); N60.11 Diffuse cystic mastopathy of right breast; N60.12 Diffuse cystic mastopathy of left breast; M19.90 Unspecified osteoarthritis, unspecified site; J44.89 Other specified chronic obstructive pulmonary disease; I34.1 Nonrheumatic mitral (valve) prolapse; J84.10 Pulmonary fibrosis, unspecified; E78.5 Hyperlipidemia, unspecified; K21.9 Gastro-esophageal reflux disease without esophagitis; M85.80 Other specified disorders of bone density and structure, unspecified site; E07.9 Disorder of thyroid, unspecified; F41.0 Panic disorder [episodic paroxysmal anxiety]; Z86.711 Personal history of pulmonary embolism; Z87.442 Personal history of urinary calculi; Z80.3 Family history of malignant neoplasm of breast; Z79.890 Hormone replacement therapy; Z79.01 Long term (current) use of anticoagulants; Z86.69 Personal history of other diseases of the nervous system and sense organs; Z87.01 Personal history of pneumonia (recurrent); Z87.39 Personal history of other diseases of the musculoskeletal system and connective tissue; Z86.14 Personal history of Methicillin resistant Staphylococcus aureus infection; Z88.1 Allergy status to other antibiotic agents; Z88.8 Allergy status to other drugs, medicaments and biological substances; Z79.51 Long term (current) use of inhaled steroids; Z90.49 Acquired absence of other specified parts of digestive tract